=== PATIENT | female | born 1940 | race Caucasian/White ===

== ENCOUNTER 2017-05-06 22:43 | Inpatient (IN) | payer OTHER ==
[2017-05-06 22:50] VITALS: BMI 18.6
--- NOTE | 2017-05-06 22:52 | C.PDOC ---
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 as per son , pt was at baseline, "in park" earlier today. pt was changing her clothes, then reported loss of visiion at 830 pm, similar to previous cva. pt also being tx for uti as per son by pmd. no fevers, no c/o of pain. pt and family poor historians. Chief Complaint (Nursing): Weakness/Neurological Deficit Past Medical History Reviewed: Historical Data, Nursing Documentation, Vital Signs Vital Signs: Last Vital Signs Temp 98.4 F 05/07/17 15:04 Pulse 69 05/07/17 15:04 Resp 20 05/07/17 15:04 BP 171/82 H 05/07/17 15:04 Pulse Ox 93 L 05/07/17 15:04 - Medical History PMH: Arthritis, Diabetes, HTN, Hypercholesterolemia Denies: Chronic Kidney Disease Surgical History: Denies: Pacemaker - [facility] Procedures CORONAR ARTERIOGR-2 CATH (06/24/15) LT HEART ANGIOCARDIOGRAM (06/24/15) RT/LEFT HEART CARD CATH (06/24/15) Family History: States: No Known Family Hx, Unknown Family Hx - Social History Hx Tobacco Use: No Hx Alcohol Use: No Hx Substance Use: No - Immunization History Hx Tetanus Toxoid Vaccination: No Hx Influenza Vaccination: No Hx Pneumococcal Vaccination: No Review Of Systems Except As Marked, All Systems Reviewed And Found Negative. Neurological: Positive for: Other (loss of vision, ) Physical Exam - Physical Exam Appears: Well, No Acute Distress Skin: Normal Color, Warm, Dry Eye(s): bilateral: Normal Inspection, PERRL, EOMI Nose: Normal Throat: Normal Neck: Normal Cardiovascular: Rhythm Regular Respiratory: Normal Breath Sounds Gastrointestinal/Abdominal: Normal Exam, Soft, No Tenderness, No Guarding, No Rebound Back: Normal Inspection Extremity: Normal ROM Neurological/Psych: Oriented x3, Normal Speech, Normal Cognition, Normal Motor, Normal Sensation, Other ((+)left sided gaze preference, left facial droop (+) loss of b/l visual vargas) ED Course And Treatment - Laboratory Results Result Diagrams: 05/07/17 07:05 05/07/17 07:05 Critical Care Time - Critical Care Note Total Time (in mins): 45 Documented critical care: time excludes all time spent performing seperately billable procedures. NIHSS Stroke Scale - How Severe is the Stoke Level of Consciousness: 1=Drowsy LOC to Questions: 0=Both comments correct LOC to commands: 0=Obeys both correctly Best Gaze: 2=Forced deviation Visual: 3=Bilateral Facial: 2=Partial (lower face paralysis) Motor Arm - Left: 0=No drift Motor Arm - Right: 0=No drift Motor Leg - Left: 0=No drift Motor Leg - Right: 0=No drift Limb Ataxia: 0=Absent Sensory: 0=Normal Best Language: 0=No aphasia Dysarthia: 0=Normal articulation Extinction & Inattention (Neglect): 0=Normal, no object Score: 8 Severity Of Stroke: 5-15= Moderate Stroke rTPA Inclusion/Exclusion - Refusal of Treatment Patient Refused Treatment: No - Inclusion Criteria for Altepase Patient is 18 years or Older: Yes The Clinical Diagnosis of Ischemic Stroke That is Causing a Potentially Disabling Neurological Deficit: Yes Time of Onset is Well Established to be Less Than 270 Minute Before Treatment Would Begin: Yes Risk/Benefit Discussed With Patient/Family Member Present: Yes - Exclusion Criteria for Altepase History of: Intracranial hemorrhage Medical Decision Making Medical Decision Making: r/o cva- code stroke called on arrival - labs imaging pending 1115: head ct neg. case discussed with dr kelley flight communications operator. recommends stat CTA, for possible urgent thrombectomy. advises to obtain stat, w/o results of chemisttyr. discussed risk benefit wit family and risk of iv contast. family agreeable to stat CTA understanding risk to kidneys 1200: cta neg. suspected small vessel occlusion. pt reports symptoms improving. asa given. hospitaist accepts ekg nsr 93 non specific lateral t wave changes, no interval change Disposition - Disposition Disposition: HOSPITALIZED Disposition Time: 01:00 Condition: FAIR - Clinical Impression Clinical Impression: Blurry vision, UTI (urinary tract infection), Stroke Decision To Admit - Pt Status Changed To: Hospital Disposition Of: Inpatient - Admit Certification Admit to Inpatient:: After my assessment, the patient will require hospitalization for at least two midnights. This is because of the severity of symptoms shown, intensity of services needed, and/or the medical risk in this patient being treated as an outpatient. - InPatient: Physician Admission Certification: I certify that this patient requires 2 or more midnights of care for the following reason:: ro cva, neurology eval, mri, - . Bed Request Type: Telemetry Admitting Physician: Rigo Iraheta Patient Diagnosis: Blurry vision, UTI (urinary tract infection), Stroke
--- NOTE | 2017-05-06 23:04 | CT ---
EXAM: CT Head Without Intravenous Contrast CLINICAL HISTORY: 77 years old, female; Signs and symptoms; Altered mental status/memory loss; Confusion or disorientation; Additional info: Code stroke TECHNIQUE: Axial computed tomography images of the head/brain without intravenous contrast. This CT exam was performed using one or more of the following dose reduction techniques: automated exposure control, adjustment of the mA and/or kV according to patient size, and/or use of iterative reconstruction technique. COMPARISON: CT - HEAD W/O CONTRAST 08/10/2015 4:50:33 PM FINDINGS: Brain: Moderate atrophy. No intracranial hemorrhage. No mass. Mild encephalomalacia within RIGHT occipital parietal region. Few scattered foci of decreased attenuation within periventricular/subcortical white matter. Probable chronic lacunar infarct within RIGHT centrum semiovale. No definite edema. Ventricles: No hydrocephalus. Bones/joints: No acute fracture. Calvarial osteoma. Soft tissues: Unremarkable. Vasculature: Atherosclerotic disease of intracranial arteries. Sinuses: No acute sinusitis. Mastoid air cells: No mastoid effusion. Orbits: Unremarkable as visualized. IMPRESSION: 1. Nonspecific white matter changes. Acute infarction may be CT occult within first 24 hours. If a focal deficit persists, consider followup CT or MRI for further evaluation. 2. Incidental/non-acute findings are described above.
[2017-05-06 23:15] LABS: BASO % 0.2 % (0.0-2.0); EOS % 0.3 % (0.0-4.0); HEMATOCRIT 35.2 % (34.0-47.0); LYMPH # 1.9 K/uL (1.0-4.3); LYMPH % 13.5 % (20.0-40.0); MEAN CELL VOLUME 84.4 fL (81.0-99.0); MEAN CORPUSCULAR HEMOGLOBIN 27.5 pg (27.0-31.0); MEAN CORPUSCULAR HGB CONC 32.6 g/dL (33.0-37.0); MEAN PLATELET VOLUME 8.1 fL (7.2-11.7); MONO # 0.7 K/uL (0.0-0.8); MONO % 4.9 % (0.0-10.0); RED CELL DISTRIBUTION WIDTH 13.1 % (11.5-14.5); WHITE BLOOD COUNT 13.9 K/uL (4.8-10.8)
[2017-05-06] MEDS ORDERED: Iodixanol 320 MG/ML 100 ML BOTTLE IV ONE (23:19)
[2017-05-06 23:24] LABS: POTASSIUM 5.1 mmol/L (3.6-5.2)
[2017-05-06 23:26] LABS: ALB/GLOB RATIO 1.1 (1.0-2.1); BILIRUBIN,TOTAL 0.6 mg/dL (0.2-1.3); TOTAL PROTEIN 7.4 g/dL (6.3-8.3)
[2017-05-06 23:27] LABS: CALCIUM 8.4 mg/dl (8.6-10.4)
[2017-05-06 23:39] LABS: TROPONIN I 0.046 ng/mL (0.00-0.120)
--- NOTE | 2017-05-06 23:46 | CT ---
EXAM: CT Head With Intravenous Contrast CLINICAL HISTORY: 77 years old, female; Signs and symptoms; Visual disturbance; Type not specified; Additional info: Blurry vision TECHNIQUE: Axial computed tomography images of the head with intravenous contrast during the arterial phase of enhancement. This CT exam was performed using one or more of the following dose reduction techniques: automated exposure control, adjustment of the mA and/or kV according to patient size, and/or use of iterative reconstruction technique. Coronal and sagittal reformatted images were created and reviewed. CONTRAST: 100 mL of [id number] administered intravenously. COMPARISON: CT - HEAD W/O (CODE STROKE) 05/06/2017 10:53:06 PM FINDINGS: Right internal carotid artery: Atherosclerotic disease. No significant stenosis or occlusion. No aneurysm. Right anterior cerebral artery: No occlusion or significant stenosis. No aneurysm. Right middle cerebral artery: No occlusion or significant stenosis. No aneurysm. Right posterior cerebral artery: No occlusion or significant stenosis. No aneurysm. Right vertebral artery: Atherosclerotic disease. No significant stenosis or occlusion. No aneurysm. Left internal carotid artery: Atherosclerotic disease. No significant stenosis or occlusion. No aneurysm. Left anterior cerebral artery: No occlusion or significant stenosis. No aneurysm. Left middle cerebral artery: No occlusion or significant stenosis. No aneurysm. Left posterior cerebral artery: No occlusion or significant stenosis. No aneurysm. Left vertebral artery: Atherosclerotic disease. No significant stenosis or occlusion. No aneurysm. Basilar artery: No significant stenosis. No occlusion. Brain: Moderate atrophy. No intracranial hemorrhage. No mass. Mild encephalomalacia within RIGHT parietal occipital region. Few scattered foci of decreased attenuation within periventricular/subcortical white matter. No definite edema. Bones/joints: No acute fracture. Calvarial osteomas. Sinuses: RIGHT maxillary retention cyst. Mastoid air cells: No mastoid effusion. Orbits: Unremarkable as visualized. IMPRESSION: 1. Patent vasculature. 2. Nonspecific white matter changes. Acute infarction may be CT occult within first 24 hours. If a focal deficit persists, consider followup CT or MRI for further evaluation. 3. Incidental/non-acute findings are described above.
[2017-05-06] MEDS ORDERED: Sodium Chloride 0.9% 1,000 ML IV ONE (23:50)
--- NOTE | 2017-05-07 00:07 | CP.PCM.HP ---
<Dev Mcknight - Last Filed: 05/07/17 02:39> History of Present Illness - History of Present Illness History of Present Illness: CC: Vision loss since 8:30pm HPI: This 77 year old female with PMHx of Diabetes, HTN, Hypercholesterolemia, and previous hemorrhagic CVA (no residual deficits) - presents to the ED c/o loss of vision and mild left sided facial droop since 8:30pm today. As per son and granddaughter, patient was at baseline "in the park" earlier today. She was seen conversing, walking, and even reading from an iPAD at her typical baseline. When they arrived home, the patient was changing clothes at 8:30pm, when she began to complain of vision loss, similar to her previous CVA. The patient states that her vision was completely blacked out while at home, and 4 hours later in the ED, she can now tell that the lights are on, however cannot determine shapes or movement. Also admits to mild head weakness. Denies fevers, chills, dizziness, headache, chest pain, SOB, abdominal pain, n/v, d/c, recent travel, leg pain, or any additional complaints. Patient is also being tx for a UTI for the past 2 days, by her PMD, due to burning on urination for the past 2 weeks. ED course: TPA not administered due to prior CVA. Patient received ASA 81mg. CXR negative; CT head w/o contrast negative; CT angio head/neck negative, EKG negative. PMHx: Diabetes, HTN, Hypercholesterolemia, previous hemorrhagic CVA (no residual deficits) PSHx: , bilateral cataract surgery about 6 years ago (Denies: Pacemaker ) Meds: see EMR Allergies: NKDA FamHx: denies SocHx: denies smoking, etoh, drugs. Lives with family PMD: Dr. Velazquez Present on Admission - Present on Admission Any Indicators Present on Admission: No History of DVT/PE: No History of Uncontrolled Diabetes: No Review of Systems - Hematologic/Lymphatic Additional comments: - Constitutional Constitutional: absent: Fever, Chills, Sweats, Weakness - EENT Eyes: Blurred Vision, Change in Vision, Loss of Vision. absent: Spots in Vision Ears: absent: Decreased Hearing, Tinnitus, Dizziness Nose/Mouth/Throat: absent: Facial Pain, Neck Mass - Cardiovascular Cardiovascular: absent: Chest Pain, Dyspnea, Pain Radiating to Arm/Neck/Jaw - Respiratory Respiratory: absent: Cough, Dyspnea - Genitourinary Genitourinary: absent: Dysuria, Urinary Incontinence - Musculoskeletal Musculoskeletal: absent: Back Pain, Muscle Weakness, Numbness, Stiffness, Tingling - Neurological Neurological: Weakness. absent: Dizziness, Numbness, Headaches, Loss of Vision , Sensory Deficit, Syncope, Tingling - Psychiatric Psychiatric: absent: Anxiety, Depression - Endocrine Endocrine: absent: Fatigue, Palpitations Past Patient History - Infectious Disease Hx of Infectious Diseases: None - Tetanus Immunizations Tetanus Immunization: Unknown - Past Medical History & Family History Past Medical History?: Yes - Past Social History Smoking Status: Never Smoked - CARDIAC Hx Hypercholesterolemia: Yes Hx Hypertension: Yes Hx Pacemaker: No - PULMONARY Hx Respiratory Disorders: No - NEUROLOGICAL Other/Comment: Stroke x 1 in 2016 - HEENT Hx Cataracts: Yes - RENAL Hx Chronic Kidney Disease: No - ENDOCRINE/METABOLIC Hx Diabetes Mellitus Type 2: Yes - HEMATOLOGICAL/ONCOLOGICAL Hx Blood Transfusions: No Hx Blood Transfusion Reaction: No - MUSCULOSKELETAL/RHEUMATOLOGICAL Hx Arthritis: Yes - GASTROINTESTINAL Hx Gastrointestinal Disorders: No - PSYCHIATRIC Hx Substance Use: No - SURGICAL HISTORY Hx Surgeries: Yes Hx Cataract Extraction: Yes (Bilat eyes) Hx Section: Yes - ANESTHESIA Hx Anesthesia: Yes Hx Anesthesia Reactions: No Hx Malignant Hyperthermia: No Meds Allergies/Adverse Reactions: Allergies Allergy/AdvReac Type Severity Reaction Status Date / Time No Known Allergies Allergy Verified 05/06/17 22:54 Physical Exam - Additional Findings Additional findings: - Constitutional Appears: Non-toxic, No Acute Distress - Head Exam Head Exam: ATRAUMATIC, NORMAL INSPECTION, NORMOCEPHALIC - Eye Exam Eye Exam: EOMI, Normal appearance, PERRL. absent: Nystagmus, Periorbital swelling, Periorbital tenderness Additional comments: - L sided gaze preference - Patient only able to see that the lights are on - (+) corneal reflex - ENT Exam ENT Exam: Mucous Membranes Moist - Neck Exam Neck exam: Positive for: Normal Inspection. Negative for: Lymphadenopathy, Thyromegaly - Respiratory Exam Respiratory Exam: Clear to PA & Lateral, NORMAL BREATHING PATTERN. absent: Rales, Rhonchi, Wheezes - Cardiovascular Exam Cardiovascular Exam: REGULAR RHYTHM, +S1, +S2. absent: Diastolic murmur, Systolic Murmur - GI/Abdominal Exam GI & Abdominal Exam: Normal Bowel Sounds, Soft. absent: Tenderness - Extremities Exam Extremities exam: Positive for: pedal pulses present. Negative for: pedal edema - Back Exam Back exam: NORMAL INSPECTION - Neurological Exam Neurological exam: Alert, Oriented x3 - patient is not able to see - L sided gaze preference; - mild L facial droop (present with smile, however overcome by more forceful smile bearing teeth) - (+) babinski b/l - No slurring of speech NIHSS Stroke Scale - How Severe is the Stoke Level of Consciousness: 1=Drowsy LOC to Questions: 0=Both comments correct LOC to commands: 0=Obeys both correctly Best Gaze: 2=Forced deviation Visual: 3=Bilateral Facial: 2=Partial (lower face paralysis) Motor Arm - Left: 0=No drift Motor Arm - Right: 0=No drift Motor Leg - Left: 0=No drift Motor Leg - Right: 0=No drift Limb Ataxia: 0=Absent Sensory: 0=Normal Best Language: 0=No aphasia Dysarthia: 0=Normal articulation Extinction & Inattention (Neglect): 0=Normal, no object Score: 8 Severity Of Stroke: 5-15= Moderate Stroke - Psychiatric Exam Psychiatric exam: Normal Affect, Normal Mood - Skin Skin Exam: Dry, Normal Color, Rash (On bilateral legs, present for many years) Results - Vital Signs Recent Vital Signs: Last Vital Signs Temp Pulse 96 H 05/06/17 22:45 Resp 18 05/06/17 22:45 BP 146/121 H 05/06/17 22:45 Pulse Ox 100 05/06/17 22:45 - Labs Result Diagrams: 05/06/17 22:50 05/06/17 22:50 Labs: Laboratory Results - last 24 hr 05/06/17 05/06/17 05/06/17 22:50 22:50 22:50 WBC 13.9 H RBC 4.17 Hgb 11.5 Hct 35.2 MCV 84.4 MCH 27.5 MCHC 32.6 L RDW 13.1 Plt Count 289 D MPV 8.1 Neut % (Auto) 81.1 H Lymph % (Auto) 13.5 L [place] % (Auto) 4.9 Eos % (Auto) 0.3 Baso % (Auto) 0.2 Neut # 11.3 H Lymph # 1.9 [place] # 0.7 Eos # 0.0 Baso # 0.0 PT INR APTT Sodium 137 Potassium 5.1 Chloride 100 Carbon Dioxide 19 L Anion Gap 23 H BUN 29 H Creatinine 1.8 H Est GFR ( Amer) 33 Est GFR (Non-Af Amer) 27 Random Glucose 243 H Hemoglobin A1c 9.2 H Calcium 8.4 L Total Bilirubin 0.6 AST 25 ALT 21 Alkaline Phosphatase 69 Troponin I 0.0460 Total Protein 7.4 Albumin 4.0 Globulin 3.4 Albumin/Globulin Ratio 1.1 Triglycerides 189 H Cholesterol 119 LDL Cholesterol Direct 52 HDL Cholesterol 40 Blood Type 05/06/17 05/06/17 23:34 23:34 WBC RBC Hgb Hct MCV MCH MCHC RDW Plt Count MPV Neut % (Auto) Lymph % (Auto) [place] % (Auto) Eos % (Auto) Baso % (Auto) Neut # Lymph # [place] # Eos # Baso # PT 11.6 INR 1.0 APTT 21 Sodium Potassium Chloride Carbon Dioxide Anion Gap BUN Creatinine Est GFR ( Amer) Est GFR (Non-Af Amer) Random Glucose Hemoglobin A1c Calcium Total Bilirubin AST ALT Alkaline Phosphatase Troponin I Total Protein Albumin Globulin Albumin/Globulin Ratio Triglycerides Cholesterol LDL Cholesterol Direct HDL Cholesterol Blood Type B POSITIVE Assessment & Plan - Assessment and Plan (Free Text) Assessment: Vision loss / Rule out CVA - rule out CVA; No TPA given in ED due to history of brain bleed in 2014 CXR negative, see full report. CT head negative, see full report. CT angio head/neck negative, see full report. EKG nsr 93 non specific lateral t wave changes, no interval change NS 0.9% 1L bolus 1/2NS at 100cc/hr Neuro consult, Dr. Harden, f/u recs Troponin/EKG negative x1 f/u LEELA + EKG x2 f/u ECHO f/u carotid doppler f/u MRI head w/o contrast Consider MRI next day Hx of Posterior cerebral circulation hemorrhagic infarction (2014) - MRI Brain 2015: acute to early subacute hemorrhagic infarction within the right occipital lobe, parasagittal location involving the splenium of the corpus callosum (please see officila report). - CT Head 2015: shows hemorrhagic infarct Right posterior cerebral artery with mass effect (see full report). - Carotid Dopplers 2014 shows mild disease bilaterally (see full report) HTN BP 188/80 on admission Continue home Clonidin 0.3mg PO TID; Losartan 100mg PO qd; Coreg 6.25mg PO BID; Lasix 20mg PO qd Diabetes A1c 9.2 Novolog ISS Hold home Metformin 500mg PO BID and hold Glipizide 5mg PO BID - patient given contrast for CT angio evening of 05/06. Hypercholesterolemia Crestor 2.5mg HS Cholest 119 Triglyc 189 H HDL 40 / LDL 52 UTI - patient is being treated for a UTI by her PMD - UA (+); glucose 2+, Blood 1+, Leuk Est 3+, WBC 53, Hyaline casts 3-5H. Continue home Cipro 500mg PO BID (started 05/05) -> renally dosed to Q18H. Prophylaxis SCDs Pepcid 20mg IVP daily NPO Swallow eval PT/OT eval/treat - Date & Time Date: 05/07/17 Time: 00:20 <Rigo Iraheta - Last Filed: 05/07/17 06:27> Results - Vital Signs Recent Vital Signs: Last Vital Signs Temp 98.6 F 05/07/17 04:20 Pulse 75 05/07/17 05:34 Resp 20 05/07/17 05:34 BP 151/69 H 05/07/17 05:34 Pulse Ox 96 05/07/17 04:20 - Labs Result Diagrams: 05/06/17 22:50 05/06/17 22:50 Assessment & Plan - Date & Time Date: 05/07/17 (I have seen and examined the patient. I agree with the findings and plan of care as documented by Dr. Mcknight. Patient with TIA/CVA. History of prior CVA. Consult to neuro. Code Stroke called in ED. ROMIx3 with EKG. 2D Echo and Carotid dopplers. Admit to tele. Continue home meds for history of hypertension. Monitor for acute changes.) Time: 06:25 Attending/Attestation - Attestation I have personally seen and examined this patient.: Yes I have fully participated in the care of the patient.: Yes I have reviewed all pertinent clinical information: Yes
[2017-05-07 00:38] LABS: RBC URINE 2 /hpf (0-3); URINE BACTERIA RARE (<OCC); URINE BILIRUBIN NEGATIVE (NEGATIVE); URINE BLOOD 1+ (NEGATIVE); URINE COLOR Straw (YELLOW); URINE GLUCOSE (UA) 2+ mg/dL (Normal); URINE KETONE NEGATIVE (NEGATIVE); URINE LEUKOCYTE ESTERASE 3+ Leu/uL (Negative); URINE PROTEIN NEGATIVE (NEGATIVE); URINE UROBILINOGEN NORMAL mg/dL (0.2-1.0); WBC URINE 53 /hpf (0-5)
[2017-05-07] MEDS ORDERED: cefTRIAXone IV 1 gm in Dextros 50 ML IVPB ONE (00:39)
[2017-05-07] MEDS: Sodium Chloride 0.45% 1,000 ML IV SCH ×3 (02:13→21:00)
[2017-05-07 07:38] LABS: POTASSIUM 4.3 mmol/L (3.6-5.2)
[2017-05-07 07:40] LABS: ALB/GLOB RATIO 1.1 (1.0-2.1); BILIRUBIN,TOTAL 0.6 mg/dL (0.2-1.3); TOTAL PROTEIN 6.8 g/dL (6.3-8.3)
[2017-05-07 07:41] LABS: BASO % 0.3 % (0.0-2.0); CALCIUM 8.2 mg/dl (8.6-10.4); EOS # 0.1 K/uL (0.0-0.7); EOS % 0.5 % (0.0-4.0); HEMATOCRIT 32.7 % (34.0-47.0); LYMPH # 1.3 K/uL (1.0-4.3); MEAN CORPUSCULAR HEMOGLOBIN 28.3 pg (27.0-31.0); MEAN CORPUSCULAR HGB CONC 34.1 g/dL (33.0-37.0); MEAN PLATELET VOLUME 8.4 fL (7.2-11.7); MONO # 0.5 K/uL (0.0-0.8); MONO % 5.3 % (0.0-10.0); PHOSPHOROUS 3.4 mg/dL (2.5-4.5); WHITE BLOOD COUNT 9.9 K/uL (4.8-10.8)
[2017-05-07] MEDS: (Novolog) Insulin Aspart, Recombinant 100 u/ml 10 ml vial SC SCH ×4 (07:48→22:28)
[2017-05-07 08:13] LABS: FREE T4 1.46 ng/dL (0.78-2.19)
[2017-05-07 08:27] LABS: THYROID STIMULATING HORMONE 4.3 mIU/L (0.46-4.68)
--- NOTE | 2017-05-07 08:46 | RAD ---
HISTORY: code stroke COMPARISON: No prior. FINDINGS: LUNGS: The lungs are well inflated and clear. PLEURA: No significant pleural effusion identified, no pneumothorax apparent. CARDIOVASCULAR: There is mild cardiomegaly. Atherosclerotic aortic arch calcifications are present. OSSEOUS STRUCTURES: No significant abnormalities. VISUALIZED UPPER ABDOMEN: Normal. OTHER FINDINGS: None. IMPRESSION: No active pulmonary disease.
--- NOTE | 2017-05-07 08:56 | CP.PCM.CON ---
History of Present Illness - History of Present Illness History of Present Illness: CONSULT DICTATED NEW VISION LOSS EXAM RIGHT HOMONYMOUS HEMINANOPSIA - NEW LEFT HOMONYMOUS HEMIANOPSIA - OLD PLAN R/O CARDIO EMBOLIGENISIS PLAVIX AND ASA DIABETIC CONTROL MRI NEEDS RASHAAD D/W RESIDENT AND FAMILY MEMBER MR CATARINO SANCHEZ Past Patient History - Infectious Disease Hx of Infectious Diseases: None - Tetanus Immunizations Tetanus Immunization: Unknown - Past Medical History & Family History Past Medical History?: Yes - Past Social History Smoking Status: Never Smoked - CARDIAC Hx Hypercholesterolemia: Yes Hx Hypertension: Yes Hx Pacemaker: No - PULMONARY Hx Respiratory Disorders: No - NEUROLOGICAL Other/Comment: Stroke x 1 in 2016 - HEENT Hx Cataracts: Yes - RENAL Hx Chronic Kidney Disease: No - ENDOCRINE/METABOLIC Hx Diabetes Mellitus Type 2: Yes - HEMATOLOGICAL/ONCOLOGICAL Hx Blood Transfusions: No Hx Blood Transfusion Reaction: No - MUSCULOSKELETAL/RHEUMATOLOGICAL Hx Arthritis: Yes - GASTROINTESTINAL Hx Gastrointestinal Disorders: No - PSYCHIATRIC Hx Substance Use: No - SURGICAL HISTORY Hx Surgeries: Yes Hx Cataract Extraction: Yes (Bilat eyes) Hx Section: Yes - ANESTHESIA Hx Anesthesia: Yes Hx Anesthesia Reactions: No Hx Malignant Hyperthermia: No Meds Allergies/Adverse Reactions: Allergies Allergy/AdvReac Type Severity Reaction Status Date / Time No Known Allergies Allergy Verified 05/06/17 22:54 - Medications Medications: Current Medications Aspirin (Aspirin Chewable) 81 mg PO DAILY [facility] Calcium/Vitamin D (Oyster Shell Calcium/Vitamin D 500 Mg-200 Iu) 1 tab PO BID [facility] Carvedilol (Coreg) 6.25 mg PO BID [facility] Ciprofloxacin (Cipro) 500 mg PO BID [facility] Clonidine HCl (Catapres) 0.3 mg PO TID [facility] Clopidogrel Bisulfate (Plavix) 75 mg PO DAILY [facility] Famotidine (Pepcid) 20 mg IVP DAILY [facility] Folic Acid (Folic Acid) 1 mg PO DAILY [facility] Furosemide (Lasix) 20 mg PO DAILY [facility] Sodium Chloride (Sodium Chloride 0.45%) 1,000 mls @ 100 mls/hr IV .Q10H [facility] Last Admin: 05/07/17 02:13 Dose: 100 mls/hr Insulin Aspart (Novolog) 0 unit SC ACHS [facility] PRN Reason: Protocol Last Admin: 05/07/17 07:48 Dose: Not Given Losartan Potassium (Cozaar) 100 mg PO DAILY [facility] Rosuvastatin Calcium (Crestor) 2.5 mg PO HS [facility] Results - Vital Signs Recent Vital Signs: Last Vital Signs Temp 97.8 F 05/07/17 07:30 Pulse 72 05/07/17 07:30 Resp 18 05/07/17 07:30 BP 170/83 H 05/07/17 07:30 Pulse Ox 100 05/07/17 07:30 - Labs Result Diagrams: 05/07/17 07:05 05/07/17 07:05 Labs: Laboratory Results - last 24 hr 05/07/17 05/07/17 05/07/17 06:29 07:05 07:05 WBC 9.9 RBC 3.94 Hgb 11.2 Hct 32.7 L MCV 83.0 MCH 28.3 MCHC 34.1 RDW 13.0 Plt Count 271 MPV 8.4 Neut % (Auto) 80.9 H Lymph % (Auto) 13.0 L [place] % (Auto) 5.3 Eos % (Auto) 0.5 Baso % (Auto) 0.3 Neut # 8.0 H Lymph # 1.3 [place] # 0.5 Eos # 0.1 Baso # 0.0 Sodium 138 Potassium 4.3 Chloride 98 Carbon Dioxide 23 Anion Gap 21 H BUN 23 H Creatinine 1.5 H Est GFR ( Amer) 41 Est GFR (Non-Af Amer) 34 POC Glucose (mg/dL) 200 H Random Glucose 194 H Calcium 8.2 L Phosphorus 3.4 Magnesium 1.0 L* D Total Bilirubin 0.6 AST 23 ALT 23 Alkaline Phosphatase 76 Total Creatine Kinase 76 CK-MB (Mass) 1.77 Troponin I, Quant 0.0500 C-React Prot High Sens Total Protein 6.8 Albumin 3.6 Globulin 3.2 Albumin/Globulin Ratio 1.1 Triglycerides Cholesterol LDL Cholesterol Direct HDL Cholesterol Vitamin B12 Homocysteine Free T4 TSH 3rd Generation 05/07/17 05/07/17 07:05 07:05 WBC RBC Hgb Hct MCV MCH MCHC RDW Plt Count MPV Neut % (Auto) Lymph % (Auto) [place] % (Auto) Eos % (Auto) Baso % (Auto) Neut # Lymph # [place] # Eos # Baso # Sodium Potassium Chloride Carbon Dioxide Anion Gap BUN Creatinine Est GFR ( Amer) Est GFR (Non-Af Amer) POC Glucose (mg/dL) Random Glucose Calcium Phosphorus Magnesium Total Bilirubin AST ALT Alkaline Phosphatase Total Creatine Kinase CK-MB (Mass) Troponin I, Quant C-React Prot High Sens 5.57 H Total Protein Albumin Globulin Albumin/Globulin Ratio Triglycerides 161 H Cholesterol 108 LDL Cholesterol Direct 51 HDL Cholesterol 41 Vitamin B12 169 L Homocysteine 22.0 H Free T4 1.46 TSH 3rd Generation 4.30
[2017-05-07 09:06] LABS: FOLATE 10.7 ng/mL
[2017-05-07] MEDS: Magnesium Sulfate 1 gm in D5W 1 GM/100 ML BAG IVPB SCH ×2 (10:18→10:50)
[2017-05-07] MEDS: Calcium-Vit D 500 mg-200 Units Tab UD PO SCH ×3 (10:42→18:22)
--- NOTE | 2017-05-07 13:03 | CP.PCM.CON ---
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 As per son and granddaughter, patient was at baseline "in the park" earlier today. She was seen conversing, walking, and even reading from an iPAD at her typical baseline. When they arrived home, the patient was changing clothes at 8:30pm, when she began to complain of vision loss, similar to her previous CVA. The patient states that her vision was completely blacked out while at home, and 4 hours later in the ED, she can now tell that the lights are on, however cannot determine shapes or movement. Also admits to mild head weakness. Denies fevers, chills, dizziness, headache, chest pain, SOB, abdominal pain, n/v, d/c, recent travel, leg pain, or any additional complaints. Patient is also being tx for a UTI for the past 2 days, by her PMD, due to burning on urination for the past 2 weeks. ED course: TPA not administered due to prior CVA. Patient received ASA 81mg. CXR negative; CT head w/o contrast negative; CT angio head/neck negative, EKG negative. 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 Lives with family Review of Systems - Review of Systems Systems not reviewed;Unavailable: Acuity of Condition, Altered Mental Status Past Patient History - Infectious Disease Hx of Infectious Diseases: None - Tetanus Immunizations Tetanus Immunization: Unknown - Past Medical History & Family History Past Medical History?: Yes Past Family History: Reviewed and not pertinent - Past Social History Smoking Status: Never Smoked Chewing Tobacco Use: No Cigar Use: No Alcohol: None Drugs: Denies Home Situation {Lives}: With Family - CARDIAC Hx Hypercholesterolemia: Yes Hx Hypertension: Yes - PULMONARY Hx Respiratory Disorders: No - NEUROLOGICAL HX Cerebrovascular Accident: Yes (no residuals) - HEENT Hx Cataracts: Yes - RENAL Hx Chronic Kidney Disease: No - ENDOCRINE/METABOLIC Hx Diabetes Mellitus Type 2: Yes - HEMATOLOGICAL/ONCOLOGICAL Hx Blood Transfusions: No Hx Blood Transfusion Reaction: No - MUSCULOSKELETAL/RHEUMATOLOGICAL Hx Arthritis: Yes - GASTROINTESTINAL Hx Gastrointestinal Disorders: No - PSYCHIATRIC Hx Substance Use: No - SURGICAL HISTORY Hx Surgeries: Yes Hx Cataract Extraction: Yes (Bilat eyes) Hx Section: Yes - ANESTHESIA Hx Anesthesia: Yes Hx Anesthesia Reactions: No Hx Malignant Hyperthermia: No Meds Allergies/Adverse Reactions: Allergies Allergy/AdvReac Type Severity Reaction Status Date / Time No Known Allergies Allergy Verified 05/06/17 22:54 - Medications Medications: Current Medications Aspirin (Aspirin Chewable) 81 mg PO DAILY [facility] Last Admin: 05/07/17 11:46 Dose: 81 mg Calcium/Vitamin D (Oyster Shell Calcium/Vitamin D 500 Mg-200 Iu) 1 tab PO BID [facility] Last Admin: 05/07/17 11:46 Dose: 1 tab Carvedilol (Coreg) 6.25 mg PO BID [facility] Last Admin: 05/07/17 11:47 Dose: 6.25 mg Ciprofloxacin (Cipro) 500 mg PO BID [facility] Last Admin: 05/07/17 11:46 Dose: 500 mg Clonidine HCl (Catapres) 0.3 mg PO TID [facility] Clopidogrel Bisulfate (Plavix) 75 mg PO DAILY [facility] Last Admin: 05/07/17 11:46 Dose: 75 mg Famotidine (Pepcid) 20 mg IVP DAILY [facility] Last Admin: 05/07/17 11:47 Dose: 20 mg Folic Acid (Folic Acid) 1 mg PO DAILY [facility] Last Admin: 05/07/17 11:47 Dose: 1 mg Furosemide (Lasix) 20 mg PO DAILY [facility] Sodium Chloride (Sodium Chloride 0.45%) 1,000 mls @ 100 mls/hr IV .Q10H [facility] Last Admin: 05/07/17 11:45 Dose: Not Given Insulin Aspart (Novolog) 0 unit SC ACHS [facility] PRN Reason: Protocol Last Admin: 05/07/17 12:49 Dose: 3 unit Losartan Potassium (Cozaar) 100 mg PO DAILY [facility] Last Admin: 05/07/17 11:46 Dose: 100 mg Pneumococcal Polyvalent Vaccine (Pneumovax 23 Vaccine) 0.5 ml IM .ONCE ONE Stop: 05/08/17 10:01 Rosuvastatin Calcium (Crestor) 2.5 mg PO HS [facility] Physical Exam - Constitutional Appears: No Acute Distress, Chronically Ill - Head Exam Head Exam: ATRAUMATIC, NORMAL INSPECTION - Eye Exam Eye Exam: EOMI, Normal appearance - ENT Exam ENT Exam: Mucous Membranes Moist, Normal Exam - Neck Exam Neck exam: Positive for: Normal Inspection. Negative for: Tenderness - Respiratory Exam Respiratory Exam: Clear to Auscultation Bilateral, NORMAL BREATHING PATTERN - Cardiovascular Exam Cardiovascular Exam: REGULAR RHYTHM, +S1 - GI/Abdominal Exam GI & Abdominal Exam: Soft. absent: Tenderness - Extremities Exam Extremities exam: Positive for: normal inspection. Negative for: tenderness - Neurological Exam Neurological exam: Altered, Motor Sensory Deficit - Skin Skin Exam: Dry, Warm Results - Vital Signs Recent Vital Signs: Last Vital Signs Temp 97.8 F 05/07/17 07:30 Pulse 72 05/07/17 07:30 Resp 18 05/07/17 07:30 BP 170/83 H 05/07/17 07:30 Pulse Ox 100 05/07/17 07:30 - Labs Result Diagrams: 05/07/17 07:05 05/07/17 07:05 Labs: Laboratory Results - last 24 hr 05/07/17 05/07/17 05/07/17 06:29 07:05 07:05 WBC 9.9 RBC 3.94 Hgb 11.2 Hct 32.7 L MCV 83.0 MCH 28.3 MCHC 34.1 RDW 13.0 Plt Count 271 MPV 8.4 Neut % (Auto) 80.9 H Lymph % (Auto) 13.0 L [place] % (Auto) 5.3 Eos % (Auto) 0.5 Baso % (Auto) 0.3 Neut # 8.0 H Lymph # 1.3 [place] # 0.5 Eos # 0.1 Baso # 0.0 ESR Sodium 138 Potassium 4.3 Chloride 98 Carbon Dioxide 23 Anion Gap 21 H BUN 23 H Creatinine 1.5 H Est GFR ( Amer) 41 Est GFR (Non-Af Amer) 34 POC Glucose (mg/dL) 200 H Random Glucose 194 H Calcium 8.2 L Phosphorus 3.4 Magnesium 1.0 L* D Total Bilirubin 0.6 AST 23 ALT 23 Alkaline Phosphatase 76 Total Creatine Kinase 76 CK-MB (Mass) 1.77 Troponin I, Quant 0.0500 C-React Prot High Sens Total Protein 6.8 Albumin 3.6 Globulin 3.2 Albumin/Globulin Ratio 1.1 Triglycerides Cholesterol LDL Cholesterol Direct HDL Cholesterol Vitamin B12 Folate Homocysteine Free T4 TSH 3rd Generation 05/07/17 05/07/17 05/07/17 07:05 07:05 07:05 WBC RBC Hgb Hct MCV MCH MCHC RDW Plt Count MPV Neut % (Auto) Lymph % (Auto) [place] % (Auto) Eos % (Auto) Baso % (Auto) Neut # Lymph # [place] # Eos # Baso # ESR 54 H Sodium Potassium Chloride Carbon Dioxide Anion Gap BUN Creatinine Est GFR ( Amer) Est GFR (Non-Af Amer) POC Glucose (mg/dL) Random Glucose Calcium Phosphorus Magnesium Total Bilirubin AST ALT Alkaline Phosphatase Total Creatine Kinase CK-MB (Mass) Troponin I, Quant C-React Prot High Sens 5.57 H Total Protein Albumin Globulin Albumin/Globulin Ratio Triglycerides 161 H Cholesterol 108 LDL Cholesterol Direct 51 HDL Cholesterol 41 Vitamin B12 169 L Folate 10.7 Homocysteine 22.0 H Free T4 1.46 TSH 3rd Generation 4.30 05/07/17 12:21 WBC RBC Hgb Hct MCV MCH MCHC RDW Plt Count MPV Neut % (Auto) Lymph % (Auto) [place] % (Auto) Eos % (Auto) Baso % (Auto) Neut # Lymph # [place] # Eos # Baso # ESR Sodium Potassium Chloride Carbon Dioxide Anion Gap BUN Creatinine Est GFR ( Amer) Est GFR (Non-Af Amer) POC Glucose (mg/dL) 259 H Random Glucose Calcium Phosphorus Magnesium Total Bilirubin AST ALT Alkaline Phosphatase Total Creatine Kinase CK-MB (Mass) Troponin I, Quant C-React Prot High Sens Total Protein Albumin Globulin Albumin/Globulin Ratio Triglycerides Cholesterol LDL Cholesterol Direct HDL Cholesterol Vitamin B12 Folate Homocysteine Free T4 TSH 3rd Generation Assessment & Plan (1) CKD (chronic kidney disease) stage 3, GFR 30-59 ml/min Status: Acute (2) UTI (urinary tract infection) Status: Acute (3) Diabetes mellitus Status: Acute (4) Hypertension Status: Acute (5) Posterior cerebral circulation hemorrhagic infarction Status: Acute - Assessment and Plan (Free Text) Plan: Replete mag- being done Recheck proteinuria Control BP gently- being done Renal US follow up chemistries
--- NOTE | 2017-05-07 13:06 | MRI ---
PROCEDURE: MRI BRAIN WITHOUT CONTRAST HISTORY: Recent stroke COMPARISON: Noncontrast head CT from 05/06/2017. TECHNIQUE: Multiplanar, multisequence MR images of the brain were obtained without intravenous contrast enhancement. FINDINGS: HEMORRHAGE: None DWI: There is a large acute infarction in the left occipital lobe, left posterior medial temporal lobe and left thalamus. BRAIN PARENCHYMA: There is increased T2/FLAIR signal in the left occipital lobe, posterior medial temporal lobe and thalamus with surrounding vasogenic edema. There is no evidence of midline shift or herniation. There is cystic encephalomalacia in the right occipital lobe from remote infarction. There is an old lacunar infarction in the right centrum semiovale. There are mild chronic microangiopathic changes. There is no abnormal extra-axial fluid collection. The midline sagittal structures are normal. VENTRICLES: There is moderate age-related global parenchymal volume loss and proportionate enlargement of the ventricles and cortical sulci. CRANIUM: There is normal bone marrow signal pattern. ORBITS: Grossly unremarkable. PARANASAL SINUSES/MASTOIDS: There is a retention cyst/ polyp in the right inferior maxillary sinus, the remaining included paranasal sinuses are predominantly clear VASCULAR SYSTEM: Skull base flow voids intact. OTHER FINDINGS: None. IMPRESSION: 1. Large acute left [employer] territory infarction involving the occipital lobe, medial and posterior temporal lobe and thalamus with mild surrounding vasogenic edema. No evidence of midline shift or herniation. 2. Cystic encephalomalacia in the right occipital lobe, sequela of remote right [employer] territory infarction. 3. Mild chronic microangiopathic changes, small old lacunar infarction in the right centrum semiovale and moderate age-related global parenchymal volume loss. Critical findings were conveyed to nurse Tuyet Arias on 05/07/2017 at 12:55 p.m.
--- NOTE | 2017-05-07 15:52 | US ---
PROCEDURE: Ultrasound of the Kidneys HISTORY: ckd eval COMPARISON: None available. TECHNIQUE: Sonogram of the kidneys. FINDINGS: RIGHT KIDNEY: Measures: 8.1 cm. Small in size with diffuse increased echogenicity. There is a 6 mm nonspecific calcification in the interpolar region. No stone, solid mass lesion or hydronephrosis visualized. LEFT KIDNEY: Measures: 8.7 cm. Normal in size with diffuse increased echogenicity. There is a 1.3 cm simple cyst in the interpolar region. No stone, solid mass lesion or hydronephrosis visualized. OTHER FINDINGS: None. IMPRESSION: Medical renal disease. Small right kidney. No hydronephrosis or nephrolithiasis.
--- NOTE | 2017-05-07 17:38 | CP.PCM.PN ---
<Cali Villarreal - Last Filed: 05/07/17 19:23> Subjective - Date & Time of Evaluation Date of Evaluation: 05/07/17 Time of Evaluation: 18:00 - Subjective Subjective: PGY-[address] hCacko's service: Pt seen and examined at bedside. Nursing reports pt hypertensive since coming to the floor, so home Clonidine was restarted. Pt for MRI this AM. Pt found supine in bed with her two sons at bedside. Pt states "she does not feel good" and she "feels all tired out all over." She admits continued decreased viosion knowing if the lights are on/off and when asked states she sees "only shadows" at her sides bilaterally. Son at bedside reports prior CVA in 2016 where the presentation was similar to now, with the loss of vision, but vision was restored within 4 hours. She denies chest pain, palpitations, headache, abdominal pain, N/V. Objective - Vital Signs/Intake and Output Vital Signs (last 24 hours): Temp Pulse Resp BP Pulse Ox 98.4 F 69 20 171/82 H 93 L 05/07/17 15:04 05/07/17 15:04 05/07/17 15:04 05/07/17 15:04 05/07/17 15:04 Intake and Output: 05/07/17 05/07/17 06:59 18:59 Intake Total 1040 Output Total 200 Balance -200 1040 - Medications Medications: Current Medications Aspirin (Aspirin Chewable) 81 mg PO DAILY [facility] Last Admin: 05/07/17 11:46 Dose: 81 mg Calcium/Vitamin D (Oyster Shell Calcium/Vitamin D 500 Mg-200 Iu) 1 tab PO BID [facility] Last Admin: 05/07/17 11:46 Dose: 1 tab Carvedilol (Coreg) 6.25 mg PO BID [facility] Last Admin: 05/07/17 11:47 Dose: 6.25 mg Ciprofloxacin (Cipro) 500 mg PO BID [facility] Last Admin: 05/07/17 11:46 Dose: 500 mg Clonidine HCl (Catapres) 0.3 mg PO TID [facility] Last Admin: 05/07/17 13:59 Dose: 0.3 mg Clopidogrel Bisulfate (Plavix) 75 mg PO DAILY [facility] Last Admin: 05/07/17 11:46 Dose: 75 mg Famotidine (Pepcid) 20 mg IVP DAILY [facility] Last Admin: 05/07/17 11:47 Dose: 20 mg Folic Acid (Folic Acid) 1 mg PO DAILY [facility] Last Admin: 05/07/17 11:47 Dose: 1 mg Furosemide (Lasix) 20 mg PO DAILY [facility] Home Med (Home Med) 1 unit OU TID [facility] Home Med (Home Med) 1 unit OU HS [facility] Sodium Chloride (Sodium Chloride 0.45%) 1,000 mls @ 100 mls/hr IV .Q10H [facility] Last Admin: 05/07/17 11:45 Dose: Not Given Insulin Aspart (Novolog) 0 unit SC ACHS [facility] PRN Reason: Protocol Last Admin: 05/07/17 12:49 Dose: 3 unit Losartan Potassium (Cozaar) 100 mg PO DAILY [facility] Last Admin: 05/07/17 11:46 Dose: 100 mg Pneumococcal Polyvalent Vaccine (Pneumovax 23 Vaccine) 0.5 ml IM .ONCE ONE Stop: 05/08/17 10:01 Rosuvastatin Calcium (Crestor) 2.5 mg PO [facility] - Labs Labs: 05/07/17 07:05 05/07/17 07:05 PT 11.6 SECONDS (9.7-12.2) 05/06/17 23:34 INR 1.0 05/06/17 23:34 APTT 21 SECONDS (21-34) 05/06/17 23:34 - Constitutional Appears: Non-toxic, No Acute Distress - Head Exam Head Exam: ATRAUMATIC, NORMAL INSPECTION, NORMOCEPHALIC - Eye Exam Eye Exam: EOMI, Normal appearance, PERRL. absent: Scleral icterus Additional comments: Pt maintains L sided gaze preference documented on earlier exam Patient denied knowing if light in room are turned on, however "flinch response " intact when - ENT Exam ENT Exam: Mucous Membranes Moist - Neck Exam Neck Exam: absent: Lymphadenopathy, Tenderness - Respiratory Exam Respiratory Exam: Clear to Ausculation Bilateral, NORMAL BREATHING PATTERN - Cardiovascular Exam Cardiovascular Exam: REGULAR RHYTHM, +S1, +S2 - GI/Abdominal Exam GI & Abdominal Exam: Soft, Normal Bowel Sounds. absent: Tenderness - Extremities Exam Extremities Exam: absent: Pedal Edema, Tenderness - Back Exam Back Exam: absent: CVA tenderness (L), CVA tenderness (R) - Neurological Exam Neurological Exam: Alert, Awake, Oriented x3 Neuro motor strength exam: Left Upper Extremity: 3, Right Upper Extremity: 3, Left Lower Extremity: 4, Right Lower Extremity: 4 Additional comments: Pt admits only seeing shadows in periphery of her vision Lt sided gaze preference intact subtle left facial droop, no slurring of speech negative babinski Light touch in tact globally in both Upper and lower extremities - Psychiatric Exam Psychiatric exam: Normal Affect, Normal Mood - Skin Skin Exam: Normal Color, Warm Assessment and Plan - Assessment and Plan (Free Text) Plan: CVA No TPA given in ED due to history of hemorrhagic stroke in 2014 CXR (05/07/17): no active pulmonary disease (see full report) CT head negative (05/07/17): Nonspecific white matter changes. Acute infartion may be occult wihin 24hrs. If deficit persists, consider follow up CT/MRI (see full report) CT angio head/neck (05/07/17): Patent vasculataure. Nonspecific white matter changes. Acute infarctoin may be occult within first 24 hrs. If deficit persists , consider CT/MRI for further evaluation (see resident) MRI head w/o contrast (05/07/17): Large acute left [employer] territory infarction involving occipital lobe, medial, and posterior temporal lobe and thalamus with mild surrounding vasogenic edema. No evidence of midline shift or herniation. Cystic encephalmalacia in right occiptial lobe, sequela of remote [employer] territory infarction. Mild chronic microangiopathic changes, small old lacunar infarction in the right centrum semiovale and moderate age related global parenchymal volume loss (see full report) EKG (05/07/17): nsr 93 non specific lateral t wave changes, no interval change NS 0.9% 1L bolus 1/2NS at 100cc/hr Neuro consult, Dr. Harden - Keep SBP between 140-160 (MAP 100) Hydralazine Q6H if SBP >160 Troponin/EKG negative x3 Carotid doppler (05/07/17): mild disease bilaterally Dr Tse consulted for cardiology, help appreciated - per Dr Tse, after ECHO read will plan RASHAAD Hx of Posterior cerebral circulation hemorrhagic infarction (2014) - MRI Brain 2014: acute to early subacute hemorrhagic infarction within the right occipital lobe, parasagittal location involving the splenium of the corpus callosum (please see officila report). - CT Head 2014: shows hemorrhagic infarct Right posterior cerebral artery with mass effect (see full report). - Carotid Dopplers 2014 shows mild disease bilaterally (see full report) Acute Kidney injury Cr 1.8 on admission, GFR 27 Dr Caab, nephrology, consulted - f/u Renal US, proteinuria Acute vision loss Hx of cataracts - uses [place] 0.01%, and [place] 0.1% Opthalmologist: Dr. Rodriguez, help appreciated -f/u Optho reccs HTN BP 188/80 on admission; elevated this PM - per Neuro Dr Harden, keep SBP 140-160 Hydralazine 10mg IV Q6H PRN if SBP > 160 Continue home Clonidine 0.3mg PO TID; Losartan 100mg PO qd; Coreg 6.25mg PO BID ; Lasix 20mg PO qd Diabetes A1c 9.2 Novolog ISS Hold home Metformin 500mg PO BID and hold Glipizide 5mg PO BID - patient given contrast for CT angio evening of 05/06. Hypercholesterolemia HDL 40 / LDL 52 Crestor 2.5mg HS Cholest 119 Triglyc 189 H UTI - patient is being treated for a UTI by her PMD - UA (+); glucose 2+, Blood 1+, Leuk Est 3+, WBC 53, Hyaline casts 3-5H. Continue home Cipro 500mg PO BID (started 05/05) -> renally dosed to Q18H. Prophylaxis SCDs Pepcid 20mg IVP daily Mechanical soft bite-sized diet, thin liquid (vegetarian) PT - benefit from skilled PT to improve transfers/mobility OT - recommend TCU Discussed with Dr. Ricco Villarreal PGY-1 <Vandana Chacko V - Last Filed: 05/10/17 12:55> Objective - Vital Signs/Intake and Output Vital Signs (last 24 hours): Temp Pulse Resp BP Pulse Ox 98.5 F 130 H 18 143/64 20 L 05/10/17 11:58 05/10/17 11:58 05/10/17 07:05 05/10/17 11:58 05/10/17 07:05 Intake and Output: 05/10/17 05/10/17 06:59 18:59 Intake Total 300 Balance 300 - Medications Medications: Current Medications Apixaban (Eliquis) 2.5 mg PO BID [facility] Last Admin: 05/10/17 10:50 Dose: 2.5 mg Aspirin (Aspirin Chewable) 81 mg PO DAILY [facility] Last Admin: 05/10/17 10:48 Dose: 81 mg Calcium/Vitamin D (Oyster Shell Calcium/Vitamin D 500 Mg-200 Iu) 1 tab PO BID [facility] Last Admin: 05/10/17 10:48 Dose: 1 tab Carvedilol (Coreg) 12.5 mg PO BID [facility] Last Admin: 05/10/17 09:56 Dose: Not Given Citalopram Hydrobromide (Celexa) 10 mg PO DAILY [facility] Last Admin: 05/10/17 10:50 Dose: 10 mg Clonidine HCl (Catapres) 0.3 mg PO TID [facility] Last Admin: 05/08/17 11:18 Dose: 0.3 mg Diltiazem HCl (Cardizem) 30 mg PO Q6 [facility] Last Admin: 05/10/17 11:51 Dose: 30 mg Docusate Sodium (Colace) 100 mg PO BID [facility] Last Admin: 05/10/17 10:48 Dose: 100 mg Famotidine (Pepcid) 20 mg IVP DAILY [facility] Last Admin: 05/10/17 10:49 Dose: 20 mg Folic Acid (Folic Acid) 1 mg PO DAILY [facility] Last Admin: 05/10/17 10:48 Dose: 1 mg Furosemide (Lasix) 20 mg PO DAILY [facility] Home Med (Home Med) 1 unit OU TID [facility] Last Admin: 05/10/17 10:47 Dose: 1 unit Home Med (Home Med) 1 unit OU HS [facility] Last Admin: 05/09/17 23:02 Dose: 1 unit Hydralazine HCl (Apresoline) 10 mg IVP Q6H PRN PRN Reason: Systolic Blood Pressure Last Admin: 05/10/17 06:17 Dose: 10 mg Sodium Chloride (Sodium Chloride 0.45%) 1,000 mls @ 50 mls/hr IV .Q20H [facility] Last Admin: 05/10/17 09:55 Dose: Not Given Ceftriaxone Sodium 1 gm/ (Sodium Chloride) 100 mls @ 100 mls/hr IVPB DAILY [facility] Last Admin: 05/10/17 10:47 Dose: 100 mls/hr Insulin Aspart (Novolog) 0 unit SC ACHS [facility] PRN Reason: Protocol Last Admin: 05/10/17 11:35 Dose: Not Given Losartan Potassium (Cozaar) 100 mg PO DAILY [facility] Last Admin: 05/10/17 11:00 Dose: 100 mg Magnesium Oxide (Mag-Ox) 400 mg PO BID [facility] Last Admin: 05/10/17 10:48 Dose: 400 mg Metformin HCl (Glucophage) 500 mg PO BIDCC [facility] Last Admin: 05/10/17 08:38 Dose: Not Given Ondansetron HCl (Zofran Inj) 4 mg IVP Q6H PRN PRN Reason: Nausea/Vomiting Last Admin: 05/10/17 11:50 Dose: 4 mg Rosuvastatin Calcium (Crestor) 2.5 mg PO HS [facility] Last Admin: 05/09/17 23:01 Dose: 2.5 mg Simethicone (Mylicon Chew Tab) 80 mg PO Q8H PRN PRN Reason: GI distress Last Admin: 05/10/17 05:32 Dose: 80 mg - Labs Labs: 05/10/17 06:36 05/10/17 06:36 PT 11.6 SECONDS (9.7-12.2) 05/06/17 23:34 INR 1.0 05/06/17 23:34 APTT 21 SECONDS (21-34) 05/06/17 23:34 Attending/Attestation - Attestation I have personally seen and examined this patient.: Yes I have fully participated in the care of the patient.: Yes I have reviewed all pertinent clinical information, including history, physical exam and plan: Yes Notes (Text): This is late computer entry for 05/07/17. Patient seen, examined, and case discussed with day-time resident. Patient seen in the afternoon with patient's son at bedside for assistance in translation. Patient permits us to speak to her son regarding her medical information. Swallow j carlosdot completed this morning. Discussed with son, patient completed imaging this morning, patient has had new stroke involving the [employer] territory which includes occipital, medial, and posterior temporal lobe, and thalamus Discussed with opthalamologist, Dr. Rodriguez this morning, prior to the results of the imaging which came later given patient's eye complaints. Patient completed echocardiogram, awaiting follow-up with pinion sorter to see when to schedule patient for RASHAAD, recommended by neurology. Patient ordered for hypercoagubaility workup given second stroke in two years. Nephrology consult given patient's acute on chronic renal insufficiency. GFR normal two years ago per review of EMR. Discussed with son regarding future discharge planning regarding [facility], he reports he needs to discuss with family. Awaiting urine culture; patient on Ciprofloxicin PO per PMD prior to hospitalization for UTI symptoms.
[2017-05-07 18:10] LABS: RBC URINE 1 /hpf (0-3); URINE BACTERIA OCC (<OCC); URINE BILIRUBIN NEGATIVE (NEGATIVE); URINE COLOR Straw (YELLOW); URINE GLUCOSE (UA) 1+ mg/dL (Normal); URINE KETONE NEGATIVE (NEGATIVE); URINE LEUKOCYTE ESTERASE 1+ Leu/uL (Negative); URINE PROTEIN NEGATIVE (NEGATIVE); URINE UROBILINOGEN NORMAL mg/dL (0.2-1.0); WBC URINE 6 /hpf (0-5)
[2017-05-07 18:12] LABS: URINE BLOOD NEGATIVE (NEGATIVE)
[2017-05-07] MEDS ORDERED: Home Med 1 UNIT OU SCH (22:00)
[2017-05-07] MEDS: Rosuvastatin Calcium 2.5 mg Tab PO SCH (22:27)
[2017-05-07] MEDS: ALPHAGAN 0.1% OU SCH (22:27)
--- NOTE | 2017-05-07 22:35 | CON ---
ATTENDING PHYSICIAN: Rigo Iraheta DO The patient is in room #658, bed B. REASON FOR THE CONSULTATION: Vision loss. CHIEF COMPLAINT: The patient was brought into [facility] with history of abrupt onset of loss of vision. From neurological point of view, I was called into evaluate her for further management. HISTORY OF PRESENTING ILLNESS: The patient is a 77-year-old right-handed, non-Citizen Of [place] speaking [place] female, who was normal, yesterday evening went to the park with the family members, after coming home, while she was playing the iPad she lost her vision. This vision associating with some evidence of dizziness. Other problem such as loss of speech, loss of consciousness, any involuntary movement or focal, sensory motor dysfunction. 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 Other medical history including dyslipidemia, [id number] diabetes mellitus and hypertension. PERSONAL HISTORY: Denies smoking, alcohol use. ALLERGIES: No known allergies. MEDICATIONS: Aspirin, clonidine, Cipro, carvedilol, Losartan, rosuvastatin. Lasix, insulin, calcium, Pepcid. PHYSICAL EXAMINATION VITAL SIGNS: Blood pressure 170/83, mean arterial pressure of 112, respiratory rate 16, temperature afebrile. NECK: Supple. HEART: Systolic murmur in the heart noted. Rhythm is good. EXTREMITIES: Both legs are externally rotated. NEUROLOGICAL EXAMINATION: Mental status examination: She is examined in the presence of an still photographer. She is awake, alert, oriented to person and place. She knows her complaints and problems. She could able to explain the problem what happened her. CRANIAL NERVE EXAMINATION: Respond to visual threat. She has significant cortical blindness. Pupil reactive to light. Extraocular movements seems to be intact. Visual cue not there; however, respond to look at the person when we talk. No facial asymmetry. Hearing seems to be intact. Mouth is moist. Tongue is midline. MOTOR EXAMINATION: She could able to lift both upper extremities against the gravity. DEEP TENDON REFLEXES: Absent, plantars are upgoing on both sides. SENSORY EXAMINATION: Respond to pain symmetrically on both sides; however, she does have neuropathy secondary to her underlying diabetes mellitus. CONCLUSION: Upon reviewing her recent neurological examination, the patient is presenting with the abrupt onset of some disease well associating with the visual loss, consistent with cortical dysfunction, particularly the occipital lobe region. History of stroke on CT finding consistent with old right MARKETING OPERATIONS SPECIALIST stroke probably manifesting with left homonymous anopsia, which the patient was not aware of it. At present, the patient presenting with complete blindness, which it may be superimposed with left MARKETING OPERATIONS SPECIALIST infarct or ishemic process pertaining to her the left visual field. It is all related to posterior cerebral artery distributed ischemic process which is probably secondary to an underlying diabetes mellitus and hypertension. The patient also suffering from diabetic neuropathy. WORKUP: The CT of head reviewed by me showed atrophy with encephalomalacia over right MARKETING OPERATIONS SPECIALIST territory and no other acute process noted. CT angiogram is reported as no vascular pathology. EKG normal sinus rhythm. LABORATORY DATA: Blood workup: WBC 9.9, hemoglobin 11.2, hematocrit 32.7, platelet 271. PT 11.6, INR 1.0, PTT 21. Sodium 138, potassium 4.3, chloride 98, GRF 41, glucose of 200. Magnesium 1.0. C-reactive protein 5.57, triglycerides 161, homocysteine 22. Urinalysis: 2+ glucose, 1+ blood and hyaline cast. RECOMMENDATIONS: 1. The patient should be maintain blood pressure, mean arterial pressure around 100. 2. The patient should have MRI of the brain to study the ishemic process over left MARKETING OPERATIONS SPECIALIST territory region. 3. Carotid Doppler to rule out any significant stenosis. 4. Electroencephalogram to rule out nonconvulsive seizures. 5. Diabetic control base reduction has been discussed with her. The patient's condition also discussed with resident, I advised him to call cardiology consultation to rule out cardiac embolic phenomenon, especially multi ischemic process involving large vessel disease. I recommended her to have transesophageal echocardiogram to rule out cardio embologenesis. The patient condition also discussed with family members. Tenzin Harden MD
--- NOTE | 2017-05-07 23:09 | CON ---
DATE: 05/07/2017 ATTENDING: Dr. Juarez Rodriguez. HISTORY OF PRESENT ILLNESS: The patient is a 77-year-old female who presented with reports of loss of vision, starting yesterday. The patient reports that she can make out figures, but cannot see much of anything more, this occurred in both eyes at the same time and since yesterday, it has not gotten any better. PHYSICAL EXAMINATION: HEENT: Her vision is about light perception in both eyes. Her pupils are equal and reactive to light in both eyes. Her extraocular motility is normal. On slit lamp exam, she has artificial lenses in both eyes. Her eye pressure is 19 mmHg in both eyes. On posterior exam, her nerves appear cupped. Approximately, 0.8 cup to disc ratio and retina is flat and attached. ASSESSMENT: 1. Acute loss of vision both eyes. 2. Glaucoma both eyes. PLAN: The patient currently is being worked up for possible CVA. Her MRI results are pending. I would recommend for her to continue her glaucoma medicines in hospital, which should be Alphagan both eyes twice a day and Lumigan both eyes at night. There is no ocular source for her acute loss of vision. If there are any questions, you can contact our office, . Upon discharge, she should be followed up with an process owner. She can always make an appointment in our office. Juarez Rodriguez MD [facility]
--- NOTE | 2017-05-08 06:09 | CARD ---
APPROVED REPORT EXAM: Two-dimensional and M-mode echocardiogram with Doppler and color Doppler. Other Information Quality : GoodRhythm : NSR INDICATION CVA/TIA RISK FACTORS Hypertension Hyperlipidemia Diabetes M-Mode DIMENSIONS RVDd1.00 (2.1-3.2cm)Left Atrium (MM)4.22 (2.5-4.0cm) IVSd1.37 (0.7-1.1cm)Aortic Root2.79 (2.2-3.7cm) LVDd4.01 (4.0-5.6cm)Aortic Cusp Exc.1.31 (1.5-2.0cm) PWd1.55 (0.7-1.1cm)FS (%) 32 % LVDs2.73 (2.0-3.8cm)LVEF (%)60 (>50%) Aortic Valve AoV Peak Hbzkqxjk085.8cm/[place]que Peak GR.4mmHgLVOT Peak Gtxrzmtk78.7cm/s Mitral Valve MV E Psfalzau140.6cm/sMV A Zrajzodt264.6cm/sE/A ratio1.3 TDI E/Lateral E'0.0E/Medial E'0.0 Tricuspid Valve TR Peak Sttbkqww922ng/sTR Peak Gr.10mmHg LEFT VENTRICLE The left ventricle is normal size. There is mild to moderate concentric left ventricular hypertrophy. Left ventricle systolic function is normal. The Ejection Fraction is 60-65%. There is normal LV segmental wall motion. The left ventricular diastolic function is normal. RIGHT VENTRICLE The right ventricle is normal size. The right ventricle is borderline hypertrophied. The right ventricular systolic function is normal. ATRIA The left atrium is mildly dilated. The right atrium size is normal. The interatrial septum is intact with no evidence for an atrial septal defect. AORTIC VALVE The aortic valve is normal in structure. There is trace aortic regurgitation. There is no aortic valvular stenosis. There is no aortic valvular vegetation. MITRAL VALVE Mitral annular calcification is mild to moderate. There is no evidence of mitral valve prolapse. There is no mitral valve stenosis. Mitral regurgitation is mild. TRICUSPID VALVE The tricuspid valve is normal in structure. There is no tricuspid valve regurgitation noted. PULMONIC VALVE The pulmonic valve is not well visualized. There is no pulmonic valvular regurgitation. GREAT VESSELS The aortic root is normal in size. PERICARDIAL EFFUSION There is no significant pericardial effusion. <Conclusion> Left ventricle systolic function is normal. The Ejection Fraction is 60-65%. Hypertensive heart disease. There is trace aortic regurgitation. Mitral regurgitation is mild. There is no tricuspid valve regurgitation noted. There is no pulmonic valvular regurgitation.
[2017-05-08 06:58] LABS: BASO % 0.3 % (0.0-2.0); HEMATOCRIT 32.8 % (34.0-47.0); LYMPH # 1.7 K/uL (1.0-4.3); LYMPH % 10.7 % (20.0-40.0); MEAN CELL VOLUME 83.7 fL (81.0-99.0); MEAN CORPUSCULAR HEMOGLOBIN 28.5 pg (27.0-31.0); MEAN PLATELET VOLUME 8.3 fL (7.2-11.7); MONO # 0.8 K/uL (0.0-0.8); MONO % 5.5 % (0.0-10.0); WHITE BLOOD COUNT 15.5 K/uL (4.8-10.8)
[2017-05-08 07:26] LABS: POTASSIUM 4.4 mmol/L (3.6-5.2)
[2017-05-08 07:27] LABS: ALB/GLOB RATIO 1.1 (1.0-2.1); BILIRUBIN,TOTAL 0.9 mg/dL (0.2-1.3); CALCIUM 8.4 mg/dl (8.6-10.4); MAGNESIUM 1.6 mg/dL (1.6-2.3); PHOSPHOROUS 3.3 mg/dL (2.5-4.5)
--- NOTE | 2017-05-08 07:45 | CP.PCM.PN ---
<Cali Villarreal - Last Filed: 05/08/17 16:33> Subjective - Date & Time of Evaluation Date of Evaluation: 05/08/17 Time of Evaluation: 07:41 - Subjective Subjective: PGY-[address] Sim's service: Pt seen and examined at bedside. Nursing reports patient blood pressure below target pressure set by neurology, so will hold Lasix. Pt found resting comfortably in bed with her son at bedside this AM. Pt states she is still is having difficulty seeing this AM, and still only sees "shadows at the corner of her vision." Pt states she still feels lethargic, and "doesn't feel like eating anything." Pt reports normal BM this AM, and she denies chest pain, palpitations , headache, abdominal pain, N/V. Objective - Vital Signs/Intake and Output Vital Signs (last 24 hours): Temp Pulse Resp BP Pulse Ox 97.5 F L 83 20 159/75 H 99 05/08/17 04:00 05/08/17 04:00 05/08/17 04:00 05/08/17 04:00 05/08/17 04:00 Intake and Output: 05/08/17 05/08/17 06:59 18:59 Intake Total 150 Balance 150 - Medications Medications: Current Medications Aspirin (Aspirin Chewable) 81 mg PO DAILY [facility] Last Admin: 05/07/17 11:46 Dose: 81 mg Calcium/Vitamin D (Oyster Shell Calcium/Vitamin D 500 Mg-200 Iu) 1 tab PO BID [facility] Last Admin: 05/07/17 18:22 Dose: 1 tab Carvedilol (Coreg) 6.25 mg PO BID [facility] Last Admin: 05/07/17 18:22 Dose: 6.25 mg Ciprofloxacin (Cipro) 500 mg PO BID [facility] Last Admin: 05/07/17 18:22 Dose: 500 mg Clonidine HCl (Catapres) 0.3 mg PO TID [facility] Last Admin: 05/07/17 18:22 Dose: 0.3 mg Clopidogrel Bisulfate (Plavix) 75 mg PO DAILY [facility] Last Admin: 05/07/17 11:46 Dose: 75 mg Famotidine (Pepcid) 20 mg IVP DAILY [facility] Last Admin: 05/07/17 11:47 Dose: 20 mg Folic Acid (Folic Acid) 1 mg PO DAILY [facility] Last Admin: 05/07/17 11:47 Dose: 1 mg Furosemide (Lasix) 20 mg PO DAILY [facility] Home Med (Home Med) 1 unit OU TID [facility] Last Admin: 05/07/17 22:27 Dose: 1 unit Home Med (Home Med) 1 unit OU HS [facility] Last Admin: 05/07/17 22:28 Dose: 1 unit Hydralazine HCl (Apresoline) 10 mg IVP Q6H PRN PRN Reason: Systolic Blood Pressure Sodium Chloride (Sodium Chloride 0.45%) 1,000 mls @ 100 mls/hr IV .Q10H [facility] Last Admin: 05/07/17 21:00 Dose: 100 mls/hr Insulin Aspart (Novolog) 0 unit SC ACHS [facility] PRN Reason: Protocol Last Admin: 05/07/17 22:28 Dose: Not Given Losartan Potassium (Cozaar) 100 mg PO DAILY [facility] Last Admin: 05/07/17 11:46 Dose: 100 mg Pneumococcal Polyvalent Vaccine (Pneumovax 23 Vaccine) 0.5 ml IM .ONCE ONE Stop: 05/08/17 10:01 Rosuvastatin Calcium (Crestor) 2.5 mg PO [facility] Last Admin: 05/07/17 22:27 Dose: 2.5 mg - Labs Labs: 05/08/17 06:43 05/07/17 07:05 PT 11.6 SECONDS (9.7-12.2) 05/06/17 23:34 INR 1.0 05/06/17 23:34 APTT 21 SECONDS (21-34) 05/06/17 23:34 - Additional Findings Additional findings: - Constitutional Appears: Non-toxic, No Acute Distress - Head Exam Head Exam: ATRAUMATIC, NORMAL INSPECTION, NORMOCEPHALIC - Eye Exam Eye Exam: EOMI, Normal appearance, PERRL. absent: Scleral icterus Additional comments: Pt maintains L sided gaze preference documented on earlier exam Patient denied knowing if light in room are turned on, however "flinch response " intact - ENT Exam ENT Exam: Mucous Membranes Moist - Neck Exam Neck Exam: absent: Lymphadenopathy, Tenderness - Respiratory Exam Respiratory Exam: Clear to Ausculation Bilateral, NORMAL BREATHING PATTERN - Cardiovascular Exam Cardiovascular Exam: REGULAR RHYTHM, +S1, +S2 - GI/Abdominal Exam GI & Abdominal Exam: Soft, Normal Bowel Sounds. absent: Tenderness - Extremities Exam Extremities Exam: absent: Pedal Edema, Tenderness - Back Exam Back Exam: absent: CVA tenderness (L), CVA tenderness (R) - Neurological Exam Neurological Exam: Alert, Awake, Oriented x3 Neuro motor strength exam: Left Upper Extremity: 3, Right Upper Extremity: 3, Left Lower Extremity: 4, Right Lower Extremity: 4 Additional comments: Pt admits only seeing shadows in periphery of her vision Lt sided gaze preference intact subtle left facial droopmost noticeable when smiling no slurring of speech negative babinski Light touch in tact globally in both Upper and lower extremities - Psychiatric Exam Psychiatric exam: Normal Affect, Normal Mood - Skin Skin Exam: Normal Color, Warm Assessment and Plan - Assessment and Plan (Free Text) Plan: CVA No TPA given in ED due to history of hemorrhagic stroke in 2014 CXR (05/07/17): no active pulmonary disease (see full report) CT angio head/neck (05/07/17): Patent vasculataure. Nonspecific white matter changes. Acute infarction may be occult within first 24 hrs. If deficit persists , consider CT/MRI for further evaluation (see resident) MRI head w/o contrast (05/07/17): Large acute left WIENER PACKER territory infarction involving occipital lobe, medial, and posterior temporal lobe and thalamus with mild surrounding vasogenic edema. No evidence of midline shift or herniation. Cystic encephalmalacia in right occiptial lobe, sequela of remote WIENER PACKER territory infarction. Mild chronic microangiopathic changes, small old lacunar infarction in the right centrum semiovale and moderate age related global parenchymal volume loss (see full report) CT head negative (05/07/17): Nonspecific white matter changes. Acute infartion may be occult wihin 24hrs. If deficit persists, consider follow up CT/MRI (see full report) - f/u CT Head (05/08/17): Encephalomalacia involving right occipital lobe. Evolving ischemic changes identified involving left occipital lobe, inferior aspect of the medial temporal lobes, as well as portion of the thalamus. Effacement and displacement of the posterior horn left lateral ventricle (see full report) EKG (05/07/17): nsr 93 non specific lateral t wave changes, no interval change Carotid doppler (05/07/17): mild disease bilaterally Troponin/EKG negative x3 Hypercoaguability workup: f/u antiphospholipid, Factor V leiden, Protein C&S, Neuro consult, Dr. Harden - Keep SBP between 140-160 (MAP 100) Hydralazine Q6H if SBP >160 - held Clonidine 0.3 mg TID, as pt below goal MAP Dr Tse consulted for cardiology, help appreciated - RASHAAD on schedule for tomorrow 9:30 AM Hx of Posterior cerebral circulation hemorrhagic infarction (2014) - MRI Brain 2015: acute to early subacute hemorrhagic infarction within the right occipital lobe, parasagittal location involving the splenium of the corpus callosum (please see official report). - CT Head 2014: shows hemorrhagic infarct Right posterior cerebral artery with mass effect (see full report). - Carotid Dopplers 2015 shows mild disease bilaterally (see full report) Acute Kidney injury Creatinine improving today 1.1, 48 - from Cr 1.8 on admission, GFR 27 Dr Caba, nephrology, consulted - Renal US (05/07/17): Medical renal disease. Small right kidney (see full report ) - Renal Artery Duplex Scan (05/08/17): No definite hemodynamically significant stenosis involving renal arteries as visualized (see full report) Acute vision loss Hx of cataracts/glaucoma Opthalmologist: Dr. Rodriguez, help appreciated - continue home meds Alphagan 0.01% BID, and Lamigan 0.1% HS HTN BP 188/80 on admission - per Neuro Dr Harden, keep SBP 140-160 Hydralazine 10mg IV Q6H PRN if SBP > 160 - hold home Clonidine 0.3mg PO TID as below goal this AM - hold Lasix 20mg PO qd due to RADHA Continue home meds Losartan 100mg PO qd; Coreg 6.25mg PO BID; Diabetes BG elevated today (205-326) - increase Novolog ISS to medium A1c 9.2 Hold home Metformin 500mg PO BID and hold Glipizide 5mg PO BID - patient given contrast for CT angio evening of 05/06. - will restart Metformin tomorrow if Cr stable Hypercholesterolemia HDL 40 / LDL 52 Crestor 2.5mg HS Cholest 119 Triglyc 189 H UTI - patient is being treated for a UTI by her PMD - UA (+); glucose 2+, Blood 1+, Leuk Est 3+, WBC 53, Hyaline casts 3-5H. Continue home Cipro 500mg PO BID (first dose 05/05) -> renally dosed to Q18H. Prophylaxis SCDs Pepcid 20mg IVP daily Mechanical soft bite-sized diet, thin liquid (vegetarian) PT - benefit from skilled PT to improve transfers/mobility OT - recommend TCU Discussed with Dr. Roney Villarreal PGY-1 <Pablo Sim - Last Filed: 06/14/17 16:59> Objective - Vital Signs/Intake and Output Vital Signs (last 24 hours): Temp Pulse Resp BP Pulse Ox 98.1 F 71 18 109/73 100 05/17/17 16:37 05/17/17 16:37 05/17/17 16:37 05/17/17 16:37 05/17/17 07:05 - Labs Labs: 05/17/17 11:26 05/17/17 11:26 PT 16.1 SECONDS (9.7-12.2) H 05/11/17 06:42 INR 1.4 05/11/17 06:42 APTT 19 SECONDS (21-34) L 05/11/17 06:42 Attending/Attestation - Attestation I have personally seen and examined this patient.: Yes I have fully participated in the care of the patient.: Yes I have reviewed all pertinent clinical information, including history, physical exam and plan: Yes Notes (Text): Acute cva with vision loss Arf now resolved
[2017-05-08] MEDS: (Novolog) Insulin Aspart, Recombinant 100 u/ml 10 ml vial SC SCH ×4 (08:11→22:47)
[2017-05-08] MEDS ORDERED: Pneumococcal 23-Valent Vaccine IM ONE (10:00)
--- NOTE | 2017-05-08 10:20 | CP.PCM.PN ---
Subjective - Date & Time of Evaluation Date of Evaluation: 05/08/17 Time of Evaluation: 10:19 - Subjective Subjective: seen and examined notes reviewed still with poor vision non verbal Objective - Vital Signs/Intake and Output Vital Signs (last 24 hours): Temp Pulse Resp BP Pulse Ox 98.3 F 82 18 119/52 L 99 05/08/17 07:20 05/08/17 07:20 05/08/17 07:20 05/08/17 07:20 05/08/17 07:20 Intake and Output: 05/08/17 05/08/17 06:59 18:59 Intake Total 150 Balance 150 - Medications Medications: Current Medications Aspirin (Aspirin Chewable) 81 mg PO DAILY [facility] Last Admin: 05/07/17 11:46 Dose: 81 mg Calcium/Vitamin D (Oyster Shell Calcium/Vitamin D 500 Mg-200 Iu) 1 tab PO BID [facility] Last Admin: 05/07/17 18:22 Dose: 1 tab Carvedilol (Coreg) 6.25 mg PO BID [facility] Last Admin: 05/07/17 18:22 Dose: 6.25 mg Ciprofloxacin (Cipro) 500 mg PO BID [facility] Last Admin: 05/07/17 18:22 Dose: 500 mg Clonidine HCl (Catapres) 0.3 mg PO TID [facility] Last Admin: 05/07/17 18:22 Dose: 0.3 mg Clopidogrel Bisulfate (Plavix) 75 mg PO DAILY [facility] Last Admin: 05/07/17 11:46 Dose: 75 mg Famotidine (Pepcid) 20 mg IVP DAILY [facility] Last Admin: 05/07/17 11:47 Dose: 20 mg Folic Acid (Folic Acid) 1 mg PO DAILY [facility] Last Admin: 05/07/17 11:47 Dose: 1 mg Furosemide (Lasix) 20 mg PO DAILY [facility] Home Med (Home Med) 1 unit OU TID [facility] Last Admin: 05/07/17 22:27 Dose: 1 unit Home Med (Home Med) 1 unit OU HS [facility] Last Admin: 05/07/17 22:28 Dose: 1 unit Hydralazine HCl (Apresoline) 10 mg IVP Q6H PRN PRN Reason: Systolic Blood Pressure Sodium Chloride (Sodium Chloride 0.45%) 1,000 mls @ 100 mls/hr IV .Q10H [facility] Last Admin: 05/07/17 21:00 Dose: 100 mls/hr Insulin Aspart (Novolog) 0 unit SC ACHS [facility] PRN Reason: Protocol Last Admin: 05/08/17 08:11 Dose: Not Given Losartan Potassium (Cozaar) 100 mg PO DAILY [facility] Last Admin: 05/07/17 11:46 Dose: 100 mg Rosuvastatin Calcium (Crestor) 2.5 mg PO HS [facility] Last Admin: 05/07/17 22:27 Dose: 2.5 mg - Labs Labs: 05/08/17 06:43 05/08/17 06:43 PT 11.6 SECONDS (9.7-12.2) 05/06/17 23:34 INR 1.0 05/06/17 23:34 APTT 21 SECONDS (21-34) 05/06/17 23:34 - Constitutional Appears: No Acute Distress, Unkempt, Chronically Ill - Head Exam Head Exam: NORMAL INSPECTION - Eye Exam Eye Exam: Normal appearance - ENT Exam ENT Exam: Mucous Membranes Moist - Neck Exam Neck Exam: Normal Inspection - Respiratory Exam Respiratory Exam: Decreased Breath Sounds, NORMAL BREATHING PATTERN - Cardiovascular Exam Cardiovascular Exam: REGULAR RHYTHM - GI/Abdominal Exam GI & Abdominal Exam: Distended, Soft, Normal Bowel Sounds - Back Exam Back Exam: NORMAL INSPECTION Assessment and Plan (1) Blurry vision Status: Acute (2) CKD (chronic kidney disease) stage 3, GFR 30-59 ml/min Status: Acute (3) Stroke Status: Acute (4) Diabetes mellitus Status: Acute (5) Hypertension Status: Acute (6) Posterior cerebral circulation hemorrhagic infarction Status: Acute - Assessment and Plan (Free Text) Assessment: renal function stable hold lasix agree w/ iv fluids permissive hypertension, consider lowering clonidine dose per neuro
[2017-05-08] MEDS: Sodium Chloride 0.45% 1,000 ML IV SCH ×2 (10:27→17:38)
--- NOTE | 2017-05-08 10:37 | CT ---
PROCEDURE: CT HEAD WITHOUT CONTRAST. HISTORY: r/o bleed COMPARISON: Noncontrast head CT performed 05/06/17 TECHNIQUE: Axial computed tomography images were obtained through the head/brain without intravenous contrast. Radiation dose: Total exam DLP = 981.84 mGy-cm. This CT exam was performed using one or more of the following dose reduction techniques: Automated exposure control, adjustment of the mA and/or kV according to patient size, and/or use of iterative reconstruction technique. FINDINGS: HEMORRHAGE: No intracranial hemorrhage. BRAIN: No mass effect or edema. Encephalomalacia of the in the right occipital lobe. Evolving ischemic changes identified involving left occipital lobe, inferior aspect of the medial temporal lobes, as well as a small portion of the thalamus. Additional scattered white matter hypodensities, which are nonspecific, but often seen with chronic microvascular ischemic disease. VENTRICLES: Effacement and displacement of the posterior horn left lateral ventricle. CALVARIUM: Unremarkable. PARANASAL SINUSES: Unremarkable as visualized. No significant inflammatory changes. MASTOID AIR CELLS: Unremarkable as visualized. No inflammatory changes. OTHER FINDINGS: None. IMPRESSION: Encephalomalacia involving the right occipital lobe. Evolving ischemic changes identified involving left occipital lobe, inferior aspect of the medial temporal lobes, as well as a small portion of the thalamus. Effacement and displacement of the posterior horn left lateral ventricle.
[2017-05-08] MEDS: ALPHAGAN 0.1% OU SCH ×3 (11:11→17:40)
[2017-05-08] MEDS: Calcium-Vit D 500 mg-200 Units Tab UD PO SCH ×2 (11:19→17:37)
--- NOTE | 2017-05-08 12:53 | PN ---
DATE: 05/08/2017 NEUROLOGIC PROBLEMS: Cortical blindness from bilateral TUBE REPAIRER infarct; left TUBE REPAIRER infarct is new, right TUBE REPAIRER is infarct is old manifesting blindness. The patient also had evidence of hypertensive crisis yesterday. PHYSICAL EXAMINATION: VITAL SIGNS: Blood pressure 159/75, mean arterial pressure of 103, respiratory rate 18, temperature 97.5 with a pulse rate 83. GENERAL: The patient was examined in the presence of the banana grader. She is awake, alert, oriented to person and place. Speech is clear, moving all 4 extremities against the gravity. She lost her vision. She could not able to count fingers. Absent to visual threat. The examination is unchanged compared with the previous exam. DIAGNOSTIC IMAGING: MRI of the brain reviewed showed left TUBE REPAIRER territory infarct of left occipital lobe, right occipital lobe infarct which is old. Some cytotoxic edema from the new infarct on her left side. In addition to that, the patient does show multiple periventricular ischemic changes consistent with a small vessel disease. These are all old. RECOMMENDATIONS: Cardiology consult still pending. The patient definitely needs transesophageal echocardiogram to rule out cardio embolic source. The patient should have CT of the head because of hypertensive crisis to rule out any microbleed from her large vessel stroke. Continue the present management, keep the mean arterial pressure around 100, keep the systolic pressure between 140 to 160. Tenzin Harden MD [facility]
--- NOTE | 2017-05-08 14:07 | VASCLAB ---
PROCEDURE: Ultrasonography renal arterial evaluation HISTORY: CKD Eval COMPARISON: None available. TECHNIQUE: Real-time ultrasonography evaluation of the renal arteries were performed. Comparison is made to the aorta. Report prepared by LEE ANN Andrade, RVT FINDINGS: AORTA: Patent. Peak systolic velocity 103 centimeters/second RIGHT RENAL ARTERY: Renal artery to aorta ratio: 0.1 * Proximal segment: Patent. Peak systolic velocity 82 centimeters/second * Mid segment: Patent. Peak systolic velocity 105 centimeters/second * Distal segment: Patent. Peak systolic velocity 60 centimeters/second Other findings: Right Kidney measures approximately 9.01 centimeters. LEFT RENAL ARTERY: Renal artery to aorta ratio: * Proximal segment: Patent. Peak systolic velocity 126 centimeters/second * Mid segment: Patent. Peak systolic velocity 160 centimeters/second * Distal segment: Patent. Peak systolic velocity 129 centimeters/second Other findings: Left Kidney measures approximately 8.89 centimeters. IMPRESSION: No definite hemodynamically significant stenosis involving the renal arteries as visualized.
--- NOTE | 2017-05-08 14:07 | VASCLAB ---
PROCEDURE: HISTORY: Possible CVA, vision loss COMPARISON: None available. TECHNIQUE: Grayscale and duplex Doppler evaluation of the cervical carotid and vertebral arteries were performed. The common carotid, carotid bifurcations and cervical Internal Carotid Artery (ICA) and proximal External Carotid Artery (ECA) were evaluated. The vertebral arteries were evaluated for gross patency and flow direction. Report prepared by Neville Garcia, BS, RVT FINDINGS: RIGHT CAROTID ARTERIES: 1. Common Carotid Artery: No significant focal plaque formation of the right common carotid artery. Maximum Peak Systolic velocity: 47 cm/sec: End-diastolic velocity 8 cm/sec. 2. Carotid Bifurcation: plaque formation. Maximum Peak Systolic velocity: 38 cm/sec: End-diastolic velocity 8 cm/sec. 3. Internal Carotid Artery: Plaque description: 3.1. Proximal Segment: Peak systolic velocity 45 cm/sec: End-diastolic velocity 11 cm/sec - % stenosis 0-15% 3.2. Middle Segment: Peak systolic velocity 78 cm/sec: End-diastolic velocity 21 cm/sec - % stenosis 0-15% 3.3. Distal Segment: Peak systolic velocity 110 cm/sec: End-diastolic velocity 25 cm/sec - % stenosis 0-15% 4. External Carotid Artery: No significant focal plaque formation. Peak systolic velocity 73 cm/sec 5. ICA/CCA Ratio: 2.3 LEFT CAROTID ARTERIES: 1. Common Carotid Artery: No significant focal plaque formation of the left common carotid artery. Maximum Peak Systolic velocity: 53 cm/sec: End-diastolic velocity 10 cm/sec. 2. Carotid Bifurcation: plaque formation. Maximum Peak Systolic velocity: 51 cm/sec: End-diastolic velocity 10 cm/sec. 3. Internal Carotid Artery: Plaque description: 3.1. Proximal Segment: Peak systolic velocity 65 cm/sec: End-diastolic velocity 18 cm/sec - % stenosis 0-15% 3.2. Middle Segment: Peak systolic velocity 71 cm/sec: End-diastolic velocity 17 cm/sec - % stenosis 0-15% 3.3. Distal Segment: Peak systolic velocity 86 cm/sec: End-diastolic velocity 22 cm/sec - % stenosis 0-15% 4. External Carotid Artery: No significant focal plaque formation. Peak systolic velocity 59 cm/sec 5. ICA/CCA Ratio: 1.6 VERTEBRAL ARTERIES: 1. Right Vertebral Artery: The right vertebral artery flow direction is antegrade. 2. Left Vertebral Artery: The left vertebral artery flow direction is antegrade. OTHER FINDINGS: 1. Right Brachial Blood pressure: 162 mmHg. 2. Left Brachial Blood pressure: 160 mmHg. IMPRESSION: RIGHT: Duplex scan does not suggest hemodynamically significant stenosis of the right extracranial carotid arteries. LEFT: Duplex scan does not suggest hemodynamically significant stenosis of the left extracranial carotid arteries.
[2017-05-08] MEDS: Rosuvastatin Calcium 2.5 mg Tab PO SCH (22:55)
[2017-05-09] MEDS: Sodium Chloride 0.45% 1,000 ML IV SCH ×2 (06:12→13:18)
--- NOTE | 2017-05-09 07:15 | CP.PCM.PN ---
<Cali Villarreal - Last Filed: 05/09/17 17:45> Subjective - Date & Time of Evaluation Date of Evaluation: 05/09/17 Time of Evaluation: 07:14 - Subjective Subjective: PGY-[address] Sim's service: Pt seen and examined at bedside. Nursing reports no acute events overnight. Pt found resting comfortably in bed, with her son and granddaughter at bedside this AM. She is NPO for RASHAAD this AM with vice president digital strategist, Dr. Tse. Eyesight status remains the same as she is still is having difficulty seeing this AM, and still only sees "shapes and shadows of figures." Nursing reports she is feeling depressed after losing so much of her sight. She denies chest pain, palpitations, headache, abdominal pain, N/V. Objective - Vital Signs/Intake and Output Vital Signs (last 24 hours): Temp Pulse Resp BP Pulse Ox 98.1 F 79 20 150/84 98 05/09/17 04:15 05/09/17 04:15 05/09/17 04:15 05/09/17 04:15 05/09/17 04:15 Intake and Output: 05/09/17 05/09/17 06:59 18:59 Intake Total 1100 Balance 1100 - Medications Medications: Current Medications Aspirin (Aspirin Chewable) 81 mg PO DAILY [facility] Last Admin: 05/08/17 11:19 Dose: Not Given Calcium/Vitamin D (Oyster Shell Calcium/Vitamin D 500 Mg-200 Iu) 1 tab PO BID [facility] Last Admin: 05/08/17 17:37 Dose: 1 tab Carvedilol (Coreg) 6.25 mg PO BID [facility] Last Admin: 05/08/17 17:38 Dose: 6.25 mg Ciprofloxacin (Cipro) 500 mg PO BID [facility] Last Admin: 05/08/17 17:37 Dose: 500 mg Clonidine HCl (Catapres) 0.3 mg PO TID [facility] Last Admin: 05/08/17 11:18 Dose: 0.3 mg Clopidogrel Bisulfate (Plavix) 75 mg PO DAILY [facility] Last Admin: 05/08/17 11:19 Dose: Not Given Famotidine (Pepcid) 20 mg IVP DAILY [facility] Last Admin: 05/08/17 11:19 Dose: Not Given Folic Acid (Folic Acid) 1 mg PO DAILY [facility] Last Admin: 05/08/17 11:19 Dose: Not Given Furosemide (Lasix) 20 mg PO DAILY [facility] Home Med (Home Med) 1 unit OU TID [facility] Last Admin: 05/08/17 17:40 Dose: 1 unit Home Med (Home Med) 1 unit OU HS [facility] Last Admin: 05/08/17 22:56 Dose: 1 unit Hydralazine HCl (Apresoline) 10 mg IVP Q6H PRN PRN Reason: Systolic Blood Pressure Sodium Chloride (Sodium Chloride 0.45%) 1,000 mls @ 100 mls/hr IV .Q10H [facility] Last Admin: 05/09/17 06:12 Dose: Not Given Insulin Aspart (Novolog) 0 unit SC ACHS [facility] PRN Reason: Protocol Last Admin: 05/08/17 22:47 Dose: Not Given Losartan Potassium (Cozaar) 100 mg PO DAILY [facility] Last Admin: 05/08/17 11:18 Dose: 100 mg Rosuvastatin Calcium (Crestor) 2.5 mg PO HS [facility] Last Admin: 05/08/17 22:55 Dose: 2.5 mg - Labs Labs: 05/08/17 06:43 05/08/17 06:43 PT 11.6 SECONDS (9.7-12.2) 05/06/17 23:34 INR 1.0 05/06/17 23:34 APTT 21 SECONDS (21-34) 05/06/17 23:34 - Constitutional Appears: Non-toxic, No Acute Distress - Head Exam Head Exam: ATRAUMATIC, NORMAL INSPECTION, NORMOCEPHALIC - Eye Exam Eye Exam: EOMI, Normal appearance Pupil Exam: PERRL Additional comments: Pt describes only being able to make out outlines of figures when they are close to bedside - ENT Exam ENT Exam: Mucous Membranes Moist - Neck Exam Neck Exam: absent: Lymphadenopathy, Tenderness - Respiratory Exam Respiratory Exam: Clear to Ausculation Bilateral, NORMAL BREATHING PATTERN - Cardiovascular Exam Cardiovascular Exam: REGULAR RHYTHM, +S1, +S2 - GI/Abdominal Exam GI & Abdominal Exam: Soft, Normal Bowel Sounds. absent: Tenderness - Extremities Exam Extremities Exam: absent: Pedal Edema, Tenderness - Neurological Exam Neurological Exam: Alert, Awake, Oriented x3 - Psychiatric Exam Psychiatric exam: Depressed - Skin Skin Exam: Normal Color, Warm - Additional Findings Additional findings: - Constitutional Appears: Non-toxic, No Acute Distress - Head Exam Head Exam: ATRAUMATIC, NORMAL INSPECTION, NORMOCEPHALIC - Eye Exam Eye Exam: EOMI, Normal appearance, PERRL. absent: Scleral icterus Additional comments: Pt maintains L sided gaze preference documented on earlier exam Patient denied knowing if light in room are turned on, however "flinch response " intact - ENT Exam ENT Exam: Mucous Membranes Moist - Neck Exam Neck Exam: absent: Lymphadenopathy, Tenderness - Respiratory Exam Respiratory Exam: Clear to Ausculation Bilateral, NORMAL BREATHING PATTERN - Cardiovascular Exam Cardiovascular Exam: REGULAR RHYTHM, +S1, +S2 - GI/Abdominal Exam GI & Abdominal Exam: Soft, Normal Bowel Sounds. absent: Tenderness - Extremities Exam Extremities Exam: absent: Pedal Edema, Tenderness - Back Exam Back Exam: absent: CVA tenderness (L), CVA tenderness (R) - Neurological Exam Neurological Exam: Alert, Awake, Oriented x3 Neuro motor strength exam: Left Upper Extremity: 3, Right Upper Extremity: 3, Left Lower Extremity: 4, Right Lower Extremity: 4 Additional comments: Pt admits only seeing shadows in periphery of her vision Lt sided gaze preference intact subtle left facial droopmost noticeable when smiling no slurring of speech negative babinski Light touch in tact globally in both Upper and lower extremities - Psychiatric Exam Psychiatric exam: Normal Affect, Normal Mood - Skin Skin Exam: Normal Color, Warm Assessment and Plan - Assessment and Plan (Free Text) Plan: ISchemic CVA No TPA given in ED due to history of hemorrhagic stroke in 2014 CXR (05/07/17): no active pulmonary disease (see full report) CT angio head/neck (05/07/17): Patent vasculataure. Nonspecific white matter changes. Acute infarction may be occult within first 24 hrs. If deficit persists , consider CT/MRI for further evaluation (see resident) MRI head w/o contrast (05/07/17): Large acute left COMB TENDER territory infarction involving occipital lobe, medial, and posterior temporal lobe and thalamus with mild surrounding vasogenic edema. No evidence of midline shift or herniation. Cystic encephalmalacia in right occiptial lobe, sequela of remote COMB TENDER territory infarction. Mild chronic microangiopathic changes, small old lacunar infarction in the right centrum semiovale and moderate age related global parenchymal volume loss (see full report) CT head negative (05/07/17): Nonspecific white matter changes. Acute infartion may be occult wihin 24hrs. If deficit persists, consider follow up CT/MRI (see full report) - f/u CT Head (05/08/17): Encephalomalacia involving right occipital lobe. Evolving ischemic changes identified involving left occipital lobe, inferior aspect of the medial temporal lobes, as well as portion of the thalamus. Effacement and displacement of the posterior horn left lateral ventricle (see full report) EKG (05/07/17): nsr 93 non specific lateral t wave changes, no interval change Carotid doppler (05/07/17): mild disease bilaterally Troponin/EKG negative x3 Hypercoaguability workup: f/u antiphospholipid, Factor V leiden, Protein C&S Serum immunofixation - detected MILO 6 profile: Positive, titer: 1:80, pattern: Nucleolar Neuro consult, Dr. Harden - Keep SBP between 140-160 (MAP 100) Hydralazine Q6H if SBP >160 - held Clonidine 0.3 mg TID, as pt below goal MAP - ASA 81mg PO Daily Dr Tse consulted for cardiology, help appreciated - RASHAAD results: 3 mm PFO with bidirectional flow and extensive aortic plaques both are potentially sources of stroke and warrants anticoagulation unless contraindicated. - Eliquis 2.5mg PO BID Hx of Posterior cerebral circulation hemorrhagic infarction (2015) - MRI Brain 2015: acute to early subacute hemorrhagic infarction within the right occipital lobe, parasagittal location involving the splenium of the corpus callosum (please see official report). - CT Head 2015: shows hemorrhagic infarct Right posterior cerebral artery with mass effect (see full report). - Carotid Dopplers 2015 shows mild disease bilaterally (see full report) Acute Kidney injury Creatinine improving today 1.0, GFR 54 - from Cr 1.8 on admission, GFR 27 Dr Caba, nephrology, consulted - Renal US (05/07/17): Medical renal disease. Small right kidney (see full report ) - Renal Artery Duplex Scan (05/08/17): No definite hemodynamically significant stenosis involving renal arteries as visualized (see full report) 1/2 NS @ 50 cc/hr Depression S/p loss of vision as sequelae of stroke Celexa 10mg PO Daily - recommended by Dr. Harden Hypercoaguable state Hypercoaguability workup: f/u antiphospholipid, Factor V leiden, Protein C&S Serum immunofixation - detected MILO 6 profile: Positive, titer: 1:80, pattern: Nucleolar Acute vision loss Hx of cataracts/glaucoma Opthalmologist: Dr. Rodriguez, help appreciated - continue home meds Alphagan 0.01% BID, and Lamigan 0.1% HS HTN In acceptable range, as defined by neuro BP 188/80 on admission - per Neuro Dr Harden, keep SBP 140-160 Hydralazine 10mg IV Q6H PRN if SBP > 160 - hold home Clonidine 0.3mg PO TID as below goal this AM - hold Lasix 20mg PO qd due to RADHA Continue home meds Losartan 100mg PO qd; Coreg 6.25mg PO BID 1/2 NS @ 50cc/hr Type Two Diabetes Mellitus BG elevated today (205-326) - increase Novolog ISS to medium A1c 9.2 Hold home Metformin 500mg PO BID and hold Glipizide 5mg PO BID - patient given contrast for CT angio evening of 05/06. - will restart Metformin tomorrow if Cr stable Hypercholesterolemia HDL 40 / LDL 52 Crestor 2.5mg HS Cholest 119 Triglyc 189 H UTI - patient is being treated for a UTI by her PMD - UA (+); glucose 2+, Blood 1+, Leuk Est 3+, WBC 53, Hyaline casts 3-5H. Continue home Cipro 500mg PO BID (first dose 05/05) -> renally dosed to Q18H. Electrolyte abnormalities Mg 1.4 today, repleted Monitor on AM labs Prophylaxis SCDs Pepcid 20mg IVP daily Mechanical soft bite-sized diet, thin liquid (vegetarian) PT - benefit from skilled PT to improve transfers/mobility OT - recommend TCU Discussed with Dr. Roney Villarreal PGY-1 <Pablo Sim - Last Filed: 06/14/17 17:00> Objective - Vital Signs/Intake and Output Vital Signs (last 24 hours): Temp Pulse Resp BP Pulse Ox 98.1 F 71 18 109/73 100 05/17/17 16:37 05/17/17 16:37 05/17/17 16:37 05/17/17 16:37 05/17/17 07:05 - Labs Labs: 05/17/17 11:26 05/17/17 11:26 PT 16.1 SECONDS (9.7-12.2) H 07/28/17 06:42 INR 1.4 05/11/17 06:42 APTT 19 SECONDS (21-34) L 05/11/17 06:42 Attending/Attestation - Attestation I have personally seen and examined this patient.: Yes I have fully participated in the care of the patient.: Yes I have reviewed all pertinent clinical information, including history, physical exam and plan: Yes Notes (Text): Acute cva with vision loss Arf now resolved
[2017-05-09] MEDS: (Novolog) Insulin Aspart, Recombinant 100 u/ml 10 ml vial SC SCH ×4 (07:39→21:36)
[2017-05-09 08:02] LABS: BASO % 0.3 % (0.0-2.0); EOS % 0.3 % (0.0-4.0); HEMATOCRIT 32.2 % (34.0-47.0); MEAN CELL VOLUME 83.5 fL (81.0-99.0); MEAN CORPUSCULAR HEMOGLOBIN 28.1 pg (27.0-31.0); MEAN CORPUSCULAR HGB CONC 33.7 g/dL (33.0-37.0); MEAN PLATELET VOLUME 8.3 fL (7.2-11.7); MONO # 0.6 K/uL (0.0-0.8); MONO % 6.6 % (0.0-10.0); NRBC % 0.1 % (0.0-2.0); RED CELL DISTRIBUTION WIDTH 13.1 % (11.5-14.5); WHITE BLOOD COUNT 9.8 K/uL (4.8-10.8)
[2017-05-09 08:16] LABS: CHLORIDE 100 mmol/L (98-107)
[2017-05-09 08:17] LABS: SODIUM 135 mmol/L (132-148)
[2017-05-09 08:19] LABS: AST/SGOT 26 U/L (14-36); BILIRUBIN,TOTAL 0.8 mg/dL (0.2-1.3); BLOOD UREA NITROGEN 11 mg/dL (7-17); CARBON DIOXIDE 20 mmol/L (22-30); GFR AFRICAN-AMERICAN > 60; TOTAL PROTEIN 6.6 g/dL (6.3-8.3)
[2017-05-09 08:20] LABS: ALKALINE PHOSPHATASE 59 U/L (38-126); ALT/SGPT 19 U/L (9-52); CALCIUM 8.2 mg/dl (8.6-10.4); GLUCOSE,RANDOM 190 mg/dL (65-105); MAGNESIUM 1.4 mg/dL (1.6-2.3); PHOSPHOROUS 2.8 mg/dL (2.5-4.5)
[2017-05-09] MEDS ORDERED: Lidocaine 4% (Laryng-O-Jet) Kit MM ONE (08:38)
[2017-05-09] MEDS ORDERED: Etomidate 20 mg/10ml Inj IV ONE (09:00)
--- NOTE | 2017-05-09 09:57 | CP.PCM.CON ---
History of Present Illness - History of Present Illness History of Present Illness: Admitted with sudden loss of bilateral vision facial droop and was diagnosed to have a posterior cerebral infarction; cardiology consult was called in to exclude an ambolic source Past medical history was reviewed Past Patient History - Infectious Disease Hx of Infectious Diseases: None - Tetanus Immunizations Tetanus Immunization: Unknown - Past Medical History & Family History Past Medical History?: Yes Past Family History: Reviewed and not pertinent - Past Social History Smoking Status: Never Smoked Chewing Tobacco Use: No Cigar Use: No Alcohol: None Drugs: Denies Home Situation {Lives}: With Family - CARDIAC Hx Hypercholesterolemia: Yes Hx Hypertension: Yes Hx Pacemaker: No - PULMONARY Hx Respiratory Disorders: No - NEUROLOGICAL HX Cerebrovascular Accident: Yes (no residuals) - HEENT Hx Cataracts: Yes - RENAL Hx Chronic Kidney Disease: No - ENDOCRINE/METABOLIC Hx Diabetes Mellitus Type 2: Yes - HEMATOLOGICAL/ONCOLOGICAL Hx Blood Transfusions: No Hx Blood Transfusion Reaction: No - MUSCULOSKELETAL/RHEUMATOLOGICAL Hx Arthritis: Yes - GASTROINTESTINAL Hx Gastrointestinal Disorders: No - PSYCHIATRIC Hx Substance Use: No - SURGICAL HISTORY Hx Surgeries: Yes Hx Cataract Extraction: Yes (Bilat eyes) Hx Section: Yes - ANESTHESIA Hx Anesthesia: Yes Hx Anesthesia Reactions: No Hx Malignant Hyperthermia: No Meds Allergies/Adverse Reactions: Allergies Allergy/AdvReac Type Severity Reaction Status Date / Time No Known Allergies Allergy Verified 05/06/17 22:54 - Medications Medications: Current Medications Aspirin (Aspirin Chewable) 81 mg PO DAILY [facility] Last Admin: 05/08/17 11:19 Dose: Not Given Calcium/Vitamin D (Oyster Shell Calcium/Vitamin D 500 Mg-200 Iu) 1 tab PO BID [facility] Last Admin: 05/08/17 17:37 Dose: 1 tab Carvedilol (Coreg) 6.25 mg PO BID [facility] Last Admin: 05/08/17 17:38 Dose: 6.25 mg Ciprofloxacin (Cipro) 500 mg PO BID [facility] Last Admin: 05/08/17 17:37 Dose: 500 mg Citalopram Hydrobromide (Celexa) 10 mg PO DAILY [facility] Clonidine HCl (Catapres) 0.3 mg PO TID [facility] Last Admin: 05/08/17 11:18 Dose: 0.3 mg Clopidogrel Bisulfate (Plavix) 75 mg PO DAILY [facility] Last Admin: 05/08/17 11:19 Dose: Not Given Famotidine (Pepcid) 20 mg IVP DAILY [facility] Last Admin: 05/08/17 11:19 Dose: Not Given Folic Acid (Folic Acid) 1 mg PO DAILY [facility] Last Admin: 05/08/17 11:19 Dose: Not Given Furosemide (Lasix) 20 mg PO DAILY [facility] Home Med (Home Med) 1 unit OU TID [facility] Last Admin: 05/08/17 17:40 Dose: 1 unit Home Med (Home Med) 1 unit OU HS [facility] Last Admin: 05/08/17 22:56 Dose: 1 unit Hydralazine HCl (Apresoline) 10 mg IVP Q6H PRN PRN Reason: Systolic Blood Pressure Sodium Chloride (Sodium Chloride 0.45%) 1,000 mls @ 100 mls/hr IV .Q10H [facility] Last Admin: 05/09/17 06:12 Dose: Not Given Insulin Aspart (Novolog) 0 unit SC ACHS [facility] PRN Reason: Protocol Last Admin: 05/09/17 07:39 Dose: Not Given Losartan Potassium (Cozaar) 100 mg PO DAILY [facility] Last Admin: 05/08/17 11:18 Dose: 100 mg Rosuvastatin Calcium (Crestor) 2.5 mg PO HS [facility] Last Admin: 05/08/17 22:55 Dose: 2.5 mg Physical Exam - Head Exam Head Exam: NORMAL INSPECTION - Neck Exam Additional comments: Normal venous pressures carotid bruit - Cardiovascular Exam Additional comments: ?PMI No parasternal heave 2/6 basal ejection murmur Normal heart sounds intensity Results - Vital Signs Recent Vital Signs: Last Vital Signs Temp 98.5 F 05/09/17 08:07 Pulse 58 L 05/09/17 08:07 Resp 20 05/09/17 08:07 BP 175/81 H 05/09/17 08:07 Pulse Ox 98 05/09/17 08:07 - Labs Result Diagrams: 05/10/17 06:36 05/10/17 06:36 Labs: Laboratory Results - last 24 hr 05/08/17 05/08/17 05/08/17 11:16 16:33 20:53 WBC RBC Hgb Hct MCV MCH MCHC RDW Plt Count MPV Neut % (Auto) Lymph % (Auto) Robeson % (Auto) Eos % (Auto) Baso % (Auto) Neut # Lymph # Robeson # Eos # Baso # Sodium Potassium Chloride Carbon Dioxide Anion Gap BUN Creatinine Est GFR ( Amer) Est GFR (Non-Af Amer) POC Glucose (mg/dL) 244 H 284 H 198 H Random Glucose Calcium Phosphorus Magnesium Total Bilirubin AST ALT Alkaline Phosphatase Total Protein Albumin Globulin Albumin/Globulin Ratio 05/09/17 05/09/17 05/09/17 06:20 07:53 07:53 WBC 9.8 RBC 3.85 Hgb 10.8 L Hct 32.2 L MCV 83.5 MCH 28.1 MCHC 33.7 RDW 13.1 Plt Count 289 MPV 8.3 Neut % (Auto) 72.8 Lymph % (Auto) 20.0 Robeson % (Auto) 6.6 Eos % (Auto) 0.3 Baso % (Auto) 0.3 Neut # 7.1 H Lymph # 2.0 Robeson # 0.6 Eos # 0.0 Baso # 0.0 Sodium 135 Potassium 4.0 Chloride 100 Carbon Dioxide 20 L Anion Gap 19 BUN 11 Creatinine 1.0 Est GFR ( Amer) > 60 Est GFR (Non-Af Amer) 54 POC Glucose (mg/dL) 213 H Random Glucose 190 H Calcium 8.2 L Phosphorus 2.8 Magnesium 1.4 L Total Bilirubin 0.8 AST 26 ALT 19 Alkaline Phosphatase 59 Total Protein 6.6 Albumin 3.3 L Globulin 3.3 Albumin/Globulin Ratio 1.0 Assessment & Plan - Assessment and Plan (Free Text) Assessment: Case reviewed Acute cerebral ischemic stroke; Exam was significant for a basal systolic murmur , EKG showed STT abnormalities; Echo showed LVH and normal LV systolic function and a PFO RASHAAD showed a 3mm patent foramen ovale with bidirectional flow and extensive aortic plaques both are potentially sources of stroke and warrants anticoagulation unless contraindicated In addition would exclude a deep venous thrombosis 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
--- NOTE | 2017-05-09 10:38 | PN ---
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 PHYSICAL EXAMINATION VITAL SIGNS: Blood pressure 150/84, mean arterial pressure of 106, respiratory rate 18, temperature 98.1 with pulse rate of 79. NEUROLOGIC: The patient sitting comfortably without any respiratory distress. Interviewing her with spanish interpreter/translator. She seems to be depressed. She does not know what she had in spite of many times she was told, what she had in the past. Moves all 4 extremities. Extraocular movements intact. Pupil reactive to light; however, visual field is absent on bilateral visual field defect. RECOMMENDATION: Cardiology consultation is still pending, it is more than 72 hours. The patient definitely should have a transesophageal echocardiogram with irrespective finding of echocardiogram. In the mean time, the patient can continue aspirin and Plavix for small vessel disease prevention. Her stroke seems to be large vessel infarct. The reason for the infarct is still not identified yet. Considering his aging process, this probably amyloid angiopathy as well. The patient can be benefit with low dose of SSRI, which can be started today. The patient also scheduled to have electroencephalogram. Tenzin Harden MD MAKSIM
[2017-05-09] MEDS: ALPHAGAN 0.1% OU SCH ×3 (11:03→18:50)
[2017-05-09] MEDS: Calcium-Vit D 500 mg-200 Units Tab UD PO SCH ×2 (11:08→18:50)
[2017-05-09] MEDS: Magnesium Sulfate 1 gm in D5W 1 GM/100 ML BAG IVPB SCH ×2 (12:55→13:49)
--- NOTE | 2017-05-09 13:29 | CP.PCM.PN ---
Subjective - Date & Time of Evaluation Date of Evaluation: 05/09/17 Time of Evaluation: 13:26 - Subjective Subjective: c/o urinary incontinence HTN remains difficult to control Renal US consistent with small right kidney, CKD Dopplers showed no renal artery disease Nonverbal at present Creat decreased to 1.0 Objective - Vital Signs/Intake and Output Vital Signs (last 24 hours): Temp Pulse Resp BP Pulse Ox 97.0 F L 75 18 179/72 H 100 05/09/17 11:10 05/09/17 11:10 05/09/17 11:10 05/09/17 12:07 05/09/17 11:10 Intake and Output: 05/09/17 05/09/17 06:59 18:59 Intake Total 1100 Balance 1100 - Medications Medications: Current Medications Apixaban (Eliquis) 2.5 mg PO BID [facility] Last Admin: 05/09/17 12:56 Dose: 2.5 mg Aspirin (Aspirin Chewable) 81 mg PO DAILY [facility] Last Admin: 05/09/17 12:02 Dose: 81 mg Calcium/Vitamin D (Oyster Shell Calcium/Vitamin D 500 Mg-200 Iu) 1 tab PO BID [facility] Last Admin: 05/09/17 11:08 Dose: Not Given Carvedilol (Coreg) 6.25 mg PO BID [facility] Last Admin: 05/09/17 12:04 Dose: 6.25 mg Citalopram Hydrobromide (Celexa) 10 mg PO DAILY [facility] Last Admin: 05/09/17 12:56 Dose: 10 mg Clonidine HCl (Catapres) 0.3 mg PO TID [facility] Last Admin: 05/08/17 11:18 Dose: 0.3 mg Famotidine (Pepcid) 20 mg IVP DAILY [facility] Last Admin: 05/09/17 12:10 Dose: Not Given Folic Acid (Folic Acid) 1 mg PO DAILY [facility] Last Admin: 05/09/17 11:07 Dose: Not Given Furosemide (Lasix) 20 mg PO DAILY [facility] Home Med (Home Med) 1 unit OU TID [facility] Last Admin: 05/09/17 11:03 Dose: 1 unit Home Med (Home Med) 1 unit OU HS [facility] Last Admin: 05/08/17 22:56 Dose: 1 unit Hydralazine HCl (Apresoline) 10 mg IVP Q6H PRN PRN Reason: Systolic Blood Pressure Last Admin: 05/09/17 11:03 Dose: 10 mg Magnesium Sulfate/Dextrose (Magnesium Sulfate 1 Gm/100 Ml D5w) 1 gm in 100 mls @ 150 mls/hr IVPB Q30M [facility] Stop: 05/09/17 13:59 Last Admin: 05/09/17 12:55 Dose: 150 mls/hr Sodium Chloride (Sodium Chloride 0.45%) 1,000 mls @ 50 mls/hr IV .Q20H [facility] Last Admin: 05/09/17 13:18 Dose: 50 mls/hr Ceftriaxone Sodium 1 gm/ (Sodium Chloride) 100 mls @ 100 mls/hr IVPB DAILY [facility] Insulin Aspart (Novolog) 0 unit SC ACHS [facility] PRN Reason: Protocol Last Admin: 05/09/17 12:04 Dose: 3 unit Losartan Potassium (Cozaar) 100 mg PO DAILY [facility] Last Admin: 05/09/17 12:03 Dose: 100 mg Metformin HCl (Glucophage) 500 mg PO BIDCC [facility] Rosuvastatin Calcium (Crestor) 2.5 mg PO HS [facility] Last Admin: 05/08/17 22:55 Dose: 2.5 mg - Labs Labs: 05/09/17 07:53 05/09/17 07:53 PT 11.6 SECONDS (9.7-12.2) 05/06/17 23:34 INR 1.0 05/06/17 23:34 APTT 21 SECONDS (21-34) 05/06/17 23:34 - Constitutional Appears: No Acute Distress, Chronically Ill - Head Exam Head Exam: ATRAUMATIC, NORMAL INSPECTION - Eye Exam Eye Exam: EOMI, Normal appearance - Neck Exam Neck Exam: Normal Inspection. absent: Tenderness - Respiratory Exam Respiratory Exam: Clear to Ausculation Bilateral, NORMAL BREATHING PATTERN - Cardiovascular Exam Cardiovascular Exam: REGULAR RHYTHM, +S1 - GI/Abdominal Exam GI & Abdominal Exam: Soft. absent: Tenderness - Extremities Exam Extremities Exam: Normal Inspection. absent: Tenderness - Neurological Exam Neurological Exam: Awake, CN II-XII Intact - Skin Skin Exam: Dry, Warm Assessment and Plan (1) CKD (chronic kidney disease) stage 3, GFR 30-59 ml/min Status: Acute (2) UTI (urinary tract infection) Status: Acute (3) Diabetes mellitus Status: Acute (4) Hypertension Status: Acute (5) Posterior cerebral circulation hemorrhagic infarction Status: Acute - Assessment and Plan (Free Text) Plan: Continue to treat UTI Adjust HTN meds Monitor renal function
[2017-05-09 15:55] LABS: B2 GLYCOPROTEIN I AB(IGA) 26 SAU (<=20); B2 GLYCOPROTEIN I AB(IGG) <9 SGU (<=20); B2 GLYCOPROTEIN I AB(IGM) <9 SMU (<=20)
[2017-05-09] MEDS: Simethicone 80 mg Chewtab PO PRN (18:50)
[2017-05-09] MEDS: Magnesium Oxide 400 mg Tab UD PO SCH (18:51)
[2017-05-09 22:00] LABS: PHOSPHATIDYLSERINE AB IGA <20 U/mL (<20); PHOSPHATIDYLSERINE AB IGM <25 U/mL (<25)
[2017-05-09] MEDS: Rosuvastatin Calcium 2.5 mg Tab PO SCH (23:01)
[2017-05-10 05:14] LABS: CARDIOLIPIN AB (IGA) <11 APL (<=11)
[2017-05-10] MEDS: Simethicone 80 mg Chewtab PO PRN (05:32)
[2017-05-10 07:02] LABS: ALB/GLOB RATIO 1.2 (1.0-2.1); ALKALINE PHOSPHATASE 64 U/L (38-126); ALT/SGPT 19 U/L (9-52); AST/SGOT 29 U/L (14-36); BILIRUBIN,TOTAL 0.4 mg/dL (0.2-1.3); BLOOD UREA NITROGEN 12 mg/dL (7-17); CALCIUM 8.4 mg/dl (8.6-10.4); CARBON DIOXIDE 21 mmol/L (22-30); CHLORIDE 98 mmol/L (98-107); GFR AFRICAN-AMERICAN > 60; GLUCOSE,RANDOM 220 mg/dL (65-105); PHOSPHOROUS 3.5 mg/dL (2.5-4.5); POTASSIUM 3.9 mmol/L (3.6-5.2); SODIUM 134 mmol/L (132-148); TOTAL PROTEIN 6.3 g/dL (6.3-8.3)
--- NOTE | 2017-05-10 07:03 | CP.PCM.PN ---
<Cali Villarreal - Last Filed: 05/10/17 15:14> Subjective - Date & Time of Evaluation Date of Evaluation: 05/10/17 Time of Evaluation: 07:01 - Subjective Subjective: PGY-[address] Sim's service: Pt seen and examined at bedside. Nursing reports tachyacardic overnight. EKG in AM showing aflutter. Pt given Metoprolol, Cardizem IV to control rate. Attending , Dr. Anderson Chavez, was able to speak Gujrati and patient denied chest pain, SOB , but admitted to palpitations overnight. Pt appears depressed post-stroke. Pt reports vision is same as it has been, she is only able to see the outline of figures, and even that is blurry. Objective - Vital Signs/Intake and Output Vital Signs (last 24 hours): Temp Pulse Resp BP Pulse Ox 97.6 F 82 20 178/79 H 96 05/09/17 23:45 05/09/17 23:45 05/09/17 23:45 05/09/17 23:45 05/09/17 23:45 Intake and Output: 05/10/17 05/10/17 06:59 18:59 Intake Total 300 Balance 300 - Medications Medications: Current Medications Apixaban (Eliquis) 2.5 mg PO BID [facility] Last Admin: 05/09/17 18:50 Dose: 2.5 mg Aspirin (Aspirin Chewable) 81 mg PO DAILY [facility] Last Admin: 05/09/17 12:02 Dose: 81 mg Calcium/Vitamin D (Oyster Shell Calcium/Vitamin D 500 Mg-200 Iu) 1 tab PO BID [facility] Last Admin: 05/09/17 18:50 Dose: 1 tab Carvedilol (Coreg) 12.5 mg PO BID [facility] Last Admin: 05/09/17 18:50 Dose: 12.5 mg Citalopram Hydrobromide (Celexa) 10 mg PO DAILY [facility] Last Admin: 05/09/17 12:56 Dose: 10 mg Clonidine HCl (Catapres) 0.3 mg PO TID [facility] Last Admin: 05/08/17 11:18 Dose: 0.3 mg Docusate Sodium (Colace) 100 mg PO BID [facility] Last Admin: 05/09/17 23:01 Dose: 100 mg Famotidine (Pepcid) 20 mg IVP DAILY [facility] Last Admin: 05/09/17 12:10 Dose: Not Given Folic Acid (Folic Acid) 1 mg PO DAILY [facility] Last Admin: 05/09/17 11:07 Dose: Not Given Furosemide (Lasix) 20 mg PO DAILY [facility] Home Med (Home Med) 1 unit OU TID [facility] Last Admin: 05/09/17 18:50 Dose: 1 unit Home Med (Home Med) 1 unit OU HS [facility] Last Admin: 05/09/17 23:02 Dose: 1 unit Hydralazine HCl (Apresoline) 10 mg IVP Q6H PRN PRN Reason: Systolic Blood Pressure Last Admin: 05/10/17 06:17 Dose: 10 mg Sodium Chloride (Sodium Chloride 0.45%) 1,000 mls @ 50 mls/hr IV .Q20H [facility] Last Admin: 05/09/17 13:18 Dose: 50 mls/hr Ceftriaxone Sodium 1 gm/ (Sodium Chloride) 100 mls @ 100 mls/hr IVPB DAILY [facility] Last Admin: 05/09/17 14:26 Dose: 100 mls/hr Insulin Aspart (Novolog) 0 unit SC ACHS [facility] PRN Reason: Protocol Last Admin: 05/09/17 21:36 Dose: Not Given Losartan Potassium (Cozaar) 100 mg PO DAILY [facility] Last Admin: 05/09/17 12:03 Dose: 100 mg Magnesium Oxide (Mag-Ox) 400 mg PO BID [facility] Last Admin: 05/09/17 18:51 Dose: 400 mg Metformin HCl (Glucophage) 500 mg PO BIDCC [facility] Last Admin: 05/09/17 18:51 Dose: 500 mg Rosuvastatin Calcium (Crestor) 2.5 mg PO HS [facility] Last Admin: 05/09/17 23:01 Dose: 2.5 mg Simethicone (Mylicon Chew Tab) 80 mg PO Q8H PRN PRN Reason: GI distress Last Admin: 05/10/17 05:32 Dose: 80 mg - Labs Labs: 05/09/17 07:53 05/09/17 07:53 PT 11.6 SECONDS (9.7-12.2) 05/06/17 23:34 INR 1.0 05/06/17 23:34 APTT 21 SECONDS (21-34) 05/06/17 23:34 - Constitutional Appears: Non-toxic, No Acute Distress - Head Exam Head Exam: ATRAUMATIC, NORMAL INSPECTION, NORMOCEPHALIC - Eye Exam Eye Exam: EOMI. absent: Scleral icterus Pupil Exam: PERRL Additional comments: Pt describes only being able to make out outlines of figures when they are close to bedside - ENT Exam ENT Exam: Mucous Membranes Moist - Neck Exam Neck Exam: absent: Lymphadenopathy - Respiratory Exam Respiratory Exam: Clear to Ausculation Bilateral, NORMAL BREATHING PATTERN - Cardiovascular Exam Cardiovascular Exam: REGULAR RHYTHM, +S1, +S2, Murmur - GI/Abdominal Exam GI & Abdominal Exam: Soft, Normal Bowel Sounds. absent: Tenderness - Extremities Exam Extremities Exam: Normal Inspection - Back Exam Back Exam: NORMAL INSPECTION - Neurological Exam Neurological Exam: Alert, Awake, Oriented x3 Neuro motor strength exam: Left Upper Extremity: 3, Right Upper Extremity: 3, Left Lower Extremity: 3, Right Lower Extremity: 3 Additional comments: Pt admits only seeing shadows in periphery of her vision Lt sided gaze preference intact subtle left facial droopmost noticeable when smiling no slurring of speech negative babinski Light touch in tact globally in both Upper and lower extremities - Psychiatric Exam Psychiatric exam: Depressed - Skin Skin Exam: Dry, Normal Color, Warm Assessment and Plan - Assessment and Plan (Free Text) Plan: ISchemic CVA No TPA given in ED due to history of hemorrhagic stroke in 2014 CXR (05/07/17): no active pulmonary disease (see full report) CT angio head/neck (05/07/17): Patent vasculataure. Nonspecific white matter changes. Acute infarction may be occult within first 24 hrs. If deficit persists , consider CT/MRI for further evaluation (see resident) MRI head w/o contrast (05/07/17): Large acute left [employer] territory infarction involving occipital lobe, medial, and posterior temporal lobe and thalamus with mild surrounding vasogenic edema. No evidence of midline shift or herniation. Cystic encephalmalacia in right occiptial lobe, sequela of remote [employer] territory infarction. Mild chronic microangiopathic changes, small old lacunar infarction in the right centrum semiovale and moderate age related global parenchymal volume loss (see full report) CT head negative (05/07/17): Nonspecific white matter changes. Acute infarction may be occult wihin 24hrs. If deficit persists, consider follow up CT/MRI (see full report) - f/u CT Head (05/08/17): Encephalomalacia involving right occipital lobe. Evolving ischemic changes identified involving left occipital lobe, inferior aspect of the medial temporal lobes, as well as portion of the thalamus. Effacement and displacement of the posterior horn left lateral ventricle (see full report) EKG (05/07/17): nsr 93 non specific lateral t wave changes, no interval change ECHO (05/07/17): LV systolic fxn normal. EF 60-65%. HTN heart disease. Trace Aortic regurgitation. Mitral regurgitation mild. No tricuspid valve regurgitation noted. No pulmonic valvular regurgitation (see full report) Carotid doppler (05/07/17): mild disease bilaterally Troponin/EKG negative x3 Hypercoaguability workup: f/u antiphospholipid, Factor V leiden, Protein C&S Serum immunofixation - detected MILO 6 profile: Positive, titer: 1:80, pattern: Nucleolar Neuro consult, Dr. Harden - Keep SBP between 140-160 (MAP 100) Hydralazine Q6H if SBP >160 - held Clonidine 0.3 mg TID, as pt below goal MAP - ASA 81mg PO Daily Dr Tse consulted for cardiology, help appreciated - RASHAAD results: 3 mm PFO with bidirectional flow and extensive aortic plaques both are potentially sources of stroke and warrants anticoagulation unless contraindicated. - Eliquis 2.5mg PO BID Hx of Posterior cerebral circulation hemorrhagic infarction (2015) - MRI Brain 2015: acute to early subacute hemorrhagic infarction within the right occipital lobe, parasagittal location involving the splenium of the corpus callosum (please see official report). - CT Head 2015: shows hemorrhagic infarct Right posterior cerebral artery with mass effect (see full report). - Carotid Dopplers 2015 shows mild disease bilaterally (see full report) Acute Kidney injury Creatinine improving today 0.9, GFR 54 - from Cr 1.8 on admission, GFR 27 Dr Caba, nephrology, consulted - Renal US (05/07/17): Medical renal disease. Small right kidney (see full report ) - Renal Artery Duplex Scan (05/08/17): No definite hemodynamically significant stenosis involving renal arteries as visualized (see full report) 1/2 NS @ 50 cc/hr Aflutter EKG: Rate 68 bpm. Aflutter. Cardizem 60mg PO Q6H - Cardizem 15mg x 2 given for afib spells Depression S/p loss of vision as sequelae of stroke Celexa 10mg PO Daily - recommended by Dr. Harden Hypercoaguable state Hypercoaguability workup: f/u antiphospholipid, Factor V leiden, Protein C&S Serum immunofixation - detected MILO 6 profile: Positive, titer: 1:80, pattern: Nucleolar [id number] Ab elevated, Beta 2 GPI IgG/IgM: WNL Phosphatidylserine IgG, IgA, IgM: WNL Anticardio-lipin: IgG, IgA, IgM: WNL Acute vision loss Hx of cataracts/glaucoma Opthalmologist: Dr. Rodriguez, help appreciated - continue home meds Alphagan 0.01% BID, and Lamigan 0.1% HS HTN In acceptable range, as defined by neuro BP 188/80 on admission Hydralazine 10mg IV Q6H PRN if SBP > 160 - hold home Clonidine 0.3mg PO TID as below goal this AM - hold Lasix 20mg PO qd due to RADHA - Cardizem 60 mg PO Q6H Continue home meds Losartan 100mg PO qd; Coreg 6.25mg PO BID 1/2 NS @ 50cc/hr Type Two Diabetes Mellitus BG elevated today (205-326) - increase Novolog ISS to medium A1c 9.2 Hold home Metformin 500mg PO BID and hold Glipizide 5mg PO BID Hypercholesterolemia HDL 40 / LDL 52 Crestor 2.5mg HS Cholest 119 Triglyc 189 H UTI - patient is being treated for a UTI by her PMD - UA (+); glucose 2+, Blood 1+, Leuk Est 3+, WBC 53, Hyaline casts 3-5H. Continue home Cipro 500mg PO BID (first dose 05/05) -> renally dosed to Q18H. Electrolyte abnormalities Mg 2.0 today Monitor on AM labs Prophylaxis SCDs Pepcid 20mg IVP daily Mechanical soft bite-sized diet, thin liquid (vegetarian) PT - benefit from skilled PT to improve transfers/mobility OT - recommend TCU Discussed with Dr. Roney Villarreal PGY-1 <Pablo Sim - Last Filed: 06/14/17 17:00> Objective - Vital Signs/Intake and Output Vital Signs (last 24 hours): Temp Pulse Resp BP Pulse Ox 98.1 F 71 18 109/73 100 05/17/17 16:37 05/17/17 16:37 05/17/17 16:37 05/17/17 16:37 05/17/17 07:05 - Labs Labs: 05/17/17 11:26 05/17/17 11:26 PT 16.1 SECONDS (9.7-12.2) H 05/11/17 06:42 INR 1.4 05/11/17 06:42 APTT 19 SECONDS (21-34) L 05/11/17 06:42 Attending/Attestation - Attestation I have personally seen and examined this patient.: Yes I have fully participated in the care of the patient.: Yes I have reviewed all pertinent clinical information, including history, physical exam and plan: Yes Notes (Text): Acute cva with vision loss Arf now resolved
[2017-05-10 07:16] LABS: BASO % 0.2 % (0.0-2.0); EOS % 0.1 % (0.0-4.0); HEMATOCRIT 33.6 % (34.0-47.0); LYMPH # 1.2 K/uL (1.0-4.3); LYMPH % 10.3 % (20.0-40.0); MEAN CELL VOLUME 84.1 fL (81.0-99.0); MEAN CORPUSCULAR HEMOGLOBIN 28.2 pg (27.0-31.0); MEAN CORPUSCULAR HGB CONC 33.5 g/dL (33.0-37.0); MEAN PLATELET VOLUME 8.4 fL (7.2-11.7); MONO # 0.5 K/uL (0.0-0.8); MONO % 3.9 % (0.0-10.0); RED CELL DISTRIBUTION WIDTH 13.2 % (11.5-14.5); WHITE BLOOD COUNT 11.9 K/uL (4.8-10.8)
[2017-05-10] MEDS: (Novolog) Insulin Aspart, Recombinant 100 u/ml 10 ml vial SC SCH ×4 (08:34→22:04)
[2017-05-10] MEDS ORDERED: Metoprolol 1 mg/ml Inj IVP ONE ×2 (08:53→09:17)
--- NOTE | 2017-05-10 09:11 | CP.PCM.PN ---
Subjective - Date & Time of Evaluation Date of Evaluation: 05/10/17 Time of Evaluation: 09:08 - Subjective Subjective: Verbalizing now; still lethargic BP better controlled with increase in meds Creat improved at 0.9- RADHA better On treatment for UTI No c/o fevers, chills, n, v, diarrhea, HAs Objective - Vital Signs/Intake and Output Vital Signs (last 24 hours): Temp Pulse Resp BP Pulse Ox 97.8 F 131 H 18 151/74 H 20 L 05/10/17 07:05 05/10/17 07:05 05/10/17 07:05 05/10/17 07:05 05/10/17 07:05 Intake and Output: 05/10/17 05/10/17 06:59 18:59 Intake Total 300 Balance 300 - Medications Medications: Current Medications Apixaban (Eliquis) 2.5 mg PO BID [facility] Last Admin: 05/09/17 18:50 Dose: 2.5 mg Aspirin (Aspirin Chewable) 81 mg PO DAILY [facility] Last Admin: 05/09/17 12:02 Dose: 81 mg Calcium/Vitamin D (Oyster Shell Calcium/Vitamin D 500 Mg-200 Iu) 1 tab PO BID [facility] Last Admin: 05/09/17 18:50 Dose: 1 tab Carvedilol (Coreg) 12.5 mg PO BID [facility] Last Admin: 05/09/17 18:50 Dose: 12.5 mg Citalopram Hydrobromide (Celexa) 10 mg PO DAILY [facility] Last Admin: 05/09/17 12:56 Dose: 10 mg Clonidine HCl (Catapres) 0.3 mg PO TID [facility] Last Admin: 05/08/17 11:18 Dose: 0.3 mg Docusate Sodium (Colace) 100 mg PO BID [facility] Last Admin: 05/09/17 23:01 Dose: 100 mg Famotidine (Pepcid) 20 mg IVP DAILY [facility] Last Admin: 05/09/17 12:10 Dose: Not Given Folic Acid (Folic Acid) 1 mg PO DAILY [facility] Last Admin: 05/09/17 11:07 Dose: Not Given Furosemide (Lasix) 20 mg PO DAILY [facility] Home Med (Home Med) 1 unit OU TID [facility] Last Admin: 05/09/17 18:50 Dose: 1 unit Home Med (Home Med) 1 unit OU HS [facility] Last Admin: 05/09/17 23:02 Dose: 1 unit Hydralazine HCl (Apresoline) 10 mg IVP Q6H PRN PRN Reason: Systolic Blood Pressure Last Admin: 05/10/17 06:17 Dose: 10 mg Sodium Chloride (Sodium Chloride 0.45%) 1,000 mls @ 50 mls/hr IV .Q20H [facility] Last Admin: 05/09/17 13:18 Dose: 50 mls/hr Ceftriaxone Sodium 1 gm/ (Sodium Chloride) 100 mls @ 100 mls/hr IVPB DAILY [facility] Last Admin: 05/09/17 14:26 Dose: 100 mls/hr Insulin Aspart (Novolog) 0 unit SC ACHS [facility] PRN Reason: Protocol Last Admin: 05/10/17 08:34 Dose: 3 unit Losartan Potassium (Cozaar) 100 mg PO DAILY [facility] Last Admin: 05/09/17 12:03 Dose: 100 mg Magnesium Oxide (Mag-Ox) 400 mg PO BID [facility] Last Admin: 05/09/17 18:51 Dose: 400 mg [facility] Admin: 05/10/17 08:38 Dose: Not Given Rosuvastatin Calcium (Crestor) 2.5 mg PO [facility] Last Admin: 05/09/17 23:01 Dose: 2.5 mg Simethicone (Mylicon Chew Tab) 80 mg PO Q8H PRN PRN Reason: GI distress Last Admin: 05/10/17 05:32 Dose: 80 mg - Labs Labs: 05/10/17 06:36 05/10/17 06:36 PT 11.6 SECONDS (9.7-12.2) 05/06/17 23:34 INR 1.0 05/06/17 23:34 APTT 21 SECONDS (21-34) 05/06/17 23:34 - Constitutional Appears: Confused, Chronically Ill - Head Exam Head Exam: ATRAUMATIC, NORMAL INSPECTION - Eye Exam Eye Exam: EOMI, Normal appearance - Neck Exam Neck Exam: Normal Inspection. absent: Tenderness - Respiratory Exam Respiratory Exam: Clear to Ausculation Bilateral, NORMAL BREATHING PATTERN - Cardiovascular Exam Cardiovascular Exam: REGULAR RHYTHM, +S1 - GI/Abdominal Exam GI & Abdominal Exam: Soft. absent: Tenderness - Extremities Exam Extremities Exam: Normal Inspection. absent: Tenderness - Neurological Exam Neurological Exam: Altered, Motor Sensory Deficit - Skin Skin Exam: Dry, Warm Assessment and Plan (1) CKD (chronic kidney disease) stage 3, GFR 30-59 ml/min Status: Acute (2) UTI (urinary tract infection) Status: Acute (3) Diabetes mellitus Status: Acute (4) Hypertension Status: Acute (5) Posterior cerebral circulation hemorrhagic infarction Status: Acute - Assessment and Plan (Free Text) Plan: monitor HTN closely Renal function stable- continue to monitor
[2017-05-10] MEDS: Sodium Chloride 0.45% 1,000 ML IV SCH (09:55)
[2017-05-10] MEDS: ALPHAGAN 0.1% OU SCH ×3 (10:47→18:13)
[2017-05-10] MEDS: Magnesium Oxide 400 mg Tab UD PO SCH ×2 (10:48→18:08)
[2017-05-10] MEDS: Calcium-Vit D 500 mg-200 Units Tab UD PO SCH ×2 (10:48→18:08)
--- NOTE | 2017-05-10 12:11 | PN ---
DATE: 05/10/2017 TIME OF EVALUATION: 6:55 a.m. NEUROLOGICAL PROBLEM: Bioccipital stroke with blindness. PHYSICAL EXAMINATION: GENERAL: The patient is nauseous and with brown-colored vomitus in the tray, sitting and holding her head. She is complaining of pain, which she could not able to describe. VITAL SIGNS: Blood pressure 178/79, mean artery pressure of 112, pulse rate 142 as per the monitor, and respiratory rate 20. NEUROLOGIC: She moves all 4 extremities. Cranial nerves: Visual blindness, otherwise pupils are reactive to light. Rest of the examination is unchanged. LABORATORY DATA: RASHAAD result being reviewed and James was placed on long-term anticoagulation. The patient is also taking 1 tablet of Ecotrin 81 mg for small vessel disease prevention. Considering her sinus tachycardia and nausea with vomiting, the patient should have been called grails web application developer input for further management. In the meantime, I would like to place her on 2 L nasal cannula oxygen, EKG,and troponin level to be checked and Zofran 4 mg IV to be given. The patient's condition has been discussed with her RN. The patient will be followed closely with you. Tenzin Harden MD
[2017-05-10 14:19] LABS: FREE T4 1.85 ng/dL (0.78-2.19)
[2017-05-10 14:33] LABS: THYROID STIMULATING HORMONE 0.82 mIU/L (0.46-4.68)
[2017-05-10] MEDS: Rosuvastatin Calcium 2.5 mg Tab PO SCH (22:04)
[2017-05-11] MEDS: Sodium Chloride 0.45% 1,000 ML IV SCH ×2 (00:28→05:26)
[2017-05-11 07:01] LABS: BASO % 0.3 % (0.0-2.0); HEMATOCRIT 30.9 % (34.0-47.0); LYMPH # 1.1 K/uL (1.0-4.3); LYMPH % 9.1 % (20.0-40.0); MEAN CELL VOLUME 83.9 fL (81.0-99.0); MEAN CORPUSCULAR HEMOGLOBIN 27.7 pg (27.0-31.0); MEAN CORPUSCULAR HGB CONC 33.1 g/dL (33.0-37.0); MEAN PLATELET VOLUME 8.4 fL (7.2-11.7); MONO # 0.4 K/uL (0.0-0.8); MONO % 3.3 % (0.0-10.0); PLATELET COUNT 321 K/uL (130-400); RED CELL DISTRIBUTION WIDTH 13.3 % (11.5-14.5); WHITE BLOOD COUNT 12.5 K/uL (4.8-10.8)
--- NOTE | 2017-05-11 07:03 | CP.PCM.PN ---
<PamelaTommy chackoic - Last Filed: 05/11/17 15:41> Subjective - Date & Time of Evaluation Date of Evaluation: 05/11/17 Time of Evaluation: 06:59 - Subjective Subjective: PGY-[address] Chacko's service: Pt seen and examined at bedside. Nursing reports no acute events overnight. Patient rhythm controlled overnight after starting on cardizem for afib yesterday. She denies chest pain, palpitations, shortness of breath, diaphoresis overnight. She admits to "feeling bad" and nursing reports pt told occupational therapist "she hopes god will take her." Pt reports gas pain and nausea this AM but denies vomiting. Objective - Vital Signs/Intake and Output Vital Signs (last 24 hours): Temp Pulse Resp BP Pulse Ox 97.4 F L 61 20 124/48 L 99 05/11/17 03:30 05/11/17 03:30 05/11/17 03:30 05/11/17 03:30 05/11/17 03:30 Intake and Output: 05/10/17 05/11/17 18:59 06:59 Intake Total 510 350 Output Total 0 Balance 510 350 - Medications Medications: Current Medications Apixaban (Eliquis) 2.5 mg PO BID [facility] Last Admin: 05/10/17 18:09 Dose: 2.5 mg Aspirin (Aspirin Chewable) 81 mg PO DAILY [facility] Last Admin: 05/10/17 10:48 Dose: 81 mg Calcium/Vitamin D (Oyster Shell Calcium/Vitamin D 500 Mg-200 Iu) 1 tab PO BID [facility] Last Admin: 05/10/17 18:08 Dose: 1 tab Carvedilol (Coreg) 12.5 mg PO BID [facility] Last Admin: 05/10/17 18:08 Dose: 12.5 mg Citalopram Hydrobromide (Celexa) 10 mg PO DAILY [facility] Last Admin: 05/10/17 10:50 Dose: 10 mg Clonidine HCl (Catapres) 0.3 mg PO TID [facility] Last Admin: 05/08/17 11:18 Dose: 0.3 mg Diltiazem HCl (Cardizem) 60 mg PO Q6 [facility] Last Admin: 05/11/17 06:35 Dose: 60 mg Docusate Sodium (Colace) 100 mg PO BID [facility] Last Admin: 05/10/17 18:08 Dose: 100 mg Famotidine (Pepcid) 20 mg IVP DAILY [facility] Last Admin: 05/10/17 10:49 Dose: 20 mg Folic Acid (Folic Acid) 1 mg PO DAILY [facility] Last Admin: 05/10/17 10:48 Dose: 1 mg Furosemide (Lasix) 20 mg PO DAILY [facility] Home Med (Home Med) 1 unit OU TID [facility] Last Admin: 05/10/17 18:13 Dose: 1 unit Home Med (Home Med) 1 unit OU HS [facility] Last Admin: 05/10/17 22:04 Dose: 1 unit Hydralazine HCl (Apresoline) 10 mg IVP Q6H PRN PRN Reason: Systolic Blood Pressure Last Admin: 05/10/17 06:17 Dose: 10 mg Sodium Chloride (Sodium Chloride 0.45%) 1,000 mls @ 50 mls/hr IV .Q20H [facility] Last Admin: 05/11/17 05:26 Dose: Not Given Ceftriaxone Sodium 1 gm/ (Sodium Chloride) 100 mls @ 100 mls/hr IVPB DAILY [facility] Last Admin: 05/10/17 10:47 Dose: 100 mls/hr Insulin Aspart (Novolog) 0 unit SC ACHS [facility] PRN Reason: Protocol Last Admin: 05/10/17 22:04 Dose: Not Given Losartan Potassium (Cozaar) 100 mg PO DAILY [facility] Last Admin: 05/10/17 11:00 Dose: 100 mg Magnesium Oxide (Mag-Ox) 400 mg PO BID [facility] Last Admin: 05/10/17 18:08 Dose: 400 mg [facility] Admin: 05/10/17 18:12 Dose: 500 mg Ondansetron HCl (Zofran Inj) 4 mg IVP Q6H PRN PRN Reason: Nausea/Vomiting Last Admin: 05/11/17 06:47 Dose: 4 mg Rosuvastatin Calcium (Crestor) 2.5 mg PO [facility] Last Admin: 05/10/17 22:04 Dose: 2.5 mg Simethicone (Mylicon Chew Tab) 80 mg PO Q8H PRN PRN Reason: GI distress Last Admin: 05/10/17 05:32 Dose: 80 mg - Labs Labs: 05/10/17 06:36 05/10/17 06:36 PT 11.6 SECONDS (9.7-12.2) 05/06/17 23:34 INR 1.0 05/06/17 23:34 APTT 21 SECONDS (21-34) 05/06/17 23:34 - Additional Findings Additional findings: - Constitutional Appears: Non-toxic, No Acute Distress - Head Exam Head Exam: ATRAUMATIC, NORMAL INSPECTION, NORMOCEPHALIC - Eye Exam Eye Exam: EOMI. absent: Scleral icterus Pupil Exam: PERRL Additional comments: Pt still is only able to make out outlines of figures when they are close to bedside - ENT Exam ENT Exam: Mucous Membranes Moist - Neck Exam Neck Exam: absent: Lymphadenopathy - Respiratory Exam Respiratory Exam: Clear to Ausculation Bilateral, NORMAL BREATHING PATTERN - Cardiovascular Exam Cardiovascular Exam: REGULAR RHYTHM, +S1, +S2, Murmur - GI/Abdominal Exam GI & Abdominal Exam: Soft, Normal Bowel Sounds. absent: Tenderness - Extremities Exam Extremities Exam: Normal Inspection - Back Exam Back Exam: NORMAL INSPECTION - Neurological Exam Neurological Exam: Alert, Awake, Oriented x3 Neuro motor strength exam: Left Upper Extremity: 3, Right Upper Extremity: 3, Left Lower Extremity: 3, Right Lower Extremity: 3 Additional comments: Pt admits only seeing shadows in periphery of her vision no slurring of speech negative babinski Light touch in tact globally in both Upper and lower extremities - Psychiatric Exam Psychiatric exam: Depressed - Skin Skin Exam: Dry, Normal Color, Warm Assessment and Plan - Assessment and Plan (Free Text) Plan: ISchemic CVA No TPA given in ED due to history of hemorrhagic stroke in 2014 CXR (05/07/17): no active pulmonary disease (see full report) CT angio head/neck (05/07/17): Patent vasculataure. Nonspecific white matter changes. Acute infarction may be occult within first 24 hrs. If deficit persists , consider CT/MRI for further evaluation (see resident) MRI head w/o contrast (05/07/17): Large acute left [employer] territory infarction involving occipital lobe, medial, and posterior temporal lobe and thalamus with mild surrounding vasogenic edema. No evidence of midline shift or herniation. Cystic encephalmalacia in right occiptial lobe, sequela of remote [employer] territory infarction. Mild chronic microangiopathic changes, small old lacunar infarction in the right centrum semiovale and moderate age related global parenchymal volume loss (see full report) CT head negative (05/07/17): Nonspecific white matter changes. Acute infarction may be occult wihin 24hrs. If deficit persists, consider follow up CT/MRI (see full report) - f/u CT Head (05/08/17): Encephalomalacia involving right occipital lobe. Evolving ischemic changes identified involving left occipital lobe, inferior aspect of the medial temporal lobes, as well as portion of the thalamus. Effacement and displacement of the posterior horn left lateral ventricle (see full report) EKG (05/07/17): nsr 93 non specific lateral t wave changes, no interval change ECHO (05/07/17): LV systolic fxn normal. EF 60-65%. HTN heart disease. Trace Aortic regurgitation. Mitral regurgitation mild. No tricuspid valve regurgitation noted. No pulmonic valvular regurgitation (see full report) Carotid doppler (05/07/17): mild disease bilaterally Troponin/EKG negative x3 RASHAAD (05/09/17): 3 mm PFO with bidirectional flow and extensive aortic plaques both are potentially sources of stroke and warrants anticoagulation unless contraindicated. Hypercoaguability workup: f/u antiphospholipid, Factor V leiden, Protein C&S Serum immunofixation - detected MILO 6 profile: Positive, titer: 1:80, pattern: Nucleolar Neuro consult, Dr. Harden -Eliquis 2.5 mg PO BID, can be increased to 5mg BID "next week" - continue ASA 81 mg PO Daily ASA 81mg PO Daily Eliquis 2.5mg PO BID Dr Tse consulted for cardiology, help appreciated - RASHAAD results: 3 mm PFO with bidirectional flow and extensive aortic plaques both are potentially sources of stroke and warrants anticoagulation unless contraindicated - Eliquis 2.5mg PO BID CHADS2-Vasc2: (8 pts; 10.8%) - criteria: HASBLED (4 pts; 8.9%) - criteria: Hx of Posterior cerebral circulation hemorrhagic infarction (2015) - MRI Brain 2014: acute to early subacute hemorrhagic infarction within the right occipital lobe, parasagittal location involving the splenium of the corpus callosum (please see official report). - CT Head 2015: shows hemorrhagic infarct Right posterior cerebral artery with mass effect (see full report). - Carotid Dopplers 2015 shows mild disease bilaterally (see full report) Acute Kidney injury Creatinine improving today 0.9, GFR 54 - from Cr 1.8 on admission, GFR 27 Dr Caba, nephrology, consulted - Renal US (05/07/17): Medical renal disease. Small right kidney (see full report ) - Renal Artery Duplex Scan (05/08/17): No definite hemodynamically significant stenosis involving renal arteries as visualized (see full report) 1/2 NS @ 50 cc/hr Aflutter/Afib EKG: Rate 68 bpm. Aflutter. Cardizem 60mg PO Q6H - Cardizem 15mg x 2 given for afib spells - Start Cardizem CD 240mg PO Daily on Sunday, May 12 Depression S/p loss of vision as sequelae of stroke Celexa 10mg PO Daily - recommended by Dr. Harden Hypercoaguable state Hypercoaguability workup: f/u antiphospholipid, Factor V leiden, Protein C&S Serum immunofixation - detected MILO 6 profile: Positive, titer: 1:80, pattern: Nucleolar [id number] Ab elevated, Beta 2 GPI IgG/IgM: WNL Phosphatidylserine IgG, IgA, IgM: WNL Anticardio-lipin: IgG, IgA, IgM: WNL Acute vision loss Hx of cataracts/glaucoma Opthalmologist: Dr. Rodriguez, help appreciated - continue home meds Alphagan 0.01% BID, and Lamigan 0.1% HS HTN Better controlled today Hydralazine 10mg IV Q6H PRN if SBP > 160 - hold Lasix 20mg PO qd due to RADHA - Cardizem 60 mg PO Q6H - Start Cardizem CD 240mg PO Daily on May 12 Continue home meds Losartan 100mg PO qd; Coreg 6.25mg PO BID 1/2 NS @ 50cc/hr Type Two Diabetes Mellitus BG elevated today (295-313) - increase Novolog ISS to medium Restart home Metformin 500mg PO BID and hold Glipizide 5mg PO BID A1c 9.2 Hypercholesterolemia HDL 40 / LDL 52 Crestor 2.5mg HS Cholest 119 Triglyc 189 H UTI - patient is being treated for a UTI by her PMD - UA (+); glucose 2+, Blood 1+, Leuk Est 3+, WBC 53, Hyaline casts 3-5H. Continue home Cipro 500mg PO BID (first dose 05/05) -> renally dosed to Q18H. Electrolyte abnormalities Mg 2.0 today Monitor on AM labs Prophylaxis SCDs Pepcid 20mg IVP daily Mechanical soft bite-sized diet, thin liquid (vegetarian) PT - benefit from skilled PT to improve transfers/mobility OT - recommend TCU Discussed with Dr. Ricco Villarreal PGY-1 <Vandana Chacko V - Last Filed: 05/11/17 18:20> Objective - Vital Signs/Intake and Output Vital Signs (last 24 hours): Temp Pulse Resp BP Pulse Ox 97.2 F L 62 20 122/55 L 98 05/11/17 15:51 05/11/17 16:00 05/11/17 15:51 05/11/17 15:51 05/11/17 15:51 Intake and Output: 05/11/17 05/11/17 06:59 18:59 Intake Total 350 860 Balance 350 860 - Medications Medications: Current Medications Apixaban (Eliquis) 2.5 mg PO BID [facility] Last Admin: 05/11/17 17:43 Dose: 2.5 mg Aspirin (Aspirin Chewable) 81 mg PO DAILY [facility] Last Admin: 05/11/17 10:40 Dose: 81 mg Calcium/Vitamin D (Oyster Shell Calcium/Vitamin D 500 Mg-200 Iu) 1 tab PO BID [facility] Last Admin: 05/11/17 17:43 Dose: 1 tab Carvedilol (Coreg) 12.5 mg PO BID [facility] Last Admin: 05/11/17 10:41 Dose: 12.5 mg Citalopram Hydrobromide (Celexa) 10 mg PO DAILY [facility] Last Admin: 05/11/17 10:42 Dose: 10 mg Clonidine HCl (Catapres) 0.3 mg PO TID [facility] Last Admin: 05/08/17 11:18 Dose: 0.3 mg Diltiazem HCl (Cardizem) 60 mg PO Q6 [facility] Stop: 05/12/17 00:00 Last Admin: 05/11/17 17:43 Dose: 60 mg Diltiazem HCl (Cardizem Cd) 240 mg PO DAILY [facility] Docusate Sodium (Colace) 100 mg PO BID [facility] Last Admin: 05/11/17 17:43 Dose: 100 mg Famotidine (Pepcid) 20 mg IVP DAILY [facility] Last Admin: 05/11/17 10:41 Dose: 20 mg Folic Acid (Folic Acid) 1 mg PO DAILY [facility] Last Admin: 05/11/17 10:41 Dose: 1 mg Furosemide (Lasix) 20 mg PO DAILY [facility] Glipizide (Glucotrol) 5 mg PO ACB [facility] Home Med (Home Med) 1 unit OU TID [facility] Last Admin: 05/11/17 17:44 Dose: 1 unit Home Med (Home Med) 1 unit OU HS [facility] Last Admin: 05/10/17 22:04 Dose: 1 unit Hydralazine HCl (Apresoline) 10 mg IVP Q6H PRN PRN Reason: Systolic Blood Pressure Last Admin: 05/10/17 06:17 Dose: 10 mg Sodium Chloride (Sodium Chloride 0.45%) 1,000 mls @ 50 mls/hr IV .Q20H [facility] Last Admin: 05/11/17 05:26 Dose: Not Given Ceftriaxone Sodium 1 gm/ (Sodium Chloride) 100 mls @ 100 mls/hr IVPB DAILY [facility] Last Admin: 05/11/17 10:42 Dose: 100 mls/hr Insulin Aspart (Novolog) 0 unit SC ACHS [facility] PRN Reason: Protocol Last Admin: 05/11/17 17:43 Dose: 2 unit Losartan Potassium (Cozaar) 100 mg PO DAILY [facility] Last Admin: 05/11/17 10:41 Dose: 100 mg Magnesium Oxide (Mag-Ox) 400 mg PO BID [facility] Last Admin: 05/11/17 17:43 Dose: 400 mg Metformin HCl (Glucophage) 500 mg PO BIDCC [facility] Last Admin: 05/11/17 17:43 Dose: 500 mg Ondansetron HCl (Zofran Inj) 4 mg IVP Q6H PRN PRN Reason: Nausea/Vomiting Last Admin: 05/11/17 12:04 Dose: 4 mg Rosuvastatin Calcium (Crestor) 2.5 mg PO [facility] Last Admin: 05/10/17 22:04 Dose: 2.5 mg Simethicone (Mylicon Chew Tab) 80 mg PO Q8H PRN PRN Reason: GI distress Last Admin: 05/10/17 05:32 Dose: 80 mg - Labs Labs: 05/11/17 06:42 05/11/17 06:38 PT 16.1 SECONDS (9.7-12.2) H 05/11/17 06:42 INR 1.4 05/11/17 06:42 APTT 19 SECONDS (21-34) L 05/11/17 06:42 Attending/Attestation - Attestation I have personally seen and examined this patient.: Yes I have fully participated in the care of the patient.: Yes I have reviewed all pertinent clinical information, including history, physical exam and plan: Yes Notes (Text): Patient seen, examined and case discussed with day-time resident. Patient seen this afternoon with son assisting in translation. Patient is not eating much. I asked the son to bring in food she likes. Explained to the son that patient needs to be on blood thinner given her abnormal heart rhythm and the stroke risk with abnormal heart rhythm and PFO. F/u Case management and social work regarding subacute rehab options: referrals made to 3 facilities; family to determine which location f/u cardiology if patient requires invasive intervention for PFO or not Assessment/Plan 1) Ischemic CVA * Neurology (Dr. Harden) help appreciated * Cardiology (Dr. Tse) help appreciated * No TPA given in ED due to history of hemorrhagic stroke in 2015 * CXR (05/07/17): no active pulmonary disease (see full report) * CT head negative (05/07/17): Nonspecific white matter changes. Acute infarction may be occult wihin 24hrs. If deficit persists, consider follow up CT /MRI (see full report) * CT angio head/neck (05/07/17): Patent vasculture. Nonspecific white matter changes. Acute infarction may be occult within first 24 hrs. If deficit persists , consider CT/MRI for further evaluation (see resident) * MRI head w/o contrast (05/07/17): Large acute left [employer] territory infarction involving occipital lobe, medial, and posterior temporal lobe and thalamus with mild surrounding vasogenic edema. No evidence of midline shift or herniation. Cystic encephalmalacia in right occiptial lobe, sequela of remote [employer] territory infarction. Mild chronic microangiopathic changes, small old lacunar infarction in the right centrum semiovale and moderate age related global parenchymal volume loss (see full report) * Repeat CT Head (05/08/17): Encephalomalacia involving right occipital lobe. Evolving ischemic changes identified involving left occipital lobe, inferior aspect of the medial temporal lobes, as well as portion of the thalamus. Effacement and displacement of the posterior horn left lateral ventricle (see full report) * EKG (05/07/17): nsr 93 non specific lateral t wave changes, no interval change * ECHO (05/07/17): LV systolic fxn normal. EF 60-65%. HTN heart disease. Trace Aortic regurgitation. Mitral regurgitation mild. No tricuspid valve regurgitation noted. No pulmonic valvular regurgitation (see full report) * Carotid doppler (05/07/17): mild disease bilaterally * Troponin/EKG negative x3 * RASHAAD (05/09/17): 3 mm PFO with bidirectional flow and extensive aortic plaques both are potentially sources of stroke and warrants anticoagulation unless contraindicated. 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 Caba) on consult help appreciated * Renal US (05/07/17): Medical renal disease. Small right kidney (see full report ) * Renal Artery Duplex Scan (05/08/17): No definite hemodynamically significant stenosis involving renal arteries as visualized (see full report) * GFR>60 * monitor BUN/Cr 3) Atrial fibrillation, new on set * EKG: Rate 68 bpm. 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 Rodriguez, help appreciated * Alphagan 0.1% one drop both eyes three times a day * Lumigan 0/01% eye drops both at bedtime 6) Hypertension * Cardizem CD 240mg PO daily to start tomorrow * Cardizem 60 mg PO Q6H (complete tonight) * Losartan 100mg PO daily * Coreg 12.5mg PO Q 12H * 1/2 NS @ 50cc/hr 7) Type Two Diabetes Mellitus * Hemoglobin a1c: 9.2 (uncontrolled) * Increase Metformin 1000 mg PO BID * Hold Glipizide * Start Levemir 5 units subq HS * Novolog insulin sliding scale subq (medium dosing) 8) Hypercholesterolemia * Lipid panel: T, Cholesterol: 119, LDL: 52, HDL: 40 * Crestor 2.5mg PO qHS 9) Urinary Tract Infection * Urine culture (05/06/17): E. Coli sensitive to Aztreonam, Cefazolin, Cefepime, resistanto to Cipro-->will change antibiotic to Rocephin 1 gram IV q daily ( active since 05/09/17; day 3) 10) Electrolyte abnormalities * Monitor CMP and Mg2+ 11) Prophylaxis * SCDs * Pepcid 20mg IVP daily * Aspirin 81mg PO daily * Eliquis 2.5mg PO BID * Mechanical soft bite-sized diet, thin liquid (vegetarian) * PT - benefit from skilled PT to improve transfers/mobility * f/u case management and social work regarding discharge planning
[2017-05-11 07:06] LABS: INR 1.4
[2017-05-11 07:15] LABS: ALB/GLOB RATIO 1.3 (1.0-2.1); ALKALINE PHOSPHATASE 60 U/L (38-126); ALT/SGPT 18 U/L (9-52); AST/SGOT 20 U/L (14-36); BILIRUBIN,TOTAL 0.2 mg/dL (0.2-1.3); BLOOD UREA NITROGEN 18 mg/dL (7-17); CALCIUM 8.4 mg/dl (8.6-10.4); CARBON DIOXIDE 21 mmol/L (22-30); CHLORIDE 96 mmol/L (98-107); GFR AFRICAN-AMERICAN > 60; GLUCOSE,RANDOM 291 mg/dL (65-105); PHOSPHOROUS 3.9 mg/dL (2.5-4.5); POTASSIUM 4.5 mmol/L (3.6-5.2); SODIUM 133 mmol/L (132-148); TOTAL PROTEIN 6.1 g/dL (6.3-8.3)
[2017-05-11] MEDS: (Novolog) Insulin Aspart, Recombinant 100 u/ml 10 ml vial SC SCH ×4 (08:22→21:41)
[2017-05-11 08:46] LABS: NEUTROPHIL 95 % (50-75); TOTAL CELLS COUNTED 100
--- NOTE | 2017-05-11 10:14 | CARD ---
APPROVED REPORT EKG Measurement Heart [id number] <Conclusion> Normal sinus rhythm Septal infarct, age undetermined Abnormal ECG
[2017-05-11] MEDS: Magnesium Oxide 400 mg Tab UD PO SCH ×2 (10:41→17:43)
[2017-05-11] MEDS: ALPHAGAN 0.1% OU SCH ×3 (10:42→17:44)
[2017-05-11] MEDS: Calcium-Vit D 500 mg-200 Units Tab UD PO SCH ×2 (10:42→17:43)
--- NOTE | 2017-05-11 12:07 | PN ---
DATE: 05/11/2017 NEUROLOGICAL PROBLEM: Bilateral PCI infarct from PFO. PHYSICAL EXAMINATION VITAL SIGNS: Blood pressure 124/48, mean heart pressure of 73, respiratory rate 16, temperature afebrile. NECK: Supple. No carotid bruits. Patient is comfortably sleeping. She is responding on calling her name. Examination of bitemporal hemianopsia. Her vital signs are stable at present. Rest of the examination unchanged. Considering her patent foramen ovale, probably cardiology input is necessary. Maybe closure is necessary for her because of prevention of potential risk of near future stroke from her patent foramen ovale. In the meantime, I totally recommend her to follow Eliquis 2.5 mg twice a day, the dose can be increased to 5 mg twice a day, probably next week onwards and also I would like to continue aspirin 81 mg once a day. Patient is almost from neurologic point of view workup is completed. Tenzin Harden MD MTDD
--- NOTE | 2017-05-11 13:39 | VASCLAB ---
PROCEDURE: Lower Extremity Venous Duplex Exam. HISTORY: stroke PRIORS: None. TECHNIQUE: Bilateral common femoral, femoral, popliteal and posterior tibial, peroneal and great saphenous veins were evaluated. Flow was assessed with color Doppler, compressibility, assessment of phasic flow and augmentation response. Report prepared by LEE ANN Andrade, RVT FINDINGS: RIGHT: 1. Common Femoral Vein: 1.1. Compressibility - Fully compressible: Thrombus - None : Flow - Phasic: Augmentation -Normal: Reflux - None. 2. Femoral Vein: 2.1. Compressibility - Fully compressible: Thrombus - None : Flow - Phasic: Augmentation -Normal: Reflux - None. 3. Popliteal Vein: 3.1. Compressibility - Fully compressible: Thrombus - None : Flow - Phasic: Augmentation -Normal: Reflux - None. 4. Posterior Tibial Vein: 4.1. Compressibility - Fully compressible: Thrombus - None: Flow - Phasic: Augmentation -Normal: Reflux - None. 5. Peroneal Vein: 5.1. Compressibility - Fully compressible: Thrombus - None: Flow - Phasic: Augmentation -Normal: Reflux - None. 6. Great Saphenous Vein: 6.1. Compressibility - Fully compressible: Thrombus - None: Flow - Phasic: Augmentation - Normal: Reflux - None. LEFT: 1. Common Femoral Vein: 1.1. Compressibility - Fully compressible: Thrombus - None: Flow - Phasic: Augmentation -Normal: Reflux - None. 2. Femoral Vein: 2.1. Compressibility - Fully compressible: Thrombus - None: Flow - Phasic: Augmentation -Normal: Reflux - None. 3. Popliteal Vein: 3.1. Compressibility - Fully compressible: Thrombus - None : Flow - Phasic: Augmentation -Normal: Reflux - None. 4. Posterior Tibial Vein: 4.1. Compressibility - Fully compressible: Thrombus - None: Flow - Phasic: Augmentation -Normal: Reflux - None. 5. Peroneal Vein: 5.1. Compressibility - Fully compressible: Thrombus - None: Flow - Phasic: Augmentation -Normal: Reflux - None. 6. Great Saphenous Vein: 6.1. Compressibility - Fully compressible: Thrombus - None: Flow - Phasic: Augmentation - Normal: Reflux - None. OTHER FINDINGS: Right: None significant. Left: None significant. IMPRESSION: Right: No evidence of deep or superficial vein thrombosis of the right lower extremity. Normal valve function noted of the right side. Left: No evidence of deep or superficial vein thrombosis of the left lower extremity. Normal valve function noted of the left side.
--- NOTE | 2017-05-11 13:58 | CP.PCM.PN ---
Subjective - Date & Time of Evaluation Date of Evaluation: 05/11/17 Time of Evaluation: 13:55 - Subjective Subjective: Alert; in NAD BP controlled Creat has stabilized- now creat 0.9 no overt SOB, CPs, n, v, HAs, diarrhea Objective - Vital Signs/Intake and Output Vital Signs (last 24 hours): Temp Pulse Resp BP Pulse Ox 94.4 F L 69 20 150/73 98 05/11/17 07:35 05/11/17 07:35 05/11/17 07:35 05/11/17 10:41 05/11/17 07:35 Intake and Output: 05/11/17 05/11/17 06:59 18:59 Intake Total 350 Balance 350 - Medications Medications: Current Medications Apixaban (Eliquis) 2.5 mg PO BID [facility] Last Admin: 05/11/17 10:42 Dose: 2.5 mg Aspirin (Aspirin Chewable) 81 mg PO DAILY [facility] Last Admin: 05/11/17 10:40 Dose: 81 mg Calcium/Vitamin D (Oyster Shell Calcium/Vitamin D 500 Mg-200 Iu) 1 tab PO BID [facility] Last Admin: 05/11/17 10:42 Dose: 1 tab Carvedilol (Coreg) 12.5 mg PO BID [facility] Last Admin: 05/11/17 10:41 Dose: 12.5 mg Citalopram Hydrobromide (Celexa) 10 mg PO DAILY [facility] Last Admin: 05/11/17 10:42 Dose: 10 mg Clonidine HCl (Catapres) 0.3 mg PO TID [facility] Last Admin: 05/08/17 11:18 Dose: 0.3 mg Diltiazem HCl (Cardizem) 60 mg PO Q6 [facility] Stop: 05/12/17 00:00 Last Admin: 05/11/17 12:04 Dose: 60 mg Diltiazem HCl (Cardizem Cd) 240 mg PO DAILY [facility] Docusate Sodium (Colace) 100 mg PO BID [facility] Last Admin: 05/11/17 10:41 Dose: 100 mg Famotidine (Pepcid) 20 mg IVP DAILY [facility] Last Admin: 05/11/17 10:41 Dose: 20 mg Folic Acid (Folic Acid) 1 mg PO DAILY [facility] Last Admin: 05/11/17 10:41 Dose: 1 mg Furosemide (Lasix) 20 mg PO DAILY [facility] Home Med (Home Med) 1 unit OU TID [facility] Last Admin: 05/11/17 13:39 Dose: 1 unit Home Med (Home Med) 1 unit OU HS [facility] Last Admin: 05/10/17 22:04 Dose: 1 unit Hydralazine HCl (Apresoline) 10 mg IVP Q6H PRN PRN Reason: Systolic Blood Pressure Last Admin: 05/10/17 06:17 Dose: 10 mg Sodium Chloride (Sodium Chloride 0.45%) 1,000 mls @ 50 mls/hr IV .Q20H [facility] Last Admin: 05/11/17 05:26 Dose: Not Given Ceftriaxone Sodium 1 gm/ (Sodium Chloride) 100 mls @ 100 mls/hr IVPB DAILY [facility] Last Admin: 05/11/17 10:42 Dose: 100 mls/hr Insulin Aspart (Novolog) 0 unit SC ACHS [facility] PRN Reason: Protocol Last Admin: 05/11/17 12:54 Dose: 6 unit Losartan Potassium (Cozaar) 100 mg PO DAILY [facility] Last Admin: 05/11/17 10:41 Dose: 100 mg Magnesium Oxide (Mag-Ox) 400 mg PO BID [facility] Last Admin: 05/11/17 10:41 Dose: 400 mg [facility] Last Admin: 05/11/17 08:21 Dose: 500 mg Ondansetron HCl (Zofran Inj) 4 mg IVP Q6H PRN PRN Reason: Nausea/Vomiting Last Admin: 05/11/17 12:04 Dose: 4 mg Rosuvastatin Calcium (Crestor) 2.5 mg PO [facility] Last Admin: 05/10/17 22:04 Dose: 2.5 mg Simethicone (Mylicon Chew Tab) 80 mg PO Q8H PRN PRN Reason: GI distress Last Admin: 05/10/17 05:32 Dose: 80 mg - Labs Labs: 05/11/17 06:42 05/11/17 06:38 PT 16.1 SECONDS (9.7-12.2) H 05/11/17 06:42 INR 1.4 05/11/17 06:42 APTT 19 SECONDS (21-34) L 05/11/17 06:42 - Constitutional Appears: No Acute Distress, Chronically Ill - Head Exam Head Exam: ATRAUMATIC, NORMAL INSPECTION - Eye Exam Eye Exam: EOMI, Normal appearance - Neck Exam Neck Exam: Normal Inspection. absent: Tenderness - Respiratory Exam Respiratory Exam: Clear to Ausculation Bilateral, NORMAL BREATHING PATTERN - Cardiovascular Exam Cardiovascular Exam: REGULAR RHYTHM, +S1 - GI/Abdominal Exam GI & Abdominal Exam: Soft. absent: Tenderness - Extremities Exam Extremities Exam: Normal Inspection. absent: Tenderness - Neurological Exam Neurological Exam: Alert, CN II-XII Intact - Skin Skin Exam: Dry, Warm Assessment and Plan (1) CKD (chronic kidney disease) stage 3, GFR 30-59 ml/min Status: Acute (2) UTI (urinary tract infection) Status: Acute (3) Diabetes mellitus Status: Acute (4) Hypertension Status: Acute (5) Posterior cerebral circulation hemorrhagic infarction Status: Acute - Assessment and Plan (Free Text) Plan: Would continue same meds as renal function has stabilized; HTN controlled
[2017-05-11] MEDS: Rosuvastatin Calcium 2.5 mg Tab PO SCH (21:40)
[2017-05-11] MEDS: Insulin Detemir 100 units/ml Vial (Levemir) SC SCH (21:41)
--- NOTE | 2017-05-11 21:51 | CP.PCM.CON ---
History of Present Illness - History of Present Illness History of Present Illness: CC: Consult requested by Neuro for PFO closure device evaluation HPI: This 77 year old female with PMHx of Diabetes, HTN, Hypercholesterolemia admitted for recurrent CVA. Further work up revealed PFO likely etiology of CVA. No other significant PMHx: Diabetes, HTN, Hypercholesterolemia, previous hemorrhagic CVA (no residual deficits) PSHx: , bilateral cataract surgery about 6 years ago (Denies: Pacemaker ) Meds: see EMR Allergies: NKDA FamHx: denies SocHx: denies smoking, etoh, drugs. Lives with family PMD: Dr. Velazquez Review of Systems - Hematologic/Lymphatic Additional comments: - Constitutional Constitutional: absent: Fever, Chills, Sweats, Weakness - EENT Eyes: Blurred Vision, Change in Vision, Loss of Vision. absent: Spots in Vision Ears: absent: Decreased Hearing, Tinnitus, Dizziness Nose/Mouth/Throat: absent: Facial Pain, Neck Mass - Cardiovascular Cardiovascular: absent: Chest Pain, Dyspnea, Pain Radiating to Arm/Neck/Jaw - Respiratory Respiratory: absent: Cough, Dyspnea - Genitourinary Genitourinary: absent: Dysuria, Urinary Incontinence - Musculoskeletal Musculoskeletal: absent: Back Pain, Muscle Weakness, Numbness, Stiffness, Tingling - Neurological Neurological: Weakness. absent: Dizziness, Numbness, Headaches, Loss of Vision , Sensory Deficit, Syncope, Tingling - Psychiatric Psychiatric: absent: Anxiety, Depression - Endocrine Endocrine: absent: Fatigue, Palpitations Physical Exam - Additional Findings Additional findings: - Constitutional Appears: Non-toxic, No Acute Distress - Head Exam Head Exam: ATRAUMATIC, NORMAL INSPECTION, NORMOCEPHALIC - Eye Exam Eye Exam: EOMI, Normal appearance, PERRL. absent: Nystagmus, Periorbital swelling, Periorbital tenderness Additional comments: - L sided gaze preference - Patient only able to see that the lights are on - (+) corneal reflex - ENT Exam ENT Exam: Mucous Membranes Moist - Neck Exam Neck exam: Positive for: Normal Inspection. Negative for: Lymphadenopathy, Thyromegaly - Respiratory Exam Respiratory Exam: Clear to PA & Lateral, NORMAL BREATHING PATTERN. absent: Rales, Rhonchi, Wheezes - Cardiovascular Exam Cardiovascular Exam: REGULAR RHYTHM, +S1, +S2. absent: Diastolic murmur, Systolic Murmur - GI/Abdominal Exam GI & Abdominal Exam: Normal Bowel Sounds, Soft. absent: Tenderness - Extremities Exam Extremities exam: Positive for: pedal pulses present. Negative for: pedal edema Past Patient History - Infectious Disease Hx of Infectious Diseases: None - Tetanus Immunizations Tetanus Immunization: Unknown - Past Medical History & Family History Past Medical History?: Yes Past Family History: Reviewed and not pertinent - Past Social History Smoking Status: Never Smoked Chewing Tobacco Use: No Cigar Use: No Alcohol: None Drugs: Denies Home Situation {Lives}: With Family - CARDIAC Hx Hypercholesterolemia: Yes Hx Hypertension: Yes Hx Pacemaker: No - PULMONARY Hx Respiratory Disorders: No - NEUROLOGICAL HX Cerebrovascular Accident: Yes (no residuals) - HEENT Hx Cataracts: Yes - RENAL Hx Chronic Kidney Disease: No - ENDOCRINE/METABOLIC Hx Diabetes Mellitus Type 2: Yes - HEMATOLOGICAL/ONCOLOGICAL Hx Blood Transfusions: No Hx Blood Transfusion Reaction: No - MUSCULOSKELETAL/RHEUMATOLOGICAL Hx Arthritis: Yes - GASTROINTESTINAL Hx Gastrointestinal Disorders: No - PSYCHIATRIC Hx Substance Use: No - SURGICAL HISTORY Hx Surgeries: Yes Hx Cataract Extraction: Yes (Bilat eyes) Hx Section: Yes - ANESTHESIA Hx Anesthesia: Yes Hx Anesthesia Reactions: No Hx Malignant Hyperthermia: No Meds Allergies/Adverse Reactions: Allergies Allergy/AdvReac Type Severity Reaction Status Date / Time No Known Allergies Allergy Verified 05/06/17 22:54 - Medications Medications: Current Medications Apixaban (Eliquis) 2.5 mg PO BID [facility] Last Admin: 05/11/17 17:43 Dose: 2.5 mg Aspirin (Aspirin Chewable) 81 mg PO DAILY [facility] Last Admin: 05/11/17 10:40 Dose: 81 mg Calcium/Vitamin D (Oyster Shell Calcium/Vitamin D 500 Mg-200 Iu) 1 tab PO BID [facility] Last Admin: 05/11/17 17:43 Dose: 1 tab Carvedilol (Coreg) 12.5 mg PO Q12 [facility] Last Admin: 05/11/17 21:40 Dose: 12.5 mg Citalopram Hydrobromide (Celexa) 10 mg PO DAILY [facility] Last Admin: 05/11/17 10:42 Dose: 10 mg Clonidine HCl (Catapres) 0.3 mg PO TID [facility] Last Admin: 05/08/17 11:18 Dose: 0.3 mg Diltiazem HCl (Cardizem) 60 mg PO Q6 [facility] Stop: 05/12/17 00:00 Last Admin: 05/11/17 17:43 Dose: 60 mg Diltiazem HCl (Cardizem Cd) 240 mg PO DAILY [facility] Docusate Sodium (Colace) 100 mg PO BID [facility] Last Admin: 05/11/17 17:43 Dose: 100 mg Famotidine (Pepcid) 20 mg IVP DAILY [facility] Last Admin: 05/11/17 10:41 Dose: 20 mg Folic Acid (Folic Acid) 1 mg PO DAILY [facility] Last Admin: 05/11/17 10:41 Dose: 1 mg Furosemide (Lasix) 20 mg PO DAILY [facility] Home Med (Home Med) 1 unit OU TID [facility] Last Admin: 05/11/17 17:44 Dose: 1 unit Home Med (Home Med) 1 unit OU HS [facility] Last Admin: 05/11/17 21:41 Dose: 1 unit Hydralazine HCl (Apresoline) 10 mg IVP Q6H PRN PRN Reason: Systolic Blood Pressure Last Admin: 05/10/17 06:17 Dose: 10 mg Sodium Chloride (Sodium Chloride 0.45%) 1,000 mls @ 50 mls/hr IV .Q20H [facility] Last Admin: 05/11/17 05:26 Dose: Not Given Ceftriaxone Sodium 1 gm/ (Sodium Chloride) 100 mls @ 100 mls/hr IVPB DAILY [facility] Last Admin: 05/11/17 10:42 Dose: 100 mls/hr Insulin Aspart (Novolog) 0 unit SC ACHS [facility] PRN Reason: Protocol Last Admin: 05/11/17 21:41 Dose: Not Given Insulin Detemir (Levemir) 5 unit SC [facility] Last Admin: 05/11/17 21:41 Dose: 5 unit Losartan Potassium (Cozaar) 100 mg PO DAILY [facility] Last Admin: 05/11/17 10:41 Dose: 100 mg Magnesium Oxide (Mag-Ox) 400 mg PO BID [facility] Last Admin: 05/11/17 17:43 Dose: 400 mg Metformin [facility] ([facility]uc[facility]) [facility] Ondansetron HCl (Zofran Inj) 4 mg IVP Q6H PRN PRN Reason: Nausea/Vomiting Last Admin: 05/11/17 12:04 Dose: 4 mg Rosuvastatin Calcium (Crestor) 2.5 mg PO [facility] Last Admin: 05/11/17 21:40 Dose: 2.5 mg Simethicone (Mylicon Chew Tab) 80 mg PO Q8H PRN PRN Reason: GI distress Last Admin: 05/10/17 05:32 Dose: 80 mg Results - Vital Signs Recent Vital Signs: Last Vital Signs Temp 97.2 F L 05/11/17 15:51 Pulse 69 05/11/17 21:38 Resp 20 05/11/17 15:51 BP 131/70 05/11/17 21:40 Pulse Ox 98 05/11/17 15:51 - Labs Result Diagrams: 05/11/17 06:42 05/11/17 06:38 Labs: Laboratory Results - last 24 hr 05/08/17 05/08/17 05/11/17 14:16 14:16 06:38 WBC RBC Hgb Hct MCV MCH MCHC RDW Plt Count MPV Neut % (Auto) Lymph % (Auto) Hand % (Auto) Eos % (Auto) Baso % (Auto) Neut # Lymph # Hand # Eos # Baso # Neutrophils % (Manual) Band Neutrophils % Lymphocytes % (Manual) Monocytes % (Manual) Platelet Estimate RBC Morphology PT INR APTT Protein C Antigen 92 Protein S Antigen 103 Factor V see note Sodium 133 Potassium 4.5 Chloride 96 L Carbon Dioxide 21 L Anion Gap 21 H BUN 18 H Creatinine 0.9 Est GFR ( Amer) > 60 Est GFR (Non-Af Amer) > 60 POC Glucose (mg/dL) Random Glucose 291 H Calcium 8.4 L Phosphorus 3.9 Magnesium 2.0 Total Bilirubin 0.2 AST 20 ALT 18 Alkaline Phosphatase 60 Total Protein 6.1 L Albumin 3.5 Globulin 2.6 Albumin/Globulin Ratio 1.3 05/11/17 05/11/17 05/11/17 06:42 06:42 06:46 WBC 12.5 H RBC 3.68 L Hgb 10.2 L Hct 30.9 L MCV 83.9 MCH 27.7 MCHC 33.1 RDW 13.3 Plt Count 321 MPV 8.4 Neut % (Auto) 87.3 H Lymph % (Auto) 9.1 L Hand % (Auto) 3.3 Eos % (Auto) 0.0 Baso % (Auto) 0.3 Neut # 10.9 H Lymph # 1.1 Hand # 0.4 Eos # 0.0 Baso # 0.0 Neutrophils % (Manual) 95 H Band Neutrophils % 1 Lymphocytes % (Manual) 3 L Monocytes % (Manual) 1 Platelet Estimate Normal RBC Morphology Normal PT 16.1 H INR 1.4 APTT 19 L Protein C Antigen Protein S Antigen Factor V Sodium Potassium Chloride Carbon Dioxide Anion Gap BUN Creatinine Est GFR ( Amer) Est GFR (Non-Af Amer) POC Glucose (mg/dL) 308 H Random Glucose Calcium Phosphorus Magnesium Total Bilirubin AST ALT Alkaline Phosphatase Total Protein Albumin Globulin Albumin/Globulin Ratio 05/11/17 05/11/17 05/11/17 11:38 16:10 21:08 WBC RBC Hgb Hct MCV MCH MCHC RDW Plt Count MPV Neut % (Auto) Lymph % (Auto) Hand % (Auto) Eos % (Auto) Baso % (Auto) Neut # Lymph # Hand # Eos # Baso # Neutrophils % (Manual) Band Neutrophils % Lymphocytes % (Manual) Monocytes % (Manual) Platelet Estimate RBC Morphology PT INR APTT Protein C Antigen Protein S Antigen Factor V Sodium Potassium Chloride Carbon Dioxide Anion Gap BUN Creatinine Est GFR ( Amer) Est GFR (Non-Af Amer) POC Glucose (mg/dL) 313 H 165 H 134 H Random Glucose Calcium Phosphorus Magnesium Total Bilirubin AST ALT Alkaline Phosphatase Total Protein Albumin Globulin Albumin/Globulin Ratio Assessment & Plan - Assessment and Plan (Free Text) Assessment: Recurrent CVA inspite of antiplatelet therapy PFO likely etiology for CVA No other significant etiology found Will schedule for PFO closure device Thank you for the consult
[2017-05-12 06:20] LABS: BASO % 0.3 % (0.0-2.0); EOS % 0.1 % (0.0-4.0); HEMATOCRIT 29.9 % (34.0-47.0); LYMPH % 9.2 % (20.0-40.0); MEAN CELL VOLUME 83.5 fL (81.0-99.0); MEAN CORPUSCULAR HEMOGLOBIN 28.4 pg (27.0-31.0); MONO # 0.4 K/uL (0.0-0.8); MONO % 3.7 % (0.0-10.0); PLATELET COUNT 345 K/uL (130-400); RED CELL DISTRIBUTION WIDTH 13.3 % (11.5-14.5); WHITE BLOOD COUNT 10.5 K/uL (4.8-10.8)
[2017-05-12 06:29] LABS: CHLORIDE 98 mmol/L (98-107)
[2017-05-12 06:30] LABS: POTASSIUM 4.3 mmol/L (3.6-5.2); SODIUM 133 mmol/L (132-148)
[2017-05-12 06:32] LABS: ALKALINE PHOSPHATASE 64 U/L (38-126); AST/SGOT 25 U/L (14-36); BILIRUBIN,TOTAL 0.5 mg/dL (0.2-1.3); BLOOD UREA NITROGEN 23 mg/dL (7-17); CARBON DIOXIDE 21 mmol/L (22-30); GFR AFRICAN-AMERICAN > 60; GLUCOSE,RANDOM 204 mg/dL (65-105); TOTAL PROTEIN 6.7 g/dL (6.3-8.3)
[2017-05-12 06:33] LABS: ALT/SGPT 25 U/L (9-52); CALCIUM 8.9 mg/dl (8.6-10.4); PHOSPHOROUS 3.6 mg/dL (2.5-4.5)
[2017-05-12] MEDS: (Novolog) Insulin Aspart, Recombinant 100 u/ml 10 ml vial SC SCH ×5 (08:30→23:04)
[2017-05-12 08:38] LABS: NEUTROPHIL 91 % (50-75); TOTAL CELLS COUNTED 100
--- NOTE | 2017-05-12 09:42 | CP.PCM.PN ---
<Aggie Rainey H - Last Filed: 05/12/17 09:23> Subjective - Date & Time of Evaluation Date of Evaluation: 05/12/17 Time of Evaluation: 08:25 - Subjective Subjective: PGY-[address] Chacko's service: Patient seen and examined at bedside this AM. Nursing reports no acute events overnight. Patient rate controlled overnight. Patient has atrial flutter with rate controlled afib on court recording monitor. She denies chest pain, palpitations, shortness of breath, diaphoresis overnight. She is not talking much and says no to all ROS. Objective - Vital Signs/Intake and Output Vital Signs (last 24 hours): Temp Pulse Resp BP Pulse Ox 96.1 F L 52 L 20 144/63 98 05/12/17 07:00 05/12/17 07:00 05/12/17 07:00 05/12/17 07:00 05/12/17 07:00 Intake and Output: 05/12/17 05/12/17 06:59 18:59 Intake Total 1300 Balance 1300 - Medications Medications: Current Medications Apixaban (Eliquis) 2.5 mg PO BID [facility] Last Admin: 05/11/17 17:43 Dose: 2.5 mg Aspirin (Aspirin Chewable) 81 mg PO DAILY [facility] Last Admin: 05/11/17 10:40 Dose: 81 mg Calcium/Vitamin D (Oyster Shell Calcium/Vitamin D 500 Mg-200 Iu) 1 tab PO BID [facility] Last Admin: 05/11/17 17:43 Dose: 1 tab Carvedilol (Coreg) 12.5 mg PO Q24H [facility] Carvedilol (Coreg) 12.5 mg PO Q24H [facility] Citalopram Hydrobromide (Celexa) 10 mg PO DAILY [facility] Last Admin: 05/11/17 10:42 Dose: 10 mg Clonidine HCl (Catapres) 0.3 mg PO TID [facility] Last Admin: 05/08/17 11:18 Dose: 0.3 mg Diltiazem HCl (Cardizem Cd) 240 mg PO DAILY [facility] Docusate Sodium (Colace) 100 mg PO BID [facility] Last Admin: 05/11/17 17:43 Dose: 100 mg Famotidine (Pepcid) 20 mg IVP DAILY [facility] Last Admin: 05/11/17 10:41 Dose: 20 mg Folic Acid (Folic Acid) 1 mg PO DAILY [facility] Last Admin: 05/11/17 10:41 Dose: 1 mg Furosemide (Lasix) 20 mg PO DAILY [facility] Home Med (Home Med) 1 unit OU TID [facility] Last Admin: 05/11/17 17:44 Dose: 1 unit Home Med (Home Med) 1 unit OU HS [facility] Last Admin: 05/11/17 21:41 Dose: 1 unit Hydralazine HCl (Apresoline) 10 mg IVP Q6H PRN PRN Reason: Systolic Blood Pressure Last Admin: 05/10/17 06:17 Dose: 10 mg Sodium Chloride (Sodium Chloride 0.45%) 1,000 mls @ 50 mls/hr IV .Q20H [facility] Last Admin: 05/11/17 05:26 Dose: Not Given Ceftriaxone Sodium 1 gm/ (Sodium Chloride) 100 mls @ 100 mls/hr IVPB DAILY [facility] Last Admin: 05/11/17 10:42 Dose: 100 mls/hr Insulin Aspart (Novolog) 0 unit SC ACHS [facility] PRN Reason: Protocol Last Admin: 05/12/17 08:54 Dose: 3 unit Insulin Detemir (Levemir) 5 unit SC [facility] Last Admin: 05/11/17 21:41 Dose: 5 unit Losartan Potassium (Cozaar) 100 mg PO DAILY [facility] Last Admin: 05/11/17 10:41 Dose: 100 mg Magnesium Oxide (Mag-Ox) 400 mg PO BID [facility] Last Admin: 05/11/17 17:43 Dose: 400 mg Metformin [facility] ([facility]) [facility] Last Admin: 05/12/17 08:54 Dose: 1,000 mg Ondansetron HCl (Zofran Inj) 4 mg IVP Q6H PRN PRN Reason: Nausea/Vomiting Last Admin: 05/12/17 08:59 Dose: 4 mg Rosuvastatin Calcium (Crestor) 2.5 mg PO [facility] Last Admin: 05/11/17 21:40 Dose: 2.5 mg Simethicone (Mylicon Chew Tab) 80 mg PO Q8H PRN PRN Reason: GI distress Last Admin: 05/10/17 05:32 Dose: 80 mg - Labs Labs: 05/12/17 06:15 05/12/17 06:15 PT 16.1 SECONDS (9.7-12.2) H 07/28/17 06:42 INR 1.4 05/11/17 06:42 APTT 19 SECONDS (21-34) L 05/11/17 06:42 - Constitutional Appears: Non-toxic, No Acute Distress - Head Exam Head Exam: NORMAL INSPECTION - Eye Exam Eye Exam: EOMI - ENT Exam ENT Exam: Mucous Membranes Moist - Respiratory Exam Respiratory Exam: Clear to Ausculation Bilateral, NORMAL BREATHING PATTERN. absent: Rales, Rhonchi, Wheezes - Cardiovascular Exam Cardiovascular Exam: REGULAR RHYTHM, +S1, +S2, Murmur. absent: Gallop, Rubs - GI/Abdominal Exam GI & Abdominal Exam: Soft, Normal Bowel Sounds. absent: Tenderness - Extremities Exam Extremities Exam: absent: Pedal Edema - Neurological Exam Neurological Exam: Alert, Awake - Psychiatric Exam Psychiatric exam: Flat Affect - Skin Skin Exam: Normal Color, Warm Assessment and Plan - Assessment and Plan (Free Text) Assessment: Ischemic CVA No TPA given in ED due to history of hemorrhagic stroke in 2014 CXR (05/07/17): no active pulmonary disease (see full report) CT angio head/neck (05/07/17): Patent vasculataure. Nonspecific white matter changes. Acute infarction may be occult within first 24 hrs. If deficit persists , consider CT/MRI for further evaluation (see resident) MRI head w/o contrast (05/07/17): Large acute left DRIP PUMPER territory infarction involving occipital lobe, medial, and posterior temporal lobe and thalamus with mild surrounding vasogenic edema. No evidence of midline shift or herniation. Cystic encephalmalacia in right occiptial lobe, sequela of remote DRIP PUMPER territory infarction. Mild chronic microangiopathic changes, small old lacunar infarction in the right centrum semiovale and moderate age related global parenchymal volume loss (see full report) CT head negative (05/07/17): Nonspecific white matter changes. Acute infarction may be occult wihin 24hrs. If deficit persists, consider follow up CT/MRI (see full report) - f/u CT Head (05/08/17): Encephalomalacia involving right occipital lobe. Evolving ischemic changes identified involving left occipital lobe, inferior aspect of the medial temporal lobes, as well as portion of the thalamus. Effacement and displacement of the posterior horn left lateral ventricle (see full report) EKG (05/07/17): nsr 93 non specific lateral t wave changes, no interval change ECHO (05/07/17): LV systolic fxn normal. EF 60-65%. HTN heart disease. Trace Aortic regurgitation. Mitral regurgitation mild. No tricuspid valve regurgitation noted. No pulmonic valvular regurgitation (see full report) Carotid doppler (05/07/17): mild disease bilaterally Troponin/EKG negative x3 RASHAAD (05/09/17): 3 mm PFO with bidirectional flow and extensive aortic plaques both are potentially sources of stroke and warrants anticoagulation unless contraindicated. Hypercoaguability workup: See Hypercoagulable state diagnosis CHADS2-Vasc2: (8 pts; 10.8%) HASBLED (4 pts; 8.9%) Patient started on Eliquis as risk of stroke is greater. Neuro consult, Dr. Harden -Eliquis 2.5 mg PO BID, can be increased to 5mg BID "next week" - continue ASA [address] Tse consulted for cardiology, help appreciated - RASHAAD results: 3 mm PFO with bidirectional flow and extensive aortic plaques both are potentially sources of stroke and warrants anticoagulation unless contraindicated - Eliquis 2.5mg PO BID Hx of Posterior cerebral circulation hemorrhagic infarction (2015) - MRI Brain 2015: acute to early subacute hemorrhagic infarction within the right occipital lobe, parasagittal location involving the splenium of the corpus callosum (please see official report). - CT Head 2015: shows hemorrhagic infarct Right posterior cerebral artery with mass effect (see full report). - Carotid Dopplers 2015 shows mild disease bilaterally (see full report) PFO Interventional Cardiology consult - Dr. Carter - help appreciated Patient to be scheduled for PFO device repair Acute Kidney injury Creatinine improving today 0.9, GFR >60 - from Cr 1.8 on admission, GFR 27 Dr Caba, nephrology, consulted - Renal US (05/07/17): Medical renal disease. Small right kidney (see full report ) - Renal Artery Duplex Scan (05/08/17): No definite hemodynamically significant stenosis involving renal arteries as visualized (see full report) 1/2 NS @ 50 cc/hr Aflutter/Afib EKG: Rate 52 bpm. Aflutter. Cardizem 60mg PO Q6H - Cardizem 15mg x 2 given for afib spells - Started Cardizem CD 240mg PO Daily at 10am on May 12 - Coreg 12.5mg PO at 1pm and 10pm Depression S/p loss of vision as sequelae of stroke Celexa 10mg PO Daily - recommended by Dr. Harden Hypercoaguable state Hypercoaguability workup: Antiphospholipid panel: Beta-2 Glycoproetin Ab 26H Beta-2 GPI IgG Ab <9 Beta-2 GPI IgM Ab <9 Phosphatidylserine IgG <10 Phosphatidylserine IgA <20 Phosphatidylserine IgM <25 Anti-Cardiolipin IgG <14 Anti-Cardiolipin IgA Ab <11 Anti-Cardiolipiin IgM Ab <12 Factor V leiden mutation not detected Factor V activity 82 Protein C antigen 92, protein C activity 81 Protein S activity 104, protein S antigen 103 Serum immunofixation - detected MILO 6 profile: Positive, titer: 1:80, pattern: Nucleolar Forrest immunofixation - a faint band in lambda is present against a dense polycolonal background. While this may represent a reactive/inflammatory process, a developing plasma cell disorder cannot be excluded. Clinical correlation is suggested and if indicated, repeat the immunofixation in 3-6 months. Acute vision loss Hx of cataracts/glaucoma Opthalmologist: Dr. Rodriguez, help appreciated - continue home meds Alphagan 0.01% BID, and Lamigan 0.1% HS HTN controlled today Hydralazine 10mg IV Q6H PRN if SBP > 160 - hold Lasix 20mg PO qd due to RADHA - Cardizem 240mg PO daily at 10am - Coreg 12.5mg PO at 1pm and 10pm (increased dose of home med) Continue home meds Losartan 100mg PO qd 1/2 NS @ 50cc/hr Type Two Diabetes Mellitus BG elevated this AM at 204 - increase Novolog ISS to medium Restart home Metformin 500mg PO BID and hold Glipizide 5mg PO BID A1c 9.2 Hypercholesterolemia HDL 40 / LDL 52 Crestor 2.5mg HS Cholest 119 Triglyc 189 H UTI - patient is being treated for a UTI by her PMD - UA (+); glucose 2+, Blood 1+, Leuk Est 3+, WBC 53, Hyaline casts 3-5H. Continue home Cipro 500mg PO BID (first dose 05/05) -> renally dosed to Q18H. Rocephin 1gm IVPB daily started 05/09/17 - F/U repeat UA and urine culture ordered 05/12/17 Electrolyte abnormalities Mg 2.0 today Monitor on AM labs Prophylaxis SCDs Eliquis 2.5mg PO BID Pepcid 20mg IVP daily Mechanical soft bite-sized diet, thin liquid (vegetarian) PT - benefit from skilled PT to improve transfers/mobility OT - recommend TCU Discussed with Dr. Ricco Rainey, DO, PGY3 <Vandana Chacko V - Last Filed: 05/12/17 12:47> Objective - Vital Signs/Intake and Output Vital Signs (last 24 hours): Temp Pulse Resp BP Pulse Ox 97 F L 71 18 147/59 L 100 05/12/17 11:09 05/12/17 11:09 05/12/17 11:09 05/12/17 11:09 05/12/17 11:09 Intake and Output: 05/12/17 05/12/17 06:59 18:59 Intake Total 1300 Balance 1300 - Medications Medications: Current Medications Apixaban (Eliquis) 2.5 mg PO BID [facility] Last Admin: 05/12/17 11:00 Dose: 2.5 mg Aspirin (Aspirin Chewable) 81 mg PO DAILY [facility] Last Admin: 05/12/17 11:00 Dose: 81 mg Calcium/Vitamin D (Oyster Shell Calcium/Vitamin D 500 Mg-200 Iu) 1 tab PO BID [facility] Last Admin: 05/12/17 10:59 Dose: 1 tab Carvedilol (Coreg) 12.5 mg PO Q24H [facility] Carvedilol (Coreg) 12.5 mg PO Q24H [facility] Citalopram Hydrobromide (Celexa) 10 mg PO DAILY [facility] Last Admin: 05/12/17 11:00 Dose: 10 mg Clonidine HCl (Catapres) 0.3 mg PO TID [facility] Last Admin: 05/08/17 11:18 Dose: 0.3 mg Diltiazem HCl (Cardizem Cd) 240 mg PO DAILY [facility] Last Admin: 05/12/17 11:18 Dose: 240 mg Docusate Sodium (Colace) 100 mg PO BID [facility] Last Admin: 05/12/17 11:00 Dose: 100 mg Famotidine (Pepcid) 20 mg IVP DAILY [facility] Last Admin: 05/12/17 09:43 Dose: 20 mg Folic Acid (Folic Acid) 1 mg PO DAILY [facility] Last Admin: 05/12/17 10:59 Dose: 1 mg Furosemide (Lasix) 20 mg PO DAILY [facility] Home Med (Home Med) 1 unit OU TID [facility] Last Admin: 05/12/17 11:00 Dose: 1 unit Home Med (Home Med) 1 unit OU HS [facility] Last Admin: 05/11/17 21:41 Dose: 1 unit Hydralazine HCl (Apresoline) 10 mg IVP Q6H PRN PRN Reason: Systolic Blood Pressure Last Admin: 05/10/17 06:17 Dose: 10 mg Sodium Chloride (Sodium Chloride 0.45%) 1,000 mls @ 50 mls/hr IV .Q20H [facility] Last Admin: 05/11/17 05:26 Dose: Not Given Ceftriaxone Sodium 1 gm/ (Sodium Chloride) 100 mls @ 100 mls/hr IVPB DAILY [facility] Last Admin: 05/12/17 09:43 Dose: 100 mls/hr Insulin Aspart (Novolog) 0 unit SC [facility] PRN Reason: Protocol Last Admin: 05/12/17 08:30 Dose: Not Given Insulin Detemir (Levemir) 5 unit SC [facility] Last Admin: 05/11/17 21:41 Dose: 5 unit Losartan Potassium (Cozaar) 100 mg PO DAILY [facility] Last Admin: 05/12/17 11:19 Dose: 100 mg Magnesium Oxide (Mag-Ox) 400 mg PO BID [facility] Last Admin: 05/12/17 11:00 Dose: 400 mg Metformin [facility] (Glucophage) [facility] Last Admin: 05/12/17 11:09 Dose: Not Given Ondansetron HCl (Zofran Inj) 4 mg IVP Q6H PRN PRN Reason: Nausea/Vomiting Last Admin: 05/12/17 08:59 Dose: 4 mg Rosuvastatin Calcium (Crestor) 2.5 mg PO [facility] Last Admin: 05/11/17 21:40 Dose: 2.5 mg Simethicone (Mylicon Chew Tab) 80 mg PO Q8H PRN PRN Reason: GI distress Last Admin: 05/10/17 05:32 Dose: 80 mg - Labs Labs: 05/12/17 06:15 05/12/17 06:15 PT 16.1 SECONDS (9.7-12.2) H 05/11/17 06:42 INR 1.4 05/11/17 06:42 APTT 19 SECONDS (21-34) L 05/11/17 06:42 Attending/Attestation - Attestation I have personally seen and examined this patient.: Yes I have fully participated in the care of the patient.: Yes I have reviewed all pertinent clinical information, including history, physical exam and plan: Yes Notes (Text): Patient seen, examined and case discussed with day-time resident. patient seen this morning with son at bedside assisting in translation. Per son , patient does not feel like eating much of anything. Patient advised she is a diabetic that we want her to eat to gather her strength and advised son he can bring food from home as well. Discussed with nursing staff, metformin and insulin coverage held this morning because patient is not eating. Psychiatry consult: loss of appetite, depression symptoms. Patient re-evaluated later in the morning. patient reporting chest pain. EKG: shows atrial fibrillation; rate controlled; LEELA: negative and monitor LEELA Q 6hours X3 today. Discussed with son at bedside and spoke with patient's nephew, Tramaine (who works in [employer]); awaiting LEELA. Discussed with Tramaine as well, Dr. Carter would like to schedule closure of PFO sometime next week. Patient received Aspirin and Eliquis this morning. Patient ordered for Morphine 1mg IVX1 for pain control. Assessment/Plan 1) Ischemic CVA * Neurology (Dr. Harden) help appreciated * Cardiology (Dr. Tse) help appreciated * No TPA given in ED due to history of hemorrhagic stroke in 2015 * CXR (05/07/17): no active pulmonary disease (see full report) * CT head negative (05/07/17): Nonspecific white matter changes. Acute infarction may be occult wihin 24hrs. If deficit persists, consider follow up CT /MRI (see full report) * CT angio head/neck (05/07/17): Patent vasculture. Nonspecific white matter changes. Acute infarction may be occult within first 24 hrs. If deficit persists , consider CT/MRI for further evaluation (see resident) * MRI head w/o contrast (05/07/17): Large acute left DRIP PUMPER territory infarction involving occipital lobe, medial, and posterior temporal lobe and thalamus with mild surrounding vasogenic edema. No evidence of midline shift or herniation. Cystic encephalmalacia in right occiptial lobe, sequela of remote DRIP PUMPER territory infarction. Mild chronic microangiopathic changes, small old lacunar infarction in the right centrum semiovale and moderate age related global parenchymal volume loss (see full report) * Repeat CT Head (05/08/17): Encephalomalacia involving right occipital lobe. Evolving ischemic changes identified involving left occipital lobe, inferior aspect of the medial temporal lobes, as well as portion of the thalamus. Effacement and displacement of the posterior horn left lateral ventricle (see full report) * EKG (05/07/17): nsr 93 non specific lateral t wave changes, no interval change * ECHO (05/07/17): LV systolic fxn normal. EF 60-65%. HTN heart disease. Trace Aortic regurgitation. Mitral regurgitation mild. No tricuspid valve regurgitation noted. No pulmonic valvular regurgitation (see full report) * Carotid doppler (05/07/17): mild disease bilaterally * Troponin/EKG negative x3 * RASHAAD (05/09/17): 3 mm PFO with bidirectional flow and extensive aortic plaques both are potentially sources of stroke and warrants anticoagulation unless contraindicated. * Hypercoaguability workup:antiphospholipid: negative, Factor V leiden: not detected, Protein C&S normal * Serum immunofixation - detected * MILO 6 profile: Positive, titer: 1:80, pattern: Nucleolar--->f/u outpatient with black puller * Aspirin 81mg PO daily * Blood pressure control-->see hypertension * Crestor 2.5mg POqHS * Per neurology, recommended for Eliquis 2.5 mg PO BID, can be increased to 5mg BID "next week" 2) Acute Kidney injury * Nephrology (Dr. Caba) on consult help appreciated * Renal US (05/07/17): Medical renal disease. Small right kidney (see full report ) * Renal Artery Duplex Scan (05/08/17): No definite hemodynamically significant stenosis involving renal arteries as visualized (see full report) * GFR>60 * monitor BUN/Cr 3) Atrial fibrillation, new on set * EKG: Rate 68 bpm. 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 Carter (airport attendant)--> PFO closure; to schedule patient to close PFO; discussed with family 4) Depression * S/p loss of vision as sequelae of stroke * Celexa 10mg PO Daily * Psychiatry (Dr. Turner)-->F/u recommendations 5) Vision Loss * Contributing factors: stroke, hx of cataracts/glaucoma * Opthalmologist: Dr. Rodriguez, help appreciated * Alphagan 0.1% one drop both eyes three times a day * Lumigan 0/01% eye drops both at bedtime 6) Hypertension * Cardizem CD 240mg PO daily * Losartan 100mg PO daily * Coreg 12.5mg PO Q 12H * 1/2 NS @ 50cc/hr 7) Type Two Diabetes Mellitus * Hemoglobin a1c: 9.2 (uncontrolled) * Increase Metformin 1000 mg PO BID * Hold Glipizide * Start Levemir 5 units subq HS * Novolog insulin sliding scale subq (medium dosing) 8) Hypercholesterolemia * Lipid panel: T, Cholesterol: 119, LDL: 52, HDL: 40 * Crestor 2.5mg PO qHS 9) Urinary Tract Infection * Urine culture (05/06/17): E. Coli sensitive to Aztreonam, Cefazolin, Cefepime, resistant to Cipro--> * Rocephin 1 gram IV q daily (active since 05/09/17; day 4) 10) Electrolyte abnormalities * Monitor CMP and Mg2+ 11) Prophylaxis * SCDs * Pepcid 20mg IVP daily * Aspirin 81mg PO daily * Eliquis 2.5mg PO BID * Mechanical soft bite-sized diet, thin liquid (vegetarian) * PT - benefit from skilled PT to improve transfers/mobility * f/u case management and social work regarding discharge planning
[2017-05-12] MEDS ORDERED: diltiaZEM 240 mg/24 Hours CD Cap PO SCH (10:00)
[2017-05-12] MEDS: Calcium-Vit D 500 mg-200 Units Tab UD PO SCH ×2 (10:59→17:49)
[2017-05-12] MEDS: ALPHAGAN 0.1% OU SCH ×3 (11:00→17:45)
[2017-05-12] MEDS: Magnesium Oxide 400 mg Tab UD PO SCH ×2 (11:00→17:45)
[2017-05-12] MEDS: diltiaZEM 240 mg/24 Hours CD Cap PO SCH (11:18)
--- NOTE | 2017-05-12 11:19 | CP.PCM.PN ---
Subjective - Date & Time of Evaluation Date of Evaluation: 05/12/17 Time of Evaluation: 11:16 - Subjective Subjective: Notes reviewed Comfortable in bed Family at bedside, care reviewed Discussed with floor nurse, no overnight events Alert; in NAD no overt SOB, CPs, n, v, HAs, diarrhea ROS as above otherwise negative Objective - Vital Signs/Intake and Output Vital Signs (last 24 hours): Temp Pulse Resp BP Pulse Ox 97 F L 71 18 147/59 L 100 05/12/17 11:09 05/12/17 11:09 05/12/17 11:09 05/12/17 11:09 05/12/17 11:09 Intake and Output: 05/12/17 05/12/17 06:59 18:59 Intake Total 1300 Balance 1300 - Medications Medications: Current Medications Apixaban (Eliquis) 2.5 mg PO BID [facility] Last Admin: 05/12/17 11:00 Dose: 2.5 mg Aspirin (Aspirin Chewable) 81 mg PO DAILY [facility] Last Admin: 05/12/17 11:00 Dose: 81 mg Calcium/Vitamin D (Oyster Shell Calcium/Vitamin D 500 Mg-200 Iu) 1 tab PO BID [facility] Last Admin: 05/12/17 10:59 Dose: 1 tab Carvedilol (Coreg) 12.5 mg PO Q24H [facility] Carvedilol (Coreg) 12.5 mg PO Q24H [facility] Citalopram Hydrobromide (Celexa) 10 mg PO DAILY [facility] Last Admin: 05/12/17 11:00 Dose: 10 mg Clonidine HCl (Catapres) 0.3 mg PO TID [facility] Last Admin: 05/08/17 11:18 Dose: 0.3 mg Diltiazem HCl (Cardizem Cd) 240 mg PO DAILY [facility] Docusate Sodium (Colace) 100 mg PO BID [facility] Last Admin: 05/12/17 11:00 Dose: 100 mg Famotidine (Pepcid) 20 mg IVP DAILY [facility] Last Admin: 05/12/17 09:43 Dose: 20 mg Folic Acid (Folic Acid) 1 mg PO DAILY [facility] Last Admin: 05/12/17 10:59 Dose: 1 mg Furosemide (Lasix) 20 mg PO DAILY [facility] Home Med (Home Med) 1 unit OU TID [facility] Last Admin: 05/12/17 11:00 Dose: 1 unit Home Med (Home Med) 1 unit OU [facility] Last Admin: 05/11/17 21:41 Dose: 1 unit Hydralazine HCl (Apresoline) 10 mg IVP Q6H PRN PRN Reason: Systolic Blood Pressure Last Admin: 05/10/17 06:17 Dose: 10 mg Sodium Chloride (Sodium Chloride 0.45%) 1,000 mls @ 50 mls/hr IV .Q20H [facility] Last Admin: 05/11/17 05:26 Dose: Not Given Ceftriaxone Sodium 1 gm/ (Sodium Chloride) 100 mls @ 100 mls/hr IVPB DAILY [facility] Last Admin: 05/12/17 09:43 Dose: 100 mls/hr Insulin Aspart (Novolog) [address] [facility] PRN Reason: Protocol Last Admin: 05/12/17 08:30 Dose: Not Given Insulin Detemir (Levemir) 5 unit SC [facility] Last Admin: 05/11/17 21:41 Dose: 5 unit Losartan Potassium (Cozaar) 100 mg PO DAILY [facility] Last Admin: 05/11/17 10:41 Dose: 100 mg Magnesium Oxide (Mag-Ox) 400 mg PO BID [facility] Last Admin: 05/12/17 11:00 Dose: 400 mg [facility] ([facility] Last Admin: 05/12/17 11:09 Dose: Not Given Ondansetron HCl (Zofran Inj) 4 mg IVP Q6H PRN PRN Reason: Nausea/Vomiting Last Admin: 05/12/17 08:59 Dose: 4 mg Rosuvastatin Calcium (Crestor) 2.5 mg PO [facility] Last Admin: 05/11/17 21:40 Dose: 2.5 mg Simethicone (Mylicon Chew Tab) 80 mg PO Q8H PRN PRN Reason: GI distress Last Admin: 05/10/17 05:32 Dose: 80 mg - Labs Labs: 05/12/17 06:15 05/12/17 06:15 PT 16.1 SECONDS (9.7-12.2) H 05/11/17 06:42 INR 1.4 05/11/17 06:42 APTT 19 SECONDS (21-34) L 05/11/17 06:42 - Constitutional Appears: Well, Non-toxic - Head Exam Head Exam: ATRAUMATIC, NORMAL INSPECTION - Eye Exam Eye Exam: EOMI, Normal appearance - ENT Exam ENT Exam: Mucous Membranes Moist, Normal Exam - Respiratory Exam Respiratory Exam: Clear to Ausculation Bilateral. absent: Rhonchi, Wheezes - Cardiovascular Exam Cardiovascular Exam: +S1, +S2. absent: JVD - GI/Abdominal Exam GI & Abdominal Exam: Soft, Normal Bowel Sounds - Extremities Exam Extremities Exam: absent: Joint Swelling, Pedal Edema - Neurological Exam Neurological Exam: Alert, Awake - Skin Skin Exam: Dry, Intact Assessment and Plan (1) CKD (chronic kidney disease) stage 3, GFR 30-59 ml/min Status: Acute (2) Stroke Status: Acute (3) UTI (urinary tract infection) Status: Acute (4) Diabetes mellitus Status: Acute (5) Hypertension Status: Acute - Assessment and Plan (Free Text) Assessment: Acute kidney injury resolved Renal function and electrolytes stable BP controlled Continue current care
[2017-05-12 12:29] LABS: RBC URINE 11 /hpf (0-3); URINE BACTERIA RARE (<OCC); URINE BILIRUBIN NEGATIVE (NEGATIVE); URINE BLOOD 1+ (NEGATIVE); URINE COLOR Yellow (YELLOW); URINE GLUCOSE (UA) 3+ mg/dL (Normal); URINE KETONE 1+ mg/dL (NEGATIVE); URINE LEUKOCYTE ESTERASE TRACE Leu/uL (Negative); URINE PROTEIN NEGATIVE (NEGATIVE); URINE UROBILINOGEN NORMAL mg/dL (0.2-1.0); WBC URINE 19 /hpf (0-5)
[2017-05-12] MEDS: Sodium Chloride 0.45% 1,000 ML IV SCH (21:00)
[2017-05-12] MEDS: Insulin Detemir 100 units/ml Vial (Levemir) SC SCH (23:02)
[2017-05-12] MEDS: Rosuvastatin Calcium 2.5 mg Tab PO SCH (23:04)
[2017-05-13] MEDS: (Novolog) Insulin Aspart, Recombinant 100 u/ml 10 ml vial SC SCH ×4 (08:48→22:14)
[2017-05-13] MEDS: ALPHAGAN 0.1% OU SCH ×3 (09:28→18:02)
--- NOTE | 2017-05-13 09:28 | CP.PCM.PN ---
Addendum entered and electronically signed by Aggie Rainey DO 05/13/17 10: 58: Patient's granddaughter at bedside reported to Dr. Chacko that patient has not been eating and has not had a bowel movement in a long time. We will talk to patient's son when he gets here around 3pm about need for NGT. Tap water enema ordered. Spoke with Dr. Carter who said patient will likely get PFO repair at [facility] on Sunday or Sunday. Original Note: <Aggie Rainey - Last Filed: 05/13/17 09:24> Subjective - Date & Time of Evaluation Date of Evaluation: 05/13/17 Time of Evaluation: 08:20 - Subjective Subjective: PGY-[address] Chacko's service: Patient seen and examined at bedside this AM. Nursing reports no acute events overnight. Patient rate controlled overnight. 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 She denies chest pain, palpitations, shortness of breath, diaphoresis overnight. She is not talking much and says no to all ROS. Patient's son was at bedside yesterday. He told us she was complaining of chest pain. The chest pain lasted approximately 15 minutes and was reproducible. Not associated with SOB or diaphoresis. Troponin was negative. EKG showed afib/flutter with no ST or T wave changes. Patient denies chest pain this morning. BP elevated this AM per nursing, Holly. Cozaar given early. Objective - Vital Signs/Intake and Output Vital Signs (last 24 hours): Temp Pulse Resp BP Pulse Ox 96.5 F L 76 20 182/76 H 98 05/13/17 07:00 05/13/17 08:35 05/13/17 07:00 05/13/17 08:35 05/13/17 07:00 Intake and Output: 05/13/17 05/13/17 06:59 18:59 Intake Total 700 Balance 700 - Medications Medications: Current Medications Apixaban (Eliquis) 2.5 mg PO BID [facility] Last Admin: 05/12/17 17:45 Dose: 2.5 mg Aspirin (Aspirin Chewable) 81 mg PO DAILY [facility] Last Admin: 05/12/17 11:00 Dose: 81 mg Calcium/Vitamin D (Oyster Shell Calcium/Vitamin D 500 Mg-200 Iu) 1 tab PO BID [facility] Last Admin: 05/12/17 17:49 Dose: 1 tab Carvedilol (Coreg) 12.5 mg PO Q24H [facility] Carvedilol (Coreg) 12.5 mg PO Q24H [facility] Last Admin: 05/12/17 23:03 Dose: 12.5 mg Citalopram Hydrobromide (Celexa) 10 mg PO DAILY [facility] Last Admin: 05/12/17 11:00 Dose: 10 mg Clonidine HCl (Catapres) 0.3 mg PO TID [facility] Last Admin: 05/08/17 11:18 Dose: 0.3 mg Diltiazem HCl (Cardizem Cd) 240 mg PO DAILY [facility] Last Admin: 05/12/17 11:18 Dose: 240 mg Docusate Sodium (Colace) 100 mg PO BID [facility] Last Admin: 05/12/17 17:45 Dose: 100 mg Famotidine (Pepcid) 20 mg IVP DAILY [facility] Last Admin: 05/12/17 09:43 Dose: 20 mg Folic Acid (Folic Acid) 1 mg PO DAILY [facility] Last Admin: 05/12/17 10:59 Dose: 1 mg Furosemide (Lasix) 20 mg PO DAILY [facility] Home Med (Home Med) 1 unit OU TID [facility] Last Admin: 05/12/17 17:45 Dose: 1 unit Home Med (Home Med) 1 unit OU HS [facility] Last Admin: 05/12/17 23:04 Dose: 1 unit Hydralazine HCl (Apresoline) 10 mg IVP Q6H PRN PRN Reason: Systolic Blood Pressure Last Admin: 05/10/17 06:17 Dose: 10 mg Sodium Chloride (Sodium Chloride 0.45%) 1,000 mls @ 50 mls/hr IV .Q20H [facility] Last Admin: 05/12/17 21:00 Dose: 50 mls/hr Ceftriaxone Sodium 1 gm/ (Sodium Chloride) 100 mls @ 100 mls/hr IVPB DAILY [facility] Last Admin: 05/12/17 09:43 Dose: 100 mls/hr Insulin Aspart (Novolog) 0 unit SC ACHS [facility] PRN Reason: Protocol Last Admin: 05/13/17 08:48 Dose: 3 unit Insulin Detemir (Levemir) 5 unit SC HS [facility] Last Admin: 05/12/17 23:02 Dose: 5 unit Losartan Potassium (Cozaar) 100 mg PO DAILY [facility] Last Admin: 05/13/17 08:41 Dose: 100 mg Magnesium Oxide (Mag-Ox) 400 mg PO BID [facility] Last Admin: 05/12/17 17:45 Dose: 400 mg Metformin HCl (Glucophage) 1,000 mg PO BIDCC [facility] Last Admin: 05/13/17 08:49 Dose: 1,000 mg Ondansetron HCl (Zofran Inj) 4 mg IVP Q6H PRN PRN Reason: Nausea/Vomiting Last Admin: 05/13/17 08:50 Dose: 4 mg Rosuvastatin Calcium (Crestor) 2.5 mg PO HS [facility] Last Admin: 05/12/17 23:04 Dose: 2.5 mg Simethicone (Mylicon Chew Tab) 80 mg PO Q8H PRN PRN Reason: GI distress Last Admin: 05/10/17 05:32 Dose: 80 mg - Labs Labs: 05/12/17 06:15 05/12/17 06:15 PT 16.1 SECONDS (9.7-12.2) H 05/11/17 06:42 INR 1.4 05/11/17 06:42 APTT 19 SECONDS (21-34) L 05/11/17 06:42 - Constitutional Appears: Non-toxic, No Acute Distress, Chronically Ill - Head Exam Head Exam: NORMAL INSPECTION - Eye Exam Eye Exam: Normal appearance - ENT Exam ENT Exam: Mucous Membranes Moist - Respiratory Exam Respiratory Exam: Clear to Ausculation Bilateral, NORMAL BREATHING PATTERN. absent: Rales, Rhonchi, Wheezes - Cardiovascular Exam Cardiovascular Exam: Irregular Rhythm, +S1, +S2. absent: Tachycardia - GI/Abdominal Exam GI & Abdominal Exam: Soft, Normal Bowel Sounds. absent: Tenderness - Extremities Exam Extremities Exam: absent: Pedal Edema - Neurological Exam Neurological Exam: Alert, Awake - Psychiatric Exam Psychiatric exam: Depressed, Flat Affect - Skin Skin Exam: Normal Color, Warm Assessment and Plan - Assessment and Plan (Free Text) Assessment: Ischemic CVA No TPA given in ED due to history of hemorrhagic stroke in 2014 CXR (05/07/17): no active pulmonary disease (see full report) CT angio head/neck (05/07/17): Patent vasculataure. Nonspecific white matter changes. Acute infarction may be occult within first 24 hrs. If deficit persists , consider CT/MRI for further evaluation (see resident) MRI head w/o contrast (05/07/17): Large acute left [employer] territory infarction involving occipital lobe, medial, and posterior temporal lobe and thalamus with mild surrounding vasogenic edema. No evidence of midline shift or herniation. Cystic encephalmalacia in right occiptial lobe, sequela of remote [employer] territory infarction. Mild chronic microangiopathic changes, small old lacunar infarction in the right centrum semiovale and moderate age related global parenchymal volume loss (see full report) CT head negative (05/07/17): Nonspecific white matter changes. Acute infarction may be occult wihin 24hrs. If deficit persists, consider follow up CT/MRI (see full report) - f/u CT Head (05/08/17): Encephalomalacia involving right occipital lobe. Evolving ischemic changes identified involving left occipital lobe, inferior aspect of the medial temporal lobes, as well as portion of the thalamus. Effacement and displacement of the posterior horn left lateral ventricle (see full report) EKG (05/07/17): nsr 93 non specific lateral t wave changes, no interval change ECHO (05/07/17): LV systolic fxn normal. EF 60-65%. HTN heart disease. Trace Aortic regurgitation. Mitral regurgitation mild. No tricuspid valve regurgitation noted. No pulmonic valvular regurgitation (see full report) Carotid doppler (05/07/17): mild disease bilaterally Troponin/EKG negative x3 RASHAAD (05/09/17): 3 mm PFO with bidirectional flow and extensive aortic plaques both are potentially sources of stroke and warrants anticoagulation unless contraindicated. Hypercoaguability workup: See Hypercoagulable state diagnosis CHADS2-Vasc2: (8 pts; 10.8%) HASBLED (4 pts; 8.9%) Patient started on Eliquis as risk of stroke is greater. Neuro consult, Dr. Harden -Eliquis 2.5 mg PO BID, can be increased to 5mg BID "next week" - continue ASA [address] Tse consulted for cardiology, help appreciated - RASHAAD results: 3 mm PFO with bidirectional flow and extensive aortic plaques both are potentially sources of stroke and warrants anticoagulation unless contraindicated - Eliquis 2.5mg PO BID Hx of Posterior cerebral circulation hemorrhagic infarction (2015) - MRI Brain 2015: acute to early subacute hemorrhagic infarction within the right occipital lobe, parasagittal location involving the splenium of the corpus callosum (please see official report). - CT Head 2014: shows hemorrhagic infarct Right posterior cerebral artery with mass effect (see full report). - Carotid Dopplers 2014 shows mild disease bilaterally (see full report) Chest Pain DORI score for unstable angina/NSTEMI: 3 points --> 13% risk at 14 days of all- cause mortality, new or recurrent AR or severe recurrent ischemia requiring urgent revascularization DORI score for STEMI: 5 points --> 12.4% risk of all-cause mortality at 30 days LEELA negative x1 EKG showed Afib/flutter without ST or T wave changes F/U repeat ROMIs ASA 81mg PO daily Eliquis 2.5mg PO BID Crestor 2.5mg PO HS PFO Interventional Cardiology consult - Dr. Carter - help appreciated Patient to be scheduled for PFO device repair at [facility] Acute Kidney injury Creatinine improving today 0.9, GFR >60 - from Cr 1.8 on admission, GFR 27 Dr Caba, nephrology, consulted - Renal US (05/07/17): Medical renal disease. Small right kidney (see full report ) - Renal Artery Duplex Scan (05/08/17): No definite hemodynamically significant stenosis involving renal arteries as visualized (see full report) 1/2 NS @ 50 cc/hr Aflutter/Afib EKG: Rate 52 bpm. Aflutter. Cardizem 60mg PO Q6H - Cardizem 15mg x 2 given for afib spells - Started Cardizem CD 240mg PO Daily at 10am on Sunday, May 12 - Coreg 12.5mg PO at 1pm and 10pm Depression S/p loss of vision as sequelae of stroke Celexa 10mg PO Daily - recommended by Dr. Harden Psych consult - Dr. Linder - f/u recs Hypercoaguable state Hypercoaguability workup: Antiphospholipid panel: Beta-2 Glycoproetin Ab 26H Beta-2 GPI IgG Ab <9 Beta-2 GPI IgM Ab <9 Phosphatidylserine IgG <10 Phosphatidylserine IgA <20 Phosphatidylserine IgM <25 Anti-Cardiolipin IgG <14 Anti-Cardiolipin IgA Ab <11 Anti-Cardiolipiin IgM Ab <12 Factor V leiden mutation not detected Factor V activity 82 Protein C antigen 92, protein C activity 81 Protein S activity 104, protein S antigen 103 Serum immunofixation - detected MILO 6 profile: Positive, titer: 1:80, pattern: Nucleolar Forrest immunofixation - a faint band in lambda is present against a dense polycolonal background. While this may represent a reactive/inflammatory process, a developing plasma cell disorder cannot be excluded. Clinical correlation is suggested and if indicated, repeat the immunofixation in 3-6 months. Acute vision loss Hx of cataracts/glaucoma Opthalmologist: Dr. Rodriguez, help appreciated - continue home meds Alphagan 0.01% BID, and Lamigan 0.1% HS HTN elevated in 180s this AM -> Cozaar given early Hydralazine 10mg IV Q6H PRN if SBP > 160 - hold Lasix 20mg PO qd due to RADHA - Cardizem 240mg PO daily at 10am - Coreg 12.5mg PO at 1pm and 10pm (increased dose of home med) - Continue home meds Losartan 100mg PO qd 1/2 NS @ 50cc/hr Type Two Diabetes Mellitus Novolog ISS medium Restarted home Metformin 500mg PO BID and hold Glipizide 5mg PO BID A1c 9.2 Hypercholesterolemia HDL 40 / LDL 52 Crestor 2.5mg HS Cholest 119 Triglyc 189 H UTI - patient is being treated for a UTI by her PMD - UA (+); glucose 2+, Blood 1+, Leuk Est 3+, WBC 53, Hyaline casts 3-5H. Continue home Cipro 500mg PO BID (first dose 05/05) -> renally dosed to Q18H. Rocephin 1gm IVPB daily started 05/09/17 - UA shows 3+ glucose, 1+ ketones, 1+ blood, 19 WBC, 11 RBC F/U repeat urine culture ordered 05/12/17 Electrolyte abnormalities Monitor on AM labs Prophylaxis SCDs Eliquis 2.5mg PO BID Pepcid 20mg IVP daily Mechanical soft bite-sized diet, thin liquid (vegetarian) PT - benefit from skilled PT to improve transfers/mobility OT - recommend TCU Discussed with Dr. Ricco Rainey, DO, PGY3 <Vandana Chacko V - Last Filed: 05/13/17 13:09> Objective - Vital Signs/Intake and Output Vital Signs (last 24 hours): Temp Pulse Resp BP Pulse Ox 97.2 F L 73 20 163/71 H 97 05/13/17 11:50 05/13/17 11:50 05/13/17 11:50 05/13/17 11:50 05/13/17 09:25 Intake and Output: 05/13/17 05/13/17 06:59 18:59 Intake Total 700 Balance 700 - Medications Medications: Current Medications Apixaban (Eliquis) 2.5 mg PO BID [facility] Last Admin: 05/13/17 09:33 Dose: 2.5 mg Aspirin (Aspirin Chewable) 81 mg PO DAILY [facility] Last Admin: 05/13/17 09:33 Dose: 81 mg Calcium/Vitamin D (Oyster Shell Calcium/Vitamin D 500 Mg-200 Iu) 1 tab PO BID [facility] Last Admin: 05/13/17 09:33 Dose: 1 tab Carvedilol (Coreg) 12.5 mg PO Q24H [facility] Carvedilol (Coreg) 12.5 mg PO Q24H [facility] Last Admin: 05/12/17 23:03 Dose: 12.5 mg Citalopram Hydrobromide (Celexa) 10 mg PO DAILY [facility] Last Admin: 05/13/17 09:33 Dose: 10 mg Clonidine HCl (Catapres) 0.3 mg PO TID [facility] Last Admin: 05/08/17 11:18 Dose: 0.3 mg Diltiazem HCl (Cardizem Cd) 240 mg PO DAILY [facility] Last Admin: 05/13/17 09:33 Dose: 240 mg Docusate Sodium (Colace) 100 mg PO BID [facility] Last Admin: 05/13/17 09:33 Dose: 100 mg Famotidine (Pepcid) 20 mg IVP DAILY [facility] Last Admin: 05/13/17 09:29 Dose: 20 mg Folic Acid (Folic Acid) 1 mg PO DAILY [facility] Last Admin: 05/13/17 09:33 Dose: 1 mg Furosemide (Lasix) 20 mg PO DAILY [facility] Home Med (Home Med) 1 unit OU TID [facility] Last Admin: 05/13/17 09:28 Dose: 1 unit Home Med (Home Med) 1 unit OU HS [facility] Last Admin: 05/12/17 23:04 Dose: 1 unit Hydralazine HCl (Apresoline) 10 mg IVP Q6H PRN PRN Reason: Systolic Blood Pressure Last Admin: 05/10/17 06:17 Dose: 10 mg Sodium Chloride (Sodium Chloride 0.45%) 1,000 mls @ 50 mls/hr IV .Q20H [facility] Last Admin: 05/12/17 21:00 Dose: 50 mls/hr Ceftriaxone Sodium 1 gm/ (Sodium Chloride) 100 mls @ 100 mls/hr IVPB DAILY [facility] Last Admin: 05/13/17 09:29 Dose: 100 mls/hr Insulin Aspart (Novolog) 0 unit SC ACHS [facility] PRN Reason: Protocol Last Admin: 05/13/17 12:50 Dose: 4 unit Insulin Detemir (Levemir) 5 unit SC HS [facility] Last Admin: 05/12/17 23:02 Dose: 5 unit Losartan Potassium (Cozaar) 100 mg PO DAILY [facility] Last Admin: 05/13/17 09:33 Dose: Not Given Magnesium Oxide (Mag-Ox) 400 mg PO BID [facility] Last Admin: 05/13/17 09:33 Dose: 400 mg Metformin HCl (Glucophage) 1,000 mg PO BIDCC [facility] Last Admin: 05/13/17 08:49 Dose: 1,000 mg Ondansetron HCl (Zofran Inj) 4 mg IVP Q6H PRN PRN Reason: Nausea/Vomiting Last Admin: 05/13/17 08:50 Dose: 4 mg Rosuvastatin Calcium (Crestor) 2.5 mg PO HS [facility] Last Admin: 05/12/17 23:04 Dose: 2.5 mg Simethicone (Mylicon Chew Tab) 80 mg PO Q8H PRN PRN Reason: GI distress Last Admin: 05/13/17 12:45 Dose: 80 mg - Labs Labs: 05/13/17 09:28 05/13/17 09:28 PT 16.1 SECONDS (9.7-12.2) H 05/11/17 06:42 INR 1.4 05/11/17 06:42 APTT 19 SECONDS (21-34) L 05/11/17 06:42 Attending/Attestation - Attestation I have personally seen and examined this patient.: Yes I have fully participated in the care of the patient.: Yes I have reviewed all pertinent clinical information, including history, physical exam and plan: Yes Notes (Text): Patient seen, examined and case discussed with day-time resident. patient seen this morning with grand-beatris, age 19 at bedside assisting in translation in Guajarti. Her father, patient's son will be coming in the afternoon. Per our discussion this morning, patient has not had chest pain, denies palpitations, unclear if she has had a bowel movement or not, and patient has not eaten much of anything the entire week per discussion with grand -daughter in spite of family encouragement. Advised grand-daughter/patient, patient may need NGT tube to provide patient nutrition, who defers to patient's son who is coming this afternoon. Pending psychiatry consult: loss of appetite, depression symptoms. Resident spoke with Dr. Carter (interventional cardiology)-->arrangements to be made for PFO closure for possible Sunday/Sunday. Will need to discuss with cardiology regarding if patient needs to be off anti-coagulation for this anticipated procedure Assessment/Plan 1) Ischemic CVA * Neurology (Dr. Harden) help appreciated * Cardiology (Dr. Tse) help appreciated * No TPA given in ED due to history of hemorrhagic stroke in 2014 * CXR (05/07/17): no active pulmonary disease (see full report) * CT head negative (05/07/17): Nonspecific white matter changes. Acute infarction may be occult wihin 24hrs. If deficit persists, consider follow up CT /MRI (see full report) * CT angio head/neck (05/07/17): Patent vasculture. Nonspecific white matter changes. Acute infarction may be occult within first 24 hrs. If deficit persists , consider CT/MRI for further evaluation (see resident) * MRI head w/o contrast (05/07/17): Large acute left [employer] territory infarction involving occipital lobe, medial, and posterior temporal lobe and thalamus with mild surrounding vasogenic edema. No evidence of midline shift or herniation. Cystic encephalmalacia in right occiptial lobe, sequela of remote [employer] territory infarction. Mild chronic microangiopathic changes, small old lacunar infarction in the right centrum semiovale and moderate age related global parenchymal volume loss (see full report) * Repeat CT Head (05/08/17): Encephalomalacia involving right occipital lobe. Evolving ischemic changes identified involving left occipital lobe, inferior aspect of the medial temporal lobes, as well as portion of the thalamus. Effacement and displacement of the posterior horn left lateral ventricle (see full report) * EKG (05/07/17): nsr 93 non specific lateral t wave changes, no interval change * ECHO (05/07/17): LV systolic fxn normal. EF 60-65%. HTN heart disease. Trace Aortic regurgitation. Mitral regurgitation mild. No tricuspid valve regurgitation noted. No pulmonic valvular regurgitation (see full report) * Carotid doppler (05/07/17): mild disease bilaterally * Troponin/EKG negative x3 * RASHAAD (05/09/17): 3 mm PFO with bidirectional flow and extensive aortic plaques both are potentially sources of stroke and warrants anticoagulation unless contraindicated. * Hypercoaguability workup:antiphospholipid: negative, Factor V leiden: not detected, Protein C&S normal * Serum immunofixation - detected * MILO 6 profile: Positive, titer: 1:80, pattern: Nucleolar--->f/u outpatient with feller hand * Aspirin 81mg PO daily * Blood pressure control-->see hypertension * Crestor 2.5mg POqHS * Per neurology, recommended for Eliquis 2.5 mg PO BID-->, can be increased to 5mg BID this upcoming week 2) Acute Kidney injury * Nephrology (Dr. Caba) on consult help appreciated * Renal US (05/07/17): Medical renal disease. Small right kidney (see full report ) * Renal Artery Duplex Scan (05/08/17): No definite hemodynamically significant stenosis involving renal arteries as visualized (see full report) * GFR>60 * monitor BUN/Cr 3) Atrial fibrillation, new on set * EKG: Rate 68 bpm. 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 Carter (specialist employee labor relations)--> PFO closure; to schedule patient to close PFO-->planning in progress 4) Depression * S/p loss of vision as sequelae of stroke * Celexa 10mg PO Daily * Psychiatry (Dr. Turner)-->F/u recommendations 5) Vision Loss * Contributing factors: stroke, hx of cataracts/glaucoma * Opthalmologist: Dr. Rodriguez, help appreciated * Alphagan 0.1% one drop both eyes three times a day * Lumigan 0/01% eye drops both at bedtime 6) Hypertension * Cardizem CD 240mg PO daily * Losartan 100mg PO daily * Coreg 12.5mg PO Q 12H * 1/2 NS @ 50cc/hr 7) Type Two Diabetes Mellitus * Hemoglobin a1c: 9.2 (uncontrolled) * Increase Metformin 1000 mg PO BID * Hold Glipizide * Start Levemir 5 units subq HS * Novolog insulin sliding scale subq (medium dosing) 8) Hypercholesterolemia * Lipid panel: T, Cholesterol: 119, LDL: 52, HDL: 40 * Crestor 2.5mg PO qHS 9) Urinary Tract Infection * Urine culture (05/06/17): E. Coli sensitive to Aztreonam, Cefazolin, Cefepime, resistant to Cipro * Rocephin 1 gram IV q daily (active since 05/09/17; day 5) * Repeat urine culture is negative 10) Electrolyte abnormalities * Monitor CMP and Mg2+ 11) Prophylaxis * SCDs * Pepcid 20mg IVP daily * Aspirin 81mg PO daily * Eliquis 2.5mg PO BID-->to be switch to 5mg PO bid-->will need to discuss with cardio regarding anticoagulation prior to PFO closure * Mechanical soft bite-sized diet, thin liquid (vegetarian) * PT - benefit from skilled PT to improve transfers/mobility * f/u case management and social work regarding discharge planning
[2017-05-13] MEDS: Calcium-Vit D 500 mg-200 Units Tab UD PO SCH ×2 (09:33→18:03)
[2017-05-13] MEDS: diltiaZEM 240 mg/24 Hours CD Cap PO SCH (09:33)
[2017-05-13] MEDS: Magnesium Oxide 400 mg Tab UD PO SCH ×2 (09:33→18:02)
[2017-05-13 09:36] LABS: BASO % 0.2 % (0.0-2.0); EOS % 0.1 % (0.0-4.0); HEMATOCRIT 31.4 % (34.0-47.0); LYMPH % 8.7 % (20.0-40.0); MEAN CELL VOLUME 83.5 fL (81.0-99.0); MEAN CORPUSCULAR HGB CONC 33.6 g/dL (33.0-37.0); MEAN PLATELET VOLUME 7.8 fL (7.2-11.7); MONO # 0.6 K/uL (0.0-0.8); MONO % 4.9 % (0.0-10.0); PLATELET COUNT 414 K/uL (130-400); RED CELL DISTRIBUTION WIDTH 13.2 % (11.5-14.5); WHITE BLOOD COUNT 11.5 K/uL (4.8-10.8)
[2017-05-13 09:48] LABS: CHLORIDE 96 mmol/L (98-107)
[2017-05-13 09:49] LABS: POTASSIUM 4.3 mmol/L (3.6-5.2); SODIUM 132 mmol/L (132-148)
[2017-05-13 09:51] LABS: AST/SGOT 32 U/L (14-36); BILIRUBIN,TOTAL 0.5 mg/dL (0.2-1.3); CARBON DIOXIDE 21 mmol/L (22-30); GFR AFRICAN-AMERICAN > 60
[2017-05-13 09:52] LABS: ALKALINE PHOSPHATASE 67 U/L (38-126); ALT/SGPT 24 U/L (9-52); BLOOD UREA NITROGEN 19 mg/dL (7-17); CALCIUM 8.7 mg/dl (8.6-10.4); GLUCOSE,RANDOM 224 mg/dL (65-105); MAGNESIUM 1.9 mg/dL (1.6-2.3); PHOSPHOROUS 3.4 mg/dL (2.5-4.5); TOTAL PROTEIN 6.7 g/dL (6.3-8.3)
[2017-05-13 11:42] LABS: NEUTROPHIL 91 % (50-75); TOTAL CELLS COUNTED 100
[2017-05-13] MEDS: Simethicone 80 mg Chewtab PO PRN (12:45)
--- NOTE | 2017-05-13 15:49 | CP.PCM.CON ---
History of Present Illness - History of Present Illness History of Present Illness: Please see initial psychiatric note for assessment, diagnosis and recommendation. Thank you for consultation Past Patient History - Infectious Disease Hx of Infectious Diseases: None - Tetanus Immunizations Tetanus Immunization: Unknown - Past Medical History & Family History Past Medical History?: Yes Past Family History: Reviewed and not pertinent - Past Social History Smoking Status: Never Smoked Chewing Tobacco Use: No Cigar Use: No Alcohol: None Drugs: Denies Home Situation {Lives}: With Family - CARDIAC Hx Hypercholesterolemia: Yes Hx Hypertension: Yes Hx Pacemaker: No - PULMONARY Hx Respiratory Disorders: No - NEUROLOGICAL HX Cerebrovascular Accident: Yes (no residuals) - HEENT Hx Cataracts: Yes - RENAL Hx Chronic Kidney Disease: No - ENDOCRINE/METABOLIC Hx Diabetes Mellitus Type 2: Yes - HEMATOLOGICAL/ONCOLOGICAL Hx Blood Transfusions: No Hx Blood Transfusion Reaction: No - MUSCULOSKELETAL/RHEUMATOLOGICAL Hx Arthritis: Yes - GASTROINTESTINAL Hx Gastrointestinal Disorders: No - PSYCHIATRIC Hx Substance Use: No - SURGICAL HISTORY Hx Surgeries: Yes Hx Cataract Extraction: Yes (Bilat eyes) Hx Section: Yes - ANESTHESIA Hx Anesthesia: Yes Hx Anesthesia Reactions: No Hx Malignant Hyperthermia: No Meds Allergies/Adverse Reactions: Allergies Allergy/AdvReac Type Severity Reaction Status Date / Time No Known Allergies Allergy Verified 05/06/17 22:54 - Medications Medications: Current Medications Apixaban (Eliquis) 2.5 mg PO BID [facility] Last Admin: 05/13/17 09:33 Dose: 2.5 mg Aspirin (Aspirin Chewable) 81 mg PO DAILY [facility] Last Admin: 05/13/17 09:33 Dose: 81 mg Calcium/Vitamin D (Oyster Shell Calcium/Vitamin D 500 Mg-200 Iu) 1 tab PO BID [facility] Last Admin: 05/13/17 09:33 Dose: 1 tab Carvedilol (Coreg) 12.5 mg PO Q24H [facility] Last Admin: 05/13/17 14:00 Dose: 12.5 mg Citalopram Hydrobromide (Celexa) 10 mg PO DAILY [facility] Last Admin: 05/13/17 09:33 Dose: 10 mg Clonidine HCl (Catapres) 0.3 mg PO TID [facility] Last Admin: 05/08/17 11:18 Dose: 0.3 mg Diltiazem HCl (Cardizem Cd) 240 mg PO DAILY [facility] Last Admin: 05/13/17 09:33 Dose: 240 mg Docusate Sodium (Colace) 100 mg PO BID [facility] Last Admin: 05/13/17 09:33 Dose: 100 mg Famotidine (Pepcid) 20 mg IVP DAILY [facility] Last Admin: 05/13/17 09:29 Dose: 20 mg Folic Acid (Folic Acid) 1 mg PO DAILY [facility] Last Admin: 05/13/17 09:33 Dose: 1 mg Furosemide (Lasix) 20 mg PO DAILY [facility] Home Med (Home Med) 1 unit OU TID [facility] Last Admin: 05/13/17 14:12 Dose: 1 unit Home Med (Home Med) 1 unit OU HS [facility] Last Admin: 05/12/17 23:04 Dose: 1 unit Hydralazine HCl (Apresoline) 10 mg IVP Q6H PRN PRN Reason: Systolic Blood Pressure Last Admin: 05/10/17 06:17 Dose: 10 mg Sodium Chloride (Sodium Chloride 0.45%) 1,000 mls @ 50 mls/hr IV .Q20H [facility] Last Admin: 05/12/17 21:00 Dose: 50 mls/hr Ceftriaxone Sodium 1 gm/ (Sodium Chloride) 100 mls @ 100 mls/hr IVPB DAILY [facility] Last Admin: 05/13/17 09:29 Dose: 100 mls/hr Insulin Aspart (Novolog) 0 unit SC ACHS [facility] PRN Reason: Protocol Last Admin: 05/13/17 12:50 Dose: 4 unit Insulin Detemir (Levemir) 5 unit SC HS [facility] Last Admin: 05/12/17 23:02 Dose: 5 unit Losartan Potassium (Cozaar) 100 mg PO DAILY [facility] Last Admin: 05/13/17 09:33 Dose: Not Given Magnesium Oxide (Mag-Ox) 400 mg PO BID [facility] Last Admin: 05/13/17 09:33 Dose: 400 mg [facility] Last Admin: 05/13/17 08:49 Dose: 1,000 mg Ondansetron HCl (Zofran Inj) 4 mg IVP Q6H PRN PRN Reason: Nausea/Vomiting Last Admin: 05/13/17 08:50 Dose: 4 mg Rosuvastatin Calcium (Crestor) 2.5 mg PO [facility] Last Admin: 05/12/17 23:04 Dose: 2.5 mg Simethicone (Mylicon Chew Tab) 80 mg PO Q8H PRN PRN Reason: GI distress Last Admin: 05/13/17 12:45 Dose: 80 mg Results - Vital Signs Recent Vital Signs: Last Vital Signs Temp 97.2 F L 05/13/17 11:50 Pulse 70 05/13/17 14:00 Resp 20 05/13/17 11:50 BP 155/79 H 05/13/17 14:00 Pulse Ox 97 05/13/17 09:25 - Labs Result Diagrams: 05/13/17 09:28 05/13/17 09:28 Labs: Laboratory Results - last 24 hr 05/12/17 05/12/17 05/13/17 17:54 21:23 06:15 WBC RBC Hgb Hct MCV MCH MCHC RDW Plt Count MPV Neut % (Auto) Lymph % (Auto) Hubbard % (Auto) Eos % (Auto) Baso % (Auto) Neut # Lymph # Hubbard # Eos # Baso # Neutrophils % (Manual) Lymphocytes % (Manual) Monocytes % (Manual) Platelet Estimate RBC Morphology Sodium Potassium Chloride Carbon Dioxide Anion Gap BUN Creatinine Est GFR ( Amer) Est GFR (Non-Af Amer) POC Glucose (mg/dL) 213 H 186 H 215 H Random Glucose Calcium Phosphorus Magnesium Total Bilirubin AST ALT Alkaline Phosphatase Total Creatine Kinase CK-MB (Mass) Troponin I, Quant Total Protein Albumin Globulin Albumin/Globulin Ratio 05/13/17 05/13/17 05/13/17 09:28 09:28 09:28 WBC 11.5 H RBC 3.77 L Hgb 10.6 L Hct 31.4 L MCV 83.5 MCH 28.0 MCHC 33.6 RDW 13.2 Plt Count 414 H MPV 7.8 Neut % (Auto) 86.1 H Lymph % (Auto) 8.7 L Hubbard % (Auto) 4.9 Eos % (Auto) 0.1 Baso % (Auto) 0.2 Neut # 9.9 H Lymph # 1.0 Hubbard # 0.6 Eos # 0.0 Baso # 0.0 Neutrophils % (Manual) 91 H Lymphocytes % (Manual) 6 L Monocytes % (Manual) 3 Platelet Estimate Normal RBC Morphology Normal Sodium 132 Potassium 4.3 Chloride 96 L Carbon Dioxide 21 L Anion Gap 19 BUN 19 H Creatinine 0.7 Est GFR ( Amer) > 60 Est GFR (Non-Af Amer) > 60 POC Glucose (mg/dL) Random Glucose 224 H Calcium 8.7 Phosphorus 3.4 Magnesium 1.9 Total Bilirubin 0.5 AST 32 ALT 24 Alkaline Phosphatase 67 Total Creatine Kinase 56 CK-MB (Mass) 4.85 H Troponin I, Quant 0.0160 Total Protein 6.7 Albumin 3.3 L Globulin 3.3 Albumin/Globulin Ratio 1.0 05/13/17 12:05 WBC RBC Hgb Hct MCV MCH MCHC RDW Plt Count MPV Neut % (Auto) Lymph % (Auto) Hubbard % (Auto) Eos % (Auto) Baso % (Auto) Neut # Lymph # Hubbard # Eos # Baso # Neutrophils % (Manual) Lymphocytes % (Manual) Monocytes % (Manual) Platelet Estimate RBC Morphology Sodium Potassium Chloride Carbon Dioxide Anion Gap BUN Creatinine Est GFR ( Amer) Est GFR (Non-Af Amer) POC Glucose (mg/dL) 275 H Random Glucose Calcium Phosphorus Magnesium Total Bilirubin AST ALT Alkaline Phosphatase Total Creatine Kinase CK-MB (Mass) Troponin I, Quant Total Protein Albumin Globulin Albumin/Globulin Ratio
[2017-05-13] MEDS: Sodium Chloride 0.45% 1,000 ML IV SCH ×2 (18:00→22:00)
--- NOTE | 2017-05-13 19:59 | PN ---
DATE: 05/13/2017 TIME OF EVALUATION: 2:00 p.m. 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 PHYSICAL EXAMINATION: VITAL SIGNS: Blood pressure 155/79, pulse rate 78, and respiratory rate 16. GENERAL: The patient was examined in the presence of her granddaughter. Seems to be less depressed. She slept good. Vision remains the same. Speech is intact. No other new findings from neurological point of view. Examination is unchanged compared with my previous exam. Because of the PFO could be the risk for her stroke, Dr. Carter being called in for closure of the PFO. The patient was seen by Dr. Carter and she is scheduled to have it done at [facility] either Sunday or Sunday. Meantime, let she will continue the current treatment. The patient will be followed closely when she is in the hospital. Tenzin Harden MD
--- NOTE | 2017-05-13 20:22 | PCM.PSYCH ---
Initial Psychiatric Evaluation - Initial Psychiatric Evaluation Type of Admission: Voluntary Legal Status: Capacity Chief Complaint (in patient's own words): "I'm not feeling Good" History of Present Illness and Precipitating Events: This is a 77 year old female with MHx of Diabetes, HTN, Acute Kidney injury, A flutter/A Fib, Hypercoagulable state, Hypercholesterolemia admitted for recurrent CVA, HTN, Acute vision loss, UTI, PFO likely etiology of CVA. She was consulted to psychiatry for depression evaluation. HPI: Patient reported that she is not feeling for last 10 days after her stroke. She stated that she is feeling weakness in her all limbs and worried that she cannot move. She stated that she cannot walk and cannot perform her own ADL's. Additionally, she stated that she is not feeling and can't eat. She reported that she has difficulty in sleep, and low appetite, and difficulty in focusing. She denied SI, HI, intent or plan. She denied AVH. She denied anxiety. She denied manic symptoms. She denied any history of Suicidal ideation, intent or plan CC: Consult requested by Neuro for PFO closure device evaluation Current Medications: Active Medications Generic Name Dose Route Start Last Admin Trade Name Freq PRN Reason Stop Dose Admin Apixaban 2.5 mg 05/09/17 12:30 05/13/17 18:03 Eliquis PO 2.5 mg BID [facility] Administration Aspirin 81 mg 05/07/17 10:00 05/13/17 09:33 Aspirin Chewable PO 81 mg DAILY [facility] Administration Calcium/Vitamin D 1 tab 05/07/17 10:00 05/13/17 18:03 Oyster Shell Calcium/Vitamin D 500 Mg-200 Iu PO 1 tab BID [facility] Administration Carvedilol 12.5 mg 05/12/17 13:00 05/13/17 14:00 Coreg PO 12.5 mg Q24H [facility] Administration Citalopram Hydrobromide 10 mg 05/09/17 10:00 05/13/17 09:33 Celexa PO 10 mg DAILY [facility] Administration Clonidine HCl 0.3 mg 05/07/17 10:05/08/17 11:18 Catapres PO 0.3 mg TID [facility] Administration Diltiazem HCl 240 mg 05/12/17 10:00 05/13/17 09:33 Cardizem Cd PO 240 mg DAILY [facility] Administration Docusate Sodium 100 mg 05/09/17 22:45 05/13/17 18:02 Colace PO 100 mg BID [facility] Administration Famotidine 20 mg 05/07/17 10:00 05/13/17 09:29 Pepcid IVP 20 mg DAILY [facility] Administration Folic Acid 1 mg 05/07/17 10:00 05/13/17 09:33 Folic Acid PO 1 mg DAILY [facility] Administration Furosemide 20 mg 05/07/17 10:00 Lasix PO DAILY [facility] Home Med 1 unit 05/07/17 18:00 05/13/17 18:02 Home Med OU 1 unit TID [facility] Administration Home Med 1 unit 05/07/17 22:00 05/12/17 23:04 Home Med OU 1 unit HS [facility] Administration Hydralazine HCl 10 mg 05/07/17 19:26 05/10/17 06:17 Apresoline IVP 10 mg Q6H PRN Administration Systolic Blood Pressure Sodium Chloride 1,000 mls @ 50 mls/hr 05/09/17 13:07 05/12/17 21:00 Sodium Chloride 0.45% IV 50 mls/hr .Q20H [facility] Administration Ceftriaxone Sodium 1 gm/ 100 mls @ 100 mls/hr 05/09/17 13:30 05/13/17 09:29 Sodium Chloride IVPB 100 mls/hr DAILY [facility] Administration Insulin Aspart 0 unit 05/08/17 17:15 05/13/17 17:30 Novolog SC 2 unit ACHS [facility] Administration Protocol Insulin Detemir 5 unit 05/11/17 22:00 05/12/17 23:02 Levemir SC 5 unit HS [facility] Administration Losartan Potassium 100 mg 05/07/17 10:00 05/13/17 09:33 Cozaar PO Not Given DAILY [facility] Magnesium Oxide 400 mg 05/09/17 18:00 05/13/17 18:02 Mag-Ox PO 400 mg BID [facility] Administration Metformin HCl 1,000 mg 05/11/17 18:01 05/13/17 18:02 Glucophage PO 1,000 mg BIDCC [facility] Administration Ondansetron HCl 4 mg 05/10/17 11:29 05/13/17 08:50 Zofran Inj IVP 4 mg Q6H PRN Administration Nausea/Vomiting Rosuvastatin Calcium 2.5 mg 05/07/17 22:00 05/12/17 23:04 Crestor PO 2.5 mg HS [facility] Administration Simethicone 80 mg 05/09/17 17:44 05/13/17 12:45 Mylicon Chew Tab PO 80 mg Q8H PRN Administration GI distress Past Psychiatric History - Past Psychiatric History Prior Professional Help: Denied any previous psychiatric eval Prior Psychiatric Treatment: denied History of Abuse: denied History of ETOH/Drug Use: denied History of Family Illness: denied Pertinent Medical Hx (Current Medical&Sleep Prob, Allergies): Allergies Allergy/AdvReac Type Severity Reaction Status Date / Time No Known Allergies Allergy Verified 05/06/17 22:54 Calcium Carbonate/Vitamin D3 [Calcium 600 + Vit D Softgel] 1 each PO BID Carvedilol [Coreg] 6.25 mg PO BID 05/06/17 Ciprofloxacin/Ciprofloxa HCl [Ciprofloxacin] 500 mg PO BID 05/06/17 Furosemide [Lasix] 20 mg PO DAILY 05/06/17 Glipizide/Metformin HCl [Glipizide-Metformin 5-500 mg] 1 tab PO BID 05/06/17 Losartan Potassium 100 mg PO DAILY 05/06/17 Promethazine HCl/Codeine [Prometh-Codein 6.25-10 mg/5 ml] 5 ml PO Q6 PRN Simvastatin 10 mg PO DAILY 05/06/17 cloNIDine [Catapres] 0.3 mg PO TID 05/06/17 Bimatoprost [Lumigan 2.5 ml] 1 drop OU HS 05/07/17 Brimonidine 0.15% [Alphagan P 0.15% Opht] 1 drop OU TID 05/07/17 Febuxostat [Uloric] 40 mg PO DAILY 05/07/17 Indomethacin [Indocin] 25 mg PO BID PRN 05/07/17 Diabetes, HTN, Acute Kidney injury, A flutter/A Fib, Hypercoagulable state, Hypercholesterolemia admitted for recurrent CVA, HTN, Acute vision loss, UTI, PFO likely etiology of CVA, Review of Systems - Review of Systems All systems: reviewed and no additional remarkable complaints except (please see HPI) Mental Status Examination - Personal Presentation Personal Presentation: Looks stated age Additional comments: unable to assess gait, pt refuse to move his arms and legs - Affect Affect: Other (reactive, and mood was sad) - Motor Activity Motor Activity: Calm - Reliability in Providing Information Reliability in Providing Information: Fair - Speech Speech: Coherent - Mood Mood: Depressed - Formal Thought Process Formal Thought Process: No Impairment - Hallucinations/Delusions Delusions: Other (denied) - Obsessions/Compulsions Obsessions: No Compulsions: No - Cognitive Functions Orientation: Person, Place, Situation, Time Sensorium: Alert Attention/Concentration: Attentive Abstract Thinking: [place] Judgement: Intact, as evidence by: Good judgement, Intact, as evidence by: Insight regarding need for hospitalization Memory: Recent intact, as evidence by: Ability to recall events of the day - Risk Risk: Falls - Strength & Assets Inventory Strength & Assets Inventory: Family support - Limitations Limitations: Other (loss of vision) DSM 5 DX - DSM 5 DSM 5 Diagnosis: Adjustment disorder with depressed mood - Recommended/Plan of Treatment Treatment Recommendations and Plan of Treatment: Patient was seen and evaluated. Time spend 40 minutes. Recommend to continue treatment as per primary team with the following additions 1. Recommend frequent family visitation, orientation to time, place person. 2. Recommend to continue OT, PT. 3. Recommend to continue Celexa for depression, if ineffective then consider Sertarline. 4. Consult psych C/L prn. 5. Avoid anticholinergic medication, benzo and sedating medication due its worsening effects on cognition. 5. Supportive therapy was provided. Discharge Plan and Discharge Criteria: as per primary team - Smoking Cessation Smoking Cessation Initiated: No Reason for not providing: n/a
--- NOTE | 2017-05-13 20:53 | EEG ---
DATE: 05/09/2017 This is a 16-channel electroencephalogram of awake and drowsy adult. During the study, photic stimulation was performed, hyperventilation was not performed. The resting electroencephalogram consists of 30-40 microvolts, diffuse 3-4 Hz of delta mixed with 5-6 Hz of theta activity seen in parietal and occipital leads. Persistent eye blinking artifact in frontal leads. Diffuse theta activity is continuously noted from the beginning. The photic stimulation did not evoke driving response noted at 2-20 Hz. IMPRESSION: This is an abnormal electroencephalogram because of persistent slowing throughout the record suggestive of bilateral cerebral dysfunction. This is probably secondary to metabolic, vascular or degenerative process. Please correlate the findings with neurological and radiological studies. Tenzin Harden MD [facility] SYSTEMDuane
--- NOTE | 2017-05-13 21:18 | CP.PCM.PN ---
Subjective - Date & Time of Evaluation Date of Evaluation: 05/12/17 Time of Evaluation: 07:10 - Subjective Subjective: Patient seen and evaluated Comfortable Denies chest pain and dyspnea Objective - Vital Signs/Intake and Output Vital Signs (last 24 hours): Temp Pulse Resp BP Pulse Ox 97.4 F L 72 20 141/69 94 L 05/13/17 17:04 05/13/17 17:04 05/13/17 17:04 05/13/17 17:04 05/13/17 17:04 Intake and Output: 05/13/17 05/14/17 18:59 06:59 Intake Total 700 Balance 700 - Medications Medications: Current Medications Apixaban (Eliquis) 2.5 mg PO BID [facility] Last Admin: 05/13/17 18:03 Dose: 2.5 mg Aspirin (Aspirin Chewable) 81 mg PO DAILY [facility] Last Admin: 05/13/17 09:33 Dose: 81 mg Calcium/Vitamin D (Oyster Shell Calcium/Vitamin D 500 Mg-200 Iu) 1 tab PO BID [facility] Last Admin: 05/13/17 18:03 Dose: 1 tab Carvedilol (Coreg) 12.5 mg PO Q24H [facility] Last Admin: 05/13/17 14:00 Dose: 12.5 mg Citalopram Hydrobromide (Celexa) 10 mg PO DAILY [facility] Last Admin: 05/13/17 09:33 Dose: 10 mg Clonidine HCl (Catapres) 0.3 mg PO TID [facility] Last Admin: 05/08/17 11:18 Dose: 0.3 mg Diltiazem HCl (Cardizem Cd) 240 mg PO DAILY [facility] Last Admin: 05/13/17 09:33 Dose: 240 mg Docusate Sodium (Colace) 100 mg PO BID [facility] Last Admin: 05/13/17 18:02 Dose: 100 mg Famotidine (Pepcid) 20 mg IVP DAILY [facility] Last Admin: 05/13/17 09:29 Dose: 20 mg Folic Acid (Folic Acid) 1 mg PO DAILY [facility] Last Admin: 05/13/17 09:33 Dose: 1 mg Furosemide (Lasix) 20 mg PO DAILY [facility] Home Med (Home Med) 1 unit OU TID [facility] Last Admin: 05/13/17 18:02 Dose: 1 unit Home Med (Home Med) 1 unit OU HS [facility] Last Admin: 05/12/17 23:04 Dose: 1 unit Hydralazine HCl (Apresoline) 10 mg IVP Q6H PRN PRN Reason: Systolic Blood Pressure Last Admin: 05/10/17 06:17 Dose: 10 mg Sodium Chloride (Sodium Chloride 0.45%) 1,000 mls @ 50 mls/hr IV .Q20H [facility] Last Admin: 05/12/17 21:00 Dose: 50 mls/hr Ceftriaxone Sodium 1 gm/ (Sodium Chloride) 100 mls @ 100 mls/hr IVPB DAILY [facility] Last Admin: 05/13/17 09:29 Dose: 100 mls/hr Insulin Aspart (Novolog) 0 unit SC ACHS [facility] PRN Reason: Protocol Last Admin: 05/13/17 17:30 Dose: 2 unit Insulin Detemir (Levemir) 5 unit SC HS [facility] Last Admin: 05/12/17 23:02 Dose: 5 unit Losartan Potassium (Cozaar) 100 mg PO DAILY [facility] Last Admin: 05/13/17 09:33 Dose: Not Given Magnesium Oxide (Mag-Ox) 400 mg PO BID [facility] Last Admin: 05/13/17 18:02 Dose: 400 mg Metformin HCl (Glucophage) 1,000 mg PO BIDCC [facility] Last Admin: 05/13/17 18:02 Dose: 1,000 mg Ondansetron HCl (Zofran Inj) 4 mg IVP Q6H PRN PRN Reason: Nausea/Vomiting Last Admin: 05/13/17 08:50 Dose: 4 mg Rosuvastatin Calcium (Crestor) 2.5 mg PO HS [facility] Last Admin: 05/12/17 23:04 Dose: 2.5 mg Simethicone (Mylicon Chew Tab) 80 mg PO Q8H PRN PRN Reason: GI distress Last Admin: 05/13/17 12:45 Dose: 80 mg - Labs Labs: 05/13/17 09:28 05/13/17 09:28 PT 16.1 SECONDS (9.7-12.2) H 05/11/17 06:42 INR 1.4 05/11/17 06:42 APTT 19 SECONDS (21-34) L 05/11/17 06:42
--- NOTE | 2017-05-13 21:20 | CP.PCM.PN ---
Subjective - Date & Time of Evaluation Date of Evaluation: 05/13/17 Time of Evaluation: 13:30 - Subjective Subjective: Patient seen and evaluated family at bedside No cardiac symptoms No worsening neuro symptoms Possible transfer to [facility] for PFO closure either Sunday or Sunday Objective - Vital Signs/Intake and Output Vital Signs (last 24 hours): Temp Pulse Resp BP Pulse Ox 97.4 F L 72 20 141/69 94 L 05/13/17 17:04 05/13/17 17:04 05/13/17 17:04 05/13/17 17:04 05/13/17 17:04 Intake and Output: 05/13/17 05/14/17 18:59 06:59 Intake Total 700 Balance 700 - Medications Medications: Current Medications Apixaban (Eliquis) 2.5 mg PO BID [facility] Last Admin: 05/13/17 18:03 Dose: 2.5 mg Aspirin (Aspirin Chewable) 81 mg PO DAILY [facility] Last Admin: 05/13/17 09:33 Dose: 81 mg Calcium/Vitamin D (Oyster Shell Calcium/Vitamin D 500 Mg-200 Iu) 1 tab PO BID [facility] Last Admin: 05/13/17 18:03 Dose: 1 tab Carvedilol (Coreg) 12.5 mg PO Q24H [facility] Last Admin: 05/13/17 14:00 Dose: 12.5 mg Citalopram Hydrobromide (Celexa) 10 mg PO DAILY [facility] Last Admin: 05/13/17 09:33 Dose: 10 mg Clonidine HCl (Catapres) 0.3 mg PO TID [facility] Last Admin: 05/08/17 11:18 Dose: 0.3 mg Diltiazem HCl (Cardizem Cd) 240 mg PO DAILY [facility] Last Admin: 05/13/17 09:33 Dose: 240 mg Docusate Sodium (Colace) 100 mg PO BID [facility] Last Admin: 05/13/17 18:02 Dose: 100 mg Famotidine (Pepcid) 20 mg IVP DAILY [facility] Last Admin: 05/13/17 09:29 Dose: 20 mg Folic Acid (Folic Acid) 1 mg PO DAILY [facility] Last Admin: 05/13/17 09:33 Dose: 1 mg Furosemide (Lasix) 20 mg PO DAILY [facility] Home Med (Home Med) 1 unit OU TID [facility] Last Admin: 05/13/17 18:02 Dose: 1 unit Home Med (Home Med) 1 unit OU HS [facility] Last Admin: 05/12/17 23:04 Dose: 1 unit Hydralazine HCl (Apresoline) 10 mg IVP Q6H PRN PRN Reason: Systolic Blood Pressure Last Admin: 05/10/17 06:17 Dose: 10 mg Sodium Chloride (Sodium Chloride 0.45%) 1,000 mls @ 50 mls/hr IV .Q20H [facility] Last Admin: 05/12/17 21:00 Dose: 50 mls/hr Ceftriaxone Sodium 1 gm/ (Sodium Chloride) 100 mls @ 100 mls/hr IVPB DAILY [facility] Last Admin: 05/13/17 09:29 Dose: 100 mls/hr Insulin Aspart (Novolog) 0 unit SC [facility] PRN Reason: Protocol Last Admin: 05/13/17 17:30 Dose: 2 unit Insulin Detemir (Levemir) 5 unit SC [facility] Last Admin: 05/12/17 23:02 Dose: 5 unit Losartan Potassium (Cozaar) 100 mg PO DAILY [facility] Last Admin: 05/13/17 09:33 Dose: Not Given Magnesium Oxide (Mag-Ox) 400 mg PO BID [facility] Last Admin: 05/13/17 18:02 Dose: 400 mg [facility] ([facility]) [facility] Last Admin: 05/13/17 18:02 Dose: 1,000 mg Ondansetron HCl (Zofran Inj) 4 mg IVP Q6H PRN PRN Reason: Nausea/Vomiting Last Admin: 05/13/17 08:50 Dose: 4 mg Rosuvastatin Calcium (Crestor) 2.5 mg PO [facility] Last Admin: 05/12/17 23:04 Dose: 2.5 mg Simethicone (Mylicon Chew Tab) 80 mg PO Q8H PRN PRN Reason: GI distress Last Admin: 05/13/17 12:45 Dose: 80 mg - Labs Labs: 05/13/17 09:28 05/13/17 09:28 PT 16.1 SECONDS (9.7-12.2) H 05/11/17 06:42 INR 1.4 05/11/17 06:42 APTT 19 SECONDS (21-34) L 05/11/17 06:42
[2017-05-13] MEDS: Insulin Detemir 100 units/ml Vial (Levemir) SC SCH (22:22)
[2017-05-13] MEDS: Rosuvastatin Calcium 2.5 mg Tab PO SCH (22:23)
[2017-05-14 07:16] LABS: BASO % 0.1 % (0.0-2.0); HEMATOCRIT 30.5 % (34.0-47.0); MEAN CELL VOLUME 82.9 fL (81.0-99.0); MEAN CORPUSCULAR HEMOGLOBIN 27.7 pg (27.0-31.0); MEAN CORPUSCULAR HGB CONC 33.5 g/dL (33.0-37.0); MEAN PLATELET VOLUME 7.9 fL (7.2-11.7); MONO # 0.7 K/uL (0.0-0.8); MONO % 5.1 % (0.0-10.0); PLATELET COUNT 439 K/uL (130-400); RED CELL DISTRIBUTION WIDTH 13.2 % (11.5-14.5); WHITE BLOOD COUNT 12.9 K/uL (4.8-10.8)
[2017-05-14 07:22] LABS: CHLORIDE 92 mmol/L (98-107)
[2017-05-14 07:23] LABS: POTASSIUM 3.9 mmol/L (3.6-5.2); SODIUM 129 mmol/L (132-148)
[2017-05-14 07:24] LABS: GFR AFRICAN-AMERICAN > 60
[2017-05-14 07:25] LABS: ALB/GLOB RATIO 1.1 (1.0-2.1); ALKALINE PHOSPHATASE 59 U/L (38-126); ALT/SGPT 27 U/L (9-52); AST/SGOT 23 U/L (14-36); BILIRUBIN,TOTAL 0.5 mg/dL (0.2-1.3); BLOOD UREA NITROGEN 15 mg/dL (7-17); CARBON DIOXIDE 24 mmol/L (22-30); GLUCOSE,RANDOM 159 mg/dL (65-105); PHOSPHOROUS 3.2 mg/dL (2.5-4.5); TOTAL PROTEIN 6.2 g/dL (6.3-8.3)
[2017-05-14 07:26] LABS: CALCIUM 8.5 mg/dl (8.6-10.4); MAGNESIUM 1.9 mg/dL (1.6-2.3)
[2017-05-14 08:36] LABS: NEUTROPHIL 90 % (50-75); TOTAL CELLS COUNTED 100
[2017-05-14] MEDS: (Novolog) Insulin Aspart, Recombinant 100 u/ml 10 ml vial SC SCH ×4 (08:48→22:02)
--- NOTE | 2017-05-14 09:08 | CARD ---
APPROVED REPORT EXAM: Transesophageal echocardiogram with color flow Doppler. INDICATION CVA/TIA VISION LOSS RISK FACTORS Hypertension Hyperlipidemia Diabetes Mitral Valve E/A ratio0.0 TDI E/Lateral E'0.0E/Medial E'0.0 <Conclusion> Left ventricle: thickness: normal; size: normal; overall ejection fraction: 65%: diastolic filling pressures: normal Mitral valve: annulus: normal: leaflets: normal: excursion: normal; no significant trans-mitral gradient: no significant incompetence: left atrium: normal Aortic valve: leaflets: normal: excursion: normal; no significant trans-aortic gradient: No significant incompetence: aortic root: normal Right sided Structures: Pulmonary valve: normal; no significant incompetence; Tricuspid valve: normal; no significant incompetence: Intra-cardiac hemodynamics: pulmonary systolic pressures: normal; central venous pressures: normal Patent foramen ovale with bidirectional shunt Aorta: layered sessile aheromas No pericardial effusion
[2017-05-14] MEDS ORDERED: Dextrose 5%/0.45% NS 1,000 ML IV SCH (10:00)
[2017-05-14] MEDS: ALPHAGAN 0.1% OU SCH ×3 (10:54→20:38)
[2017-05-14] MEDS: diltiaZEM 240 mg/24 Hours CD Cap PO SCH (10:55)
[2017-05-14] MEDS: Calcium-Vit D 500 mg-200 Units Tab UD PO SCH (10:55)
[2017-05-14] MEDS: Magnesium Oxide 400 mg Tab UD PO SCH (10:55)
--- NOTE | 2017-05-14 12:33 | CP.PCM.PN ---
Subjective - Date & Time of Evaluation Date of Evaluation: 05/14/17 Time of Evaluation: 12:31 - Subjective Subjective: Events noted; patient has been lethargic, confused BP labile despite multiple meds Renal function stable Nonverbal at present Objective - Vital Signs/Intake and Output Vital Signs (last 24 hours): Temp Pulse Resp BP Pulse Ox 97.4 F L 79 18 178/98 H 100 05/14/17 07:00 05/14/17 10:54 05/14/17 07:00 05/14/17 10:54 05/14/17 07:00 Intake and Output: 05/14/17 05/14/17 06:59 18:59 Intake Total 750 Balance 750 - Medications Medications: Current Medications Apixaban (Eliquis) 2.5 mg PO BID [facility] Last Admin: 05/14/17 10:56 Dose: Not Given Aspirin (Aspirin Chewable) 81 mg PO DAILY [facility] Last Admin: 05/14/17 10:56 Dose: Not Given Calcium/Vitamin D (Oyster Shell Calcium/Vitamin D 500 Mg-200 Iu) 1 tab PO BID [facility] Last Admin: 05/14/17 10:55 Dose: 1 tab Carvedilol (Coreg) 12.5 mg PO Q24H [facility] Last Admin: 05/13/17 14:00 Dose: 12.5 mg Citalopram Hydrobromide (Celexa) 10 mg PO DAILY [facility] Last Admin: 05/14/17 10:55 Dose: 10 mg Clonidine HCl (Catapres) 0.3 mg PO TID [facility] Last Admin: 05/08/17 11:18 Dose: 0.3 mg Diltiazem HCl (Cardizem Cd) 240 mg PO DAILY [facility] Last Admin: 05/14/17 10:55 Dose: 240 mg Docusate Sodium (Colace) 100 mg PO BID [facility] Last Admin: 05/14/17 10:56 Dose: 100 mg Famotidine (Pepcid) 20 mg IVP DAILY [facility] Last Admin: 05/14/17 10:55 Dose: 20 mg Folic Acid (Folic Acid) 1 mg PO DAILY [facility] Last Admin: 05/14/17 10:56 Dose: 1 mg Furosemide (Lasix) 20 mg PO DAILY [facility] Home Med (Home Med) 1 unit OU TID [facility] Last Admin: 05/14/17 10:54 Dose: 1 unit Home Med (Home Med) 1 unit OU HS [facility] Last Admin: 05/13/17 22:21 Dose: 1 unit Hydralazine HCl (Apresoline) 10 mg IVP Q6H PRN PRN Reason: Systolic Blood Pressure Last Admin: 05/10/17 06:17 Dose: 10 mg Sodium Chloride (Sodium Chloride 0.45%) 1,000 mls @ 50 mls/hr IV .Q20H [facility] Last Admin: 05/13/17 22:00 Dose: 50 mls/hr Ceftriaxone Sodium 1 gm/ (Sodium Chloride) 100 mls @ 100 mls/hr IVPB DAILY [facility] Last Admin: 05/14/17 10:54 Dose: 100 mls/hr Dextrose/Sodium Chloride (Dextrose 5%/0.45% Ns 1000 Ml) 1,000 mls @ 50 mls/hr IV .Q20H [facility] Last Admin: 05/14/17 10:55 Dose: 50 mls/hr Insulin Aspart (Novolog) 0 unit SC [facility] PRN Reason: Protocol Last Admin: 05/14/17 08:48 Dose: Not Given Insulin Detemir (Levemir) 5 unit SC [facility] Last Admin: 05/13/17 22:22 Dose: 5 unit Losartan Potassium (Cozaar) 100 mg PO DAILY [facility] Last Admin: 05/14/17 10:55 Dose: 100 mg Magnesium Oxide (Mag-Ox) 400 mg PO BID [facility] Last Admin: 05/14/17 10:55 Dose: 400 mg Ondansetron HCl (Zofran Inj) 4 mg IVP Q6H PRN PRN Reason: Nausea/Vomiting Last Admin: 05/14/17 08:40 Dose: 4 mg Rosuvastatin Calcium (Crestor) 2.5 mg PO [facility] Last Admin: 05/13/17 22:23 Dose: 2.5 mg Simethicone (Mylicon Chew Tab) 80 mg PO Q8H PRN PRN Reason: GI distress Last Admin: 05/13/17 12:45 Dose: 80 mg - Labs Labs: 05/14/17 07:04 05/14/17 07:04 PT 16.1 SECONDS (9.7-12.2) H 05/11/17 06:42 INR 1.4 05/11/17 06:42 APTT 19 SECONDS (21-34) L 05/11/17 06:42 - Constitutional Appears: No Acute Distress, Chronically Ill - Head Exam Head Exam: ATRAUMATIC, NORMAL INSPECTION - Eye Exam Eye Exam: EOMI, Normal appearance - Neck Exam Neck Exam: Normal Inspection. absent: Tenderness - Respiratory Exam Respiratory Exam: Clear to Ausculation Bilateral, NORMAL BREATHING PATTERN - Cardiovascular Exam Cardiovascular Exam: REGULAR RHYTHM, +S1 - GI/Abdominal Exam GI & Abdominal Exam: Soft. absent: Tenderness - Extremities Exam Extremities Exam: Normal Inspection. absent: Tenderness - Neurological Exam Neurological Exam: Awake, CN II-XII Intact - Skin Skin Exam: Dry, Warm Assessment and Plan (1) CKD (chronic kidney disease) stage 3, GFR 30-59 ml/min Status: Acute (2) UTI (urinary tract infection) Status: Acute (3) Diabetes mellitus Status: Acute (4) Hypertension Status: Acute (5) Posterior cerebral circulation hemorrhagic infarction Status: Acute - Assessment and Plan (Free Text) Plan: Monitor BP, heart rate If necessary increase carvedilol
--- NOTE | 2017-05-14 13:53 | CP.PCM.PN ---
<Dwain Renteria - Last Filed: 05/14/17 15:06> Subjective - Date & Time of Evaluation Date of Evaluation: 05/14/17 Time of Evaluation: 13:49 - Subjective Subjective: Medicine Progress Note - Dr. Chacko HPI: Patient resting comfortably in bed, NAD. Son at bedside, providing communication. Patient denies any pain currently. Does admit to having no appetite at all, attributing this to poor taste. D/w patient and son, for option of NG tube placement with feed. Patient agrees and willing for NGT placement. As per son, patient did have a BM last night following the enema, which was liquid diarrhea. Denies any chest pain, SOB, n/v, abdominal pain or leg pain. No other complaints noted at this time. Objective - Vital Signs/Intake and Output Vital Signs (last 24 hours): Temp Pulse Resp BP Pulse Ox 97.4 F L 69 18 163/75 H 100 05/14/17 07:00 05/14/17 12:34 05/14/17 07:00 05/14/17 13:35 05/14/17 07:00 Intake and Output: 05/14/17 05/14/17 06:59 18:59 Intake Total 750 Balance 750 - Medications Medications: Current Medications Apixaban (Eliquis) 2.5 mg PO BID [facility] Last Admin: 05/14/17 10:56 Dose: Not Given Aspirin (Aspirin Chewable) 81 mg PO DAILY [facility] Last Admin: 05/14/17 10:56 Dose: Not Given Calcium/Vitamin D (Oyster Shell Calcium/Vitamin D 500 Mg-200 Iu) 1 tab PO BID [facility] Last Admin: 05/14/17 10:55 Dose: 1 tab Carvedilol (Coreg) 12.5 mg PO Q24H [facility] Last Admin: 05/14/17 13:35 Dose: 12.5 mg Citalopram Hydrobromide (Celexa) 10 mg PO DAILY [facility] Last Admin: 05/14/17 10:55 Dose: 10 mg Clonidine HCl (Catapres) 0.3 mg PO TID [facility] Last Admin: 05/08/17 11:18 Dose: 0.3 mg Diltiazem HCl (Cardizem Cd) 240 mg PO DAILY [facility] Last Admin: 05/14/17 10:55 Dose: 240 mg Docusate Sodium (Colace) 100 mg PO BID [facility] Last Admin: 05/14/17 10:56 Dose: 100 mg Famotidine (Pepcid) 20 mg IVP DAILY [facility] Last Admin: 05/14/17 10:55 Dose: 20 mg Folic Acid (Folic Acid) 1 mg PO DAILY [facility] Last Admin: 05/14/17 10:56 Dose: 1 mg Furosemide (Lasix) 20 mg PO DAILY [facility] Home Med (Home Med) 1 unit OU TID [facility] Last Admin: 05/14/17 13:35 Dose: 1 unit Home Med (Home Med) 1 unit OU HS [facility] Last Admin: 05/13/17 22:21 Dose: 1 unit Hydralazine HCl (Apresoline) 10 mg IVP Q6H PRN PRN Reason: Systolic Blood Pressure Last Admin: 05/10/17 06:17 Dose: 10 mg Sodium Chloride (Sodium Chloride 0.45%) 1,000 mls @ 50 mls/hr IV .Q20H [facility] Last Admin: 05/13/17 22:00 Dose: 50 mls/hr Dextrose/Sodium Chloride (Dextrose 5%/0.45% Ns 1000 Ml) 1,000 mls @ 50 mls/hr IV .Q20H [facility] Last Admin: 05/14/17 10:55 Dose: 50 mls/hr Insulin Aspart (Novolog) 0 unit SC [facility] PRN Reason: Protocol Last Admin: 05/14/17 13:34 Dose: 2 unit Insulin Detemir (Levemir) 5 unit SC HS [facility] Last Admin: 05/13/17 22:22 Dose: 5 unit Losartan Potassium (Cozaar) 100 mg PO DAILY [facility] Last Admin: 05/14/17 10:55 Dose: 100 mg Magnesium Oxide (Mag-Ox) 400 mg PO BID [facility] Last Admin: 05/14/17 10:55 Dose: 400 mg Ondansetron HCl (Zofran Inj) 4 mg IVP Q6H PRN PRN Reason: Nausea/Vomiting Last Admin: 05/14/17 08:40 Dose: 4 mg Rosuvastatin Calcium (Crestor) 2.5 mg PO HS [facility] Last Admin: 05/13/17 22:23 Dose: 2.5 mg Simethicone (Mylicon Chew Tab) 80 mg PO Q8H PRN PRN Reason: GI distress Last Admin: 05/13/17 12:45 Dose: 80 mg - Labs Labs: 05/14/17 07:04 05/14/17 07:04 PT 16.1 SECONDS (9.7-12.2) H 05/11/17 06:42 INR 1.4 05/11/17 06:42 APTT 19 SECONDS (21-34) L 05/11/17 06:42 - Constitutional Appears: Non-toxic - Head Exam Head Exam: ATRAUMATIC - ENT Exam ENT Exam: Mucous Membranes Moist - Respiratory Exam Respiratory Exam: Clear to Ausculation Bilateral - Cardiovascular Exam Cardiovascular Exam: REGULAR RHYTHM - GI/Abdominal Exam GI & Abdominal Exam: Soft. absent: Distended, Tenderness - Extremities Exam Extremities Exam: absent: Pedal Edema - Neurological Exam Neurological Exam: Alert, Awake - Psychiatric Exam Psychiatric exam: Depressed Assessment and Plan - Assessment and Plan (Free Text) Assessment: Assessment/Plan 1) Ischemic CVA * Neurology (Dr. Harden) help appreciated * Cardiology (Dr. Tse) help appreciated * No TPA given in ED due to history of hemorrhagic stroke in 2014 * CXR (05/07/17): no active pulmonary disease (see full report) * CT head negative (05/07/17): Nonspecific white matter changes. Acute infarction may be occult wihin 24hrs. If deficit persists, consider follow up CT /MRI (see full report) * CT angio head/neck (05/07/17): Patent vasculture. Nonspecific white matter changes. Acute infarction may be occult within first 24 hrs. If deficit persists , consider CT/MRI for further evaluation (see resident) * MRI head w/o contrast (05/07/17): Large acute left PRINTING SERVICES COORDINATOR territory infarction involving occipital lobe, medial, and posterior temporal lobe and thalamus with mild surrounding vasogenic edema. No evidence of midline shift or herniation. Cystic encephalmalacia in right occiptial lobe, sequela of remote PRINTING SERVICES COORDINATOR territory infarction. Mild chronic microangiopathic changes, small old lacunar infarction in the right centrum semiovale and moderate age related global parenchymal volume loss (see full report) * Repeat CT Head (05/08/17): Encephalomalacia involving right occipital lobe. Evolving ischemic changes identified involving left occipital lobe, inferior aspect of the medial temporal lobes, as well as portion of the thalamus. Effacement and displacement of the posterior horn left lateral ventricle (see full report) * EKG (05/07/17): nsr 93 non specific lateral t wave changes, no interval change * ECHO (05/07/17): LV systolic fxn normal. EF 60-65%. HTN heart disease. Trace Aortic regurgitation. Mitral regurgitation mild. No tricuspid valve regurgitation noted. No pulmonic valvular regurgitation (see full report) * Carotid doppler (05/07/17): mild disease bilaterally * Troponin/EKG negative x3 * RASHAAD (05/09/17): 3 mm PFO with bidirectional flow and extensive aortic plaques both are potentially sources of stroke and warrants anticoagulation unless contraindicated. 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 Carter * Blood pressure control-->see hypertension * Crestor 2.5mg POqHS * Per neurology, recommended for Eliquis 2.5 mg PO BID, can be increased to 5mg BID "next week" - stop Eliquis per Dr. Carter * Echo (05/14/17) w/ bubble study to evaluate PFO per Dr. Carter 2) Acute Kidney injury * Nephrology (Dr. Caba) on consult help appreciated * Renal US (05/07/17): Medical renal disease. Small right kidney (see full report ) * Renal Artery Duplex Scan (05/08/17): No definite hemodynamically significant stenosis involving renal arteries as visualized (see full report) * GFR>60 * monitor BUN/Cr 3) Atrial fibrillation, new on set * EKG: Rate 68 bpm. Aflutter INSURANCE SALES REPRESENTATIVE on 05/10/17 * Cardizem 60mg PO Q6H complete tonight-->Start Cardizem CD 240mg PO today * Coreg 12.5mg PO Q 12H * CHADS2-Vasc2: (7 pts; Stroke risk 11.2% per year >90,000 patients and 15.7% risk of stroke/TIA/systemic embolism * HASBLED: 3: risk was 5.8% in one validation study; high risk for major bleeding * Benefits outweigh risks in stroke prevention * Dr. Carter (coach wirer)--> PFO closure; scheduled for 05/15 or 05/16; discussed with family 4) Depression * S/p loss of vision as sequelae of stroke * Celexa 10mg PO Daily * Psychiatry (Dr. Turner)-->F/u recommendations 5) Vision Loss * Contributing factors: stroke, hx of cataracts/glaucoma * Opthalmologist: Dr. Rodriguez, help appreciated * Alphagan 0.1% one drop both eyes three times a day * Lumigan 0/01% eye drops both at bedtime 6) Hypertension * Cardizem CD 240mg PO daily * Losartan 100mg PO daily * Coreg 12.5mg PO Q 12H * 1/2 NS @ 50cc/hr 7) Type Two Diabetes Mellitus * Hemoglobin a1c: 9.2 (uncontrolled) * Hold Metformin * Hold Glipizide * Start Levemir 5 units subq HS * Novolog insulin sliding scale subq (medium dosing) 8) Hypercholesterolemia * Lipid panel: T, Cholesterol: 119, LDL: 52, HDL: 40 * Crestor 2.5mg PO qHS 9) Urinary Tract Infection * Urine culture (05/06/17): E. Coli sensitive to Aztreonam, Cefazolin, Cefepime, resistant to Cipro--> * Rocephin 1 gram IV q daily (active since 05/09/17; day 4) 10) Electrolyte abnormalities * Monitor CMP and Mg2+ 11) Dysphagia * NGT in place * Glucerna @ 30 cc/hr, Property Insurance Inspector consult for optimal rate * Meds via NGT 12) Prophylaxis * SCDs * Pepcid 20mg IVP daily * Aspirin 81mg PO daily - stopped per Dr. Carter * Eliquis 2.5mg PO BID - Stopped per Dr. Carter * Mechanical soft bite-sized diet, thin liquid (vegetarian) * PT - benefit from skilled PT to improve transfers/mobility * f/u case management and social work regarding discharge planning <Vandana Chacko V - Last Filed: 05/14/17 18:07> Objective - Vital Signs/Intake and Output Vital Signs (last 24 hours): Temp Pulse Resp BP Pulse Ox 97.3 F L 89 20 172/80 H 100 05/14/17 15:05 05/14/17 15:05 05/14/17 15:05 05/14/17 15:05/14/17 15:05 Intake and Output: 05/14/17 05/14/17 06:59 18:59 Intake Total 750 Balance 750 - Medications Medications: Current Medications Apixaban (Eliquis) 2.5 mg NG BID [facility] Aspirin (Aspirin Chewable) 81 mg NG DAILY [facility] Calcium/Vitamin D (Oyster Shell Calcium/Vitamin D 500 Mg-200 Iu) 1 tab NG DAILY [facility] Carvedilol (Coreg) 12.5 mg NG Q24H [facility] Last Admin: 05/14/17 14:49 Dose: Not Given Citalopram Hydrobromide (Celexa) 10 mg NG DAILY [facility] Clonidine HCl (Catapres) 0.3 mg NG TID [facility] Diltiazem HCl (Cardizem Cd) 240 mg PO DAILY [facility] Last Admin: 05/14/17 10:55 Dose: 240 mg Docusate Sodium (Colace) 100 mg NG BID [facility] Famotidine (Pepcid) 20 mg IVP DAILY [facility] Last Admin: 05/14/17 10:55 Dose: 20 mg Folic Acid (Folic Acid) 1 mg NG DAILY [facility] Furosemide (Lasix) 20 mg PO DAILY [facility] Home Med (Home Med) 1 unit OU TID [facility] Last Admin: 05/14/17 13:35 Dose: 1 unit Home Med (Home Med) 1 unit OU HS [facility] Last Admin: 05/13/17 22:21 Dose: 1 unit Hydralazine HCl (Apresoline) 10 mg IVP Q6H PRN PRN Reason: Systolic Blood Pressure Last Admin: 05/10/17 06:17 Dose: 10 mg Dextrose/Sodium Chloride (Dextrose 5%/0.45% Ns 1000 Ml) 1,000 mls @ 50 mls/hr IV .Q20H [facility] Last Admin: 05/14/17 10:55 Dose: 50 mls/hr Insulin Aspart (Novolog) 0 unit SC [facility] PRN Reason: Protocol Last Admin: 05/14/17 13:34 Dose: 2 unit Insulin Detemir (Levemir) 5 unit SC HS [facility] Last Admin: 05/13/17 22:22 Dose: 5 unit Losartan Potassium (Cozaar) 100 mg NG DAILY [facility] Magnesium Oxide (Mag-Ox) 400 mg NG BID [facility] Ondansetron HCl (Zofran Inj) 4 mg IVP Q6H PRN PRN Reason: Nausea/Vomiting Last Admin: 05/14/17 08:40 Dose: 4 mg Rosuvastatin Calcium (Crestor) 2.5 mg NG HS [facility] Simethicone (Mylicon Chew Tab) 80 mg NG Q8H PRN PRN Reason: GI distress - Labs Labs: 05/14/17 07:04 05/14/17 07:04 PT 16.1 SECONDS (9.7-12.2) H 05/11/17 06:42 INR 1.4 05/11/17 06:42 APTT 19 SECONDS (21-34) L 05/11/17 06:42 Attending/Attestation - Attestation I have personally seen and examined this patient.: Yes I have fully participated in the care of the patient.: Yes I have reviewed all pertinent clinical information, including history, physical exam and plan: Yes Notes (Text): Patient seen, examined and case discussed with day-time resident. Patient seen at bedside this morning with patient's son provided translation. patient denies acute complaints. Patient had bowel movement following emema yesterday. patient had mild white count this morning. Ordered for chest/abdomen xray. Patient had consent for NGT tube this morning with son this morning. NGT tube was confirmed; however was pulled out by the patient. Re-attempt for feeding given patient's lack of appetite. Per discussion with family, they are forcing her to eat. Aspirin and Eliquis initially held this morning for possible intervention for PFO per cardiology. patient had echo with bubble study; no bubble record; no intervention for PFO per discussion with Dr. Carter, unlikely source of patient's stroke, rehab. He recommended patient for Link device to monitor for arrhythmia. Patient had new- onset atrial fibrillation during the course of this admission. Recommended for Dr. Keith (EPS) for [place]. Eliquis and Aspirin resumed for the patient in light of events noted above. Assessment/Plan 1) Ischemic CVA * Neurology (Dr. Harden) help appreciated * Cardiology (Dr. Tse) help appreciated * No TPA given in ED due to history of hemorrhagic stroke in 2015 * CXR (05/07/17): no active pulmonary disease (see full report) * CT head negative (05/07/17): Nonspecific white matter changes. Acute infarction may be occult wihin 24hrs. If deficit persists, consider follow up CT /MRI (see full report) * CT angio head/neck (05/07/17): Patent vasculture. Nonspecific white matter changes. Acute infarction may be occult within first 24 hrs. If deficit persists , consider CT/MRI for further evaluation (see resident) * MRI head w/o contrast (05/07/17): Large acute left PRINTING SERVICES COORDINATOR territory infarction involving occipital lobe, medial, and posterior temporal lobe and thalamus with mild surrounding vasogenic edema. No evidence of midline shift or herniation. Cystic encephalmalacia in right occiptial lobe, sequela of remote PRINTING SERVICES COORDINATOR territory infarction. Mild chronic microangiopathic changes, small old lacunar infarction in the right centrum semiovale and moderate age related global parenchymal volume loss (see full report) * Repeat CT Head (05/08/17): Encephalomalacia involving right occipital lobe. Evolving ischemic changes identified involving left occipital lobe, inferior aspect of the medial temporal lobes, as well as portion of the thalamus. Effacement and displacement of the posterior horn left lateral ventricle (see full report) * EKG (05/07/17): nsr 93 non specific lateral t wave changes, no interval change * ECHO (05/07/17): LV systolic fxn normal. EF 60-65%. HTN heart disease. Trace Aortic regurgitation. Mitral regurgitation mild. No tricuspid valve regurgitation noted. No pulmonic valvular regurgitation (see full report) * Carotid doppler (05/07/17): mild disease bilaterally * Troponin/EKG negative x3 * RASHAAD (05/09/17): 3 mm PFO with bidirectional flow and extensive aortic plaques both are potentially sources of stroke and warrants anticoagulation unless contraindicated. 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 Caba) on consult help appreciated * Renal US (05/07/17): Medical renal disease. Small right kidney (see full report ) * Renal Artery Duplex Scan (05/08/17): No definite hemodynamically significant stenosis involving renal arteries as visualized (see full report) * GFR>60 * monitor BUN/Cr 3) Atrial fibrillation, new on set * EKG: Rate 68 bpm. Aflutter INSURANCE SALES REPRESENTATIVE on 05/10/17 * Cardizem 60mg PO Q6H complete tonight-->Start Cardizem CD 240mg PO today * Coreg 12.5mg PO Q 12H * CHADS2-Vasc2: (7 pts; Stroke risk 11.2% per year >90,000 patients and 15.7% risk of stroke/TIA/systemic embolism * HASBLED: 3: risk was 5.8% in one validation study; high risk for major bleeding * Benefits outweigh risks in stroke prevention * Dr. Carter (coach wirer)--> PFO closure; to schedule patient to close PFO-->planning in progress 4) Depression * S/p loss of vision as sequelae of stroke * Celexa 10mg PO Daily * Psychiatry (Dr. Turner)-->F/u recommendations 5) Vision Loss * Contributing factors: stroke, hx of cataracts/glaucoma * Opthalmologist: Dr. Rodriguez, help appreciated * Alphagan 0.1% one drop both eyes three times a day * Lumigan 0/01% eye drops both at bedtime 6) Hypertension * Cardizem CD 240mg PO daily * Losartan 100mg PO daily * Coreg 12.5mg PO Q 12H * 1/2 NS @ 50cc/hr 7) Type Two Diabetes Mellitus * Hemoglobin a1c: 9.2 (uncontrolled) * Increase Metformin 1000 mg PO BID * Hold Glipizide * Start Levemir 5 units subq HS * Novolog insulin sliding scale subq (medium dosing) 8) Hypercholesterolemia * Lipid panel: T, Cholesterol: 119, LDL: 52, HDL: 40 * Crestor 2.5mg PO qHS 9) Urinary Tract Infection * Urine culture (05/06/17): E. Coli sensitive to Aztreonam, Cefazolin, Cefepime, resistant to Cipro * Rocephin 1 gram IV q daily * Repeat urine culture is negative 10) Electrolyte abnormalities * Monitor CMP and Mg2+ 11) Prophylaxis * SCDs * Pepcid 20mg IVP daily * Aspirin 81mg PO daily * Eliquis 2.5mg PO BID * Mechanical soft bite-sized diet, thin liquid (vegetarian) * PT - benefit from skilled PT to improve transfers/mobility * f/u case management and social work regarding discharge planning
[2017-05-14] MEDS ORDERED: Simethicone 80 mg Chewtab NG PRN (14:21)
--- NOTE | 2017-05-14 14:37 | RAD ---
HISTORY: NGT placement COMPARISON: Chest x-ray performed 05/06/17 TECHNIQUE: Chest, one view. FINDINGS: Nasogastric tube extends expected location of the stomach. LUNGS: No focal consolidation. Please note that chest x-ray has limited sensitivity for the detection of pulmonary masses. PLEURA: Blunting of bilateral costophrenic angles consistent with small pleural effusions. No definite pneumothorax . CARDIOVASCULAR: Cardiomegaly. Atherosclerotic calcifications of the aorta. OSSEOUS STRUCTURES: Degenerative changes. VISUALIZED UPPER ABDOMEN: Unremarkable. OTHER FINDINGS: None. IMPRESSION: Nasogastric tube. Tiny bilateral pleural effusions. Cardiomegaly. Atherosclerotic calcifications of the aorta.
--- NOTE | 2017-05-14 15:54 | CP.PCM.PN ---
Subjective - Date & Time of Evaluation Date of Evaluation: 05/14/17 Time of Evaluation: 15:49 - Subjective Subjective: After d/w with NBI repeat bubble study performed in [employer] house No bubble cross over from right to left Hence its highly unlikely PFO is the reason for CVA One episode of transient A fib in the past likely etiology Or Atherosclerotic aorta Recommend full anticoagulation for paraxysmal A Fib D/c ASA statin therapy LINQ monitoring Objective - Vital Signs/Intake and Output Vital Signs (last 24 hours): Temp Pulse Resp BP Pulse Ox 97.4 F L 69 18 163/75 H 100 05/14/17 07:00 05/14/17 12:34 05/14/17 07:00 05/14/17 13:35 05/14/17 07:00 Intake and Output: 05/14/17 05/14/17 06:59 18:59 Intake Total 750 Balance 750 - Medications Medications: Current Medications Apixaban (Eliquis) 2.5 mg NG BID [facility] Aspirin (Aspirin Chewable) 81 mg NG DAILY [facility] Calcium/Vitamin D (Oyster Shell Calcium/Vitamin D 500 Mg-200 Iu) 1 tab NG DAILY [facility] Carvedilol (Coreg) 12.5 mg NG Q24H [facility] Last Admin: 05/14/17 14:49 Dose: Not Given Citalopram Hydrobromide (Celexa) 10 mg NG DAILY [facility] Clonidine HCl (Catapres) 0.3 mg NG TID [facility] Diltiazem HCl (Cardizem Cd) 240 mg PO DAILY [facility] Last Admin: 05/14/17 10:55 Dose: 240 mg Docusate Sodium (Colace) 100 mg NG BID [facility] Famotidine (Pepcid) 20 mg IVP DAILY [facility] Last Admin: 05/14/17 10:55 Dose: 20 mg Folic Acid (Folic Acid) 1 mg NG DAILY [facility] Furosemide (Lasix) 20 mg PO DAILY [facility] Home Med (Home Med) 1 unit OU TID [facility] Last Admin: 05/14/17 13:35 Dose: 1 unit Home Med (Home Med) 1 unit OU HS [facility] Last Admin: 05/13/17 22:21 Dose: 1 unit Hydralazine HCl (Apresoline) 10 mg IVP Q6H PRN PRN Reason: Systolic Blood Pressure Last Admin: 05/10/17 06:17 Dose: 10 mg Dextrose/Sodium Chloride (Dextrose 5%/0.45% Ns 1000 Ml) 1,000 mls @ 50 mls/hr IV .Q20H [facility] Last Admin: 05/14/17 10:55 Dose: 50 mls/hr Insulin Aspart (Novolog) 0 unit SC ACHS [facility] PRN Reason: Protocol Last Admin: 05/14/17 13:34 Dose: 2 unit Insulin Detemir (Levemir) 5 unit SC HS [facility] Last Admin: 05/13/17 22:22 Dose: 5 unit Losartan Potassium (Cozaar) 100 mg NG DAILY [facility] Magnesium Oxide (Mag-Ox) 400 mg NG BID [facility] Ondansetron HCl (Zofran Inj) 4 mg IVP Q6H PRN PRN Reason: Nausea/Vomiting Last Admin: 05/14/17 08:40 Dose: 4 mg Rosuvastatin Calcium (Crestor) 2.5 mg NG HS [facility] Simethicone (Mylicon Chew Tab) 80 mg NG Q8H PRN PRN Reason: GI distress - Labs Labs: 05/14/17 07:04 05/14/17 07:04 PT 16.1 SECONDS (9.7-12.2) H 05/11/17 06:42 INR 1.4 05/11/17 06:42 APTT 19 SECONDS (21-34) L 05/11/17 06:42
--- NOTE | 2017-05-14 17:18 | CP.PCM.CON ---
<JULIANNE BINGHAM - Last Filed: 05/14/17 17:51> History of Present Illness - History of Present Illness History of Present Illness: PGY1 Consult Note for Cardiology (Dr. Keith): HPI: 77F with PMH CVA, DM2, HTN, HLD, hypothyroidism, admitted for acute L [employer] infarction. RASHAAD on 05/09 showed a 3mm bidirectional PFO with bidirectional flow and external aortic plaques, raising concern for PFO as the cause of CVA. The bubble study today however showed no bubble crossover from right to left. Recent trops/ekg negx3, CK-MB mildly elevated (3->4.85->4.18). During the course of hospitalization, she was noted to have HR 130's, aflutter and afib, currently rate controlled with cardizem 60mg q6 and Coreg 12.5mg q12, and AC with eliquis. Cardio consulted for further management and insertion of LINQ monitor. 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 Lives with family PMD: Dr. Velazquez Review of Systems - Constitutional Constitutional: Fatigue. absent: Chills, Excessive Sweating, Headache - EENT Eyes: Blind Spots, Change in Vision - Cardiovascular Cardiovascular: Lightheadedness, Palpitations, Rapid Heart Rate. absent: Diaphoresis, Dyspnea, Edema, Leg Edema, Pedal Edema, Radiating Pain - Respiratory Respiratory: absent: Cough, Hemoptysis, Chest Congestion - Gastrointestinal Gastrointestinal: Bloating. absent: Abdominal Pain, Diarrhea - Genitourinary Genitourinary: absent: Difficulty Urinating, Urinary Frequency - Musculoskeletal Musculoskeletal: absent: Numbness - Endocrine Endocrine: absent: Heat Intolorance - Hematologic/Lymphatic Hematologic: absent: Easy Bleeding Past Patient History - Infectious Disease Hx of Infectious Diseases: None - Tetanus Immunizations Tetanus Immunization: Unknown - Past Medical History & Family History Past Medical History?: Yes Past Family History: Reviewed and not pertinent - Past Social History Smoking Status: Never Smoked Chewing Tobacco Use: No Cigar Use: No Alcohol: None Drugs: Denies Home Situation {Lives}: With Family - CARDIAC Hx Hypercholesterolemia: Yes Hx Hypertension: Yes Hx Pacemaker: No - PULMONARY Hx Respiratory Disorders: No - NEUROLOGICAL HX Cerebrovascular Accident: Yes (no residuals) - HEENT Hx Cataracts: Yes - RENAL Hx Chronic Kidney Disease: No - ENDOCRINE/METABOLIC Hx Diabetes Mellitus Type 2: Yes - HEMATOLOGICAL/ONCOLOGICAL Hx Blood Transfusions: No Hx Blood Transfusion Reaction: No - MUSCULOSKELETAL/RHEUMATOLOGICAL Hx Arthritis: Yes - GASTROINTESTINAL Hx Gastrointestinal Disorders: No - PSYCHIATRIC Hx Substance Use: No - SURGICAL HISTORY Hx Surgeries: Yes Hx Cataract Extraction: Yes (Bilat eyes) Hx Section: Yes - ANESTHESIA Hx Anesthesia: Yes Hx Anesthesia Reactions: No Hx Malignant Hyperthermia: No Meds Allergies/Adverse Reactions: Allergies Allergy/AdvReac Type Severity Reaction Status Date / Time No Known Allergies Allergy Verified 05/06/17 22:54 - Medications Medications: Current Medications Apixaban (Eliquis) 2.5 mg NG BID [facility] Aspirin (Aspirin Chewable) 81 mg NG DAILY [facility] Calcium/Vitamin D (Oyster Shell Calcium/Vitamin D 500 Mg-200 Iu) 1 tab NG DAILY [facility] Carvedilol (Coreg) 12.5 mg NG Q24H [facility] Last Admin: 05/14/17 14:49 Dose: Not Given Citalopram Hydrobromide (Celexa) 10 mg NG DAILY [facility] Clonidine HCl (Catapres) 0.3 mg NG TID [facility] Diltiazem HCl (Cardizem Cd) 240 mg PO DAILY [facility] Last Admin: 05/14/17 10:55 Dose: 240 mg Docusate Sodium (Colace) 100 mg NG BID [facility] Famotidine (Pepcid) 20 mg IVP DAILY [facility] Last Admin: 05/14/17 10:55 Dose: 20 mg Folic Acid (Folic Acid) 1 mg NG DAILY [facility] Furosemide (Lasix) 20 mg PO DAILY [facility] Home Med (Home Med) 1 unit OU TID [facility] Last Admin: 05/14/17 13:35 Dose: 1 unit Home Med (Home Med) 1 unit OU HS [facility] Last Admin: 05/13/17 22:21 Dose: 1 unit Hydralazine HCl (Apresoline) 10 mg IVP Q6H PRN PRN Reason: Systolic Blood Pressure Last Admin: 05/10/17 06:17 Dose: 10 mg Dextrose/Sodium Chloride (Dextrose 5%/0.45% Ns 1000 Ml) 1,000 mls @ 50 mls/hr IV .Q20H [facility] Last Admin: 05/14/17 10:55 Dose: 50 mls/hr Insulin Aspart (Novolog) 0 unit SC ACHS [facility] PRN Reason: Protocol Last Admin: 05/14/17 13:34 Dose: 2 unit Insulin Detemir (Levemir) 5 unit SC HS [facility] Last Admin: 05/13/17 22:22 Dose: 5 unit Losartan Potassium (Cozaar) 100 mg NG DAILY [facility] Magnesium Oxide (Mag-Ox) 400 mg NG BID [facility] Ondansetron HCl (Zofran Inj) 4 mg IVP Q6H PRN PRN Reason: Nausea/Vomiting Last Admin: 05/14/17 08:40 Dose: 4 mg Rosuvastatin Calcium (Crestor) 2.5 mg NG HS [facility] Simethicone (Mylicon Chew Tab) 80 mg NG Q8H PRN PRN Reason: GI distress Physical Exam - Constitutional Appears: No Acute Distress - Head Exam Head Exam: ATRAUMATIC, NORMOCEPHALIC - Eye Exam Eye Exam: PERRL - ENT Exam ENT Exam: Mucous Membranes Moist - Respiratory Exam Respiratory Exam: Clear to Auscultation Bilateral - Cardiovascular Exam Cardiovascular Exam: Irregular Rhythm Additional comments: HR 93, aflutter on monitor - GI/Abdominal Exam GI & Abdominal Exam: Normal Bowel Sounds, Soft. absent: Distended, Tenderness - Extremities Exam Extremities exam: Negative for: calf tenderness, pedal edema Additional comments: + DP pulses b/l - Neurological Exam Neurological exam: Alert, CN II-XII Intact, Oriented x3 Additional comments: no vision in R and L eye. RUE 4/5, LUE 5/5. RLE and LLE 5/5 - Skin Skin Exam: Dry, Warm Results - Vital Signs Recent Vital Signs: Last Vital Signs Temp 97.3 F L 05/14/17 15:05 Pulse 89 05/14/17 15:05 Resp 20 05/14/17 15:05 BP 172/80 H 05/14/17 15:05 Pulse Ox 100 05/14/17 15:05 - Labs Result Diagrams: 05/14/17 07:04 05/14/17 07:04 Labs: Laboratory Results - last 24 hr 05/13/17 05/13/17 05/13/17 16:30 17:23 21:05 WBC RBC Hgb Hct MCV MCH MCHC RDW Plt Count MPV Neut % (Auto) Lymph % (Auto) [place] % (Auto) Eos % (Auto) Baso % (Auto) Neut # Lymph # [place] # Eos # Baso # Neutrophils % (Manual) Lymphocytes % (Manual) Monocytes % (Manual) Platelet Estimate RBC Morphology Sodium Potassium Chloride Carbon Dioxide Anion Gap BUN Creatinine Est GFR ( Amer) Est GFR (Non-Af Amer) POC Glucose (mg/dL) 176 H 170 H Random Glucose Calcium Phosphorus Magnesium Total Bilirubin AST ALT Alkaline Phosphatase Total Creatine Kinase 46 CK-MB (Mass) 4.18 H Troponin I, Quant 0.0180 Total Protein Albumin Globulin Albumin/Globulin Ratio 05/14/17 05/14/17 05/14/17 06:09 07:04 07:04 WBC 12.9 H RBC 3.68 L Hgb 10.2 L Hct 30.5 L MCV 82.9 MCH 27.7 MCHC 33.5 RDW 13.2 Plt Count 439 H MPV 7.9 Neut % (Auto) 86.8 H Lymph % (Auto) 8.0 L [place] % (Auto) 5.1 Eos % (Auto) 0.0 Baso % (Auto) 0.1 Neut # 11.2 H Lymph # 1.0 [place] # 0.7 Eos # 0.0 Baso # 0.0 Neutrophils % (Manual) 90 H Lymphocytes % (Manual) 7 L Monocytes % (Manual) 3 Platelet Estimate Slightly increased H RBC Morphology Normal Sodium 129 L Potassium 3.9 Chloride 92 L Carbon Dioxide 24 Anion Gap 17 BUN 15 Creatinine 0.8 Est GFR ( Amer) > 60 Est GFR (Non-Af Amer) > 60 POC Glucose (mg/dL) 185 H Random Glucose 159 H Calcium 8.5 L Phosphorus 3.2 Magnesium 1.9 Total Bilirubin 0.5 AST 23 ALT 27 Alkaline Phosphatase 59 Total Creatine Kinase CK-MB (Mass) Troponin I, Quant Total Protein 6.2 L Albumin 3.2 L Globulin 3.0 Albumin/Globulin Ratio 1.1 05/14/17 05/14/17 11:36 16:45 WBC RBC Hgb Hct MCV MCH MCHC RDW Plt Count MPV Neut % (Auto) Lymph % (Auto) [place] % (Auto) Eos % (Auto) Baso % (Auto) Neut # Lymph # [place] # Eos # Baso # Neutrophils % (Manual) Lymphocytes % (Manual) Monocytes % (Manual) Platelet Estimate RBC Morphology Sodium Potassium Chloride Carbon Dioxide Anion Gap BUN Creatinine Est GFR ( Amer) Est GFR (Non-Af Amer) POC Glucose (mg/dL) 163 H 123 H Random Glucose Calcium Phosphorus Magnesium Total Bilirubin AST ALT Alkaline Phosphatase Total Creatine Kinase CK-MB (Mass) Troponin I, Quant Total Protein Albumin Globulin Albumin/Globulin Ratio Assessment & Plan - Assessment and Plan (Free Text) Assessment: 77F with PMH previous hemorrhagic CVA, DM2, HTN, HLD, hypothyroidism, initially admitted to [facility] for acute CVA, currently requiring cardio consult for insertion of LINQ monitor. Plan: Acute ischemic L [employer] CVA 2/2 likely afib/aflutter vs atherosclertoic aortic dz, PFO ruled out: - Carotid doppler (05/07/17): mild disease bilaterally - MRI head w/o contrast (05/07/17): Large acute left [employer] territory infarction involving occipital lobe, medial, and posterior temporal lobe and thalamus with mild surrounding vasogenic edema. No evidence of midline shift or herniation. Cystic encephalmalacia in right occiptial lobe, sequela of remote [employer] territory infarction. Mild chronic microangiopathic changes, small old lacunar infarction in the right centrum semiovale and moderate age related global parenchymal volume loss - No TPA given in ED due to history of hemorrhagic stroke in 2015 - CT angio head/neck (05/07/17): Patent vasculture. Nonspecific white matter changes. Acute infarction may be occult within first 24 hrs. If deficit persists , consider CT/MRI for further evaluation - ECHO (05/07/17): LV systolic fxn normal. EF 60-65%. HTN heart disease. Trace Aortic regurgitation. Mitral regurgitation mild. No tricuspid valve regurgitation noted. No pulmonic valvular regurgitation (see full report) - Troponin/EKG negative x 3 - RASHAAD (05/09/17): 3 mm PFO with bidirectional flow and extensive aortic plaques both are potentially sources of stroke and warrants anticoagulation unless contraindicated. - Aflutter [employer] on 05/10/17 - Repeat bubble study 05/14 shows no bubble crossover from R->L, no PFO - HR 79-83, rate controlled, aflutter, today. - On Cardizem 60mg PO Q6H and Coreg 12.5mg PO Q 12H. James currently held, will f.u with Dr. Carter. - Recommend loop recorder - LINQ, for further monitoring of cardiac rhythm. Thank you for your consult. Will discuss with attending, Dr. Keith. Julianne Bingham, PGY1 <Jessee Ketih - Last Filed: 05/15/17 15:05> Meds - Medications Medications: Current Medications Apixaban (Eliquis) 2.5 mg PO BID [facility] Last Admin: 05/15/17 10:50 Dose: Not Given Aspirin (Aspirin Chewable) 81 mg NG DAILY [facility] Calcium/Vitamin D (Oyster Shell Calcium/Vitamin D 500 Mg-200 Iu) 1 tab NG DAILY [facility] Last Admin: 05/15/17 10:49 Dose: 1 tab Carvedilol (Coreg) 12.5 mg NG Q24H [facility] Last Admin: 05/15/17 13:25 Dose: Not Given Citalopram Hydrobromide (Celexa) 10 mg NG DAILY [facility] Last Admin: 05/15/17 10:50 Dose: 10 mg Clonidine HCl (Catapres) 0.3 mg PO Q8H [facility] Last Admin: 05/15/17 10:45 Dose: 0.3 mg Diltiazem HCl (Cardizem Cd) 240 mg PO DAILY [facility] Last Admin: 05/15/17 10:46 Dose: 240 mg Docusate Sodium (Colace) 100 mg NG BID [facility] Last Admin: 05/15/17 10:49 Dose: 100 mg Famotidine (Pepcid) 20 mg IVP DAILY [facility] Last Admin: 05/15/17 10:44 Dose: 20 mg Folic Acid (Folic Acid) 1 mg NG DAILY [facility] Last Admin: 05/15/17 10:46 Dose: 1 mg Home Med (Home Med) 1 unit OU TID [facility] Last Admin: 05/15/17 13:20 Dose: 1 unit Home Med (Home Med) 1 unit OU HS [facility] Last Admin: 05/14/17 22:17 Dose: 1 unit Hydralazine HCl (Apresoline) 10 mg IVP Q6H PRN PRN Reason: Systolic Blood Pressure Last Admin: 05/10/17 06:17 Dose: 10 mg Insulin Aspart (Novolog) 0 unit SC ACHS [facility] PRN Reason: Protocol Last Admin: 05/15/17 12:30 Dose: Not Given Insulin Detemir (Levemir) 5 unit SC HS [facility] Last Admin: 05/14/17 22:18 Dose: 5 unit Losartan Potassium (Cozaar) 100 mg NG DAILY [facility] Last Admin: 05/15/17 10:49 Dose: 100 mg Magnesium Oxide (Mag-Ox) 400 mg NG BID [facility] Last Admin: 05/15/17 10:49 Dose: 400 mg Ondansetron HCl (Zofran Inj) 4 mg IVP Q6H PRN PRN Reason: Nausea/Vomiting Last Admin: 05/14/17 08:40 Dose: 4 mg Rosuvastatin Calcium (Crestor) 2.5 mg NG HS [facility] Last Admin: 05/14/17 22:18 Dose: 2.5 mg Simethicone (Mylicon Chew Tab) 80 mg NG Q8H PRN PRN Reason: GI distress Results - Vital Signs Recent Vital Signs: Last Vital Signs Temp 98.0 F 05/15/17 08:54 Pulse 59 L 05/15/17 13:25 Resp 20 05/15/17 08:54 BP 124/58 L 05/15/17 13:25 Pulse Ox 100 05/15/17 08:54 - Labs Result Diagrams: 05/15/17 06:22 05/15/17 06:22 Labs: Laboratory Results - last 24 hr 05/14/17 05/14/17 05/15/17 16:45 21:13 06:22 WBC 10.5 RBC 3.62 L Hgb 10.4 L Hct 30.0 L MCV 82.8 MCH 28.9 MCHC 34.9 RDW 13.5 Plt Count 441 H MPV 7.6 Neut % (Auto) 78.5 H Lymph % (Auto) 13.9 L [place] % (Auto) 7.3 Eos % (Auto) 0.2 Baso % (Auto) 0.1 Neut # 8.2 H Lymph # 1.5 [place] # 0.8 Eos # 0.0 Baso # 0.0 Sodium Potassium Chloride Carbon Dioxide Anion Gap BUN Creatinine Est GFR ( Amer) Est GFR (Non-Af Amer) POC Glucose (mg/dL) 123 H 190 H Random Glucose Calcium Phosphorus Magnesium Total Bilirubin AST ALT Alkaline Phosphatase Total Protein Albumin Globulin Albumin/Globulin Ratio 05/15/17 05/15/17 05/15/17 06:22 06:43 10:14 WBC RBC Hgb Hct MCV MCH MCHC RDW Plt Count MPV Neut % (Auto) Lymph % (Auto) [place] % (Auto) Eos % (Auto) Baso % (Auto) Neut # Lymph # [place] # Eos # Baso # Sodium 127 L Potassium 3.7 Chloride 91 L Carbon Dioxide 25 Anion Gap 15 BUN 22 H Creatinine 1.1 Est GFR ( Amer) 58 Est GFR (Non-Af Amer) 48 POC Glucose (mg/dL) 177 H 214 H Random Glucose 170 H Calcium 8.1 L Phosphorus 3.0 Magnesium 2.2 Total Bilirubin < 0.1 L AST 21 ALT 23 Alkaline Phosphatase 55 Total Protein 5.4 L Albumin 2.9 L Globulin 2.5 Albumin/Globulin Ratio 1.2 05/15/17 12:03 WBC RBC Hgb Hct MCV MCH MCHC RDW Plt Count MPV Neut % (Auto) Lymph % (Auto) [place] % (Auto) Eos % (Auto) Baso % (Auto) Neut # Lymph # [place] # Eos # Baso # Sodium Potassium Chloride Carbon Dioxide Anion Gap BUN Creatinine Est GFR ( Amer) Est GFR (Non-Af Amer) POC Glucose (mg/dL) 211 H Random Glucose Calcium Phosphorus Magnesium Total Bilirubin AST ALT Alkaline Phosphatase Total Protein Albumin Globulin Albumin/Globulin Ratio Attending/Attestation - Attestation I have personally seen and examined this patient.: Yes I have fully participated in the care of the patient.: Yes I have reviewed all pertinent clinical information: Yes Notes (Text): 05/15/17 15:04 Will arrange for implantable loop tomorrow afternoon. NPO after bkft
--- NOTE | 2017-05-14 17:20 | RAD ---
HISTORY: leukocytosis/ abdominal distension COMPARISON: No prior. FINDINGS: BOWEL: Normal. No obstruction. No free air. BONES: Normal. OTHER FINDINGS: None. IMPRESSION: No active disease.
--- NOTE | 2017-05-14 20:17 | CARD ---
APPROVED REPORT <Conclusion> Bubble study performed to assess PFO No bubble cross over noted
[2017-05-14] MEDS: Magnesium Oxide 400 mg Tab UD NG SCH (20:39)
[2017-05-14] MEDS: Insulin Detemir 100 units/ml Vial (Levemir) SC SCH (22:18)
[2017-05-14] MEDS: Rosuvastatin Calcium 2.5 mg Tab NG SCH (22:18)
[2017-05-15 06:32] LABS: BASO % 0.1 % (0.0-2.0); EOS % 0.2 % (0.0-4.0); LYMPH # 1.5 K/uL (1.0-4.3); LYMPH % 13.9 % (20.0-40.0); MEAN CELL VOLUME 82.8 fL (81.0-99.0); MEAN CORPUSCULAR HEMOGLOBIN 28.9 pg (27.0-31.0); MEAN CORPUSCULAR HGB CONC 34.9 g/dL (33.0-37.0); MEAN PLATELET VOLUME 7.6 fL (7.2-11.7); MONO # 0.8 K/uL (0.0-0.8); MONO % 7.3 % (0.0-10.0); RED CELL DISTRIBUTION WIDTH 13.5 % (11.5-14.5); WHITE BLOOD COUNT 10.5 K/uL (4.8-10.8)
[2017-05-15 06:48] LABS: ALB/GLOB RATIO 1.2 (1.0-2.1); ALKALINE PHOSPHATASE 55 U/L (38-126); ALT/SGPT 23 U/L (9-52); AST/SGOT 21 U/L (14-36); BILIRUBIN,TOTAL < 0.1 mg/dL (0.2-1.3); BLOOD UREA NITROGEN 22 mg/dL (7-17); CALCIUM 8.1 mg/dl (8.6-10.4); CARBON DIOXIDE 25 mmol/L (22-30); CHLORIDE 91 mmol/L (98-107); GFR AFRICAN-AMERICAN 58; GLUCOSE,RANDOM 170 mg/dL (65-105); MAGNESIUM 2.2 mg/dL (1.6-2.3); POTASSIUM 3.7 mmol/L (3.6-5.2); SODIUM 127 mmol/L (132-148); TOTAL PROTEIN 5.4 g/dL (6.3-8.3)
[2017-05-15] MEDS: Dextrose 5%/0.45% NS 1,000 ML IV SCH ×2 (08:20→11:24)
--- NOTE | 2017-05-15 08:50 | RAD ---
Chest x-ray single frontal view History: Nasogastric tube placement. Comparison: 05/14/2017 Findings: Mild venous congestion. Left basilar airspace opacity with small left pleural effusion. Calcification at the aortic knob. Mild cardiomegaly. Degenerative changes in the spine and shoulders. Impression: NG tube extending into the stomach. Small left pleural effusion with adjacent left basilar airspace opacity.
[2017-05-15] MEDS: (Novolog) Insulin Aspart, Recombinant 100 u/ml 10 ml vial SC SCH ×4 (09:00→21:05)
--- NOTE | 2017-05-15 09:26 | CP.PCM.PN ---
<RAJESH BINGHAM - Last Filed: 05/15/17 15:51> Subjective - Date & Time of Evaluation Date of Evaluation: 05/15/17 Time of Evaluation: 09:23 - Subjective Subjective: Rajesh Bingham, PGY1, Cardiology (Dr Keith) Progress Note: Pt seen and examined at bedside. Pt pulled out NGT twice overnight, thus no feeds. This AM, pt sent for arterial and venous duplex, per primary team. Pt alert, oriented to self, but drowsy. Denies pain. ROS otherwise unobtainable. Objective - Vital Signs/Intake and Output Vital Signs (last 24 hours): Temp Pulse Resp BP Pulse Ox 98.0 F 78 20 171/80 H 100 05/15/17 08:54 05/15/17 08:54 05/15/17 08:54 05/15/17 08:54 05/15/17 08:54 Intake and Output: 05/15/17 05/15/17 06:59 18:59 Intake Total 650 Balance 650 - Medications Medications: Current Medications Apixaban (Eliquis) 2.5 mg PO BID [facility] Last Admin: 05/14/17 20:39 Dose: 2.5 mg Aspirin (Aspirin Chewable) 81 mg NG DAILY [facility] Calcium/Vitamin D (Oyster Shell Calcium/Vitamin D 500 Mg-200 Iu) 1 tab NG DAILY [facility] Carvedilol (Coreg) 12.5 mg NG Q24H [facility] Last Admin: 05/14/17 14:49 Dose: Not Given Citalopram Hydrobromide (Celexa) 10 mg NG DAILY [facility] Clonidine HCl (Catapres) 0.3 mg PO Q8H [facility] Last Admin: 05/15/17 01:14 Dose: 0.3 mg Diltiazem HCl (Cardizem Cd) 240 mg PO DAILY [facility] Last Admin: 05/14/17 10:55 Dose: 240 mg Docusate Sodium (Colace) 100 mg NG BID [facility] Last Admin: 05/14/17 20:39 Dose: 100 mg Famotidine (Pepcid) 20 mg IVP DAILY [facility] Last Admin: 05/14/17 10:55 Dose: 20 mg Folic Acid (Folic Acid) 1 mg NG DAILY [facility] Furosemide (Lasix) 20 mg PO DAILY [facility] Home Med (Home Med) 1 unit OU TID [facility] Last Admin: 05/14/17 20:38 Dose: 1 unit Home Med (Home Med) 1 unit OU HS [facility] Last Admin: 05/14/17 22:17 Dose: 1 unit Hydralazine HCl (Apresoline) 10 mg IVP Q6H PRN PRN Reason: Systolic Blood Pressure Last Admin: 05/10/17 06:17 Dose: 10 mg Dextrose/Sodium Chloride (Dextrose 5%/0.45% Ns 1000 Ml) 1,000 mls @ 100 mls/hr IV .Q10H [facility] Insulin Aspart (Novolog) 0 unit SC ACHS [facility] PRN Reason: Protocol Last Admin: 05/14/17 22:02 Dose: Not Given Insulin Detemir (Levemir) 5 unit SC HS [facility] Last Admin: 05/14/17 22:18 Dose: 5 unit Losartan Potassium (Cozaar) 100 mg NG DAILY [facility] Magnesium Oxide (Mag-Ox) 400 mg NG BID [facility] Last Admin: 05/14/17 20:39 Dose: 400 mg Ondansetron HCl (Zofran Inj) 4 mg IVP Q6H PRN PRN Reason: Nausea/Vomiting Last Admin: 05/14/17 08:40 Dose: 4 mg Rosuvastatin Calcium (Crestor) 2.5 mg NG HS [facility] Last Admin: 05/14/17 22:18 Dose: 2.5 mg Simethicone (Mylicon Chew Tab) 80 mg NG Q8H PRN PRN Reason: GI distress - Labs Labs: 05/15/17 06:22 05/15/17 06:22 PT 16.1 SECONDS (9.7-12.2) H 05/11/17 06:42 INR 1.4 05/11/17 06:42 APTT 19 SECONDS (21-34) L 05/11/17 06:42 - Constitutional Appears: No Acute Distress - Head Exam Head Exam: ATRAUMATIC, NORMOCEPHALIC - Eye Exam Eye Exam: PERRL - ENT Exam ENT Exam: Mucous Membranes Moist - Respiratory Exam Respiratory Exam: Clear to Ausculation Bilateral - Cardiovascular Exam Cardiovascular Exam: Irregular Rhythm Additional comments: 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 absent: Distended, Tenderness - Extremities Exam Extremities Exam: absent: Calf Tenderness, Pedal Edema Additional comments: 1+ DP pulses b/l, warm, no erythema. - Neurological Exam Additional comments: drowsy, oriented to self. 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 Pt scheduled for insertion today. NPO after breakfast, elliquis dose held. Plan: Acute ischemic L COOLING SYSTEM OPERATOR CVA 2/2 likely afib/aflutter vs atherosclertoic aortic plaque dz, PFO ruled out: - Drowsy this AM, CT head 05/15 neg for new CVA. - Arterial doppler BLE 05/15 prelim reading shows moderate PAD b/l. f/u finalized reading. - Venous duplex BLE 05/15 prelim reading shows no abnormal findings. f/u finalized reading. - Continue CVA management per primary team. - Carotid doppler (05/07/17): mild disease bilaterally - MRI head w/o contrast (05/07/17): Large acute left COOLING SYSTEM OPERATOR territory infarction involving occipital lobe, medial, and posterior temporal lobe and thalamus with mild surrounding vasogenic edema. No evidence of midline shift or herniation. Cystic encephalmalacia in right occiptial lobe, sequela of remote COOLING SYSTEM OPERATOR territory infarction. Mild chronic microangiopathic changes, small old lacunar infarction in the right centrum semiovale and moderate age related global parenchymal volume loss - No TPA given in ED due to history of hemorrhagic stroke in 2015 - CT angio head/neck (05/07/17): Patent vasculture. Nonspecific white matter changes. Acute infarction may be occult within first 24 hrs. If deficit persists , consider CT/MRI for further evaluation - ECHO (05/07/17): LV systolic fxn normal. EF 60-65%. HTN heart disease. Trace Aortic regurgitation. Mitral regurgitation mild. No tricuspid valve regurgitation noted. No pulmonic valvular regurgitation. - Troponin/EKG negative x 3 - RASHAAD (05/09/17): 3 mm PFO with bidirectional flow and extensive aortic plaques both are potentially sources of stroke and warrants anticoagulation unless contraindicated. 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 - On Cardizem 60mg PO Q6H and Coreg 240mg PO daily, Eliquis currently held, will f.u with Dr. Carter. - Continue with Rosuvastatin 2.5mg PO daily. - NPO post breakfast today. Elliquis dose held today. - Recommend loop recorder, for further monitoring of cardiac rhythm, scheduled for today. Will discuss with attending, Dr. Keith. Rajesh Bingham, PGY1 <Jessee Keith A - Last Filed: 05/16/17 08:09> Objective - Vital Signs/Intake and Output Vital Signs (last 24 hours): Temp Pulse Resp BP Pulse Ox 97.9 F 78 20 138/77 97 05/15/17 23:30 05/16/17 04:13 05/15/17 23:30 05/15/17 23:30 05/15/17 23:30 Intake and Output: 05/16/17 05/16/17 06:59 18:59 Intake Total 100 Balance 100 - Medications Medications: Current Medications Apixaban (Eliquis) 2.5 mg PO BID [facility] Last Admin: 05/15/17 18:36 Dose: Not Given Calcium/Vitamin D (Oyster Shell Calcium/Vitamin D 500 Mg-200 Iu) 1 tab NG DAILY [facility] Last Admin: 05/15/17 10:49 Dose: 1 tab Carvedilol (Coreg) 12.5 mg NG Q24H [facility] Last Admin: 05/15/17 13:25 Dose: Not Given Clonidine HCl (Catapres) 0.3 mg PO Q8H [facility] Last Admin: 05/16/17 00:24 Dose: 0.3 mg Diltiazem HCl (Cardizem Cd) 240 mg PO DAILY [facility] Last Admin: 05/15/17 10:46 Dose: 240 mg Docusate Sodium (Colace) 100 mg NG BID [facility] Last Admin: 05/15/17 18:36 Dose: Not Given Famotidine (Pepcid) 20 mg IVP DAILY [facility] Last Admin: 05/15/17 10:44 Dose: 20 mg Folic Acid (Folic Acid) 1 mg NG DAILY [facility] Last Admin: 05/15/17 10:46 Dose: 1 mg Home Med (Home Med) 1 unit OU TID [facility] Last Admin: 05/15/17 18:37 Dose: 1 unit Home Med (Home Med) 1 unit OU HS [facility] Last Admin: 05/15/17 21:04 Dose: 1 unit Hydralazine HCl (Apresoline) 10 mg IVP Q6H PRN PRN Reason: Systolic Blood Pressure Last Admin: 05/10/17 06:17 Dose: 10 mg Insulin Aspart (Novolog) 0 unit SC ACHS [facility] PRN Reason: Protocol Last Admin: 05/15/17 21:05 Dose: Not Given Insulin Detemir (Levemir) 5 unit SC [facility] Last Admin: 05/15/17 21:05 Dose: Not Given Losartan Potassium (Cozaar) 100 mg NG DAILY [facility] Last Admin: 05/15/17 10:49 Dose: 100 mg Magnesium Oxide (Mag-Ox) 400 mg NG BID [facility] Last Admin: 05/15/17 18:37 Dose: Not Given Ondansetron HCl (Zofran Inj) 4 mg IVP Q6H PRN PRN Reason: Nausea/Vomiting Last Admin: 05/14/17 08:40 Dose: 4 mg Rosuvastatin Calcium (Crestor) 2.5 mg NG [facility] Last Admin: 05/15/17 21:04 Dose: 2.5 mg Simethicone (Mylicon Chew Tab) 80 mg NG Q8H PRN PRN Reason: GI distress - Labs Labs: 05/16/17 06:33 05/16/17 06:33 PT 16.1 SECONDS (9.7-12.2) H 05/11/17 06:42 INR 1.4 05/11/17 06:42 APTT 19 SECONDS (21-34) L 05/11/17 06:42 Attending/Attestation - Attestation I have personally seen and examined this patient.: Yes I have fully participated in the care of the patient.: Yes I have reviewed all pertinent clinical information, including history, physical exam and plan: Yes Notes (Text): 05/16/17 08:09 D/w family in detail describing procedure risks and benefits. Plan for this afternoon loop recorder all in agreement
[2017-05-15] MEDS: ALPHAGAN 0.1% OU SCH ×3 (10:45→18:37)
[2017-05-15] MEDS: diltiaZEM 240 mg/24 Hours CD Cap PO SCH (10:46)
[2017-05-15] MEDS: Magnesium Oxide 400 mg Tab UD NG SCH ×2 (10:49→18:37)
[2017-05-15] MEDS: Calcium-Vit D 500 mg-200 Units Tab UD NG SCH (10:49)
--- NOTE | 2017-05-15 11:55 | PN ---
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 The patient was supposed to get closure of the PFO. However, the PFO is unlikely the cause for the stroke after discussing the RASHAAD result with the iphone developer Dr. Carter. Because no bubble from right to left. The patient also showed episode of transient atrial fibrillation. At that point, atrial fibrillation could be the cause for her stroke. The patient is already on Eliquis 5 mg twice a day, that dose has to be continued for stroke prevention. The patient's condition is being discussed with the iphone developer. The patient's vital signs are stable at present, the patient is medically stable, if stable otherwise from the cariology, the patient can be discharged to rehab place. Tenzin Harden MD MTDD
--- NOTE | 2017-05-15 12:08 | CT ---
PROCEDURE: CT HEAD WITHOUT CONTRAST. HISTORY: lethargy, Hx of stroke COMPARISON: Noncontrast head CT performed 05/08/17, MRI brain without contrast performed 05/07/17 TECHNIQUE: Axial computed tomography images were obtained through the head/brain without intravenous contrast. Radiation dose: Total exam DLP = 756.16 mGy-cm. This CT exam was performed using one or more of the following dose reduction techniques: Automated exposure control, adjustment of the mA and/or kV according to patient size, and/or use of iterative reconstruction technique. FINDINGS: HEMORRHAGE: No intracranial hemorrhage. BRAIN: No mass effect or edema. Intracranial atherosclerotic calcifications. Encephalomalacia of the in the right occipital lobe. Evolving ischemic changes identified involving left occipital lobe, inferior aspect of the medial temporal lobes, as well as a small portion of the thalamus. Additional scattered white matter hypodensities, which are nonspecific, but often seen with chronic microvascular ischemic disease. VENTRICLES: Re-identified effacement and displacement of the posterior horn left lateral ventricle. CALVARIUM: Unremarkable. PARANASAL SINUSES: Unremarkable as visualized. No significant inflammatory changes. MASTOID AIR CELLS: Unremarkable as visualized. No inflammatory changes. OTHER FINDINGS: None. IMPRESSION: Encephalomalacia involving the right occipital lobe. Evolving ischemic changes identified involving left occipital lobe, inferior aspect of the medial temporal lobes, as well as a small portion of the thalamus. Re- identified effacement and displacement of the posterior horn left lateral ventricle.
--- NOTE | 2017-05-15 13:21 | CP.PCM.PN ---
Subjective - Date & Time of Evaluation Date of Evaluation: 05/15/17 Time of Evaluation: 13:19 - Subjective Subjective: seen and examined non verbal case discussed w/ family and resident at bedside labile bp Objective - Vital Signs/Intake and Output Vital Signs (last 24 hours): Temp Pulse Resp BP Pulse Ox 98.0 F 65 20 165/96 H 100 05/15/17 08:54 05/15/17 10:45 05/15/17 08:54 05/15/17 10:45 05/15/17 08:54 Intake and Output: 05/15/17 05/15/17 06:59 18:59 Intake Total 650 Balance 650 - Medications Medications: Current Medications Apixaban (Eliquis) 2.5 mg PO BID [facility] Last Admin: 05/15/17 10:50 Dose: Not Given Aspirin (Aspirin Chewable) 81 mg NG DAILY [facility] Calcium/Vitamin D (Oyster Shell Calcium/Vitamin D 500 Mg-200 Iu) 1 tab NG DAILY [facility] Last Admin: 05/15/17 10:49 Dose: 1 tab Carvedilol (Coreg) 12.5 mg NG Q24H [facility] Last Admin: 05/14/17 14:49 Dose: Not Given Citalopram Hydrobromide (Celexa) 10 mg NG DAILY [facility] Last Admin: 05/15/17 10:50 Dose: 10 mg Clonidine HCl (Catapres) 0.3 mg PO Q8H [facility] Last Admin: 05/15/17 10:45 Dose: 0.3 mg Diltiazem HCl (Cardizem Cd) 240 mg PO DAILY [facility] Last Admin: 05/15/17 10:46 Dose: 240 mg Docusate Sodium (Colace) 100 mg NG BID [facility] Last Admin: 05/15/17 10:49 Dose: 100 mg Famotidine (Pepcid) 20 mg IVP DAILY [facility] Last Admin: 05/15/17 10:44 Dose: 20 mg Folic Acid (Folic Acid) 1 mg NG DAILY [facility] Last Admin: 05/15/17 10:46 Dose: 1 mg Furosemide (Lasix) 20 mg PO DAILY [facility] Home Med (Home Med) 1 unit OU TID [facility] Last Admin: 05/15/17 10:45 Dose: 1 unit Home Med (Home Med) 1 unit OU HS [facility] Last Admin: 05/14/17 22:17 Dose: 1 unit Hydralazine HCl (Apresoline) 10 mg IVP Q6H PRN PRN Reason: Systolic Blood Pressure Last Admin: 05/10/17 06:17 Dose: 10 mg Insulin Aspart (Novolog) 0 unit SC ACHS [facility] PRN Reason: Protocol Last Admin: 05/14/17 22:02 Dose: Not Given Insulin Detemir (Levemir) 5 unit SC HS [facility] Last Admin: 05/14/17 22:18 Dose: 5 unit Losartan Potassium (Cozaar) 100 mg NG DAILY [facility] Last Admin: 05/15/17 10:49 Dose: 100 mg Magnesium Oxide (Mag-Ox) 400 mg NG BID [facility] Last Admin: 05/15/17 10:49 Dose: 400 mg Ondansetron HCl (Zofran Inj) 4 mg IVP Q6H PRN PRN Reason: Nausea/Vomiting Last Admin: 05/14/17 08:40 Dose: 4 mg Rosuvastatin Calcium (Crestor) 2.5 mg NG HS [facility] Last Admin: 05/14/17 22:18 Dose: 2.5 mg Simethicone (Mylicon Chew Tab) 80 mg NG Q8H PRN PRN Reason: GI distress - Labs Labs: 05/15/17 06:22 05/15/17 06:22 PT 16.1 SECONDS (9.7-12.2) H 05/11/17 06:42 INR 1.4 05/11/17 06:42 APTT 19 SECONDS (21-34) L 05/11/17 06:42 - Constitutional Appears: Non-toxic, Cachectic (non verbal lethargic), Chronically Ill - Head Exam Head Exam: NORMAL INSPECTION - Eye Exam Eye Exam: Normal appearance - ENT Exam ENT Exam: Mucous Membranes Moist - Neck Exam Neck Exam: Normal Inspection - Respiratory Exam Respiratory Exam: Clear to Ausculation Bilateral, NORMAL BREATHING PATTERN - Cardiovascular Exam Cardiovascular Exam: REGULAR RHYTHM, RRR - GI/Abdominal Exam GI & Abdominal Exam: Soft, Hypoactive Bowel Sounds - Extremities Exam Extremities Exam: Normal Inspection Assessment and Plan (1) Blurry vision Status: Acute (2) CKD (chronic kidney disease) stage 3, GFR 30-59 ml/min Status: Acute (3) Stroke Status: Acute (4) Diabetes mellitus Status: Acute (5) Hypertension Status: Acute (6) Posterior cerebral circulation hemorrhagic infarction Status: Acute - Assessment and Plan (Free Text) Assessment: # htn # ckd 3 # hyponatremia # acute cva plan: dc hypotonic fluids. resume iv normal saline if patient unable to take po, once na normalizes check urine na osm add po hydralazine if bp high.
[2017-05-15] MEDS ORDERED: Lidocaine 2% Inj (20ml) ONE (15:58)
--- NOTE | 2017-05-15 17:38 | CP.PCM.PN ---
Subjective - Date & Time of Evaluation Date of Evaluation: 05/15/17 Time of Evaluation: 09:20 - Subjective Subjective: Patient seen and evaluated No new complaints For LINQ insertion today by Dr. Keith Recommend Physical therapy Review of Systems - Hematologic/Lymphatic Additional comments: - Constitutional Constitutional: absent: Fever, Chills, Sweats, Weakness - EENT Eyes: Blurred Vision, Change in Vision, Loss of Vision. absent: Spots in Vision Ears: absent: Decreased Hearing, Tinnitus, Dizziness Nose/Mouth/Throat: absent: Facial Pain, Neck Mass - Cardiovascular Cardiovascular: absent: Chest Pain, Dyspnea, Pain Radiating to Arm/Neck/Jaw - Respiratory Respiratory: absent: Cough, Dyspnea - Genitourinary Genitourinary: absent: Dysuria, Urinary Incontinence - Musculoskeletal Musculoskeletal: absent: Back Pain, Muscle Weakness, Numbness, Stiffness, Tingling - Neurological Neurological: Weakness. absent: Dizziness, Numbness, Headaches, Loss of Vision , Sensory Deficit, Syncope, Tingling - Psychiatric Psychiatric: absent: Anxiety, Depression - Endocrine Endocrine: absent: Fatigue, Palpitations Physical Exam - Additional Findings Additional findings: - Constitutional Appears: Non-toxic, No Acute Distress - Head Exam Head Exam: ATRAUMATIC, NORMAL INSPECTION, NORMOCEPHALIC - Eye Exam Eye Exam: EOMI, Normal appearance, PERRL. absent: Nystagmus, Periorbital swelling, Periorbital tenderness Additional comments: - L sided gaze preference - Patient only able to see that the lights are on - (+) corneal reflex - ENT Exam ENT Exam: Mucous Membranes Moist - Neck Exam Neck exam: Positive for: Normal Inspection. Negative for: Lymphadenopathy, Thyromegaly - Respiratory Exam Respiratory Exam: Clear to PA & Lateral, NORMAL BREATHING PATTERN. absent: Rales, Rhonchi, Wheezes - Cardiovascular Exam Cardiovascular Exam: REGULAR RHYTHM, +S1, +S2. absent: Diastolic murmur, Systolic Murmur - GI/Abdominal Exam GI & Abdominal Exam: Normal Bowel Sounds, Soft. absent: Tenderness - Extremities Exam Extremities exam: Positive for: pedal pulses present. Negative for: pedal edema Objective - Vital Signs/Intake and Output Vital Signs (last 24 hours): Temp Pulse Resp BP Pulse Ox 98.8 F 55 L 20 116/73 100 05/15/17 17:05 05/15/17 17:05 05/15/17 17:05 05/15/17 17:05 05/15/17 17:05 Intake and Output: 05/15/17 05/15/17 06:59 18:59 Intake Total 650 Balance 650 - Medications Medications: Current Medications Apixaban (Eliquis) 2.5 mg PO BID [facility] Last Admin: 05/15/17 10:50 Dose: Not Given Aspirin (Aspirin Chewable) 81 mg NG DAILY [facility] Calcium/Vitamin D (Oyster Shell Calcium/Vitamin D 500 Mg-200 Iu) 1 tab NG DAILY [facility] Last Admin: 05/15/17 10:49 Dose: 1 tab Carvedilol (Coreg) 12.5 mg NG Q24H [facility] Last Admin: 05/15/17 13:25 Dose: Not Given Clonidine HCl (Catapres) 0.3 mg PO Q8H [facility] Last Admin: 05/15/17 10:45 Dose: 0.3 mg Diltiazem HCl (Cardizem Cd) 240 mg PO DAILY [facility] Last Admin: 05/15/17 10:46 Dose: 240 mg Docusate Sodium (Colace) 100 mg NG BID [facility] Last Admin: 05/15/17 10:49 Dose: 100 mg Famotidine (Pepcid) 20 mg IVP DAILY [facility] Last Admin: 05/15/17 10:44 Dose: 20 mg Folic Acid (Folic Acid) 1 mg NG DAILY [facility] Last Admin: 05/15/17 10:46 Dose: 1 mg Home Med (Home Med) 1 unit OU TID [facility] Last Admin: 05/15/17 13:20 Dose: 1 unit Home Med (Home Med) 1 unit OU HS [facility] Last Admin: 05/14/17 22:17 Dose: 1 unit Hydralazine HCl (Apresoline) 10 mg IVP Q6H PRN PRN Reason: Systolic Blood Pressure Last Admin: 05/10/17 06:17 Dose: 10 mg Insulin Aspart (Novolog) 0 unit SC ACHS [facility] PRN Reason: Protocol Last Admin: 05/15/17 12:30 Dose: Not Given Insulin Detemir (Levemir) 5 unit SC HS [facility] Last Admin: 05/14/17 22:18 Dose: 5 unit Losartan Potassium (Cozaar) 100 mg NG DAILY [facility] Last Admin: 05/15/17 10:49 Dose: 100 mg Magnesium Oxide (Mag-Ox) 400 mg NG BID [facility] Last Admin: 05/15/17 10:49 Dose: 400 mg Ondansetron HCl (Zofran Inj) 4 mg IVP Q6H PRN PRN Reason: Nausea/Vomiting Last Admin: 05/14/17 08:40 Dose: 4 mg Rosuvastatin Calcium (Crestor) 2.5 mg NG HS [facility] Last Admin: 05/14/17 22:18 Dose: 2.5 mg Simethicone (Mylicon Chew Tab) 80 mg NG Q8H PRN PRN Reason: GI distress - Labs Labs: 05/15/17 06:22 05/15/17 06:22 PT 16.1 SECONDS (9.7-12.2) H 05/11/17 06:42 INR 1.4 05/11/17 06:42 APTT 19 SECONDS (21-34) L 05/11/17 06:42 Assessment and Plan - Assessment and Plan (Free Text) Assessment: 1. A Fib 2. CVA 3. HTN 4. Sick sinus syndrome Patient seen and evaluated No new complaints For LINQ insertion today by Dr. Keith Recommend Physical therapy
--- NOTE | 2017-05-15 20:50 | CP.PCM.PN ---
<Dwain Renteria - Last Filed: 05/15/17 20:52> Subjective - Date & Time of Evaluation Date of Evaluation: 05/15/17 Time of Evaluation: 20:42 - Subjective Subjective: PGY-[address] Chacko HPI: Patient was seen and examined at beside. Resting comfortably in NAD, but appears somnolent and is minimally verbal with yes/no answers to questions. Family at bedside, providing translation. Patient denies any signs of new chest pain, abdominal pain, SOB, palpitations or leg pain. Family denies any changes over night. No other complaints are noted. ROS is limited 2/2 patient's status. Objective - Vital Signs/Intake and Output Vital Signs (last 24 hours): Temp Pulse Resp BP Pulse Ox 98.8 F 62 20 116/73 100 05/15/17 17:05 05/15/17 19:07 05/15/17 17:05 05/15/17 17:05 05/15/17 17:05 - Medications Medications: Current Medications Apixaban (Eliquis) 2.5 mg PO BID [facility] Last Admin: 05/15/17 18:36 Dose: Not Given Calcium/Vitamin D (Oyster Shell Calcium/Vitamin D 500 Mg-200 Iu) 1 tab NG DAILY [facility] Last Admin: 05/15/17 10:49 Dose: 1 tab Carvedilol (Coreg) 12.5 mg NG Q24H [facility] Last Admin: 05/15/17 13:25 Dose: Not Given Clonidine HCl (Catapres) 0.3 mg PO Q8H [facility] Last Admin: 05/15/17 18:36 Dose: Not Given Diltiazem HCl (Cardizem Cd) 240 mg PO DAILY [facility] Last Admin: 05/15/17 10:46 Dose: 240 mg Docusate Sodium (Colace) 100 mg NG BID [facility] Last Admin: 05/15/17 18:36 Dose: Not Given Famotidine (Pepcid) 20 mg IVP DAILY [facility] Last Admin: 05/15/17 10:44 Dose: 20 mg Folic Acid (Folic Acid) 1 mg NG DAILY [facility] Last Admin: 05/15/17 10:46 Dose: 1 mg Home Med (Home Med) 1 unit OU TID [facility] Last Admin: 05/15/17 18:37 Dose: 1 unit Home Med (Home Med) 1 unit OU HS [facility] Last Admin: 05/14/17 22:17 Dose: 1 unit Hydralazine HCl (Apresoline) 10 mg IVP Q6H PRN PRN Reason: Systolic Blood Pressure Last Admin: 05/10/17 06:17 Dose: 10 mg Insulin Aspart (Novolog) 0 unit SC ACHS [facility] PRN Reason: Protocol Last Admin: 05/15/17 18:37 Dose: Not Given Insulin Detemir (Levemir) 5 unit SC HS [facility] Last Admin: 05/14/17 22:18 Dose: 5 unit Losartan Potassium (Cozaar) 100 mg NG DAILY [facility] Last Admin: 05/15/17 10:49 Dose: 100 mg Magnesium Oxide (Mag-Ox) 400 mg NG BID [facility] Last Admin: 05/15/17 18:37 Dose: Not Given Ondansetron HCl (Zofran Inj) 4 mg IVP Q6H PRN PRN Reason: Nausea/Vomiting Last Admin: 05/14/17 08:40 Dose: 4 mg Rosuvastatin Calcium (Crestor) 2.5 mg NG HS [facility] Last Admin: 05/14/17 22:18 Dose: 2.5 mg Simethicone (Mylicon Chew Tab) 80 mg NG Q8H PRN PRN Reason: GI distress - Labs Labs: 05/15/17 06:22 05/15/17 06:22 PT 16.1 SECONDS (9.7-12.2) H 05/11/17 06:42 INR 1.4 05/11/17 06:42 APTT 19 SECONDS (21-34) L 05/11/17 06:42 - Constitutional Appears: Non-toxic - ENT Exam ENT Exam: Mucous Membranes Moist - Respiratory Exam Respiratory Exam: Clear to Ausculation Bilateral - Cardiovascular Exam Cardiovascular Exam: Irregular Rhythm Additional comments: afib - GI/Abdominal Exam GI & Abdominal Exam: Soft. absent: Distended, Firm, Tenderness - Extremities Exam Additional comments: right leg colder than left - Neurological Exam Neurological Exam: Alert, Altered, Awake Additional comments: lethargic Assessment and Plan - Assessment and Plan (Free Text) Assessment: 1) Ischemic CVA * Neurology (Dr. Harden) help appreciated * Cardiology (Dr. Tse) help appreciated * No TPA given in ED due to history of hemorrhagic stroke in 2015 * CXR (05/07/17): no active pulmonary disease (see full report) * CT head negative (05/07/17): Nonspecific white matter changes. Acute infarction may be occult wihin 24hrs. If deficit persists, consider follow up CT /MRI (see full report) * CT angio head/neck (05/07/17): Patent vasculture. Nonspecific white matter changes. Acute infarction may be occult within first 24 hrs. If deficit persists , consider CT/MRI for further evaluation (see resident) * MRI head w/o contrast (05/07/17): Large acute left GOVERNMENT AUDITOR territory infarction involving occipital lobe, medial, and posterior temporal lobe and thalamus with mild surrounding vasogenic edema. No evidence of midline shift or herniation. Cystic encephalmalacia in right occiptial lobe, sequela of remote GOVERNMENT AUDITOR territory infarction. Mild chronic microangiopathic changes, small old lacunar infarction in the right centrum semiovale and moderate age related global parenchymal volume loss (see full report) * Repeat CT Head (05/08/17): Encephalomalacia involving right occipital lobe. Evolving ischemic changes identified involving left occipital lobe, inferior aspect of the medial temporal lobes, as well as portion of the thalamus. Effacement and displacement of the posterior horn left lateral ventricle (see full report) * EKG (05/07/17): nsr 93 non specific lateral t wave changes, no interval change * ECHO (05/07/17): LV systolic fxn normal. EF 60-65%. HTN heart disease. Trace Aortic regurgitation. Mitral regurgitation mild. No tricuspid valve regurgitation noted. No pulmonic valvular regurgitation (see full report) * Carotid doppler (05/07/17): mild disease bilaterally * Troponin/EKG negative x3 * RASHAAD (05/09/17): 3 mm PFO with bidirectional flow and extensive aortic plaques both are potentially sources of stroke and warrants anticoagulation unless contraindicated. * Hypercoaguability workup:antiphospholipid: negative, Factor V leiden: not detected, Protein C&S normal * Serum immunofixation - detected * MILO 6 profile: Positive, titer: 1:80, pattern: Nucleolar--->f/u outpatient with hobber * Aspirin 81mg PO daily * Blood pressure control-->see hypertension * Crestor 2.5mg POqHS * Per neurology, recommended for Eliquis 2.5 mg PO BID-->, can be increased to 5mg BID this week * Head CT (05/15) no change from prior CT 2) Acute Kidney injury * Nephrology (Dr. Caba) on consult help appreciated * Renal US (05/07/17): Medical renal disease. Small right kidney (see full report ) * Renal Artery Duplex Scan (05/08/17): No definite hemodynamically significant stenosis involving renal arteries as visualized (see full report) * GFR>60 * monitor BUN/Cr * Na 120 --> 127, consulted nephro, will see patient in AM to evaluate hyponatremia 3) Atrial fibrillation, new on set * EKG: Rate 68 bpm. 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 Turner)-->F/u recommendations 5) Vision Loss * Contributing factors: stroke, hx of cataracts/glaucoma * Opthalmologist: Dr. Rodriguez, help appreciated * Alphagan 0.1% one drop both eyes three times a day * Lumigan 0/01% eye drops both at bedtime 6) Hypertension * Cardizem CD 240mg PO daily * Losartan 100mg PO daily * Coreg 12.5mg PO Q 12H 7) Type Two Diabetes Mellitus * Hemoglobin a1c: 9.2 (uncontrolled) * Increase Metformin 1000 mg PO BID - Stopped Metformin * Hold Glipizide * Start Levemir 5 units subq HS * Novolog insulin sliding scale subq (medium dosing) 8) Hypercholesterolemia * Lipid panel: T, Cholesterol: 119, LDL: 52, HDL: 40 * Crestor 2.5mg PO qHS 9) Urinary Tract Infection * Urine culture (05/06/17): E. Coli sensitive to Aztreonam, Cefazolin, Cefepime, resistant to Cipro * Rocephin 1 gram IV q daily - stopped * Repeat urine culture is negative 10) Electrolyte abnormalities * Monitor CMP and Mg2+ 11) Prophylaxis * SCDs * Pepcid 20mg IVP daily * Aspirin 81mg PO daily - Stopped per cardio * Eliquis 2.5mg PO BID * PT - benefit from skilled PT to improve transfers/mobility * f/u case management and social work regarding discharge planning <Vandana Chacko V - Last Filed: 05/15/17 21:49> Objective - Vital Signs/Intake and Output Vital Signs (last 24 hours): Temp Pulse Resp BP Pulse Ox 98.8 F 62 20 116/73 100 05/15/17 17:05 05/15/17 19:07 05/15/17 17:05 05/15/17 17:05 05/15/17 17:05 - Medications Medications: Current Medications Apixaban (Eliquis) 2.5 mg PO BID [facility] Last Admin: 05/15/17 18:36 Dose: Not Given Calcium/Vitamin D (Oyster Shell Calcium/Vitamin D 500 Mg-200 Iu) 1 tab NG DAILY [facility] Last Admin: 05/15/17 10:49 Dose: 1 tab Carvedilol (Coreg) 12.5 mg NG Q24H [facility] Last Admin: 05/15/17 13:25 Dose: Not Given Clonidine HCl (Catapres) 0.3 mg PO Q8H [facility] Last Admin: 05/15/17 18:36 Dose: Not Given Diltiazem HCl (Cardizem Cd) 240 mg PO DAILY [facility] Last Admin: 05/15/17 10:46 Dose: 240 mg Docusate Sodium (Colace) 100 mg NG BID [facility] Last Admin: 05/15/17 18:36 Dose: Not Given Famotidine (Pepcid) 20 mg IVP DAILY [facility] Last Admin: 05/15/17 10:44 Dose: 20 mg Folic Acid (Folic Acid) 1 mg NG DAILY [facility] Last Admin: 05/15/17 10:46 Dose: 1 mg Home Med (Home Med) 1 unit OU TID [facility] Last Admin: 05/15/17 18:37 Dose: 1 unit Home Med (Home Med) 1 unit OU HS [facility] Last Admin: 05/15/17 21:04 Dose: 1 unit Hydralazine HCl (Apresoline) 10 mg IVP Q6H PRN PRN Reason: Systolic Blood Pressure Last Admin: 05/10/17 06:17 Dose: 10 mg Insulin Aspart (Novolog) 0 unit SC ACHS [facility] PRN Reason: Protocol Last Admin: 05/15/17 21:05 Dose: Not Given Insulin Detemir (Levemir) 5 unit SC HS [facility] Last Admin: 05/15/17 21:05 Dose: Not Given Losartan Potassium (Cozaar) 100 mg NG DAILY [facility] Last Admin: 05/15/17 10:49 Dose: 100 mg Magnesium Oxide (Mag-Ox) 400 mg NG BID [facility] Last Admin: 05/15/17 18:37 Dose: Not Given Ondansetron HCl (Zofran Inj) 4 mg IVP Q6H PRN PRN Reason: Nausea/Vomiting Last Admin: 05/14/17 08:40 Dose: 4 mg Rosuvastatin Calcium (Crestor) 2.5 mg NG HS [facility] Last Admin: 05/15/17 21:04 Dose: 2.5 mg Simethicone (Mylicon Chew Tab) 80 mg NG Q8H PRN PRN Reason: GI distress - Labs Labs: 05/15/17 06:22 05/15/17 06:22 PT 16.1 SECONDS (9.7-12.2) H 05/11/17 06:42 INR 1.4 05/11/17 06:42 APTT 19 SECONDS (21-34) L 05/11/17 06:42 Attending/Attestation - Attestation I have personally seen and examined this patient.: Yes I have fully participated in the care of the patient.: Yes I have reviewed all pertinent clinical information, including history, physical exam and plan: Yes Notes (Text): Patient seen, examined and case discussed with day-time resident. Patient seen in the morning. Patient appeared drowsy and lethargic and with son translating at bedside able to respond to questions but is tired. Ordered for repeat heat CT which shows evolving stroke. Patient's white count is coming down. Ordered blood culture r/o infection. Patient ripped out NG tube overnight. Discussed with family regarding possible feeding tube, but they need time to think about it if mental status does not improve. Patient reports she does not like the hospital food and wants to eat fruit. Advised patient to not eat high potassium rich fruits and space out her fruit because she is diabetic. Patient reports no change in shortness of breathe and reports she feels better on the oxygen. Electrolytes repleted Patient went for LINQ recorder per EP recorder at 4PM today; discussed with resident on cardiology EP service prior to procedure.
[2017-05-15] MEDS: Rosuvastatin Calcium 2.5 mg Tab NG SCH (21:04)
[2017-05-15] MEDS: Insulin Detemir 100 units/ml Vial (Levemir) SC SCH (21:05)
[2017-05-16 06:49] LABS: BASO % 0.3 % (0.0-2.0); EOS # 0.1 K/uL (0.0-0.7); EOS % 0.7 % (0.0-4.0); HEMATOCRIT 31.6 % (34.0-47.0); LYMPH # 1.4 K/uL (1.0-4.3); LYMPH % 15.7 % (20.0-40.0); MEAN CELL VOLUME 83.5 fL (81.0-99.0); MEAN CORPUSCULAR HEMOGLOBIN 28.3 pg (27.0-31.0); MEAN PLATELET VOLUME 7.5 fL (7.2-11.7); MONO # 0.6 K/uL (0.0-0.8); MONO % 6.2 % (0.0-10.0); NRBC % 0.1 % (0.0-2.0); RED CELL DISTRIBUTION WIDTH 13.5 % (11.5-14.5); WHITE BLOOD COUNT 9.2 K/uL (4.8-10.8)
[2017-05-16 07:05] LABS: ALB/GLOB RATIO 1.1 (1.0-2.1); BILIRUBIN,TOTAL 0.3 mg/dL (0.2-1.3); CALCIUM 8.1 mg/dl (8.6-10.4); MAGNESIUM 2.4 mg/dL (1.6-2.3); PHOSPHOROUS 3.4 mg/dL (2.5-4.5); POTASSIUM 3.9 mmol/L (3.6-5.2); TOTAL PROTEIN 5.9 g/dL (6.3-8.3)
--- NOTE | 2017-05-16 08:19 | CP.PCM.PN ---
<RAJESH BINGHAM - Last Filed: 05/16/17 09:47> Subjective - Date & Time of Evaluation Date of Evaluation: 05/16/17 Time of Evaluation: 08:15 - Subjective Subjective: Rajesh Bingham, PGY1 Cardiology Progress Note for Dr. Keith: Pt seen and examined at bedside. No acute events overnight. Pt awake, alert Ox3. Denies cp, n/v/d, sob, abdominal pain. Objective - Vital Signs/Intake and Output Vital Signs (last 24 hours): Temp Pulse Resp BP Pulse Ox 97.9 F 78 20 138/77 97 05/15/17 23:30 05/16/17 04:13 05/15/17 23:30 05/15/17 23:30 05/15/17 23:30 Intake and Output: 05/16/17 05/16/17 06:59 18:59 Intake Total 100 Balance 100 - Medications Medications: Current Medications Apixaban (Eliquis) 2.5 mg PO BID [facility] Last Admin: 05/15/17 18:36 Dose: Not Given Calcium/Vitamin D (Oyster Shell Calcium/Vitamin D 500 Mg-200 Iu) 1 tab NG DAILY [facility] Last Admin: 05/15/17 10:49 Dose: 1 tab Carvedilol (Coreg) 12.5 mg NG Q24H [facility] Last Admin: 05/15/17 13:25 Dose: Not Given Clonidine HCl (Catapres) 0.3 mg PO Q8H [facility] Last Admin: 05/16/17 00:24 Dose: 0.3 mg Diltiazem HCl (Cardizem Cd) 240 mg PO DAILY [facility] Last Admin: 05/15/17 10:46 Dose: 240 mg Docusate Sodium (Colace) 100 mg NG BID [facility] Last Admin: 05/15/17 18:36 Dose: Not Given Famotidine (Pepcid) 20 mg IVP DAILY [facility] Last Admin: 05/15/17 10:44 Dose: 20 mg Folic Acid (Folic Acid) 1 mg NG DAILY [facility] Last Admin: 05/15/17 10:46 Dose: 1 mg Home Med (Home Med) 1 unit OU TID [facility] Last Admin: 05/15/17 18:37 Dose: 1 unit Home Med (Home Med) 1 unit OU HS [facility] Last Admin: 05/15/17 21:04 Dose: 1 unit Hydralazine HCl (Apresoline) 10 mg IVP Q6H PRN PRN Reason: Systolic Blood Pressure Last Admin: 05/10/17 06:17 Dose: 10 mg Insulin Aspart (Novolog) 0 unit SC ACHS [facility] PRN Reason: Protocol Last Admin: 05/15/17 21:05 Dose: Not Given Insulin Detemir (Levemir) 5 unit SC HS [facility] Last Admin: 05/15/17 21:05 Dose: Not Given Losartan Potassium (Cozaar) 100 mg NG DAILY [facility] Last Admin: 05/15/17 10:49 Dose: 100 mg Magnesium Oxide (Mag-Ox) 400 mg NG BID [facility] Last Admin: 05/15/17 18:37 Dose: Not Given Ondansetron HCl (Zofran Inj) 4 mg IVP Q6H PRN PRN Reason: Nausea/Vomiting Last Admin: 05/14/17 08:40 Dose: 4 mg Rosuvastatin Calcium (Crestor) 2.5 mg NG HS [facility] Last Admin: 05/15/17 21:04 Dose: 2.5 mg Simethicone (Mylicon Chew Tab) 80 mg NG Q8H PRN PRN Reason: GI distress - Labs Labs: 05/16/17 06:33 05/16/17 06:33 PT 16.1 SECONDS (9.7-12.2) H 05/11/17 06:42 INR 1.4 05/11/17 06:42 APTT 19 SECONDS (21-34) L 05/11/17 06:42 - Constitutional Appears: No Acute Distress - Head Exam Head Exam: ATRAUMATIC, NORMOCEPHALIC - Eye Exam Eye Exam: PERRL - ENT Exam ENT Exam: Mucous Membranes Moist - Respiratory Exam Respiratory Exam: Clear to Ausculation Bilateral - Cardiovascular Exam Cardiovascular Exam: Irregular Rhythm - GI/Abdominal Exam GI & Abdominal Exam: Soft, Normal Bowel Sounds. absent: Distended, Tenderness - Extremities Exam Extremities Exam: absent: Calf Tenderness, Pedal Edema - Neurological Exam Neurological Exam: Alert, Awake, Oriented x3 - Skin Skin Exam: Dry, Intact, Warm Assessment and Plan - Assessment and Plan (Free Text) Assessment: 77F with PMH previous hemorrhagic CVA, DM2, HTN, HLD, hypothyroidism, initially admitted to [facility] for acute L RN PRIMARY CARE CVA, s/p loop recorder instertion, POD1, doing well, still in aflutter. Plan: Acute ischemic L RN PRIMARY CARE CVA 2/2 likely afib/aflutter vs atherosclertoic aortic plaque dz, PFO ruled out: - AAOx3 this AM, doing well, denies cp, sob, palpitations, diaphoresis. - Drowsy 05/15, CT head 05/15 neg for new CVA. - Arterial doppler BLE 05/15 prelim reading shows moderate PAD b/l. f/u finalized reading. - Venous duplex BLE 05/15 prelim reading shows no abnormal findings. f/u finalized reading. - Continue CVA management per primary team. - Carotid doppler (05/07/17): mild disease bilaterally - MRI head w/o contrast (05/07/17): Large acute left RN PRIMARY CARE territory infarction involving occipital lobe, medial, and posterior temporal lobe and thalamus with mild surrounding vasogenic edema. No evidence of midline shift or herniation. Cystic encephalmalacia in right occiptial lobe, sequela of remote RN PRIMARY CARE territory infarction. Mild chronic microangiopathic changes, small old lacunar infarction in the right centrum semiovale and moderate age related global parenchymal volume loss - No TPA given in ED due to history of hemorrhagic stroke in 2015 - CT angio head/neck (05/07/17): Patent vasculture. Nonspecific white matter changes. Acute infarction may be occult within first 24 hrs. If deficit persists , consider CT/MRI for further evaluation - ECHO (05/07/17): LV systolic fxn normal. EF 60-65%. HTN heart disease. Trace Aortic regurgitation. Mitral regurgitation mild. No tricuspid valve regurgitation noted. No pulmonic valvular regurgitation. - Troponin/EKG negative x 3 - RASHAAD (05/09/17): 3 mm PFO with bidirectional flow and extensive aortic plaques both are potentially sources of stroke and warrants anticoagulation unless contraindicated. 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 - On Cardizem 60mg PO Q6H and Coreg 240mg PO daily. - Continue with Rosuvastatin 2.5mg PO daily. - Can resume Eliquis - s/p loop recorder, POD1, no erythema, swelling, bleeding at the site. Cont to monitor. Discussed with attending, Dr. Keith. Rajesh Bingham, PGY1 <Jessee Keith - Last Filed: 05/16/17 11:08> Objective - Vital Signs/Intake and Output Vital Signs (last 24 hours): Temp Pulse Resp BP Pulse Ox 97.8 F 60 20 150/78 97 05/16/17 08:17 05/16/17 10:34 05/16/17 08:17 05/16/17 10:34 05/16/17 08:17 Intake and Output: 05/16/17 05/16/17 06:59 18:59 Intake Total 100 Balance 100 - Medications Medications: Current Medications Apixaban (Eliquis) 5 mg PO BID [facility] Last Admin: 05/16/17 10:38 Dose: 5 mg Calcium/Vitamin D (Oyster Shell Calcium/Vitamin D 500 Mg-200 Iu) 1 tab NG DAILY [facility] Last Admin: 05/16/17 10:37 Dose: 1 tab Carvedilol (Coreg) 12.5 mg NG Q24H [facility] Last Admin: 05/15/17 13:25 Dose: Not Given Clonidine HCl (Catapres) 0.3 mg PO Q8H [facility] Last Admin: 05/16/17 09:30 Dose: 0.3 mg Diltiazem HCl (Cardizem Cd) 240 mg PO DAILY [facility] Last Admin: 05/16/17 10:37 Dose: 240 mg Docusate Sodium (Colace) 100 mg NG BID [facility] Last Admin: 05/16/17 10:37 Dose: 100 mg Famotidine (Pepcid) 20 mg IVP DAILY [facility] Last Admin: 05/16/17 10:38 Dose: 20 mg Folic Acid (Folic Acid) 1 mg NG DAILY [facility] Last Admin: 05/16/17 10:37 Dose: 1 mg Home Med (Home Med) 1 unit OU TID [facility] Last Admin: 05/16/17 10:39 Dose: 1 unit Home Med (Home Med) 1 unit OU HS [facility] Last Admin: 05/15/17 21:04 Dose: 1 unit Hydralazine HCl (Apresoline) 10 mg IVP Q6H PRN PRN Reason: Systolic Blood Pressure Last Admin: 05/10/17 06:17 Dose: 10 mg Insulin Aspart (Novolog) 0 unit SC ACHS [facility] PRN Reason: Protocol Last Admin: 05/16/17 08:30 Dose: Not Given Insulin Detemir (Levemir) 5 unit SC HS [facility] Last Admin: 05/15/17 21:05 Dose: Not Given Losartan Potassium (Cozaar) 100 mg NG DAILY [facility] Last Admin: 05/16/17 10:37 Dose: 100 mg Magnesium Oxide (Mag-Ox) 400 mg NG BID [facility] Last Admin: 05/15/17 18:37 Dose: Not Given Ondansetron HCl (Zofran Inj) 4 mg IVP Q6H PRN PRN Reason: Nausea/Vomiting Last Admin: 05/14/17 08:40 Dose: 4 mg Rosuvastatin Calcium (Crestor) 2.5 mg NG HS [facility] Last Admin: 05/15/17 21:04 Dose: 2.5 mg Simethicone (Mylicon Chew Tab) 80 mg NG Q8H PRN PRN Reason: GI distress - Labs Labs: 05/16/17 06:33 05/16/17 06:33 PT 16.1 SECONDS (9.7-12.2) H 05/11/17 06:42 INR 1.4 05/11/17 06:42 APTT 19 SECONDS (21-34) L 05/11/17 06:42 Attending/Attestation - Attestation I have personally seen and examined this patient.: Yes I have fully participated in the care of the patient.: Yes I have reviewed all pertinent clinical information, including history, physical exam and plan: Yes Notes (Text): 05/16/17 11:07 wound c/d/i continue anticoagulation and rate control
[2017-05-16] MEDS: (Novolog) Insulin Aspart, Recombinant 100 u/ml 10 ml vial SC SCH ×4 (08:30→22:19)
[2017-05-16] MEDS: diltiaZEM 240 mg/24 Hours CD Cap PO SCH (10:37)
[2017-05-16] MEDS: Calcium-Vit D 500 mg-200 Units Tab UD NG SCH (10:37)
[2017-05-16] MEDS: ALPHAGAN 0.1% OU SCH ×3 (10:39→17:13)
[2017-05-16] MEDS: Magnesium Oxide 400 mg Tab UD NG SCH ×2 (11:48→17:11)
--- NOTE | 2017-05-16 12:20 | CP.PCM.CON ---
History of Present Illness - History of Present Illness History of Present Illness: Palliative consult Requested by Ricco LU Reason: Goals of care Patient is a 8 yo lady, admitted from home after sudden lost of vision. Prior to this, patient was in the park, came home, and was changing her cloths when the visual changes happened. Family noted left facial droop. The EMS brought patient to the hospital. very extensive studies were done including CT head, head/neck CTA, EEG, carrotid doppler. The common impression was that patient sustained large vessel infarct. As of now cause is not yet known. Doctor Dereck Dave is fallowing patient. Cardiology consult pending. patient found to have UTI, E coli in the urine and is being treated for. Per family, patient had similar incident in the past, what she recovered from. PMH: hemorhagic CVA n Eleqis, HTN, DM Soc. Hx: , from [place] while visiting in [place], Lives with son and daughter in Law, Episcopalian jain, does not speak [place] Fam: Hx: Patient's son denies known fam Hx Review of Systems - Constitutional Constitutional: absent: As Per HPI, Anorexia, Chills, Daytime Sleepiness, Excessive Sweating, Fatigue, Fever, Frequent Falls, Headache, Increased Appetite , Lethargy, Malaise, Night Sweats, Snoring, Sleep Apnea, Weight Gain, Weight Loss, Weakness, Other - EENT Eyes: Change in Vision, Loss of Peripheral Vision, Other Visual Disturbances Ears: absent: As Per HPI, Decreased Hearing, Ear Discharge, Ear Pain, Tinnitus, Abnormal Hearing, Disequilibrium, Dizziness, Other Nose/Mouth/Throat: absent: As Per HPI, Epistaxis, Nasal Congestion, Nasal Discharge, Nasal Obstruction, Nasal Trauma, Nose Pain, Post Nasal Drip, Sinus Pain, Sinus Pressure, Bleeding Gums, Change in Voice, Dental Pain, Dry Mouth, Dysphagia, Halitosis, Hoarsness, Lip Swelling, Mouth Lesions, Mouth Pain, Odynophagia, Sore Throat, Throat Swelling, Tongue Swelling, Facial Pain, Neck Pain, Neck Mass, Other - Breasts Breasts: absent: As Per HPI, Change in Shape, Mass, Pain, Nipple Discharge, Nipple Inversion, Skin Changes, Swelling, Other - Cardiovascular Cardiovascular: absent: As Per HPI, Acrocyanosis, Chest Pain, Chest Pain at Rest , Chest Pain with Activity, Claudication, Diaphoresis, Dyspnea, Dyspnea on Exertion, Edema, Irregular Heart Rhythm, Pain Radiating to Arm/Neck/Jaw, Leg Edema, Leg Ulcers, Lightheadedness, Orthopnea, Palpitations, Paroxysmal Nocturnal Dyspnea, Pedal Edema, Radiating Pain, Rapid Heart Rate, Slow Heart Rate, Syncope, Other - Respiratory Respiratory: absent: As Per HPI, Cough, Dyspnea, Hemoptysis, Dyspnea on Exertion , Wheezing, Snoring, Stridor, Pain on Inspiration, Chest Congestion, Excessive Mucous Production, Change in Mucous Color, Pain with Coughing, Other - Gastrointestinal Gastrointestinal: absent: As Per HPI, Abdominal Pain, Belching, Bloating, Change in Bowel Habits, Change in Stool Character, Coffee Ground Emesis, Constipation, Cramping, Diarrhea, Dyspepsia, Dysphagia, Early Satiety, Excessive Flatus, Fecal Incontinence, Heartburn, Hematemesis, Hematochezia, Loose Stools, Melena, Nausea, Odynophagia, Temesmus, Vomiting, Other Additional comments: Vegeterian - Genitourinary Genitourinary: Urinary Frequency - Reproductive: Female Reproductive:Female: Post Menopausal - Menstruation Menstruation: Post Menopausal - Musculoskeletal Musculoskeletal: absent: As Per HPI, Abnormal Gait, Arthralgias, Atrophy, Back Pain, Deformity, Joint Swelling, Limited Range of Motion, Loss of Height, Muscle Cramps, Muscle Weakness, Myalgias, Neck Pain, Numbness, Radiating Pain into Limb, Stiffness, Tingling, Other - Integumentary Integumentary: absent: As Per HPI, Acne, Alopecia, Bleeding Lesions, Change in Hair, Change in Nails, Change in Pigmentation, Changing Lesions, Dry Skin, Erythema, Furuncle, Hirsutism, Lesions, New Lesions, Non-Healing Lesions, Photosensitivity, Pruritus, Rash, Skin Pain, Skin Ulcer, Sores, Striae, Swelling , Unusual Bruising, Wounds, Jaundice, Other - Neurological Neurological: Loss of Vision. absent: As Per HPI, Abnormal Gait, Abnormal Hearing, Abnormal Movements, Abnormal Speech, Behavioral Changes, Burning Sensations, Confusion, Convulsions, Disequilibrium, Dizziness, Numbness, Focal Weakness, Frequent Falls, Headaches, Lack of Coordination, Memory Loss, Paresthesias, Radicular Pain, Restless Legs, Sensory Deficit, Syncope, Tingling , Tremor, Vertigo, Weakness, Other Visual Disturbances, Other - Psychiatric Psychiatric: absent: As Per HPI, Abnormal Sleep Pattern, Anhedonia, Anxiety, Auditory Hallucinations, Behavioral Changes, Change in Appetite, Change in Libido, Confusion, Depression, Difficulty Concentrating, Hallucinations, Homicidal Ideation, Hopelessness, Irritability, Memory Loss, Mood Swings, Panic Attacks, Paranoia, Suicidal Ideation, Visual Hallucinations, Tactile Hallucinations, Other - Endocrine Endocrine: absent: As Per HPI, Change in Body Appearance, Change in Libido, Cold Intolorance, Deepening of Voice, Excessive Sweating, Fatigue, Flushing, Heat Intolorance, Increase in Ring/Shoe/Hat Size, Palpitations, Polydipsia, Polyphagia, Polyuria, Other - Hematologic/Lymphatic Hematologic: Easy Bleeding. absent: As Per HPI, Easy Bruising, Lymphadenopathy , Other Past Patient History - Infectious Disease Hx of Infectious Diseases: None - Tetanus Immunizations Tetanus Immunization: Unknown - Past Medical History & Family History Past Medical History?: Yes Past Family History: Reviewed and not pertinent - Past Social History Smoking Status: Never Smoked Chewing Tobacco Use: No Cigar Use: No Alcohol: None Drugs: Denies Home Situation {Lives}: With Family - CARDIAC Hx Hypercholesterolemia: Yes Hx Hypertension: Yes Hx Pacemaker: No - PULMONARY Hx Respiratory Disorders: No - NEUROLOGICAL HX Cerebrovascular Accident: Yes (no residuals) - HEENT Hx Cataracts: Yes - RENAL Hx Chronic Kidney Disease: No - ENDOCRINE/METABOLIC Hx Diabetes Mellitus Type 2: Yes - HEMATOLOGICAL/ONCOLOGICAL Hx Blood Transfusions: No Hx Blood Transfusion Reaction: No - MUSCULOSKELETAL/RHEUMATOLOGICAL Hx Arthritis: Yes - GASTROINTESTINAL Hx Gastrointestinal Disorders: No - PSYCHIATRIC Hx Substance Use: No - SURGICAL HISTORY Hx Surgeries: Yes Hx Cataract Extraction: Yes (Bilat eyes) Hx Section: Yes - ANESTHESIA Hx Anesthesia: Yes Hx Anesthesia Reactions: No Hx Malignant Hyperthermia: No Meds Allergies/Adverse Reactions: Allergies Allergy/AdvReac Type Severity Reaction Status Date / Time No Known Allergies Allergy Verified 05/06/17 22:54 - Medications Medications: Current Medications Apixaban (Eliquis) 5 mg PO BID [facility] Last Admin: 05/16/17 10:38 Dose: 5 mg Calcium/Vitamin D (Oyster Shell Calcium/Vitamin D 500 Mg-200 Iu) 1 tab NG DAILY [facility] Last Admin: 05/16/17 10:37 Dose: 1 tab Carvedilol (Coreg) 12.5 mg NG Q24H [facility] Last Admin: 05/15/17 13:25 Dose: Not Given Clonidine HCl (Catapres) 0.3 mg PO Q8H [facility] Last Admin: 05/16/17 09:30 Dose: 0.3 mg Diltiazem HCl (Cardizem Cd) 240 mg PO DAILY [facility] Last Admin: 05/16/17 10:37 Dose: 240 mg Docusate Sodium (Colace) 100 mg NG BID [facility] Last Admin: 05/16/17 10:37 Dose: 100 mg Famotidine (Pepcid) 20 mg IVP DAILY [facility] Last Admin: 05/16/17 10:38 Dose: 20 mg Folic Acid (Folic Acid) 1 mg NG DAILY [facility] Last Admin: 05/16/17 10:37 Dose: 1 mg Home Med (Home Med) 1 unit OU TID [facility] Last Admin: 05/16/17 10:39 Dose: 1 unit Home Med (Home Med) 1 unit OU HS [facility] Last Admin: 05/15/17 21:04 Dose: 1 unit Hydralazine HCl (Apresoline) 10 mg IVP Q6H PRN PRN Reason: Systolic Blood Pressure Last Admin: 05/10/17 06:17 Dose: 10 mg Insulin Aspart (Novolog) 0 unit SC [facility] PRN Reason: Protocol Last Admin: 05/16/17 08:30 Dose: Not Given Insulin Detemir (Levemir) 5 unit SC [facility] Last Admin: 05/15/17 21:05 Dose: Not Given Losartan Potassium (Cozaar) 100 mg NG DAILY [facility] Last Admin: 05/16/17 10:37 Dose: 100 mg Magnesium Oxide (Mag-Ox) 400 mg NG BID [facility] Last Admin: 05/16/17 11:48 Dose: Not Given Ondansetron HCl (Zofran Inj) 4 mg IVP Q6H PRN PRN Reason: Nausea/Vomiting Last Admin: 05/14/17 08:40 Dose: 4 mg Rosuvastatin Calcium (Crestor) 2.5 mg NG [facility] Last Admin: 05/15/17 21:04 Dose: 2.5 mg Simethicone (Mylicon Chew Tab) 80 mg NG Q8H PRN PRN Reason: GI distress Physical Exam - Head Exam Head Exam: ATRAUMATIC, NORMAL INSPECTION, NORMOCEPHALIC - Eye Exam Eye Exam: EOMI, Normal appearance, PERRL Pupil Exam: NORMAL ACCOMODATION Additional comments: Absent visual field - ENT Exam ENT Exam: Mucous Membranes Moist, Normal Exam - Neck Exam Neck exam: Positive for: Normal Inspection - Respiratory Exam Respiratory Exam: Clear to Auscultation Bilateral, NORMAL BREATHING PATTERN - Cardiovascular Exam Cardiovascular Exam: REGULAR RHYTHM - GI/Abdominal Exam GI & Abdominal Exam: Normal Bowel Sounds, Soft - Rectal Exam Rectal Exam: Deferred - Extremities Exam Extremities exam: Positive for: normal inspection - Back Exam Back exam: NORMAL INSPECTION - Neurological Exam Neurological exam: Alert, Oriented x3 - Psychiatric Exam Psychiatric exam: Normal Affect, Normal Mood - Skin Skin Exam: Dry, Intact, Normal Color, Warm Results - Vital Signs Recent Vital Signs: Last Vital Signs Temp 97.8 F 05/16/17 08:17 Pulse 60 05/16/17 10:34 Resp 20 05/16/17 08:17 BP 150/78 05/16/17 10:34 Pulse Ox 97 05/16/17 08:17 - Labs Result Diagrams: 05/16/17 06:33 05/16/17 06:33 Labs: Laboratory Results - last 24 hr 05/15/17 05/15/17 05/15/17 12:03 16:58 20:49 WBC RBC Hgb Hct MCV MCH MCHC RDW Plt Count MPV Neut % (Auto) Lymph % (Auto) Page % (Auto) Eos % (Auto) Baso % (Auto) Neut # Lymph # Page # Eos # Baso # Sodium Potassium Chloride Carbon Dioxide Anion Gap BUN Creatinine Est GFR ( Amer) Est GFR (Non-Af Amer) POC Glucose (mg/dL) 211 H 175 H 196 H Random Glucose Calcium Phosphorus Magnesium Total Bilirubin AST ALT Alkaline Phosphatase Total Protein Albumin Globulin Albumin/Globulin Ratio 05/16/17 05/16/17 05/16/17 06:11 06:33 06:33 WBC 9.2 RBC 3.79 L Hgb 10.7 L Hct 31.6 L MCV 83.5 MCH 28.3 MCHC 34.0 RDW 13.5 Plt Count 481 H MPV 7.5 Neut % (Auto) 77.1 H Lymph % (Auto) 15.7 L Page % (Auto) 6.2 Eos % (Auto) 0.7 Baso % (Auto) 0.3 Neut # 7.1 H Lymph # 1.4 Page # 0.6 Eos # 0.1 Baso # 0.0 Sodium 129 L Potassium 3.9 Chloride 92 L Carbon Dioxide 25 Anion Gap 16 BUN 26 H Creatinine 1.1 Est GFR ( Amer) 58 Est GFR (Non-Af Amer) 48 POC Glucose (mg/dL) 168 H Random Glucose 166 H Calcium 8.1 L Phosphorus 3.4 Magnesium 2.4 H Total Bilirubin 0.3 AST 27 ALT 28 Alkaline Phosphatase 60 Total Protein 5.9 L Albumin 3.1 L Globulin 2.9 Albumin/Globulin Ratio 1.1 05/16/17 11:20 WBC RBC Hgb Hct MCV MCH MCHC RDW Plt Count MPV Neut % (Auto) Lymph % (Auto) Page % (Auto) Eos % (Auto) Baso % (Auto) Neut # Lymph # Page # Eos # Baso # Sodium Potassium Chloride Carbon Dioxide Anion Gap BUN Creatinine Est GFR ( Amer) Est GFR (Non-Af Amer) POC Glucose (mg/dL) 181 H Random Glucose Calcium Phosphorus Magnesium Total Bilirubin AST ALT Alkaline Phosphatase Total Protein Albumin Globulin Albumin/Globulin Ratio Assessment & Plan - Assessment and Plan (Free Text) Assessment: Palliative consult Full Code, No Advance Directive on the chart, PPS 30% I reviewed medical records, all diagnostic studies, examined and interviewed patient in the bed. Translation provided by the son, Mr. Yeager at bed side. Patient is alert, oriented X 3, Egyptian speaking only. There is vision field deficits. Patient denies being able to see. Pupils are reactive to light and there is EOMI. The repeat Ct head was significant for Encephalomalacia of right occipital lobe. All other systems reviewed and were negative except for the above. With patient's son at bed side, goals of care discussed. Mr. Yeager reports having earlier experience with his mother's CVA and lost of vision, hat she recovered from. He is highly hoping , patient will recover again. I offered support and reassurance. I also offered more information regarding the nature of hemorrhagic CVA and its unpredictable outcome. Code status discussed. Family is very pentecostal, Episcopalian jain. The son states not being able to discuss the topic as he had no discussion of that kind with his mother, nor he would like her to have the same discussion at this point. Psychosocial concerns discussed as well. Family is worried that patient may be anxious in strange environment where she can not see nor is able to speak [place]. I suggested that they visit daily, bring home made soup, as patient is vegetarian, and to also play pentecostal music for the patient. They agreed. Post discharge goals of care discussion revealed that family has no enough support at home, for the patient in case her vision does not return. I offered more information about the LTC and [facility]. As of now, the son is positive with [facility] placement. He wantd to take one da at the time and see the progress his mother makes, before making final decision. 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 Family anticipates patient to have difficulties adjusting * Family's expectations based on previous experience with patient * Code status discussion was not welcomed at this time by the son Suggestion * Goals of care to be adjusted based on progress patient makes * Safety is the imperative for this patient * Allow family to bring in home made food * Offer vegetarian food while at the hospital * Family may ply pentecostal music for the patient and promote her wellbeing I will fallow up with patient and family as needed. Thank you for consulting Palliative care.
--- NOTE | 2017-05-16 14:22 | CP.PCM.PN ---
Subjective - Date & Time of Evaluation Date of Evaluation: 05/16/17 Time of Evaluation: 13:00 - Subjective Subjective: family at bedside pt nods yes and no to simple questions no acute events Unable to obtain ROS due to clinical condition Objective - Vital Signs/Intake and Output Vital Signs (last 24 hours): Temp Pulse Resp BP Pulse Ox 97.8 F 60 20 150/78 97 05/16/17 08:17 05/16/17 10:34 05/16/17 08:17 05/16/17 10:34 05/16/17 08:17 Intake and Output: 05/16/17 05/16/17 06:59 18:59 Intake Total 100 Balance 100 - Medications Medications: Current Medications Apixaban (Eliquis) 5 mg PO BID [facility] Last Admin: 05/16/17 10:38 Dose: 5 mg Calcium/Vitamin D (Oyster Shell Calcium/Vitamin D 500 Mg-200 Iu) 1 tab NG DAILY [facility] Last Admin: 05/16/17 10:37 Dose: 1 tab Carvedilol (Coreg) 12.5 mg NG Q24H [facility] Last Admin: 05/15/17 13:25 Dose: Not Given Clonidine HCl (Catapres) 0.3 mg PO Q8H [facility] Last Admin: 05/16/17 09:30 Dose: 0.3 mg Diltiazem HCl (Cardizem Cd) 240 mg PO DAILY [facility] Last Admin: 05/16/17 10:37 Dose: 240 mg Docusate Sodium (Colace) 100 mg NG BID [facility] Last Admin: 05/16/17 10:37 Dose: 100 mg Famotidine (Pepcid) 20 mg IVP DAILY [facility] Last Admin: 05/16/17 10:38 Dose: 20 mg Folic Acid (Folic Acid) 1 mg NG DAILY [facility] Last Admin: 05/16/17 10:37 Dose: 1 mg Home Med (Home Med) 1 unit OU TID [facility] Last Admin: 05/16/17 10:39 Dose: 1 unit Home Med (Home Med) 1 unit OU HS [facility] Last Admin: 05/15/17 21:04 Dose: 1 unit Hydralazine HCl (Apresoline) 10 mg IVP Q6H PRN PRN Reason: Systolic Blood Pressure Last Admin: 05/10/17 06:17 Dose: 10 mg Insulin Aspart (Novolog) 0 unit SC [facility] PRN Reason: Protocol Last Admin: 05/16/17 13:13 Dose: 2 unit Insulin Detemir (Levemir) 5 unit SC HS [facility] Last Admin: 05/15/17 21:05 Dose: Not Given Losartan Potassium (Cozaar) 100 mg NG DAILY [facility] Last Admin: 05/16/17 10:37 Dose: 100 mg Magnesium Oxide (Mag-Ox) 400 mg NG BID [facility] Last Admin: 05/16/17 11:48 Dose: Not Given Ondansetron HCl (Zofran Inj) 4 mg IVP Q6H PRN PRN Reason: Nausea/Vomiting Last Admin: 05/14/17 08:40 Dose: 4 mg Rosuvastatin Calcium (Crestor) 2.5 mg NG HS [facility] Last Admin: 05/15/17 21:04 Dose: 2.5 mg Simethicone (Mylicon Chew Tab) 80 mg NG Q8H PRN PRN Reason: GI distress - Labs Labs: 05/16/17 06:33 05/16/17 06:33 PT 16.1 SECONDS (9.7-12.2) H 05/11/17 06:42 INR 1.4 05/11/17 06:42 APTT 19 SECONDS (21-34) L 05/11/17 06:42 - Constitutional Appears: Chronically Ill - Eye Exam Additional comments: blind - ENT Exam ENT Exam: Mucous Membranes Moist - Neck Exam Neck Exam: Full ROM. absent: Lymphadenopathy - Respiratory Exam Respiratory Exam: Clear to Ausculation Bilateral. absent: Accessory Muscle Use - Cardiovascular Exam Cardiovascular Exam: REGULAR RHYTHM. absent: Rubs - GI/Abdominal Exam GI & Abdominal Exam: Soft, Normal Bowel Sounds. absent: Tenderness - Skin Skin Exam: absent: Rash Assessment and Plan - Assessment and Plan (Free Text) Assessment: post cva with blindness chronic, stable hyponatremia noted repeat serum and urine osmolarity continue same and trend labs
[2017-05-16 15:57] VITALS: O2SAT 100
--- NOTE | 2017-05-16 18:05 | CP.PCM.PN ---
<Dwain Renteria - Last Filed: 05/16/17 18:08> Subjective - Date & Time of Evaluation Date of Evaluation: 05/16/17 Time of Evaluation: 18:04 - Subjective Subjective: PGY-[address] Chacko HPI: Patient was seen and examined at beside. Resting comfortably in NAD. More aware and less drowsy compared to yesterday. Family at bedside, providing translation. Patient denies any signs of new chest pain, abdominal pain, SOB, palpitations or leg pain. Family denies any changes over night. No other complaints are noted. ROS is limited 2/2 patient's status. Objective - Vital Signs/Intake and Output Vital Signs (last 24 hours): Temp Pulse Resp BP Pulse Ox 97.8 F 72 18 112/68 100 05/16/17 15:15 05/16/17 15:15 05/16/17 15:15 05/16/17 15:15 05/16/17 15:15 Intake and Output: 05/16/17 05/16/17 06:59 18:59 Intake Total 100 400 Balance 100 400 - Medications Medications: Current Medications Apixaban (Eliquis) 5 mg PO BID [facility] Last Admin: 05/16/17 17:13 Dose: 5 mg Calcium/Vitamin D (Oyster Shell Calcium/Vitamin D 500 Mg-200 Iu) 1 tab NG DAILY [facility] Last Admin: 05/16/17 10:37 Dose: 1 tab Carvedilol (Coreg) 12.5 mg NG Q24H [facility] Last Admin: 05/16/17 14:43 Dose: 12.5 mg Clonidine HCl (Catapres) 0.3 mg PO Q8H [facility] Last Admin: 05/16/17 17:00 Dose: Not Given Diltiazem HCl (Cardizem Cd) 240 mg PO DAILY [facility] Last Admin: 05/16/17 10:37 Dose: 240 mg Docusate Sodium (Colace) 100 mg NG BID [facility] Last Admin: 05/16/17 17:10 Dose: 100 mg Famotidine (Pepcid) 20 mg IVP DAILY [facility] Last Admin: 05/16/17 10:38 Dose: 20 mg Folic Acid (Folic Acid) 1 mg NG DAILY [facility] Last Admin: 05/16/17 10:37 Dose: 1 mg Home Med (Home Med) 1 unit OU TID [facility] Last Admin: 05/16/17 17:13 Dose: 1 unit Home Med (Home Med) 1 unit OU [facility] Last Admin: 05/15/17 21:04 Dose: 1 unit Hydralazine HCl (Apresoline) 10 mg IVP Q6H PRN PRN Reason: Systolic Blood Pressure Last Admin: 05/10/17 06:17 Dose: 10 mg Insulin Aspart (Novolog) 0 unit SC [facility] PRN Reason: Protocol Last Admin: 05/16/17 17:13 Dose: 2 unit Insulin Detemir (Levemir) 5 unit SC [facility] Last Admin: 05/15/17 21:05 Dose: Not Given Losartan Potassium (Cozaar) 100 mg NG DAILY [facility] Last Admin: 05/16/17 10:37 Dose: 100 mg Magnesium Oxide (Mag-Ox) 400 mg NG BID [facility] Last Admin: 05/16/17 17:11 Dose: Not Given Ondansetron HCl (Zofran Inj) 4 mg IVP Q6H PRN PRN Reason: Nausea/Vomiting Last Admin: 05/14/17 08:40 Dose: 4 mg Rosuvastatin Calcium (Crestor) 2.5 mg NG [facility] Last Admin: 05/15/17 21:04 Dose: 2.5 mg Simethicone (Mylicon Chew Tab) 80 mg NG Q8H PRN PRN Reason: GI distress - Labs Labs: 05/16/17 06:33 05/16/17 06:33 PT 16.1 SECONDS (9.7-12.2) H 05/11/17 06:42 INR 1.4 05/11/17 06:42 APTT 19 SECONDS (21-34) L 05/11/17 06:42 - Constitutional Appears: Well, Non-toxic - Head Exam Head Exam: ATRAUMATIC, NORMAL INSPECTION - Eye Exam Eye Exam: absent: Conjunctival injection, Periorbital swelling, Periorbital tenderness, Scleral icterus - ENT Exam ENT Exam: Mucous Membranes Moist. absent: Mucous Membranes Dry - Respiratory Exam Respiratory Exam: Clear to Ausculation Bilateral, NORMAL BREATHING PATTERN. absent: Rales, Rhonchi, Wheezes - Cardiovascular Exam Cardiovascular Exam: Irregular Rhythm (afib). absent: Gallop, REGULAR RHYTHM, RRR, Rubs, Murmur - GI/Abdominal Exam GI & Abdominal Exam: Soft, Normal Bowel Sounds. absent: Distended, Firm, Guarding, Tenderness, Hernia, Mass, Organomegaly - Extremities Exam Extremities Exam: absent: Joint Swelling, Pedal Edema, Tenderness - Neurological Exam Neurological Exam: Alert. absent: Altered, Motor Sensory Deficit (- Babinski sign) - Psychiatric Exam Psychiatric exam: Normal Affect Assessment and Plan - Assessment and Plan (Free Text) Plan: 1) Ischemic CVA * Neurology (Dr. Harden) help appreciated * Cardiology (Dr. Tse) help appreciated * No TPA given in ED due to history of hemorrhagic stroke in 2015 * CXR (05/07/17): no active pulmonary disease (see full report) * CT head negative (05/07/17): Nonspecific white matter changes. Acute infarction may be occult wihin 24hrs. If deficit persists, consider follow up CT /MRI (see full report) * CT angio head/neck (05/07/17): Patent vasculture. Nonspecific white matter changes. Acute infarction may be occult within first 24 hrs. 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 No evidence of midline shift or herniation. Cystic encephalmalacia in right occiptial lobe, sequela of remote [employer] FILTERER HELPER territory infarction. Mild chronic microangiopathic changes, small old lacunar infarction in the right centrum semiovale and moderate age related global parenchymal volume loss (see full report) * Repeat CT Head (05/08/17): Encephalomalacia involving right occipital lobe. Evolving ischemic changes identified involving left occipital lobe, inferior aspect of the medial temporal lobes, as well as portion of the thalamus. Effacement and displacement of the posterior horn left lateral ventricle (see full report) * EKG (05/07/17): nsr 93 non specific lateral t wave changes, no interval change * ECHO (05/07/17): LV systolic fxn normal. EF 60-65%. HTN heart disease. Trace Aortic regurgitation. Mitral regurgitation mild. No tricuspid valve regurgitation noted. No pulmonic valvular regurgitation (see full report) * Carotid doppler (05/07/17): mild disease bilaterally * Troponin/EKG negative x3 * RASHAAD (05/09/17): 3 mm PFO with bidirectional flow and extensive aortic plaques both are potentially sources of stroke and warrants anticoagulation unless contraindicated. 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 Caba) on consult help appreciated * Renal US (05/07/17): Medical renal disease. Small right kidney (see full report ) * Renal Artery Duplex Scan (05/08/17): No definite hemodynamically significant stenosis involving renal arteries as visualized (see full report) * GFR>60 * monitor BUN/Cr * Na 120 --> 127, consulted nephro, will see patient in AM to evaluate hyponatremia --> 05/16 Na back to 129, continue Nephro recs 3) Atrial fibrillation, new on set * EKG: Rate 68 bpm. 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 Turner)-->F/u recommendations 5) Vision Loss * Contributing factors: stroke, hx of cataracts/glaucoma * Opthalmologist: Dr. Rodriguez, help appreciated * Alphagan 0.1% one drop both eyes three times a day * Lumigan 0/01% eye drops both at bedtime 6) Hypertension * Cardizem CD 240mg PO daily * Losartan 100mg PO daily * Coreg 12.5mg PO Q 12H 7) Type Two Diabetes Mellitus * Hemoglobin a1c: 9.2 (uncontrolled) * Increase Metformin 1000 mg PO BID - Stopped Metformin * Hold Glipizide * Start Levemir 5 units subq HS * Novolog insulin sliding scale subq (medium dosing) * Patient has started eating food family brings in 8) Hypercholesterolemia * Lipid panel: T, Cholesterol: 119, LDL: 52, HDL: 40 * Crestor 2.5mg PO qHS 9) Urinary Tract Infection * Urine culture (05/06/17): E. Coli sensitive to Aztreonam, Cefazolin, Cefepime, resistant to Cipro * Rocephin 1 gram IV q daily - stopped * Repeat urine culture is negative 10) Electrolyte abnormalities * Monitor CMP and Mg2+ 11) Prophylaxis * SCDs * Pepcid 20mg IVP daily * Aspirin 81mg PO daily * Eliquis 5mg PO BID * PT - benefit from skilled PT to improve transfers/mobility * f/u case management and social work regarding discharge planning <Vandana Chacko V - Last Filed: 05/16/17 20:55> Objective - Vital Signs/Intake and Output Vital Signs (last 24 hours): Temp Pulse Resp BP Pulse Ox 97.8 F 72 18 112/68 100 05/16/17 15:15 05/16/17 15:15 05/16/17 15:15 05/16/17 15:15 05/16/17 15:15 Intake and Output: 05/16/17 05/17/17 18:59 06:59 Intake Total 400 Balance 400 - Medications Medications: Current Medications Apixaban (Eliquis) 5 mg PO BID [facility] Last Admin: 05/16/17 17:13 Dose: 5 mg Aspirin (Ecotrin) 81 mg PO DAILY [facility] Calcium/Vitamin D (Oyster Shell Calcium/Vitamin D 500 Mg-200 Iu) 1 tab NG DAILY [facility] Last Admin: 05/16/17 10:37 Dose: 1 tab Carvedilol (Coreg) 12.5 mg NG Q24H [facility] Last Admin: 05/16/17 14:43 Dose: 12.5 mg Clonidine HCl (Catapres) 0.3 mg PO Q8H [facility] Last Admin: 05/16/17 17:00 Dose: Not Given Diltiazem HCl (Cardizem Cd) 240 mg PO DAILY [facility] Last Admin: 05/16/17 10:37 Dose: 240 mg Docusate Sodium (Colace) 100 mg NG BID [facility] Last Admin: 05/16/17 17:10 Dose: 100 mg Famotidine (Pepcid) 20 mg IVP DAILY [facility] Last Admin: 05/16/17 10:38 Dose: 20 mg Folic Acid (Folic Acid) 1 mg NG DAILY [facility] Last Admin: 05/16/17 10:37 Dose: 1 mg Home Med (Home Med) 1 unit OU TID [facility] Last Admin: 05/16/17 17:13 Dose: 1 unit Home Med (Home Med) 1 unit OU HS [facility] Last Admin: 05/15/17 21:04 Dose: 1 unit Hydralazine HCl (Apresoline) 10 mg IVP Q6H PRN PRN Reason: Systolic Blood Pressure Last Admin: 05/10/17 06:17 Dose: 10 mg Insulin Aspart (Novolog) 0 unit SC [facility] PRN Reason: Protocol Last Admin: 05/16/17 17:13 Dose: 2 unit Insulin Detemir (Levemir) 5 unit SC HS [facility] Last Admin: 05/15/17 21:05 Dose: Not Given Losartan Potassium (Cozaar) 100 mg NG DAILY [facility] Last Admin: 05/16/17 10:37 Dose: 100 mg Magnesium Oxide (Mag-Ox) 400 mg NG BID [facility] Last Admin: 05/16/17 17:11 Dose: Not Given Ondansetron HCl (Zofran Inj) 4 mg IVP Q6H PRN PRN Reason: Nausea/Vomiting Last Admin: 05/14/17 08:40 Dose: 4 mg Rosuvastatin Calcium (Crestor) 2.5 mg NG HS [facility] Last Admin: 05/15/17 21:04 Dose: 2.5 mg Simethicone (Mylicon Chew Tab) 80 mg NG Q8H PRN PRN Reason: GI distress - Labs Labs: 05/16/17 06:33 05/16/17 06:33 PT 16.1 SECONDS (9.7-12.2) H 05/11/17 06:42 INR 1.4 05/11/17 06:42 APTT 19 SECONDS (21-34) L 05/11/17 06:42 Attending/Attestation - Attestation I have personally seen and examined this patient.: Yes I have fully participated in the care of the patient.: Yes I have reviewed all pertinent clinical information, including history, physical exam and plan: Yes Notes (Text): Patient seen, examined and case discussed with day-time resident. Patient seen in the afternoon with patient's son at bedside. Patient's mental status improved compared to yesterday, awake, and alert, arousable, speaking gujarti appropriately. Per son, patient ate at least 7-10 spoonfuls of soup from home. Patient does not want feeding tube at this time but will take as day to day basis. Patient's Eliquis increased to 5mg PO bid this week per neurology ; discuss with EP-cardiology. Note: error in prior note: patient is vegetarian, and have allowed family to bring in food to help patient given she is vegetarian. Had attempted NGT tube earlier in the week but had ripped it out twice. Discussed with family, considering subacute rehab given patient's recent ischemic (not hemorrhagic) stroke; family prefers to go to place that Dr. Velazquez 's goes to. Discussed with [facility] social director who is aware and out of 3 options, Dr Velazquez goes to 2 of them. Patient's white count is downtrending. patient is off IV abx. ordered blood cultures as prophylactic to monitor if mental status changes acutely.
[2017-05-16] MEDS ORDERED: Sodium Chloride 0.45% 1,000 ML IV SCH (20:15)
[2017-05-16] MEDS: Rosuvastatin Calcium 2.5 mg Tab NG SCH (22:18)
[2017-05-16] MEDS: Insulin Detemir 100 units/ml Vial (Levemir) SC SCH (22:19)
--- NOTE | 2017-05-16 23:16 | CP.PCM.PN ---
Subjective - Date & Time of Evaluation Date of Evaluation: 05/16/17 Time of Evaluation: 19:05 - Subjective Subjective: Patient seen and evaluated CVA likely secondary to A Fib D/C ASA and Continue Eliquis 5mg po bid Review of Systems - Hematologic/Lymphatic Additional comments: - Constitutional Constitutional: absent: Fever, Chills, Sweats, Weakness - EENT Eyes: Blurred Vision, Change in Vision, Loss of Vision. absent: Spots in Vision Ears: absent: Decreased Hearing, Tinnitus, Dizziness Nose/Mouth/Throat: absent: Facial Pain, Neck Mass - Cardiovascular Cardiovascular: absent: Chest Pain, Dyspnea, Pain Radiating to Arm/Neck/Jaw - Respiratory Respiratory: absent: Cough, Dyspnea - Genitourinary Genitourinary: absent: Dysuria, Urinary Incontinence - Musculoskeletal Musculoskeletal: absent: Back Pain, Muscle Weakness, Numbness, Stiffness, Tingling - Neurological Neurological: Weakness. absent: Dizziness, Numbness, Headaches, Loss of Vision , Sensory Deficit, Syncope, Tingling - Psychiatric Psychiatric: absent: Anxiety, Depression - Endocrine Endocrine: absent: Fatigue, Palpitations Physical Exam - Additional Findings Additional findings: - Constitutional Appears: Non-toxic, No Acute Distress - Head Exam Head Exam: ATRAUMATIC, NORMAL INSPECTION, NORMOCEPHALIC - Eye Exam Eye Exam: EOMI, Normal appearance, PERRL. absent: Nystagmus, Periorbital swelling, Periorbital tenderness Additional comments: - L sided gaze preference - Patient only able to see that the lights are on - (+) corneal reflex - ENT Exam ENT Exam: Mucous Membranes Moist - Neck Exam Neck exam: Positive for: Normal Inspection. Negative for: Lymphadenopathy, Thyromegaly - Respiratory Exam Respiratory Exam: Clear to PA & Lateral, NORMAL BREATHING PATTERN. absent: Rales, Rhonchi, Wheezes - Cardiovascular Exam Cardiovascular Exam: REGULAR RHYTHM, +S1, +S2. absent: Diastolic murmur, Systolic Murmur - GI/Abdominal Exam GI & Abdominal Exam: Normal Bowel Sounds, Soft. absent: Tenderness - Extremities Exam Extremities exam: Positive for: pedal pulses present. Negative for: pedal edema Objective - Vital Signs/Intake and Output Vital Signs (last 24 hours): Temp Pulse Resp BP Pulse Ox 97.8 F 72 18 112/68 100 05/16/17 15:15 05/16/17 15:15 05/16/17 15:15 05/16/17 15:15 05/16/17 15:15 Intake and Output: 05/16/17 05/17/17 18:59 06:59 Intake Total 400 240 Output Total 1 Balance 400 239 - Medications Medications: Current Medications Apixaban (Eliquis) 5 mg PO BID [facility] Last Admin: 05/16/17 17:13 Dose: 5 mg Calcium/Vitamin D (Oyster Shell Calcium/Vitamin D 500 Mg-200 Iu) 1 tab NG DAILY [facility] Last Admin: 05/16/17 10:37 Dose: 1 tab Carvedilol (Coreg) 12.5 mg NG Q24H [facility] Last Admin: 05/16/17 14:43 Dose: 12.5 mg Clonidine HCl (Catapres) 0.3 mg PO Q8H [facility] Last Admin: 05/16/17 17:00 Dose: Not Given Diltiazem HCl (Cardizem Cd) 240 mg PO DAILY [facility] Last Admin: 05/16/17 10:37 Dose: 240 mg Docusate Sodium (Colace) 100 mg NG BID [facility] Last Admin: 05/16/17 17:10 Dose: 100 mg Famotidine (Pepcid) 20 mg IVP DAILY [facility] Last Admin: 05/16/17 10:38 Dose: 20 mg Folic Acid (Folic Acid) 1 mg NG DAILY [facility] Last Admin: 05/16/17 10:37 Dose: 1 mg Home Med (Home Med) 1 unit OU TID [facility] Last Admin: 05/16/17 17:13 Dose: 1 unit Home Med (Home Med) 1 unit OU HS [facility] Last Admin: 05/16/17 22:18 Dose: 1 unit Hydralazine HCl (Apresoline) 10 mg IVP Q6H PRN PRN Reason: Systolic Blood Pressure Last Admin: 05/10/17 06:17 Dose: 10 mg Insulin Aspart (Novolog) 0 unit SC [facility] PRN Reason: Protocol Last Admin: 05/16/17 22:19 Dose: Not Given Insulin Detemir (Levemir) 5 unit SC HS [facility] Last Admin: 05/16/17 22:19 Dose: 5 unit Losartan Potassium (Cozaar) 100 mg NG DAILY [facility] Last Admin: 05/16/17 10:37 Dose: 100 mg Magnesium Oxide (Mag-Ox) 400 mg NG BID [facility] Last Admin: 05/16/17 17:11 Dose: Not Given Ondansetron HCl (Zofran Inj) 4 mg IVP Q6H PRN PRN Reason: Nausea/Vomiting Last Admin: 05/14/17 08:40 Dose: 4 mg Rosuvastatin Calcium (Crestor) 2.5 mg NG HS [facility] Last Admin: 05/16/17 22:18 Dose: 2.5 mg Simethicone (Mylicon Chew Tab) 80 mg NG Q8H PRN PRN Reason: GI distress - Labs Labs: 05/16/17 06:33 05/16/17 06:33 PT 16.1 SECONDS (9.7-12.2) H 05/11/17 06:42 INR 1.4 05/11/17 06:42 APTT 19 SECONDS (21-34) L 05/11/17 06:42 Assessment and Plan - Assessment and Plan (Free Text) Assessment: 1. A Fib 2. CVA 3. HTN 4. Sick sinus syndrome Patient seen and evaluated CVA likely secondary to A Fib D/C ASA and Continue Eliquis 5mg po bid
[2017-05-17 08:10] VITALS: TEMP 98.1
[2017-05-17] MEDS: (Novolog) Insulin Aspart, Recombinant 100 u/ml 10 ml vial SC SCH ×2 (08:35→13:09)
--- NOTE | 2017-05-17 09:19 | CP.PCM.PN ---
<JULIANNE BINGHAM - Last Filed: 05/17/17 09:15> Subjective - Date & Time of Evaluation Date of Evaluation: 05/17/17 Time of Evaluation: 09:15 - Subjective Subjective: Julianne Bingham, PGY1 Progress Note for Cardiology (Dr. Keith): Pt seen and examined at bedside. No acute events overnight. Denies cp, sob, diaphoresis, palpitations, leg swelling. Objective - Vital Signs/Intake and Output Vital Signs (last 24 hours): Temp Pulse Resp BP Pulse Ox 98.1 F 67 20 139/81 100 05/17/17 07:05 05/17/17 08:35 05/17/17 07:05 05/17/17 08:35 05/17/17 07:05 Intake and Output: 05/17/17 05/17/17 06:59 18:59 Intake Total 340 Output Total 1 Balance 339 - Medications Medications: Current Medications Apixaban (Eliquis) 5 mg PO BID [facility] Last Admin: 05/16/17 17:13 Dose: 5 mg Calcium/Vitamin D (Oyster Shell Calcium/Vitamin D 500 Mg-200 Iu) 1 tab NG DAILY [facility] Last Admin: 05/16/17 10:37 Dose: 1 tab Carvedilol (Coreg) 12.5 mg NG Q24H [facility] Last Admin: 05/16/17 14:43 Dose: 12.5 mg Clonidine HCl (Catapres) 0.3 mg PO Q8H [facility] Last Admin: 05/17/17 08:35 Dose: 0.3 mg Diltiazem HCl (Cardizem Cd) 240 mg PO DAILY [facility] Last Admin: 05/16/17 10:37 Dose: 240 mg Docusate Sodium (Colace) 100 mg NG BID [facility] Last Admin: 05/16/17 17:10 Dose: 100 mg Famotidine (Pepcid) 20 mg IVP DAILY [facility] Last Admin: 05/16/17 10:38 Dose: 20 mg Folic Acid (Folic Acid) 1 mg NG DAILY [facility] Last Admin: 05/16/17 10:37 Dose: 1 mg Home Med (Home Med) 1 unit OU TID [facility] Last Admin: 05/16/17 17:13 Dose: 1 unit Home Med (Home Med) 1 unit OU HS [facility] Last Admin: 05/16/17 22:18 Dose: 1 unit Hydralazine HCl (Apresoline) 10 mg IVP Q6H PRN PRN Reason: Systolic Blood Pressure Last Admin: 05/10/17 06:17 Dose: 10 mg Insulin Aspart (Novolog) 0 unit SC ACHS [facility] PRN Reason: Protocol Last Admin: 05/17/17 08:35 Dose: 2 unit Insulin Detemir (Levemir) 5 unit SC HS [facility] Last Admin: 05/16/17 22:19 Dose: 5 unit Losartan Potassium (Cozaar) 100 mg NG DAILY [facility] Last Admin: 05/16/17 10:37 Dose: 100 mg Magnesium Oxide (Mag-Ox) 400 mg NG BID [facility] Last Admin: 05/16/17 17:11 Dose: Not Given Ondansetron HCl (Zofran Inj) 4 mg IVP Q6H PRN PRN Reason: Nausea/Vomiting Last Admin: 05/14/17 08:40 Dose: 4 mg Rosuvastatin Calcium (Crestor) 2.5 mg NG HS [facility] Last Admin: 05/16/17 22:18 Dose: 2.5 mg Simethicone (Mylicon Chew Tab) 80 mg NG Q8H PRN PRN Reason: GI distress - Labs Labs: 05/16/17 06:33 05/16/17 06:33 PT 16.1 SECONDS (9.7-12.2) H 05/11/17 06:42 INR 1.4 05/11/17 06:42 APTT 19 SECONDS (21-34) L 05/11/17 06:42 - Constitutional Appears: No Acute Distress - Head Exam Head Exam: ATRAUMATIC, NORMOCEPHALIC - Eye Exam Eye Exam: PERRL - ENT Exam ENT Exam: Mucous Membranes Moist - Respiratory Exam Respiratory Exam: Clear to Ausculation Bilateral - Cardiovascular Exam Cardiovascular Exam: Irregular Rhythm Additional comments: L sided incision site c/d/i - GI/Abdominal Exam GI & Abdominal Exam: Soft, Normal Bowel Sounds. absent: Tenderness - Extremities Exam Extremities Exam: absent: Calf Tenderness, Pedal Edema - Neurological Exam Neurological Exam: Alert, Awake, Oriented x3 - Skin Skin Exam: Dry, Intact, Warm Assessment and Plan - Assessment and Plan (Free Text) Assessment: 77F with PMH previous hemorrhagic CVA, DM2, HTN, HLD, hypothyroidism, initially admitted to [facility] for acute L [employer] CVA, s/p loop recorder instertion, POD2, doing well, still in aflutter. Plan: Acute ischemic L [employer] CVA 2/2 likely afib/aflutter vs atherosclertoic aortic plaque dz, PFO ruled out: - AAOx3 this AM, doing well, denies cp, sob, palpitations, diaphoresis. - Drowsy 05/15, CT head 05/15 neg for new CVA. - Arterial doppler BLE 05/15 prelim reading shows moderate PAD b/l. f/u finalized reading. - Venous duplex BLE 05/15 prelim reading shows no abnormal findings. f/u finalized reading. - Continue CVA management per primary team. - Carotid doppler (05/07/17): mild disease bilaterally - MRI head w/o contrast (05/07/17): Large acute left [employer] territory infarction involving occipital lobe, medial, and posterior temporal lobe and thalamus with mild surrounding vasogenic edema. No evidence of midline shift or herniation. Cystic encephalmalacia in right occiptial lobe, sequela of remote [employer] territory infarction. Mild chronic microangiopathic changes, small old lacunar infarction in the right centrum semiovale and moderate age related global parenchymal volume loss - No TPA given in ED due to history of hemorrhagic stroke in 2015 - CT angio head/neck (05/07/17): Patent vasculture. Nonspecific white matter changes. Acute infarction may be occult within first 24 hrs. If deficit persists , consider CT/MRI for further evaluation - ECHO (05/07/17): LV systolic fxn normal. EF 60-65%. HTN heart disease. Trace Aortic regurgitation. Mitral regurgitation mild. No tricuspid valve regurgitation noted. No pulmonic valvular regurgitation. - Troponin/EKG negative x 3 - SAGAR (05/09/17): 3 mm PFO with bidirectional flow and extensive aortic plaques both are potentially sources of stroke and warrants anticoagulation unless contraindicated. - Aflutter [employer] on 05/10/17 - Repeat bubble study 05/14 shows no bubble crossover from R->L, no PFO - HR 79-83, rate controlled, aflutter. - On Cardizem 60mg PO Q6H and Coreg 240mg PO daily. - Continue with Rosuvastatin 2.5mg PO daily. - Can resume Eliquis - s/p loop recorder, POD2, no erythema, swelling, bleeding at the site. Cont to monitor. Discussed with attending, Dr. Keith. Julianne Bingham, PGY1 <Jessee Keith - Last Filed: 05/17/17 09:36> Objective - Vital Signs/Intake and Output Vital Signs (last 24 hours): Temp Pulse Resp BP Pulse Ox 98.1 F 67 20 139/81 100 05/17/17 07:05 05/17/17 08:35 05/17/17 07:05 05/17/17 08:35 05/17/17 07:05 Intake and Output: 05/17/17 05/17/17 06:59 18:59 Intake Total 340 Output Total 1 Balance 339 - Medications Medications: Current Medications Apixaban (Eliquis) 5 mg PO BID [facility] Last Admin: 05/16/17 17:13 Dose: 5 mg Calcium/Vitamin D (Oyster Shell Calcium/Vitamin D 500 Mg-200 Iu) 1 tab NG DAILY [facility] Last Admin: 05/16/17 10:37 Dose: 1 tab Carvedilol (Coreg) 12.5 mg NG Q24H [facility] Last Admin: 05/16/17 14:43 Dose: 12.5 mg Clonidine HCl (Catapres) 0.3 mg PO Q8H [facility] Last Admin: 05/17/17 08:35 Dose: 0.3 mg Diltiazem HCl (Cardizem Cd) 240 mg PO DAILY [facility] Last Admin: 05/16/17 10:37 Dose: 240 mg Docusate Sodium (Colace) 100 mg NG BID [facility] Last Admin: 05/16/17 17:10 Dose: 100 mg Famotidine (Pepcid) 20 mg IVP DAILY [facility] Last Admin: 05/16/17 10:38 Dose: 20 mg Folic Acid (Folic Acid) 1 mg NG DAILY [facility] Last Admin: 05/16/17 10:37 Dose: 1 mg Home Med (Home Med) 1 unit OU TID [facility] Last Admin: 05/16/17 17:13 Dose: 1 unit Home Med (Home Med) 1 unit OU HS [facility] Last Admin: 05/16/17 22:18 Dose: 1 unit Hydralazine HCl (Apresoline) 10 mg IVP Q6H PRN PRN Reason: Systolic Blood Pressure Last Admin: 05/10/17 06:17 Dose: 10 mg Insulin Aspart (Novolog) 0 unit SC ACHS [facility] PRN Reason: Protocol Last Admin: 05/17/17 08:35 Dose: 2 unit Insulin Detemir (Levemir) 5 unit SC HS [facility] Last Admin: 05/16/17 22:19 Dose: 5 unit Losartan Potassium (Cozaar) 100 mg NG DAILY [facility] Last Admin: 05/16/17 10:37 Dose: 100 mg Magnesium Oxide (Mag-Ox) 400 mg NG BID [facility] Last Admin: 05/16/17 17:11 Dose: Not Given Ondansetron HCl (Zofran Inj) 4 mg IVP Q6H PRN PRN Reason: Nausea/Vomiting Last Admin: 05/14/17 08:40 Dose: 4 mg Rosuvastatin Calcium (Crestor) 2.5 mg NG HS [facility] Last Admin: 05/16/17 22:18 Dose: 2.5 mg Simethicone (Mylicon Chew Tab) 80 mg NG Q8H PRN PRN Reason: GI distress - Labs Labs: 05/16/17 06:33 05/16/17 06:33 PT 16.1 SECONDS (9.7-12.2) H 05/11/17 06:42 INR 1.4 05/11/17 06:42 APTT 19 SECONDS (21-34) L 05/11/17 06:42 Attending/Attestation - Attestation I have personally seen and examined this patient.: Yes I have fully participated in the care of the patient.: Yes I have reviewed all pertinent clinical information, including history, physical exam and plan: Yes Notes (Text): 05/17/17 09:36 d/w neuro will continue a/c no asd on sagar. No cp
[2017-05-17] MEDS: Magnesium Oxide 400 mg Tab UD NG SCH (10:35)
[2017-05-17] MEDS ORDERED: POLYETHYLENE GLYCOL 3350 17 GM/Dose PACKET PO ONE (10:48)
[2017-05-17] MEDS: Calcium-Vit D 500 mg-200 Units Tab UD NG SCH (10:53)
[2017-05-17] MEDS: diltiaZEM 240 mg/24 Hours CD Cap PO SCH (10:54)
[2017-05-17] MEDS: ALPHAGAN 0.1% OU SCH ×2 (10:54→14:57)
--- NOTE | 2017-05-17 11:31 | CP.PCM.PN ---
Subjective - Date & Time of Evaluation Date of Evaluation: 05/17/17 Time of Evaluation: 11:29 - Subjective Subjective: awake responsive. son at bedside. reports improving diet, home food. no n/v/d no labs today Objective - Vital Signs/Intake and Output Vital Signs (last 24 hours): Temp Pulse Resp BP Pulse Ox 98.1 F 67 20 139/81 100 05/17/17 07:05 05/17/17 08:35 05/17/17 07:05 05/17/17 08:35 05/17/17 07:05 Intake and Output: 05/17/17 05/17/17 06:59 18:59 Intake Total 340 Output Total 1 Balance 339 - Medications Medications: Current Medications Apixaban (Eliquis) 5 mg PO BID [facility] Last Admin: 05/17/17 10:53 Dose: 5 mg Calcium/Vitamin D (Oyster Shell Calcium/Vitamin D 500 Mg-200 Iu) 1 tab NG DAILY [facility] Last Admin: 05/17/17 10:53 Dose: 1 tab Carvedilol (Coreg) 12.5 mg NG Q24H [facility] Last Admin: 05/16/17 14:43 Dose: 12.5 mg Clonidine HCl (Catapres) 0.3 mg PO Q8H [facility] Last Admin: 05/17/17 08:35 Dose: 0.3 mg Diltiazem HCl (Cardizem Cd) 240 mg PO DAILY [facility] Last Admin: 05/17/17 10:54 Dose: 240 mg Docusate Sodium (Colace) 100 mg NG BID [facility] Last Admin: 05/17/17 10:53 Dose: 100 mg Famotidine (Pepcid) 20 mg IVP DAILY [facility] Last Admin: 05/17/17 10:53 Dose: 20 mg Folic Acid (Folic Acid) 1 mg NG DAILY [facility] Last Admin: 05/17/17 10:53 Dose: 1 mg Home Med (Home Med) 1 unit OU TID [facility] Last Admin: 05/17/17 10:54 Dose: 1 unit Home Med (Home Med) 1 unit OU HS [facility] Last Admin: 05/16/17 22:18 Dose: 1 unit Hydralazine HCl (Apresoline) 10 mg IVP Q6H PRN PRN Reason: Systolic Blood Pressure Last Admin: 05/10/17 06:17 Dose: 10 mg Moxifloxacin HCl (Avelox Iv 400mg/250ml Ns) 400 mg in 250 mls @ 167 mls/hr IVPB Q24H [facility] Insulin Aspart (Novolog) 0 unit SC ACHS [facility] PRN Reason: Protocol Last Admin: 05/17/17 08:35 Dose: 2 unit Insulin Detemir (Levemir) 5 unit SC HS [facility] Last Admin: 05/16/17 22:19 Dose: 5 unit Losartan Potassium (Cozaar) 100 mg NG DAILY [facility] Last Admin: 05/17/17 10:53 Dose: 100 mg Magnesium Oxide (Mag-Ox) 400 mg NG BID [facility] Last Admin: 05/17/17 10:35 Dose: Not Given Ondansetron HCl (Zofran Inj) 4 mg IVP Q6H PRN PRN Reason: Nausea/Vomiting Last Admin: 05/14/17 08:40 Dose: 4 mg Rosuvastatin Calcium (Crestor) 2.5 mg NG HS [facility] Last Admin: 05/16/17 22:18 Dose: 2.5 mg Simethicone (Mylicon Chew Tab) 80 mg NG Q8H PRN PRN Reason: GI distress - Labs Labs: 05/16/17 06:33 05/16/17 06:33 PT 16.1 SECONDS (9.7-12.2) H 05/11/17 06:42 INR 1.4 05/11/17 06:42 APTT 19 SECONDS (21-34) L 05/11/17 06:42 - Constitutional Appears: Non-toxic, No Acute Distress, Cachectic, Chronically Ill - Head Exam Head Exam: NORMAL INSPECTION - Eye Exam Eye Exam: Normal appearance - ENT Exam ENT Exam: Mucous Membranes Moist, Normal Exam - Neck Exam Neck Exam: Normal Inspection - Respiratory Exam Respiratory Exam: Clear to Ausculation Bilateral, NORMAL BREATHING PATTERN - Cardiovascular Exam Cardiovascular Exam: REGULAR RHYTHM, RRR - GI/Abdominal Exam GI & Abdominal Exam: Soft, Normal Bowel Sounds - Extremities Exam Extremities Exam: Normal Inspection Assessment and Plan (1) Blurry vision Status: Acute (2) CKD (chronic kidney disease) stage 3, GFR 30-59 ml/min Status: Acute (3) Stroke Status: Acute (4) Diabetes mellitus Status: Acute (5) Hypertension Status: Acute (6) Posterior cerebral circulation hemorrhagic infarction Status: Acute - Assessment and Plan (Free Text) Assessment: maintain off iv fluids encourage po intake chem ordered for tomorrow
[2017-05-17 11:38] LABS: BASO % 0.2 % (0.0-2.0); EOS % 0.4 % (0.0-4.0); HEMATOCRIT 29.6 % (34.0-47.0); LYMPH # 1.3 K/uL (1.0-4.3); LYMPH % 13.5 % (20.0-40.0); MEAN CELL VOLUME 83.2 fL (81.0-99.0); MEAN CORPUSCULAR HEMOGLOBIN 28.2 pg (27.0-31.0); MEAN CORPUSCULAR HGB CONC 33.9 g/dL (33.0-37.0); MEAN PLATELET VOLUME 7.7 fL (7.2-11.7); MONO # 0.7 K/uL (0.0-0.8); MONO % 6.8 % (0.0-10.0); NRBC % 0.1 % (0.0-2.0); RED CELL DISTRIBUTION WIDTH 13.4 % (11.5-14.5); WHITE BLOOD COUNT 9.8 K/uL (4.8-10.8)
[2017-05-17 11:56] LABS: CHLORIDE 95 mmol/L (98-107); SODIUM 132 mmol/L (132-148)
[2017-05-17 11:57] LABS: POTASSIUM 4.1 mmol/L (3.6-5.2)
[2017-05-17 11:59] LABS: ALB/GLOB RATIO 0.9 (1.0-2.1); ALKALINE PHOSPHATASE 54 U/L (38-126); ALT/SGPT 29 U/L (9-52); AST/SGOT 22 U/L (14-36); BILIRUBIN,TOTAL 0.4 mg/dL (0.2-1.3); BLOOD UREA NITROGEN 23 mg/dL (7-17); CARBON DIOXIDE 26 mmol/L (22-30); GFR AFRICAN-AMERICAN > 60; GLUCOSE,RANDOM 196 mg/dL (65-105); TOTAL PROTEIN 5.3 g/dL (6.3-8.3)
[2017-05-17 12:00] LABS: CALCIUM 8.2 mg/dl (8.6-10.4)
[2017-05-17] MEDS ORDERED: Moxifloxacin IV 400mg/250ml NS 400 MG/250 ML BAG IVPB SCH (12:00)
--- NOTE | 2017-05-17 14:19 | RAD ---
PROCEDURE: CHEST RADIOGRAPH, 1 VIEW HISTORY: cough COMPARISON: 05/14/2017 FINDINGS: LUNGS: Mild venous congestion. Patchy left basilar airspace opacity. Small bilateral pleural effusions. PLEURA: As above. CARDIOVASCULAR: Calcification at the aortic knob. Cardiomegaly. OSSEOUS STRUCTURES: Degenerative changes in the spine and shoulders. VISUALIZED UPPER ABDOMEN: Suggestion of a possible small hiatal hernia at the left lung base. OTHER FINDINGS: None. IMPRESSION: Mild venous congestion. Patchy left basilar airspace opacity. Small bilateral pleural effusions. Suggestion of a possible small hiatal hernia at the left lung base.
--- NOTE | 2017-05-17 15:08 | VASCLAB ---
STUDY DESCRIPTION: HISTORY: Cold LL extremity PRIORS: No previous arterial exam. TECHNIQUE: Pulse volume recording waveforms and segmental pressures of bilateral lower extremities at multiple levels were obtained. Ankle Brachial Indices (ABIs) were calculated. Report prepared by DULCE MARIA Jaramillo RIGHT LOWER EXTREMITY: * Brachial artery: Pressure - 144 mmHg. * Low thigh: Pressure - Not optimally obtained. PVR waveform: Pulsatile * Calf: Pressure - Not optimally obtained. PVR waveform: Pulsatile * Posterior tibial Artery: Pressure - 166 mmHg: Ratio - 1.15 PVR waveform: Reduced * Dorsalis pedis Artery: Pressure - 148 mmHg: Ratio - 1.03 PVR waveform: Reduced * Great toe: Pressure - 44 mmHg: Ratio - 0.31 PVR waveform: Reduced Ankle brachial index (HARSHAD): 1.15 LEFT LOWER EXTREMITY: * Brachial artery: Pressure - 139 mmHg. * Low thigh: Pressure - Not optimally obtained. PVR waveform: Pulsatile * Calf: Pressure - Not optimally obtained. PVR waveform: Pulsatile * Posterior tibial Artery: Pressure - 220 mmHg: Ratio - n/c PVR waveform: Reduced * Dorsalis pedis Artery: Pressure - 143 mmHg: Ratio - 0.99 PVR waveform: Reduced * Great toe: Pressure - 0 mmHg: Ratio - 0 PVR waveform: Absent Ankle brachial index (HARSHAD): 0.99 OTHER FINDINGS: IMPRESSION: Right: Normal ankle brachial index of 1.15. However, arterial waveforms suggest mild to moderate arterial insufficiency involving the tibial, pedal and digital arteries Left: Normal ankle brachial index of 0.99. However, arterial waveforms suggest moderate to severe arterial insufficiency involving the tibial, pedal and digital arteries. Non pulsatile left great toe.
--- NOTE | 2017-05-17 15:14 | CP.PCM.DIS ---
<Dwain Renteria - Last Filed: 05/17/17 17:32> Provider - Provider Date of Admission: 05/06/17 23:59 Attending physician: Vandana Chacko DO Primary care physician: Dr. Velazquez Consults: Neuro: Dereck Nephro: Rosales Cardio: Carmencita, Vojanene Raul Optho: Jennifer Psych: Kailash Time Spent in preparation of Discharge (in minutes): 60 Diagnosis - Discharge Diagnosis (1) Afib Status: Acute Priority: Medium (2) Hypercholesteremia Status: Chronic Priority: Medium (3) Hypertension Status: Chronic Priority: Medium Hospital Course - Lab Results Lab Results: Micro Results 05/16/17 06:00 Blood-Venous Blood Culture - Preliminary NO GROWTH AFTER 24 HOURS 05/16/17 06:30 Blood-Venous Blood Culture - Preliminary NO GROWTH AFTER 24 HOURS 05/15/17 19:00 Blood-Venous Blood Culture - Preliminary NO GROWTH AFTER 24 HOURS 05/12/17 Unknown Urine Urine Culture - Final No Growth (<1,000 CFU/ML) Most Recent Lab Values WBC 9.8 K/uL (4.8-10.8) 05/17/17 11:26 RBC 3.55 Mil/uL (3.80-5.20) L 05/17/17 11:26 Hgb 10.0 g/dL (11.0-16.0) L 05/17/17 11:26 Hct 29.6 % (34.0-47.0) L 05/17/17 11:26 MCV 83.2 fL (81.0-99.0) 05/17/17 11:26 MCH 28.2 pg (27.0-31.0) 05/17/17 11:26 MCHC 33.9 g/dL (33.0-37.0) 05/17/17 11:26 RDW 13.4 % (11.5-14.5) 05/17/17 11:26 Plt Count 466 K/uL (130-400) H 05/17/17 11:26 MPV 7.7 fL (7.2-11.7) 05/17/17 11:26 Neut % (Auto) 79.1 % (50.0-75.0) H 05/17/17 11:26 Lymph % (Auto) 13.5 % (20.0-40.0) L 05/17/17 11:26 [place] % (Auto) 6.8 % (0.0-10.0) 05/17/17 11:26 Eos % (Auto) 0.4 % (0.0-4.0) 05/17/17 11:26 Baso % (Auto) 0.2 % (0.0-2.0) 05/17/17 11: Neut # 7.8 K/uL (1.8-7.0) H 05/17/17 11:26 Lymph # 1.3 K/uL (1.0-4.3) 05/17/17 11: [place] # 0.7 K/uL (0.0-0.8) 05/17/17 11: Eos # 0.0 K/uL (0.0-0.7) 05/17/17 11: Baso # 0.0 K/uL (0.0-0.2) 05/17/17 11:26 Neutrophils % (Manual) 90 % (50-75) H 05/14/17 07:04 Band Neutrophils % 1 % (0-2) 05/11/17 06:42 Lymphocytes % (Manual) 7 % (20-40) L 05/14/17 07:04 Monocytes % (Manual) 3 % (0-10) 05/14/17 07:04 Toxic Granulation Present 05/12/17 06:15 Platelet Estimate Slightly increased (NORMAL) H 05/14/17 07:04 RBC Morphology Normal 05/14/17 07:04 Polychromasia Slight 05/12/17 06:15 Hypochromasia (manual) Slight 05/12/17 06:15 Poikilocytosis (manual Slight 05/12/17 06:15 Anisocytosis (manual) Slight 05/12/17 06:15 Ovalocytes Slight 05/12/17 06:15 [place] Cells Slight 05/12/17 06:15 ESR 54 mm/hr (0-20) H 05/07/17 07:05 PT 16.1 SECONDS (9.7-12.2) H 05/11/17 06:42 INR 1.4 05/11/17 06:42 APTT 19 SECONDS (21-34) L 05/11/17 06:42 Protein C Antigen 92 % (70-140) 05/08/17 14:16 Protein C Activity 81 % (70-180) 05/08/17 14:16 Protein S Activity 104 % (60-140) 05/08/17 14:16 Protein S Antigen 103 % (70-140) 05/08/17 14:16 Factor V see note 05/08/17 14:16 Factor V Activity 82 % (65-150) 05/07/17 11:31 Sodium 132 mmol/L (132-148) 05/17/17 11:26 Potassium 4.1 mmol/L (3.6-5.2) 05/17/17 11:26 Chloride 95 mmol/L (98-107) L 05/17/17 11:26 Carbon Dioxide 26 mmol/L (22-30) 05/17/17 11:26 Anion Gap 15 (10-20) 05/17/17 11:26 BUN 23 mg/dL (7-17) H 05/17/17 11:26 Creatinine 1.0 MG/DL (0.7-1.2) 05/17/17 11:26 Est GFR ( Amer) > 60 05/17/17 11:26 Est GFR (Non-Af Amer) 54 05/17/17 11:26 POC Glucose (mg/dL) 233 mg/dL (65-110) H 05/17/17 11:01 Random Glucose 196 mg/dL (65-105) H 05/17/17 11:26 Hemoglobin A1c 9.2 % (4.2-6.5) H 05/06/17 22:50 Serum Osmolality 285 mosm/kg (272-300) 05/16/17 13:58 Calcium 8.2 mg/dl (8.6-10.4) L 05/17/17 11:26 Phosphorus 3.4 mg/dL (2.5-4.5) 05/16/17 06:33 Magnesium 2.4 mg/dL (1.6-2.3) H 05/16/17 06:33 Total Bilirubin 0.4 mg/dL (0.2-1.3) 05/17/17 11:26 AST 22 U/L (14-36) 05/17/17 11:26 ALT 29 U/L (9-52) 05/17/17 11:26 Alkaline Phosphatase 54 U/L (38-126) 05/17/17 11:26 Total Creatine Kinase 46 U/L (30-135) 05/13/17 17:23 CK-MB (Mass) 4.18 ng/mL (0.0-3.38) H 05/13/17 17:23 Troponin I 0.0510 ng/mL (0.00-0.120) 05/10/17 06:36 Troponin I, Quant 0.0180 ng/mL (0.00-0.120) 05/13/17 17:23 C-React Prot High Sens 5.57 mg/L (1.00-3.00) H 05/07/17 07:05 Total Protein 5.3 g/dL (6.3-8.3) L 05/17/17 11:26 Albumin 2.5 g/dL (3.5-5.0) L 05/17/17 11:26 Globulin 2.8 gm/dL (2.2-3.9) 05/17/17 11:26 Albumin/Globulin Ratio 0.9 (1.0-2.1) L 05/17/17 11:26 Triglycerides 161 mg/dL (0-149) H 05/07/17 07:05 Cholesterol 108 mg/dL (0-199) 05/07/17 07:05 LDL Cholesterol Direct 51 mg/dL (0-129) 05/07/17 07:05 HDL Cholesterol 41 mg/dL (30-70) 05/07/17 07:05 Vitamin B12 169 pg/mL (239-931) L 05/07/17 07:05 Folate 10.7 ng/mL 05/07/17 07:05 Homocysteine 22.0 umol/L (4.7-12.6) H 05/07/17 07:05 Free T4 1.85 ng/dL (0.78-2.19) 05/10/17 13:38 TSH 3rd Generation 0.82 mIU/L (0.46-4.68) 05/10/17 13:38 Urine Color Yellow (YELLOW) 05/12/17 12:20 Urine Clarity [place] (Clear) 05/12/17 12:20 Urine pH 5.0 (5.0-8.0) 05/12/17 12:20 Ur Specific [place] 1.015 (1.003-1.030) 05/12/17 12:20 Urine Protein Negative mg/dL (NEGATIVE) 05/12/17 12:20 Urine Glucose (UA) 3+ mg/dL (Normal) H 05/12/17 12:20 Urine Ketones 1+ mg/dL (NEGATIVE) H 05/12/17 12:20 Urine Blood 1+ (NEGATIVE) H 05/12/17 12:20 Urine Nitrate Negative (NEGATIVE) 05/12/17 12:20 Urine Bilirubin Negative (NEGATIVE) 05/12/17 12:20 Urine Urobilinogen Normal mg/dL (0.2-1.0) 05/12/17 12:20 Ur Leukocyte Esterase Trace Pepe/uL (Negative) 05/12/17 12:20 Urine WBC (Auto) 19 /hpf (0-5) H 05/12/17 12:20 Urine RBC (Auto) 11 /hpf (0-3) H 05/12/17 12:20 Ur Squamous Epith Cells 4 /hpf (0-5) 05/12/17 12:20 Urine Bacteria Rare (<OCC) 05/12/17 12:20 Hyaline Casts 3-5 /lpf (0-2) H 05/06/17 23:48 Urine Osmolality 307 mosm/kg (300-1000) 05/17/17 07:22 U Random Total Protein 17.0 mg/dL (0.0-12.0) H 05/07/17 18:05 Ur Random Sodium 13 mmol/L 05/17/17 07:22 Serum Immunofixation Detected (Not Detected) H 05/07/17 07:05 MILO 6 Profile Positive (NEGATIVE) H 05/07/17 11:31 MILO Titer 1:80 H 05/07/17 11:31 MILO Pattern Nucleolar H 05/07/17 11:31 [id number] Ab 26 ALBERT (<=20) H 05/07/17 11:31 Beta-2 GPI IgG Ab <9 SGU (<=20) 05/07/17 11:31 Beta-2 GPI IgM Ab <9 SMU (<=20) 05/07/17 11:31 Phosphatidylserine IgG <10 U/mL (<10) 05/07/17 11:31 Phosphatidylserine IgA <20 U/mL (<20) 05/07/17 11:31 Phosphatidylserine IgM <25 U/mL (<25) 05/07/17 11:31 Anti-Phospholipid Intrp see note 05/07/17 11:31 Anti-Cardiolipin IgG Ab <14 GPL (<=14) 05/07/17 11:31 Anti-Cardiolipin IgA Ab <11 APL (<=11) 05/07/17 11:31 Anti-Cardiolipin IgM Ab <12 MPL (<=12) 05/07/17 11:31 RPR Nonreactive (NONREACTIVE) 05/07/17 07:05 Blood Type B POSITIVE 05/06/17 23:34 Antibody Screen Negative 05/06/17 23:34 - Hospital Course Hospital Course: 77 y/o female with a PMH of DM, HTN, Hypercholesterolemia and 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 Grandson and daughter stated patient was at baseline in the park earlier that day. She was seen conversing, walking, and reading her Ipad. When they arrived home the patient was changing clothes when she began complaining of vision loss , similar to her previous CVA. Pt states her vision was completely blacked out while at home. and 4 hours later in the ED, she was able to say that the lights were on but could not determine shapes or moments. Admits to mild head weakness. Denied fevers, chills, dizziness, OLIVER, CP, SOB, Abd pain, n/v/d, recent travel, leg pain. Being treated for a UTI for past 2 days by her PMD due to painful urination for the past 2 weeks. Following admission from the ED, full workup of acute CVA was done. No tPA was given b/c patient had a prior history of hemorrhagic infarct to the right [employer]. Initial CTA head and next day MRI confirmed new onset large ischemic infarct of [employer] affecting the left occipital, medioposterior temporal lobes & thalamus. As per neuro recommendations, patient was started on Eliquis and ASA daily. Further workup included both cardiac and nephro evals for etiology of stroke. ROMIs were negative x 3. Bubble ECHO was negative for PFO. Cardio ruled etiology likely to be 2/2 paroxysmal Afib. 8 days into admission, patient was found to be increasingly somnolent. Repeat MRI showed evolving ischemia of left occipital lobe but no new infarct. Her medications were changed and fluids stopped. Her family started bringing in food for her to eat and soon she was increasingly aware and less drowsy. Cardio placed Linq cardiac monitoring device to further evaluate her abnormal rhythm. Today she is medically stable and ready for d/c to subacute rehab. . - Date & Time of H&P Date of H&P: 05/07/17 Time of H&P: 00:03 Discharge Exam - Head Exam Head Exam: NORMAL INSPECTION - Eye Exam Eye Exam: absent: Nystagmus, Periorbital swelling, Periorbital tenderness, Scleral icterus Pupil Exam: absent: Fixed, Miosis, Mydriatic, NORMAL ACCOMODATION, PERRL - ENT Exam ENT Exam: Mucous Membranes Moist - Respiratory Exam Respiratory Exam: NORMAL BREATHING PATTERN. absent: Accessory Muscle Use, Chest Wall Tenderness, Decreased Breath Sounds, Rales, Rhonchi, Wheezes, Respiratory Distress - Cardiovascular Exam Cardiovascular Exam: Irregular Rhythm. absent: Bradycardia, Diastolic murmur, Gallop, REGULAR RHYTHM, JVD, RRR, Rubs, Systolic Murmur - GI/Abdominal Exam GI & Abdominal Exam: Normal Bowel Sounds, Soft, Unremarkable. absent: Bruit, Diminished Bowel Sounds, Distended, Firm, Guarding, Hernia, Hyperactive Bowel Sounds, Hypoactive Bowel Sounds, Mass, Organomegaly, Pulsatile Mass, Rebound, Rigid, Tenderness - Extremities Exam Extremities exam: normal capillary refill, normal inspection - Neurological Exam Neurological exam: Alert - Skin Skin Exam: Dry, Intact, Normal Color, Warm Discharge Plan - Discharge Medications Prescriptions: RX: Apixaban [Eliquis] 5 mg PO BID #60 tab RX: diltiaZEM CD [Cardizem CD] 240 mg PO DAILY #30 cap RX: Folic Acid 1 mg PO DAILY #30 tab - Follow Up Plan Condition: FAIR Disposition: REHAB FACILITY/REHAB UNIT Patient education suggested?: Yes Instructions: Atrial Fibrillation (DC), Acute Kidney Injury (DC), Urinary Tract Infection in Women (DC), Chronic Hypertension (DC), Cardiac Loop Recorder Insertion (DC), Stroke (DC) Referrals: Jessee Keith MD [Staff Provider] - Dwain Carter MD [Staff Provider] - Yuriy Velazquez MD [Staff Provider] - Clinical Quality Measures - CQM - Stroke Antithrombotic Prescribed: Yes Anticoagulation Prescribed for Atrial Flutter, Atrial Fibrillation and History of:: Yes Statin prescribed: Yes - CQM - VTE Did patient receive overlap therapy during hosptialization?: No - CQM - Heart Failure Ejection Fraction: 40 % or Greater Left Ventricular Function to be assessed after discharge: No SEEMA Inhibitor Prescribed: Yes Beta-Prasanna Prescribed: Carvedilol Angiotensin II Receptor Prasanna Prescribed: No Contraindication/Reason for not providing: ACEI perscribed AnticoagulationTherapy for Atrial Fibrillation/Atrialflutter: Yes Aldosterone Antagonist Prescribed: No Contraindication/Reason for not providing: Not needed Hydralazine Nitrate Prescribed: Yes Implantable Cardioverter Defibrillator Therapy: No Contraindication/Reason for not providing: Not needed Cardiac Resynchronization Therapy Prescribed: No Contraindication/Reason for not providing: not needed Will be discharged to: [facility] Facility Follow Up Date (must be within 7 days from discharge): 05/24/17 (cofirm with Dr. Carter) Follow Up Time: 09:00 - Date & Time of Discharge Summary Date of Discharge Summary: 05/17/17 Time of Discharge Summary: 17:41 <Vandana Chacko V - Last Filed: 05/22/17 14:09> Provider - Provider Date of Admission: 05/06/17 23:59 Attending physician: Vandana Chacko DO Hospital Course - Lab Results Lab Results: Micro Results 05/16/17 06:00 Blood-Venous Blood Culture - Final NO GROWTH AFTER 5 DAYS 05/16/17 06:00 Blood-Venous Gram Stain - Final TEST NOT PERFORMED 05/16/17 06:30 Blood-Venous Blood Culture - Final NO GROWTH AFTER 5 DAYS 05/16/17 06:30 Blood-Venous Gram Stain - Final TEST NOT PERFORMED 05/15/17 19:00 Blood-Venous Blood Culture - Final NO GROWTH AFTER 5 DAYS 05/15/17 19:00 Blood-Venous Gram Stain - Final TEST NOT PERFORMED 05/12/17 Unknown Urine Urine Culture - Final No Growth (<1,000 CFU/ML) Most Recent Lab Values WBC 9.8 K/uL (4.8-10.8) 05/17/17 11:26 RBC 3.55 Mil/uL (3.80-5.20) L 05/17/17 11:26 Hgb 10.0 g/dL (11.0-16.0) L 05/17/17 11:26 Hct 29.6 % (34.0-47.0) L 05/17/17 11:26 MCV 83.2 fL (81.0-99.0) 05/17/17 11:26 MCH 28.2 pg (27.0-31.0) 05/17/17 11:26 MCHC 33.9 g/dL (33.0-37.0) 05/17/17 11:26 RDW 13.4 % (11.5-14.5) 05/17/17 11:26 Plt Count 466 K/uL (130-400) H 05/17/17 11:26 MPV 7.7 fL (7.2-11.7) 05/17/17 11:26 Neut % (Auto) 79.1 % (50.0-75.0) H 05/17/17 11:26 Lymph % (Auto) 13.5 % (20.0-40.0) L 05/17/17 11:26 [place] % (Auto) 6.8 % (0.0-10.0) 05/17/17 11:26 Eos % (Auto) 0.4 % (0.0-4.0) 05/17/17 11:26 Baso % (Auto) 0.2 % (0.0-2.0) 05/17/17 11:26 Neut # 7.8 K/uL (1.8-7.0) H 05/17/17 11:26 Lymph # 1.3 K/uL (1.0-4.3) 05/17/17 11:26 [place] # 0.7 K/uL (0.0-0.8) 05/17/17 11:26 Eos # 0.0 K/uL (0.0-0.7) 05/17/17 11:26 Baso # 0.0 K/uL (0.0-0.2) 05/17/17 11:26 Neutrophils % (Manual) 90 % (50-75) H 05/14/17 07:04 Band Neutrophils % 1 % (0-2) 05/11/17 06:42 Lymphocytes % (Manual) 7 % (20-40) L 05/14/17 07:04 Monocytes % (Manual) 3 % (0-10) 05/14/17 07:04 Toxic Granulation Present 05/12/17 06:15 Platelet Estimate Slightly increased (NORMAL) H 05/14/17 07:04 RBC Morphology Normal 05/14/17 07:04 Polychromasia Slight 05/12/17 06:15 Hypochromasia (manual) Slight 05/12/17 06:15 Poikilocytosis (manual Slight 05/12/17 06:15 Anisocytosis (manual) Slight 05/12/17 06:15 Ovalocytes Slight 05/12/17 06:15 [place] Cells Slight 05/12/17 06:15 ESR 54 mm/hr (0-20) H 05/07/17 07:05 PT 16.1 SECONDS (9.7-12.2) H 05/11/17 06:42 INR 1.4 05/11/17 06:42 APTT 19 SECONDS (21-34) L 05/11/17 06:42 Protein C Antigen 92 % (70-140) 05/08/17 14:16 Protein C Activity 81 % (70-180) 05/08/17 14:16 Protein S Activity 104 % (60-140) 05/08/17 14:16 Protein S Antigen 103 % (70-140) 05/08/17 14:16 Factor V see note 05/08/17 14:16 Factor V Activity 82 % (65-150) 05/07/17 11:31 Sodium 132 mmol/L (132-148) 05/17/17 11:26 Potassium 4.1 mmol/L (3.6-5.2) 05/17/17 11:26 Chloride 95 mmol/L (98-107) L 05/17/17 11:26 Carbon Dioxide 26 mmol/L (22-30) 05/17/17 11:26 Anion Gap 15 (10-20) 05/17/17 11:26 BUN 23 mg/dL (7-17) H 05/17/17 11:26 Creatinine 1.0 MG/DL (0.7-1.2) 05/17/17 11:26 Est GFR ( Amer) > 60 05/17/17 11:26 Est GFR (Non-Af Amer) 54 05/17/17 11:26 POC Glucose (mg/dL) 233 mg/dL (65-110) H 05/17/17 11:01 Random Glucose 196 mg/dL (65-105) H 05/17/17 11:26 Hemoglobin A1c 9.2 % (4.2-6.5) H 05/06/17 22:50 Serum Osmolality 285 mosm/kg (272-300) 05/16/17 13:58 Calcium 8.2 mg/dl (8.6-10.4) L 05/17/17 11:26 Phosphorus 3.4 mg/dL (2.5-4.5) 05/16/17 06:33 Magnesium 2.4 mg/dL (1.6-2.3) H 05/16/17 06:33 Total Bilirubin 0.4 mg/dL (0.2-1.3) 05/17/17 11:26 AST 22 U/L (14-36) 05/17/17 11:26 ALT 29 U/L (9-52) 05/17/17 11:26 Alkaline Phosphatase 54 U/L (38-126) 05/17/17 11:26 Total Creatine Kinase 46 U/L (30-135) 05/13/17 17:23 CK-MB (Mass) 4.18 ng/mL (0.0-3.38) H 05/13/17 17:23 Troponin I 0.0510 ng/mL (0.00-0.120) 05/10/17 06:36 Troponin I, Quant 0.0180 ng/mL (0.00-0.120) 05/13/17 17:23 C-React Prot High Sens 5.57 mg/L (1.00-3.00) H 05/07/17 07:05 Total Protein 5.3 g/dL (6.3-8.3) L 05/17/17 11:26 Albumin 2.5 g/dL (3.5-5.0) L 05/17/17 11:26 Globulin 2.8 gm/dL (2.2-3.9) 05/17/17 11:26 Albumin/Globulin Ratio 0.9 (1.0-2.1) L 05/17/17 11:26 Triglycerides 161 mg/dL (0-149) H 05/07/17 07:05 Cholesterol 108 mg/dL (0-199) 05/07/17 07:05 LDL Cholesterol Direct 51 mg/dL (0-129) 05/07/17 07:05 HDL Cholesterol 41 mg/dL (30-70) 05/07/17 07:05 Vitamin B12 169 pg/mL (239-931) L 05/07/17 07:05 Folate 10.7 ng/mL 05/07/17 07:05 Homocysteine 22.0 umol/L (4.7-12.6) H 05/07/17 07:05 Free T4 1.85 ng/dL (0.78-2.19) 05/10/17 13:38 TSH 3rd Generation 0.82 mIU/L (0.46-4.68) 05/10/17 13:38 Urine Color Yellow (YELLOW) 05/12/17 12:20 Urine Clarity [place] (Clear) 05/12/17 12:20 Urine pH 5.0 (5.0-8.0) 05/12/17 12:20 Ur Specific [place] 1.015 (1.003-1.030) 05/12/17 12:20 Urine Protein Negative mg/dL (NEGATIVE) 05/12/17 12:20 Urine Glucose (UA) 3+ mg/dL (Normal) H 05/12/17 12:20 Urine Ketones 1+ mg/dL (NEGATIVE) H 05/12/17 12:20 Urine Blood 1+ (NEGATIVE) H 05/12/17 12:20 Urine Nitrate Negative (NEGATIVE) 05/12/17 12:20 Urine Bilirubin Negative (NEGATIVE) 05/12/17 12:20 Urine Urobilinogen Normal mg/dL (0.2-1.0) 05/12/17 12:20 Ur Leukocyte Esterase Trace Pepe/uL (Negative) 05/12/17 12:20 Urine WBC (Auto) 19 /hpf (0-5) H 05/12/17 12:20 Urine RBC (Auto) 11 /hpf (0-3) H 05/12/17 12:20 Ur Squamous Epith Cells 4 /hpf (0-5) 05/12/17 12:20 Urine Bacteria Rare (<OCC) 05/12/17 12:20 Hyaline Casts 3-5 /lpf (0-2) H 05/06/17 23:48 Urine Osmolality 307 mosm/kg (300-1000) 05/17/17 07:22 U Random Total Protein 17.0 mg/dL (0.0-12.0) H 05/07/17 18:05 Ur Random Sodium 13 mmol/L 05/17/17 07:22 Serum Immunofixation Detected (Not Detected) H 05/07/17 07:05 MILO 6 Profile Positive (NEGATIVE) H 05/07/17 11:31 MILO Titer 1:80 H 05/07/17 11:31 MILO Pattern Nucleolar H 05/07/17 11:31 [id number] Ab 26 ALBERT (<=20) H 05/07/17 11:31 Beta-2 GPI IgG Ab <9 SGU (<=20) 05/07/17 11:31 Beta-2 GPI IgM Ab <9 SMU (<=20) 05/07/17 11:31 Phosphatidylserine IgG <10 U/mL (<10) 05/07/17 11:31 Phosphatidylserine IgA <20 U/mL (<20) 05/07/17 11:31 Phosphatidylserine IgM <25 U/mL (<25) 05/07/17 11:31 Anti-Phospholipid Intrp see note 05/07/17 11:31 Anti-Cardiolipin IgG Ab <14 GPL (<=14) 05/07/17 11:31 Anti-Cardiolipin IgA Ab <11 APL (<=11) 05/07/17 11:31 Anti-Cardiolipin IgM Ab <12 MPL (<=12) 05/07/17 11:31 RPR Nonreactive (NONREACTIVE) 05/07/17 07:05 Blood Type B POSITIVE 05/06/17 23:34 Antibody Screen Negative 05/06/17 23:34 Attending/Attestation - Attestation I have personally seen and examined this patient.: Yes I have fully participated in the care of the patient.: Yes I have reviewed all pertinent clinical information, including history, physical exam and plan: Yes Notes (Text): This is late computer entry for 05/17/17. Patient seen, examined, and case discussed with day-time resident. Discussed with cardiology, patient stable from their standpoint; recommended to follow-up in one month; and discontinue with Aspirin. Discussed with neurology, patient stable from their standpoint. Discussed with EPS-Cardiology, patient stable from their standpoint. Patient the follow-up regarding LINQ device as outpatient. Discussed with case management and social work, patient discharge to [place] under patient's primary care doctor, Dr Velazquez. Discussed with Dr. Nirmala Velazquez, regarding patient's hospital course including vision secondary to stroke, new onset atrial fib/flutter, urinary tract infection resolved, and family at this time does not want feeding tube will encourage by PO. Medications reconciled with day-time resident at time of discharge. New medications on discharge: Cardizem CD 240mg PO daily, Coreg 12.5mg PO once a daily, and Eliquis 5mg PO bid Medications discontinued: Metformin, Lasix, and Aspirin.
--- NOTE | 2017-05-17 15:17 | VASCLAB ---
PROCEDURE: Lower Extremity Venous Duplex Exam. HISTORY: Cold LL Extremity PRIORS: Last exam 05/10/2017,normail. TECHNIQUE: Bilateral common femoral, femoral, popliteal and posterior tibial, peroneal and great saphenous veins were evaluated. Flow was assessed with color Doppler, compressibility, assessment of phasic flow and augmentation response. Report prepared by DULCE MARIA Jaramillo FINDINGS: RIGHT: 1. Common Femoral Vein: 1.1. Compressibility - Fully compressible: Thrombus - None : Flow - Phasic: Augmentation -Normal: Reflux - None. 2. Femoral Vein: 2.1. Compressibility - Fully compressible: Thrombus - None : Flow - Phasic: Augmentation -Normal: Reflux - None. 3. Popliteal Vein: 3.1. Compressibility - Fully compressible: Thrombus - None : Flow - Phasic: Augmentation -Normal: Reflux - None. 4. Posterior Tibial Vein: 4.1. Compressibility - Fully compressible: Thrombus - None: Flow - Phasic: Augmentation -Normal: Reflux - None. 5. Peroneal Vein: 5.1. Compressibility - Fully compressible: Thrombus - None: Flow - Phasic: Augmentation -Normal: Reflux - None. 6. Great Saphenous Vein: 6.1. Compressibility - Fully compressible: Thrombus - None: Flow - Phasic: Augmentation - Normal: Reflux - None. LEFT: 1. Common Femoral Vein: 1.1. Compressibility - Fully compressible: Thrombus - None: Flow - Phasic: Augmentation -Normal: Reflux - None. 2. Femoral Vein: 2.1. Compressibility - Fully compressible: Thrombus - None: Flow - Phasic: Augmentation -Normal: Reflux - None. 3. Popliteal Vein: 3.1. Compressibility - Fully compressible: Thrombus - None : Flow - Phasic: Augmentation -Normal: Reflux - None. 4. Posterior Tibial Vein: 4.1. Compressibility - Fully compressible: Thrombus - None: Flow - Phasic: Augmentation -Normal: Reflux - None. 5. Peroneal Vein: 5.1. Compressibility - Fully compressible: Thrombus - None: Flow - Phasic: Augmentation -Normal: Reflux - None. 6. Great Saphenous Vein: 6.1. Compressibility - Fully compressible: Thrombus - None: Flow - Phasic: Augmentation - Normal: Reflux - None. OTHER FINDINGS: Right: None significant. Left: None significant. IMPRESSION: Right: No evidence of deep or superficial vein thrombosis of the right lower extremity. Normal valve function noted of the right side. Left: No evidence of deep or superficial vein thrombosis of the left lower extremity. Normal valve function noted of the left side.
[2017-05-17 16:39] VITALS: BP 109/73; PULSE 71; RESP 18
--- NOTE | 2017-05-18 19:37 | CARD ---
APPROVED REPORT EKG Measurement Heart [id number] <Conclusion> Atrial fibrillation Septal infarct, age undetermined ST & T wave abnormality, consider lateral ischemia Abnormal ECG
--- NOTE | 2017-05-18 19:40 | CARD ---
APPROVED REPORT EKG Measurement Heart [id number] <Conclusion> ? Atrial flutter with 2:1 conduction Septal infarct, age undetermined Marked ST abnormality, possible inferior subendocardial injury Abnormal ECG
--- NOTE | 2017-05-23 06:30 | CARD ---
APPROVED REPORT EKG Measurement Heart [id number] <Conclusion> Atrial fibrillation Septal infarct, age undetermined ST & T wave abnormality, consider inferolateral ischemia Abnormal ECG
--- NOTE | 2017-05-25 08:24 | CARD ---
APPROVED REPORT EKG Measurement Heart [id number] [place] [id number] <Conclusion> Normal sinus rhythm Septal infarct, age undetermined Abnormal ECG
--- NOTE | 2017-05-25 08:26 | CARD ---
APPROVED REPORT EKG Measurement Heart [id number] [place] [id number] <Conclusion> Normal sinus rhythm T wave abnormality, consider lateral ischemia Prolonged QT Abnormal ECG
--- NOTE | 2017-05-29 08:01 | OP ---
PROCEDURE DATE: 05/15/2017 INDICATION: Cryptogenic stroke. It was decided to bring the patient to the same day area for implantation of a loop recorder for monitoring for both bradycardia and cryptogenic stroke. PROCEDURE: Patient is prepped and draped in sterile fashion after consent was obtained, the area in the fourth intercostal space was prepped, incision made with the loop recorder with the scalpel. Lidocaine was given prior to that and the loop recorder was inserted subcutaneously into the skin. The patient tolerated the procedure well. The incision was closed with Steri-Strips and dressed sterilely with gauze and Tegaderm. The patient tolerated the procedure well. Family was present to discuss and transfer the patient back to her room in stable condition. Jessee Keith MD
== END 2017-05-17 16:30 | DRG 65 ==
LOC: C.ER 22:43 → C.6T 23:59
PROVIDERS: ADMIT Hospitalist; ATTEND Hospitalist
DX: I63.532 Cerebral infarction due to unspecified occlusion or stenosis of left posterior cerebral artery (principal); N39.0 Urinary tract infection, site not specified; N17.9 Acute kidney failure, unspecified; E11.40 Type 2 diabetes mellitus with diabetic neuropathy, unspecified; D68.51 Activated protein C resistance; E11.22 Type 2 diabetes mellitus with diabetic chronic kidney disease; H47.611 Cortical blindness, right side of brain; N18.3 Chronic kidney disease, stage 3 (moderate); E87.1 Hypo-osmolality and hyponatremia; Q21.1 Atrial septal defect; I16.9 Hypertensive crisis, unspecified; I48.92 Unspecified atrial flutter; H47.612 Cortical blindness, left side of brain; I48.0 Paroxysmal atrial fibrillation; I12.9 Hypertensive chronic kidney disease with stage 1 through stage 4 chronic kidney disease, or unspecified chronic kidney disease; H54.0 Blindness, both eyes; Z86.73 Personal history of transient ischemic attack (TIA), and cerebral infarction without residual deficits; E78.00 Pure hypercholesterolemia, unspecified; H40.9 Unspecified glaucoma; I34.0 Nonrheumatic mitral (valve) insufficiency; B96.20 Unspecified Escherichia coli [E. coli] as the cause of diseases classified elsewhere; E03.9 Hypothyroidism, unspecified; E78.5 Hyperlipidemia, unspecified; F06.4 Anxiety disorder due to known physiological condition; F43.21 Adjustment disorder with depressed mood; G93.89 Other specified disorders of brain; I70.0 Atherosclerosis of aorta; Z16.23 Resistance to quinolones and fluoroquinolones; Z79.01 Long term (current) use of anticoagulants; Z79.4 Long term (current) use of insulin; Z79.84 Long term (current) use of oral hypoglycemic drugs; Z79.82 Long term (current) use of aspirin

== ENCOUNTER 2017-05-18 12:20 | Inpatient (IN) | payer OTHER ==
[2017-05-18 12:24] VITALS: BMI 35.4
[2017-05-18] MEDS ORDERED: Atropine Sulfate 1 mg/ml Vial (1 ml) IVP ONE (12:49)
--- NOTE | 2017-05-18 12:59 | C.PDOC ---
History Of Present Illness Patient BIBA from [place] for evaluation of hypotension and bradycardia, given 500ml IV bolus in the field. Patient has h/o atrial fibrillation, recent CVA with residual visual deficits, HTN, DM. Time Seen by Provider: 05/18/17 12:47 Chief Complaint (Nursing): Weakness/Neurological Deficit History Per: EMS, Family History/Exam Limitations: clinical condition Current Symptoms Are (Timing): Still Present Past Medical History Reviewed: Historical Data, Nursing Documentation, Vital Signs Vital Signs: Last Vital Signs Temp 97.0 F L 05/21/17 08:00 Pulse 91 H 05/21/17 11:30 Resp 10 L 05/21/17 11:30 BP 179/92 H 05/21/17 10:41 Pulse Ox 100 05/21/17 11:30 - Medical History PMH: Arthritis, Diabetes, HTN, Hypercholesterolemia - [facility] Procedures CORONAR ARTERIOGR-2 CATH (06/24/15) LT HEART ANGIOCARDIOGRAM (06/24/15) RT/LEFT HEART CARD CATH (06/24/15) Family History: States: Other Other Family History: noncontributory - Social History Hx Tobacco Use: No Hx Alcohol Use: No Hx Substance Use: No - Immunization History Hx Tetanus Toxoid Vaccination: No Hx Influenza Vaccination: No Hx Pneumococcal Vaccination: No Review Of Systems Review Of Systems: ROS cannot be obtained secondary to pt's inabilty to answer questions. Physical Exam - Physical Exam Appears: Non-toxic, In Acute Distress (uncomfortable & weak appearing) Skin: Warm, Dry, Pale Head: Normacephalic Eye(s): bilateral: Normal Inspection Oral Mucosa: Moist Cardiovascular: Rhythm Irregular (bradycardic and irregularly irregular) Respiratory: Normal Breath Sounds, No Rales, No Rhonchi, No Wheezing Gastrointestinal/Abdominal: Normal Exam, Bowel Sounds, Soft, No Tenderness Extremity: Normal ROM, No Pedal Edema, No Calf Tenderness, No Deformity Neurological/Psych: Other (awake, alert, moving all 4 extremities spontaneously) ED Course And Treatment - Laboratory Results Result Diagrams: 05/21/17 06:16 05/21/17 06:15 ECG: Interpreted By Me, Viewed By Me (atrial fibrillation with SVR 52 bpm, left axis deviation, low voltage QRS, T wave inversions V5, V6) ECG Interpretation: Abnormal O2 Sat by Pulse Oximetry: 100 (RA) Pulse Ox Interpretation: Normal - Other Rad CXR X-Ray: Viewed By Me, Read By Radiologist Interpretation: Accession No. : [id number]. Patient Name / ID : LAURA MORGAN / [id number]. Exam Date : 05/18/2017 12:47:01 ( Approved ). Study Comment : Sex / Age : F / 77Y. Creator : Charmaine Pierce MD. Dictator : Nursing Program Chair : Data Analytics Analyst : Charmaine Pierce MD. Approver2 : Report Date : 05/18/2017 13:54:32. My Comment : . HISTORY: weakness. COMPARISON: Chest x-ray performed 05/17/17. TECHNIQUE: Chest, one view. FINDINGS: Examination limited by habitus. LUNGS: External defibrillator pad projects over the left upper lobe obscuring evaluation of the underlying parenchyma. Additional defibrillator pad projects over upper abdomen. Numerous external wires and leads. Radiopaque device projects over the left heart border /lower chest. No focal consolidation. PLEURA: No significant pleural effusion identified. No definite pneumothorax . CARDIOVASCULAR: Mild cardiomegaly. Atherosclerotic calcifications of the aorta. OSSEOUS STRUCTURES: Degenerative changes of the spine. VISUALIZED UPPER ABDOMEN: Unremarkable. OTHER FINDINGS : None. IMPRESSION: Cardiomegaly. Atherosclerotic calcifications of the aorta. Small left pleural effusion. Patchy left basilar airspace opacity. Progress Note: Patient significantly bradycardia, [id number]. Atropine 0.5mg IVP given, heart rate now 40s. Pacer pads placed and patient externally paced at 60ppm, 40mA with mechanical capture. Fentanyl 50mcg given for pain - (+) improvement afterwards. Discussed patient with Dr. Carter, would like Dr. Keith called. 1:35pm- Spoke with immigration guard Dr. Carpenter, agrees with ICU admission for severe bradycardia, current on external pacer. Dr. Whaley made aware of hospitalists service admission - Physician Consult Information Physician Contacted: Jessee Keith Outcome Of Conversation: Discussed patient with Dr. Keith, patient does not have prior h/o bradycardia, is s/p recently loop recording. He thinks may be medication induced, will see her on consult. Critical Care Time - Critical Care Note Total Time (in mins): 40 Documented critical care: time excludes all time spent performing seperately billable procedures. Disposition - Disposition Disposition: HOSPITALIZED Disposition Time: 13:42 Condition: SERIOUS - Clinical Impression Clinical Impression: Generalized weakness, Atrial fibrillation with slow ventricular response, Bradycardia Decision To Admit - Pt Status Changed To: Hospital Disposition Of: Inpatient - Admit Certification Admit to Inpatient:: After my assessment, the patient will require hospitalization for at least two midnights. This is because of the severity of symptoms shown, intensity of services needed, and/or the medical risk in this patient being treated as an outpatient. - InPatient: Physician Admission Certification: I certify that this patient requires 2 or more midnights of care for the following reason:: see notes - . Bed Request Type: ICU Admitting Physician: Petey Whaley Patient Diagnosis: Generalized weakness, Atrial fibrillation with slow ventricular response
[2017-05-18 13:01] LABS: BASO # 0.1 K/uL (0.0-0.2); BASO % 0.6 % (0.0-2.0); EOS % 0.3 % (0.0-4.0); HEMATOCRIT 33.3 % (34.0-47.0); LYMPH % 23.2 % (20.0-40.0); MEAN CORPUSCULAR HGB CONC 32.7 g/dL (33.0-37.0); MEAN PLATELET VOLUME 7.3 fL (7.2-11.7); MONO # 0.7 K/uL (0.0-0.8); MONO % 5.3 % (0.0-10.0); RED CELL DISTRIBUTION WIDTH 13.7 % (11.5-14.5); WHITE BLOOD COUNT 12.9 K/uL (4.8-10.8)
[2017-05-18 13:09] LABS: CHLORIDE 96 mmol/L (98-107); MEAN CELL VOLUME 85.6 fL (81.0-99.0)
[2017-05-18 13:10] LABS: POTASSIUM 4.9 mmol/L (3.6-5.2); SODIUM 133 mmol/L (132-148)
[2017-05-18 13:12] LABS: ALKALINE PHOSPHATASE 60 U/L (38-126); ALT/SGPT 29 U/L (9-52); AST/SGOT 24 U/L (14-36); BILIRUBIN,TOTAL 0.6 mg/dL (0.2-1.3); BLOOD UREA NITROGEN 18 mg/dL (7-17); CARBON DIOXIDE 22 mmol/L (22-30); GFR AFRICAN-AMERICAN > 60; GLUCOSE,RANDOM 274 mg/dL (65-105); TOTAL PROTEIN 5.7 g/dL (6.3-8.3)
[2017-05-18 13:13] LABS: CALCIUM 8.4 mg/dl (8.6-10.4)
[2017-05-18 13:16] LABS: INR 1.9
--- NOTE | 2017-05-18 13:55 | RAD ---
HISTORY: weakness COMPARISON: Chest x-ray performed 05/17/17 TECHNIQUE: Chest, one view. FINDINGS: Examination limited by habitus. LUNGS: External defibrillator pad projects over the left upper lobe obscuring evaluation of the underlying parenchyma. Additional defibrillator pad projects over upper abdomen. Numerous external wires and leads. Radiopaque device projects over the left heart border/lower chest. No focal consolidation. PLEURA: No significant pleural effusion identified. No definite pneumothorax . CARDIOVASCULAR: Mild cardiomegaly. Atherosclerotic calcifications of the aorta. OSSEOUS STRUCTURES: Degenerative changes of the spine. VISUALIZED UPPER ABDOMEN: Unremarkable. OTHER FINDINGS: None. IMPRESSION: Cardiomegaly. Atherosclerotic calcifications of the aorta. Small left pleural effusion. Patchy left basilar airspace opacity.
[2017-05-18] MEDS ORDERED: Sodium Chloride 0.9% 1,000 ML IV ONE (13:59)
[2017-05-18] MEDS ORDERED: Sodium Chloride 0.9% 1,000 ML ONE (14:03)
--- NOTE | 2017-05-18 14:59 | CP.PCM.CON ---
<SKIP BINGHAMJA - Last Filed: 05/18/17 14:44> History of Present Illness - History of Present Illness History of Present Illness: Julianne Bingham, PGY1, Consult Note for Dr. Keith (Cardiology): CC: bradycardia and hypotensive HPI: 77F with PMH CVA, afib, recent loop recorder insertion, DM2, HTN, HLD, BIBA from [facility] ([place]) for bradycardia and hypotension. In [facility], pt hypotensive at 90/60, HR 40-50's. Pt recently discharged from [facility] yesterday for acute CVA 2/2 likely afib. Pt denies any dizziness, headache, cp , sob, n/v/d, f/c, abdominal pain. In [facility], pt received Carvedilol 12.5mg PO bid and Cardizem 240mg daily, along with clonidine, losartan and lasix. In ED , HR 20-30's, given atropine 0.5mg IVP, placed on external pacemaker, HR 65 currently. Trop negx1, CKMB negx1, CXR shows cardiomegaly and atherosclerotic calcifications of aorta. Cardiology consulted for bradycardia management. PMHx: Afib, Diabetes, HTN, Hypercholesterolemia, CVA PSHx: , bilateral cataract surgery about 6 years ago Meds: see EMR Allergies: NKDA FamHx: denies SocHx: denies smoking, etoh, drugs. Lives with family PMD: Dr. Velazquez Review of Systems - Constitutional Constitutional: absent: Chills, Fatigue, Fever - EENT Eyes: absent: Blurred Vision, Change in Vision - Respiratory Respiratory: absent: Cough, Dyspnea - Gastrointestinal Gastrointestinal: absent: Abdominal Pain, Diarrhea - Musculoskeletal Musculoskeletal: absent: Numbness, Tingling - Integumentary Integumentary: absent: New Lesions, Rash - Neurological Neurological: Loss of Vision. absent: Headaches - Hematologic/Lymphatic Hematologic: absent: Easy Bleeding Past Patient History - Infectious Disease Hx of Infectious Diseases: None - Tetanus Immunizations Tetanus Immunization: Unknown - Past Medical History & Family History Past Medical History?: Yes - Past Social History Smoking Status: Never Smoked - CARDIAC Hx Hypercholesterolemia: Yes Hx Hypertension: Yes - PULMONARY Hx Respiratory Disorders: No - NEUROLOGICAL HX Cerebrovascular Accident: Yes (recent CVA) - HEENT Hx Cataracts: Yes - RENAL Hx Chronic Kidney Disease: No - ENDOCRINE/METABOLIC Hx Diabetes Mellitus Type 2: Yes - HEMATOLOGICAL/ONCOLOGICAL Hx Blood Transfusions: No Hx Blood Transfusion Reaction: No - MUSCULOSKELETAL/RHEUMATOLOGICAL Hx Arthritis: Yes - GASTROINTESTINAL Hx Gastrointestinal Disorders: No - PSYCHIATRIC Hx Substance Use: No - SURGICAL HISTORY Hx Surgeries: Yes Hx Cataract Extraction: Yes (Bilat eyes) Hx Section: Yes - ANESTHESIA Hx Anesthesia: Yes Hx Anesthesia Reactions: No Hx Malignant Hyperthermia: No Meds Allergies/Adverse Reactions: Allergies Allergy/AdvReac Type Severity Reaction Status Date / Time No Known Allergies Allergy Verified 05/18/17 12:33 - Medications Medications: Current Medications Sodium Chloride (Sodium Chloride 0.9%) 1,000 mls @ 1,000 mls/hr IV .Q1H ONE Stop: 05/18/17 14:58 Last Admin: 05/18/17 14:03 Dose: 1,000 mls/hr Physical Exam - Constitutional Appears: No Acute Distress - Head Exam Head Exam: ATRAUMATIC, NORMOCEPHALIC - Eye Exam Eye Exam: PERRL - ENT Exam ENT Exam: Mucous Membranes Moist - Respiratory Exam Respiratory Exam: Clear to Auscultation Bilateral - Cardiovascular Exam Additional comments: paced, HR 65, external pacemaker on. - GI/Abdominal Exam GI & Abdominal Exam: Normal Bowel Sounds, Soft. absent: Distended - Extremities Exam Extremities exam: Negative for: calf tenderness, pedal edema - Neurological Exam Neurological exam: Alert, Oriented x3 - Psychiatric Exam Psychiatric exam: Normal Mood - Skin Skin Exam: Dry, Warm Results - Vital Signs Recent Vital Signs: Last Vital Signs Temp 98.5 F 05/18/17 13:15 Pulse 52 L 05/18/17 14:21 Resp 16 05/18/17 14:21 BP 100/46 L 05/18/17 14:21 Pulse Ox 100 05/18/17 14:21 - Labs Result Diagrams: 05/18/17 12:57 05/18/17 12:57 Assessment & Plan - Assessment and Plan (Free Text) Assessment: 77F with PMH afib, CVA, DM2, HTN, HLD, hypothyroidism, presents for bradycardia requiring external pacemaker placement, HR 50-60's currently, transferred to ICU for further monitoring. initially admitted to [facility] for acute CVA , currently requiring cardio consult for insertion of LINQ monitor. Plan: Bradycardia 2/2 likely medication induced (BB and CCB): - Pt denies dizziness, cp, sob, diaphoresis - Pt received Carvedilol 12.5mg and Cardizem 240mg PO today at [facility]. - Pt hypotensive BP 90/60s and bradycardic HR 40-50's in [facility]. - In ED, pt's HR 20-30s, s/p atropine 0.5mg IVP and external pacemaker placement. - HR 50-60's currently. Normotensive. - Hx of HTN, afib, recent loop recorder placement 05/15 - ECHO (05/07/17): LV systolic fxn normal. EF 60-65%. HTN heart disease. Trace Aortic regurgitation. Mitral regurgitation mild. No tricuspid valve regurgitation noted. No pulmonic valvular regurgitation - trop negx1, CK-MB negx1. - Will hold BP medications. - Transfer to ICU for further care and monitoring. - Continue current management. Consider transvenous pacing if bradycardia worsens. Discussed with attending, Dr. Keith. Julianne Bingham PGY1 - Date & Time Date: 05/18/17 Time: 15:13 <Jessee Keith - Last Filed: 05/19/17 07:40> Meds - Medications Medications: Current Medications Heparin Sodium/Sodium Chloride (Heparin 15986 Units/250ml 1/2 Normal Saline) 25 ,000 units in 250 mls @ 7.512 mls/hr IV .Q24H PRN; Protocol; 12 UNITS/KG/HR PRN Reason: PROTOCOL Last Titration: 05/19/17 03:50 Dose: 9 units/kg/hr, 5.634 mls/hr Insulin Aspart (Novolog) 0 unit SC ACHS SHAHIDA PRN Reason: Protocol Last Admin: 05/18/17 21:32 Dose: Not Given Results - Vital Signs Recent Vital Signs: Last Vital Signs Temp 97.5 F L 05/19/17 04:00 Pulse 131 H 05/19/17 07:00 Resp 11 L 05/19/17 07:00 BP 111/78 05/19/17 06:37 Pulse Ox 100 05/19/17 07:00 - Labs Result Diagrams: 05/19/17 02:23 05/19/17 02:23 Labs: Laboratory Results - last 24 hr 05/18/17 05/18/17 05/19/17 16:33 21:29 02:23 WBC 10.9 H RBC 3.73 L Hgb 10.4 L Hct 31.2 L MCV 83.5 D MCH 27.9 MCHC 33.4 RDW 13.9 Plt Count 554 H MPV 7.2 Neut % (Auto) 81.2 H Lymph % (Auto) 12.1 L [place] % (Auto) 6.0 Eos % (Auto) 0.2 Baso % (Auto) 0.5 Neut # 8.9 H Lymph # 1.3 [place] # 0.7 Eos # 0.0 Baso # 0.1 APTT Sodium Potassium Chloride Carbon Dioxide Anion Gap BUN Creatinine Est GFR ( Amer) Est GFR (Non-Af Amer) POC Glucose (mg/dL) 230 H 202 H Random Glucose Calcium Phosphorus Magnesium Total Bilirubin AST ALT Alkaline Phosphatase Total Protein Albumin Globulin Albumin/Globulin Ratio TSH 3rd Generation 05/19/17 05/19/17 02:23 02:23 WBC RBC Hgb Hct MCV MCH MCHC RDW Plt Count MPV Neut % (Auto) Lymph % (Auto) [place] % (Auto) Eos % (Auto) Baso % (Auto) Neut # Lymph # [place] # Eos # Baso # APTT 271 H* D Sodium 135 Potassium 4.4 Chloride 100 Carbon Dioxide 20 L Anion Gap 19 BUN 15 Creatinine 0.8 Est GFR ( Amer) > 60 Est GFR (Non-Af Amer) > 60 POC Glucose (mg/dL) Random Glucose 172 H Calcium 8.0 L Phosphorus 3.2 Magnesium 1.5 L Total Bilirubin 0.5 AST 29 ALT 32 Alkaline Phosphatase 63 Total Protein 5.9 L Albumin 3.0 L Globulin 2.9 Albumin/Globulin Ratio 1.0 TSH 3rd Generation 1.03 Attending/Attestation - Attestation I have personally seen and examined this patient.: Yes I have fully participated in the care of the patient.: Yes I have reviewed all pertinent clinical information: Yes Notes (Text): 05/19/17 07:40 Pt doing much better heart rate improving off rate control at moment
[2017-05-18] MEDS ORDERED: Heparin25000 units/250ml 1/2NS 25,000 UNITS/250 ML BAG IV PRN (17:33)
--- NOTE | 2017-05-18 20:00 | CP.PCM.CON ---
<Rozina QuinonesEdilberto - Last Filed: 05/18/17 20:13> History of Present Illness - History of Present Illness History of Present Illness: CC: hypotension, bradycardia HPI: 77 year old female with past medical history of CVA w/visual deficits, HTN , Afib DM, hypercholesterolemia, and hypothyroidism, presents to the ED via ambulance for hypotension and bradycardia. As per the granddaughter (translating ), the patient was discharged from [facility] yesterday after being hospitalized for a CVA. At rehab this morning, the patient was diaphoretic, sugars were in the 440s, BP was 90/55, and heart rate in the 40s. Patient received all medications at rehab this morning. Patient currently feels okay and has no complaints. 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 Patient denies chest pain, abdominal pain, headaches, nausea, vomiting, diarrhea, constipation , dizziness, fevers, and dysuria. PMD: Dr. 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 see EMR for other medications. Review of Systems - Review of Systems Systems not reviewed;Unavailable: Language Barrier (Granddaughter (Barbara) translated ) - Constitutional Constitutional: absent: Fever - EENT Eyes: Loss of Vision Ears: absent: Dizziness - Cardiovascular Cardiovascular: Irregular Heart Rhythm. absent: Chest Pain, Diaphoresis, Dyspnea, Edema, Leg Edema, Palpitations - Respiratory Respiratory: absent: Cough, Dyspnea - Gastrointestinal Gastrointestinal: absent: Abdominal Pain, Constipation, Diarrhea, Nausea, Vomiting - Genitourinary Genitourinary: absent: Dysuria - Musculoskeletal Musculoskeletal: absent: Numbness, Tingling - Neurological Neurological: Loss of Vision. 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) Hx Cataracts: Yes Hx Glaucoma: Yes - RENAL Hx Chronic Kidney Disease: No - ENDOCRINE/METABOLIC Hx Diabetes Mellitus Type 2: Yes Hx Hypothyroidism: Yes - HEMATOLOGICAL/ONCOLOGICAL Hx Blood Transfusions: No Hx Blood Transfusion Reaction: No - MUSCULOSKELETAL/RHEUMATOLOGICAL Hx Arthritis: Yes Hx Falls: No Hx Fractures: No - GASTROINTESTINAL Hx Gastrointestinal Disorders: No - PSYCHIATRIC Hx Substance Use: No - SURGICAL HISTORY Hx Surgeries: Yes Hx Angiogram: Yes Hx Cataract Extraction: Yes (Bilat eyes) Hx Cardiac Catheterization: Yes Hx Section: Yes - ANESTHESIA Hx Anesthesia: Yes Hx Anesthesia Reactions: No Hx Malignant Hyperthermia: No Meds Allergies/Adverse Reactions: Allergies Allergy/AdvReac Type Severity Reaction Status Date / Time No Known Allergies Allergy Verified 05/18/17 12:33 - Medications Medications: Current Medications Heparin Sodium/Sodium Chloride (Heparin 09311 Units/250ml 1/2 Normal Saline) 25 ,000 units in 250 mls @ 7.512 mls/hr IV .Q24H PRN; Protocol; 12 UNITS/KG/HR PRN Reason: PROTOCOL Insulin Aspart (Novolog) 0 unit SC ACHS SHAHIDA PRN Reason: Protocol Physical Exam - Head Exam Head Exam: ATRAUMATIC, NORMAL INSPECTION, NORMOCEPHALIC - Eye Exam Eye Exam: absent: EOMI - ENT Exam ENT Exam: absent: Mucous Membranes Moist - Respiratory Exam Respiratory Exam: Clear to Auscultation Bilateral, NORMAL BREATHING PATTERN. absent: Rhonchi, Wheezes - Cardiovascular Exam Cardiovascular Exam: Irregular Rhythm, +S1, +S2. absent: REGULAR RHYTHM - GI/Abdominal Exam GI & Abdominal Exam: Normal Bowel Sounds, Soft. absent: Tenderness - Extremities Exam Extremities exam: Positive for: normal inspection, pedal pulses present ( diminished). Negative for: calf tenderness, pedal edema - Neurological Exam Neurological exam: Alert, Oriented x3 - Psychiatric Exam Psychiatric exam: Normal Affect, Normal Mood - Skin Skin Exam: Dry, Intact, Normal Color, Warm Results - Vital Signs Recent Vital Signs: Last Vital Signs Temp 97.1 F L 05/18/17 15:06 Pulse 50 L 05/18/17 15:50 Resp 14 05/18/17 15:50 BP 135/60 05/18/17 15:06 Pulse Ox 100 05/18/17 15:06 - Labs Result Diagrams: 05/18/17 12:57 05/18/17 12:57 Labs: Laboratory Results - last 24 hr 05/18/17 16:33 POC Glucose (mg/dL) 230 H Assessment & Plan - Assessment and Plan (Free Text) Assessment: 77 year old female with medical history of CVA with visual deficits, HTN, Afib, DM, hypercholesteremia, is consulted for bradycardia and hypotension. Patient was discharged from [facility] yesterday s/p CVA. Patient has history of A- fib on Eliquis, external pacemaker placed. Received IV bolus in field. Patient is currently hemodynamically stable. Neuro: - Alert, oriented x3 - Swallow eval- passed Pulm: - No acute issues CV: - Cardiology consutled- Dr. Keith, help appreciated - management as per Dr. Keith- considering pacemaker placement - Hypotension-- resolved; currently stable with BP of 135/60 - Hold antihypertensive medications - Hx of A-fib: hold Elquis pending pacemaker placement as per Dr. Keith - s/p (05/15) loop recorder placement - Troponin x1: negative - EKG: A-fib, slow ventricular response, ST&T wave abnormality - CXR: cardiomegaly, atherosclerotic calcifications of aorta - Monitor vitals Endo: - Hx of DM - ISS - Accuchecks GI: - No acute issues - Heart healthy diet (soft) MSK: - No acute issues Renal: - Monitor electrolytes ID: - Blood cx: f/u - Urine cx: f/u - UA: f/u Prophylaxis: - DVT: heparin drip; hold Eliquis pending decision for pacemaker placement. <Steven Carpenter - Last Filed: 05/19/17 17:37> Meds - Medications Medications: Current Medications Apixaban (Eliquis) 5 mg PO BID COUNTS INCLUDE 234 BEDS AT THE [facility] Last Admin: 05/19/17 13:30 Dose: 5 mg Diltiazem HCl (Cardizem Cd) 240 mg PO DAILY COUNTS INCLUDE 234 BEDS AT THE [facility] Last Admin: 05/19/17 11:00 Dose: 240 mg Insulin Aspart (Novolog) 0 unit SC [facility] COUNTS INCLUDE 234 BEDS AT THE [facility] PRN Reason: Protocol Last Admin: 05/19/17 16:17 Dose: Not Given Metformin HCl (Glucophage) 1,000 mg PO BID COUNTS INCLUDE 234 BEDS AT THE [facility] Last Admin: 05/19/17 13:24 Dose: 1,000 mg Results - Vital Signs Recent Vital Signs: Last Vital Signs Temp 97.5 F L 05/19/17 08:00 Pulse 97 H 05/19/17 14:00 Resp 12 05/19/17 14:00 BP 140/92 H 05/19/17 13:37 Pulse Ox 100 05/19/17 14:00 - Labs Result Diagrams: 05/19/17 02:23 05/19/17 02:23 Labs: Laboratory Results - last 24 hr 05/18/17 05/19/17 05/19/17 21:29 02:23 02:23 WBC 10.9 H RBC 3.73 L Hgb 10.4 L Hct 31.2 L MCV 83.5 D MCH 27.9 MCHC 33.4 RDW 13.9 Plt Count 554 H MPV 7.2 Neut % (Auto) 81.2 H Lymph % (Auto) 12.1 L [place] % (Auto) 6.0 Eos % (Auto) 0.2 Baso % (Auto) 0.5 Neut # 8.9 H Lymph # 1.3 [place] # 0.7 Eos # 0.0 Baso # 0.1 APTT Sodium 135 Potassium 4.4 Chloride 100 Carbon Dioxide 20 L Anion Gap 19 BUN 15 Creatinine 0.8 Est GFR ( Amer) > 60 Est GFR (Non-Af Amer) > 60 POC Glucose (mg/dL) 202 H Random Glucose 172 H Calcium 8.0 L Phosphorus 3.2 Magnesium 1.5 L Total Bilirubin 0.5 AST 29 ALT 32 Alkaline Phosphatase 63 Total Protein 5.9 L Albumin 3.0 L Globulin 2.9 Albumin/Globulin Ratio 1.0 TSH 3rd Generation 1.03 05/19/17 05/19/17 05/19/17 02:23 07:33 11:38 WBC RBC Hgb Hct MCV MCH MCHC RDW Plt Count MPV Neut % (Auto) Lymph % (Auto) [place] % (Auto) Eos % (Auto) Baso % (Auto) Neut # Lymph # [place] # Eos # Baso # APTT 271 H* D Sodium Potassium Chloride Carbon Dioxide Anion Gap BUN Creatinine Est GFR ( Amer) Est GFR (Non-Af Amer) POC Glucose (mg/dL) 231 H 345 H Random Glucose Calcium Phosphorus Magnesium Total Bilirubin AST ALT Alkaline Phosphatase Total Protein Albumin Globulin Albumin/Globulin Ratio TSH 3rd Generation 05/19/17 05/19/17 05/19/17 11:42 16:05 16:34 WBC RBC Hgb Hct MCV MCH MCHC RDW Plt Count MPV Neut % (Auto) Lymph % (Auto) [place] % (Auto) Eos % (Auto) Baso % (Auto) Neut # Lymph # [place] # Eos # Baso # APTT 79 H D Sodium Potassium Chloride Carbon Dioxide Anion Gap BUN Creatinine Est GFR ( Amer) Est GFR (Non-Af Amer) POC Glucose (mg/dL) 60 L 82 Random Glucose Calcium Phosphorus Magnesium Total Bilirubin AST ALT Alkaline Phosphatase Total Protein Albumin Globulin Albumin/Globulin Ratio [facility] 3rd Generation Attending/Attestation - Attestation I have personally seen and examined this patient.: Yes I have fully participated in the care of the patient.: Yes I have reviewed all pertinent clinical information: Yes Notes (Text): 05/19/17 17:34 I have seen and examined the patient. Medical records, lab studies, and imaging were reviewed by me and a management plan was formulated on multidisciplinary rounds with resident Dr. Quinones. I agree with their above documented assessment and plan. patient is being monitored for bradycardia, high likelihood of medication induced bradycardia. Stopping clonidine, Cardizem, carvedilol. Will monitor. Critical Care Time 35 minutes. Multi-disciplinary rounds were performed with house staff, nursing, speech therapy, respiratory therapy, pharmacy and nutrition with integrated input from the primary team/attending and other consulting services. The documented time is cumulative and includes review of patient data/exams/labs/chart review and examination of the patient on rounds and throughout the day; time is exclusive of any procedures or teaching time. 05/19/17 17:37
--- NOTE | 2017-05-18 20:35 | CP.PCM.HP ---
<Rozina QuinonesEdilberto - Last Filed: 05/18/17 20:32> History of Present Illness - History of Present Illness History of Present Illness: CC: hypotension, bradycardia HPI: 77 year old female with past medical history of CVA w/visual deficits, HTN , Afib DM, hypercholesterolemia, and hypothyroidism, presents to the ED via ambulance for hypotension and bradycardia. As per the granddaughter (translating ), the patient was discharged from [facility] yesterday after being hospitalized for a CVA. At rehab this morning, the patient was diaphoretic, sugars were in the 440s, BP was 90/55, and heart rate in the 40s. Patient received all medications at rehab this morning. Patient currently feels okay and has no complaints. 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 Patient denies chest pain, abdominal pain, headaches, nausea, vomiting, diarrhea, constipation , dizziness, fevers, and dysuria. PMD: Dr. 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 see EMR for other medications. Present on Admission - Present on Admission Any Indicators Present on Admission: Yes History of Uncontrolled Diabetes: Yes Review of Systems - Review of Systems Systems not reviewed;Unavailable: Language Barrier (translated by granddaughter (Barbara)) - Constitutional Constitutional: absent: Excessive Sweating, Fever, Headache - EENT Eyes: Change in Vision, Loss of Vision - Cardiovascular Cardiovascular: Irregular Heart Rhythm. absent: Chest Pain, Dyspnea, Leg Edema , Lightheadedness, Palpitations - Respiratory Respiratory: absent: Cough, Dyspnea - Gastrointestinal Gastrointestinal: absent: Abdominal Pain, Constipation, Diarrhea, Nausea, Vomiting - Genitourinary Genitourinary: absent: Dysuria, Pyuria - Musculoskeletal Musculoskeletal: absent: Numbness, Tingling - Integumentary Integumentary: absent: Swelling - Neurological Neurological: Loss of Vision. absent: Dizziness, Numbness, Focal Weakness, Headaches, Sensory Deficit, Tingling, Weakness - Endocrine Endocrine: absent: Excessive Sweating, Palpitations Past Patient History - Infectious Disease Hx of Infectious Diseases: None - Tetanus Immunizations Tetanus Immunization: Unknown - Past Medical History & Family History Past Medical History?: Yes - Past Social History Smoking Status: Never Smoked - CARDIAC Hx Atrial Fibrillation: Yes Hx Cardia Arrhythmia: Yes Hx Heart Attack: Yes Hx Hypercholesterolemia: Yes Hx Hypertension: Yes - PULMONARY Hx Respiratory Disorders: No - NEUROLOGICAL HX Cerebrovascular Accident: Yes (recent CVA) - HEENT 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) Hx Cataracts: Yes Hx Glaucoma: Yes - RENAL Hx Chronic Kidney Disease: No - ENDOCRINE/METABOLIC Hx Diabetes Mellitus Type 2: Yes Hx Hypothyroidism: Yes - HEMATOLOGICAL/ONCOLOGICAL Hx Blood Transfusions: No Hx Blood Transfusion Reaction: No - MUSCULOSKELETAL/RHEUMATOLOGICAL Hx Arthritis: Yes Hx Falls: No Hx Fractures: No - GASTROINTESTINAL Hx Gastrointestinal Disorders: No - PSYCHIATRIC Hx Substance Use: No - SURGICAL HISTORY Hx Surgeries: Yes Hx Angiogram: Yes Hx Cataract Extraction: Yes (Bilat eyes) Hx Cardiac Catheterization: Yes Hx Section: Yes - ANESTHESIA Hx Anesthesia: Yes Hx Anesthesia Reactions: No Hx Malignant Hyperthermia: No Meds Allergies/Adverse Reactions: Allergies Allergy/AdvReac Type Severity Reaction Status Date / Time No Known Allergies Allergy Verified 05/18/17 12:33 Physical Exam - Constitutional Appears: No Acute Distress - Head Exam Head Exam: ATRAUMATIC, NORMAL INSPECTION, NORMOCEPHALIC - Eye Exam Eye Exam: absent: Normal appearance - ENT Exam ENT Exam: Mucous Membranes Moist - Neck Exam Neck exam: Positive for: Normal Inspection - Respiratory Exam Respiratory Exam: Clear to Auscultation Bilateral, NORMAL BREATHING PATTERN. absent: Rhonchi, Wheezes - Cardiovascular Exam Cardiovascular Exam: Irregular Rhythm, +S1, +S2. absent: REGULAR RHYTHM - GI/Abdominal Exam GI & Abdominal Exam: Normal Bowel Sounds, Soft. absent: Tenderness - Extremities Exam Extremities exam: Positive for: normal inspection, pedal pulses present ( diminished). Negative for: calf tenderness, pedal edema, tenderness - Neurological Exam Neurological exam: Alert, CN II-XII Intact (CNII not intact), Oriented x3 Additional comments: Blind B/L UE and LE strength 5/5 - Psychiatric Exam Psychiatric exam: Normal Affect, Normal Mood - Skin Skin Exam: Dry, Intact, Normal Color, Warm Results - Vital Signs Recent Vital Signs: Last Vital Signs Temp 97.4 F L 05/18/17 16:00 Pulse 50 L 05/18/17 15:50 Resp 14 05/18/17 15:50 BP 135/60 05/18/17 15:06 Pulse Ox 100 05/18/17 15:06 - Labs Result Diagrams: 05/18/17 12:57 05/18/17 12:57 Labs: Laboratory Results - last 24 hr 05/18/17 16:33 POC Glucose (mg/dL) 230 H Assessment & Plan (1) Hypotension Assessment and Plan: Continue monitoring in ICU - Cardiology consutled- Dr. Keith, help appreciated - management as per Dr. Keith- considering pacemaker placement - Hypotension-- resolved; currently stable with BP of 135/60 - Hold antihypertensive medications - Hx of A-fib: hold Elquis pending pacemaker placement as per Dr. Keith - s/p (05/15) loop recorder placement - Troponin x1: negative - EKG: A-fib, slow ventricular response, ST&T wave abnormality - CXR: cardiomegaly, atherosclerotic calcifications of aorta - Monitor vitals Status: Acute (2) Bradycardia Assessment and Plan: Continue monitoring in ICU - Cardiology consutled- Dr. Keith, help appreciated - management as per Dr. Keith- considering pacemaker placement - Hypotension-- resolved; currently stable with BP of 135/60 - Hold antihypertensive medications - Hx of A-fib: hold Elquis pending pacemaker placement as per Dr. Keith - s/p (05/15) loop recorder placement - Troponin x1: negative - EKG: A-fib, slow ventricular response, ST&T wave abnormality - CXR: cardiomegaly, atherosclerotic calcifications of aorta - Monitor vitals Status: Acute (3) Afib Assessment and Plan: - Cardiology consutled- Dr. Keith, help appreciated - management as per Dr. Keith- considering pacemaker placement - Hypotension-- resolved; currently stable with BP of 135/60 - Hold antihypertensive medications - Hx of A-fib: hold Elquis pending pacemaker placement as per Dr. Keith - s/p (05/15) loop recorder placement - Troponin x1: negative - EKG: A-fib, slow ventricular response, ST&T wave abnormality - CXR: cardiomegaly, atherosclerotic calcifications of aorta - Monitor vitals Status: Acute Priority: Medium (4) Diabetes mellitus Assessment and Plan: - Hx of DM - ISS - Accuchecks Status: Acute (5) Stroke Assessment and Plan: - Alert, oriented x3 - Swallow eval- passed Status: Chronic (6) Prophylactic measure Assessment and Plan: Heparin drip; hold Eliquis pending decision for pacemaker placement Heart Healthy diet (soft) Status: Acute <Petey Whaley M - Last Filed: 05/19/17 15:22> Results - Vital Signs Recent Vital Signs: Last Vital Signs Temp 97.5 F L 05/19/17 08:00 Pulse 97 H 05/19/17 14:00 Resp 12 05/19/17 14:00 BP 140/92 H 05/19/17 13:37 Pulse Ox 100 05/19/17 14:00 - Labs Result Diagrams: 05/19/17 02:23 05/19/17 02:23 Labs: Laboratory Results - last 24 hr 05/18/17 05/18/17 05/19/17 16:33 21:29 02:23 WBC 10.9 H RBC 3.73 L Hgb 10.4 L Hct 31.2 L MCV 83.5 D MCH 27.9 MCHC 33.4 RDW 13.9 Plt Count 554 H MPV 7.2 Neut % (Auto) 81.2 H Lymph % (Auto) 12.1 L [place] % (Auto) 6.0 Eos % (Auto) 0.2 Baso % (Auto) 0.5 Neut # 8.9 H Lymph # 1.3 [place] # 0.7 Eos # 0.0 Baso # 0.1 APTT Sodium Potassium Chloride Carbon Dioxide Anion Gap BUN Creatinine Est GFR ( Amer) Est GFR (Non-Af Amer) POC Glucose (mg/dL) 230 H 202 H Random Glucose Calcium Phosphorus Magnesium Total Bilirubin AST ALT Alkaline Phosphatase Total Protein Albumin Globulin Albumin/Globulin Ratio TSH 3rd Generation 05/19/17 05/19/17 05/19/17 02:23 02:23 07:33 WBC RBC Hgb Hct MCV MCH MCHC RDW Plt Count MPV Neut % (Auto) Lymph % (Auto) [place] % (Auto) Eos % (Auto) Baso % (Auto) Neut # Lymph # [place] # Eos # Baso # APTT 271 H* D Sodium 135 Potassium 4.4 Chloride 100 Carbon Dioxide 20 L Anion Gap 19 BUN 15 Creatinine 0.8 Est GFR ( Amer) > 60 Est GFR (Non-Af Amer) > 60 POC Glucose (mg/dL) 231 H Random Glucose 172 H Calcium 8.0 L Phosphorus 3.2 Magnesium 1.5 L Total Bilirubin 0.5 AST 29 ALT 32 Alkaline Phosphatase 63 Total Protein 5.9 L Albumin 3.0 L Globulin 2.9 Albumin/Globulin Ratio 1.0 TSH 3rd Generation 1.03 05/19/17 05/19/17 11:38 11:42 WBC RBC Hgb Hct MCV MCH MCHC RDW Plt Count MPV Neut % (Auto) Lymph % (Auto) [place] % (Auto) Eos % (Auto) Baso % (Auto) Neut # Lymph # [place] # Eos # Baso # APTT 79 H D Sodium Potassium Chloride Carbon Dioxide Anion Gap BUN Creatinine Est GFR ( Amer) Est GFR (Non-Af Amer) POC Glucose (mg/dL) 345 H Random Glucose Calcium Phosphorus Magnesium Total Bilirubin AST ALT Alkaline Phosphatase Total Protein Albumin Globulin Albumin/Globulin Ratio TSH 3rd Generation Attending/Attestation - Attestation I have personally seen and examined this patient.: Yes I have fully participated in the care of the patient.: Yes I have reviewed all pertinent clinical information: Yes Notes (Text): 05/19/17 15:22 Patient was seen and examined at bedside with the resident Patient is been being treated for bradycardia and hypotension She will be monitored in ICU We have requested cardiology evaluation I discussed the plan of care with the resident and agree with the above history and assessment/plan.
[2017-05-18] MEDS: (Novolog) Insulin Aspart, Recombinant 100 u/ml 10 ml vial SC SCH (21:32)
[2017-05-19 02:27] LABS: BASO # 0.1 K/uL (0.0-0.2); BASO % 0.5 % (0.0-2.0); EOS % 0.2 % (0.0-4.0); HEMATOCRIT 31.2 % (34.0-47.0); LYMPH # 1.3 K/uL (1.0-4.3); LYMPH % 12.1 % (20.0-40.0); MEAN CELL VOLUME 83.5 fL (81.0-99.0); MEAN CORPUSCULAR HEMOGLOBIN 27.9 pg (27.0-31.0); MEAN CORPUSCULAR HGB CONC 33.4 g/dL (33.0-37.0); MEAN PLATELET VOLUME 7.2 fL (7.2-11.7); MONO # 0.7 K/uL (0.0-0.8); RED CELL DISTRIBUTION WIDTH 13.9 % (11.5-14.5); WHITE BLOOD COUNT 10.9 K/uL (4.8-10.8)
[2017-05-19 02:35] LABS: CHLORIDE 100 mmol/L (98-107); SODIUM 135 mmol/L (132-148)
[2017-05-19 02:36] LABS: POTASSIUM 4.4 mmol/L (3.6-5.2)
[2017-05-19 02:37] LABS: GFR AFRICAN-AMERICAN > 60
[2017-05-19 02:38] LABS: ALKALINE PHOSPHATASE 63 U/L (38-126); ALT/SGPT 32 U/L (9-52); AST/SGOT 29 U/L (14-36); BILIRUBIN,TOTAL 0.5 mg/dL (0.2-1.3); BLOOD UREA NITROGEN 15 mg/dL (7-17); CARBON DIOXIDE 20 mmol/L (22-30); GLUCOSE,RANDOM 172 mg/dL (65-105); PHOSPHOROUS 3.2 mg/dL (2.5-4.5); TOTAL PROTEIN 5.9 g/dL (6.3-8.3)
[2017-05-19 02:39] LABS: MAGNESIUM 1.5 mg/dL (1.6-2.3)
[2017-05-19 03:09] LABS: THYROID STIMULATING HORMONE 1.03 mIU/L (0.46-4.68)
[2017-05-19] MEDS ORDERED: Magnesium Sulfate 1 gm in D5W 1 GM/100 ML BAG IVPB ONE (06:44)
[2017-05-19] MEDS: (Novolog) Insulin Aspart, Recombinant 100 u/ml 10 ml vial SC SCH ×4 (08:17→22:04)
[2017-05-19] MEDS ORDERED: diltiaZEM 240 mg/24 Hours CD Cap PO SCH (10:00)
--- NOTE | 2017-05-19 11:12 | CP.PCM.CON ---
History of Present Illness - History of Present Illness History of Present Illness: Patient admitted for symptomatic bradycardia HR and BP improved after stopping Coreg and Cardizem Likely medication induced EP-Dr. Keith on board Patient responds commands and feeling well Review of Systems - Hematologic/Lymphatic Additional comments: - Constitutional Constitutional: absent: Fever, Chills, Sweats, Weakness - EENT Eyes: Blurred Vision, Change in Vision, Loss of Vision. absent: Spots in Vision Ears: absent: Decreased Hearing, Tinnitus, Dizziness Nose/Mouth/Throat: absent: Facial Pain, Neck Mass - Cardiovascular Cardiovascular: absent: Chest Pain, Dyspnea, Pain Radiating to Arm/Neck/Jaw - Respiratory Respiratory: absent: Cough, Dyspnea - Genitourinary Genitourinary: absent: Dysuria, Urinary Incontinence - Musculoskeletal Musculoskeletal: absent: Back Pain, Muscle Weakness, Numbness, Stiffness, Tingling - Neurological Neurological: Weakness. absent: Dizziness, Numbness, Headaches, Loss of Vision , Sensory Deficit, Syncope, Tingling - Psychiatric Psychiatric: absent: Anxiety, Depression - Endocrine Endocrine: absent: Fatigue, Palpitations Physical Exam - Additional Findings Additional findings: - Constitutional Appears: Non-toxic, No Acute Distress - Head Exam Head Exam: ATRAUMATIC, NORMAL INSPECTION, NORMOCEPHALIC - Eye Exam Eye Exam: EOMI, Normal appearance, PERRL. absent: Nystagmus, Periorbital swelling, Periorbital tenderness Additional comments: - L sided gaze preference - Patient only able to see that the lights are on - (+) corneal reflex - ENT Exam ENT Exam: Mucous Membranes Moist - Neck Exam Neck exam: Positive for: Normal Inspection. Negative for: Lymphadenopathy, Thyromegaly - Respiratory Exam Respiratory Exam: Clear to PA & Lateral, NORMAL BREATHING PATTERN. absent: Rales, Rhonchi, Wheezes - Cardiovascular Exam Cardiovascular Exam: REGULAR RHYTHM, +S1, +S2. absent: Diastolic murmur, Systolic Murmur - GI/Abdominal Exam GI & Abdominal Exam: Normal Bowel Sounds, Soft. absent: Tenderness - Extremities Exam Extremities exam: Positive for: pedal pulses present. 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) Hx Cataracts: Yes Hx Glaucoma: Yes - RENAL Hx Chronic Kidney Disease: No - ENDOCRINE/METABOLIC Hx Diabetes Mellitus Type 2: Yes Hx Hypothyroidism: Yes - HEMATOLOGICAL/ONCOLOGICAL Hx Blood Transfusions: No Hx Blood Transfusion Reaction: No - MUSCULOSKELETAL/RHEUMATOLOGICAL Hx Arthritis: Yes Hx Falls: No Hx Fractures: No - GASTROINTESTINAL Hx Gastrointestinal Disorders: No - PSYCHIATRIC Hx Substance Use: No - SURGICAL HISTORY Hx Surgeries: Yes Hx Angiogram: Yes Hx Cataract Extraction: Yes (Bilat eyes) Hx Cardiac Catheterization: Yes Hx Section: Yes - ANESTHESIA Hx Anesthesia: Yes Hx Anesthesia Reactions: No Hx Malignant Hyperthermia: No Meds Home Medications: Home Medication List Medication Instructions Recorded Confirmed Type Aspirin [Aspirin Chewable] 81 mg PO DAILY 05/25/17 Rx Brimonidine 0.2% [Alphagan 0.2% 0 ml OU TID #1 bottle 05/25/17 Rx Opht] Rosuvastatin Calcium [Crestor] 10 mg PO HS #30 tab 05/25/17 Rx Allergies/Adverse Reactions: Allergies Allergy/AdvReac Type Severity Reaction Status Date / Time No Known Allergies Allergy Verified 06/09/17 16:36 - Medications Medications: Current Medications Diltiazem HCl (Cardizem Cd) 240 mg PO DAILY [facility] Heparin Sodium/Sodium Chloride (Heparin 94839 Units/250ml 1/2 Normal Saline) 25 ,000 units in 250 mls @ 7.512 mls/hr IV .Q24H PRN; Protocol; 12 UNITS/KG/HR PRN Reason: PROTOCOL Last Titration: 05/19/17 03:50 Dose: 9 units/kg/hr, 5.634 mls/hr Insulin Aspart (Novolog) 0 unit SC ACHS [facility] PRN Reason: Protocol Last Admin: 05/19/17 08:17 Dose: 2 unit Results - Vital Signs Recent Vital Signs: Last Vital Signs Temp 97.5 F L 05/19/17 08:00 Pulse 120 H 05/19/17 10:39 Resp 18 05/19/17 10:39 BP 184/100 H 05/19/17 10:39 Pulse Ox 100 05/19/17 10:39 - Labs Result Diagrams: 05/25/17 10:50 05/25/17 10:50 Labs: Laboratory Results - last 24 hr 05/18/17 05/18/17 05/19/17 16:33 21:29 02:23 WBC 10.9 H RBC 3.73 L Hgb 10.4 L Hct 31.2 L MCV 83.5 D MCH 27.9 MCHC 33.4 RDW 13.9 Plt Count 554 H MPV 7.2 Neut % (Auto) 81.2 H Lymph % (Auto) 12.1 L Clare % (Auto) 6.0 Eos % (Auto) 0.2 Baso % (Auto) 0.5 Neut # 8.9 H Lymph # 1.3 Clare # 0.7 Eos # 0.0 Baso # 0.1 APTT Sodium Potassium Chloride Carbon Dioxide Anion Gap BUN Creatinine Est GFR ( Amer) Est GFR (Non-Af Amer) POC Glucose (mg/dL) 230 H 202 H Random Glucose Calcium Phosphorus Magnesium Total Bilirubin AST ALT Alkaline Phosphatase Total Protein Albumin Globulin Albumin/Globulin Ratio TSH 3rd Generation 05/19/17 05/19/17 05/19/17 02:23 02:23 07:33 WBC RBC Hgb Hct MCV MCH MCHC RDW Plt Count MPV Neut % (Auto) Lymph % (Auto) Clare % (Auto) Eos % (Auto) Baso % (Auto) Neut # Lymph # Clare # Eos # Baso # APTT 271 H* D Sodium 135 Potassium 4.4 Chloride 100 Carbon Dioxide 20 L Anion Gap 19 BUN 15 Creatinine 0.8 Est GFR ( Amer) > 60 Est GFR (Non-Af Amer) > 60 POC Glucose (mg/dL) 231 H Random Glucose 172 H Calcium 8.0 L Phosphorus 3.2 Magnesium 1.5 L Total Bilirubin 0.5 AST 29 ALT 32 Alkaline Phosphatase 63 Total Protein 5.9 L Albumin 3.0 L Globulin 2.9 Albumin/Globulin Ratio 1.0 TSH 3rd Generation 1.03 Assessment & Plan - Assessment and Plan (Free Text) Assessment: 1. A Fib 2. CVA 3. HTN 4. Sick sinus syndrome Patient admitted for symptomatic bradycardia HR and BP improved after stopping Coreg and Cardizem Likely medication induced EP-Dr. Keith on board Patient responds commands and feeling well
--- NOTE | 2017-05-19 16:30 | CP.PCM.PN ---
Subjective - Date & Time of Evaluation Date of Evaluation: 05/19/17 Time of Evaluation: 12:00 - Subjective Subjective: Patient was seen and examined in ICU. Patient to doesn't complain of any chest pain, palpitation. Patient complains of loss of vision Objective - Vital Signs/Intake and Output Vital Signs (last 24 hours): Temp Pulse Resp BP Pulse Ox 97.5 F L 97 H 12 140/92 H 100 05/19/17 08:00 05/19/17 14:00 05/19/17 14:00 05/19/17 13:37 05/19/17 14:00 Intake and Output: 05/19/17 05/19/17 06:59 18:59 Intake Total 229.3 681.1 Output Total 180 1000 Balance 49.3 -318.9 - Medications Medications: Current Medications Apixaban (Eliquis) 5 mg PO BID [facility] Last Admin: 05/19/17 13:30 Dose: 5 mg Diltiazem HCl (Cardizem Cd) 240 mg PO DAILY [facility] Last Admin: 05/19/17 11:00 Dose: 240 mg Insulin Aspart (Novolog) 0 unit SC ACHS [facility] PRN Reason: Protocol Last Admin: 05/19/17 16:17 Dose: Not Given Metformin HCl (Glucophage) 1,000 mg PO BID [facility] Last Admin: 05/19/17 13:24 Dose: 1,000 mg - Labs Labs: 05/19/17 02:23 05/19/17 02:23 PT 21.6 SECONDS (9.7-12.2) H 05/18/17 12:57 INR 1.9 05/18/17 12:57 APTT 79 SECONDS (21-34) H D 05/19/17 11:42 - Head Exam Head Exam: ATRAUMATIC, NORMOCEPHALIC - Eye Exam Eye Exam: PERRL - Respiratory Exam Respiratory Exam: Clear to Ausculation Bilateral - Cardiovascular Exam Cardiovascular Exam: Tachycardia, REGULAR RHYTHM, +S1, +S2 - GI/Abdominal Exam GI & Abdominal Exam: Soft. absent: Tenderness - Extremities Exam Extremities Exam: absent: Pedal Edema - Neurological Exam Neurological Exam: Alert Assessment and Plan (1) Bradycardia Assessment & Plan: Patient was bradycardic when she came to the hospital. However currently patient is tachycardic. The bradycardia was possibly secondary to medication. Cardiology is on board. Status: Acute (2) Hypotension Assessment & Plan: Hypotension has resolved. Likely secondary to medication. Status: Acute (3) Afib Assessment & Plan: Patient is in rapid A. fib now. Started on Cardizem. Patient is also on Eliquis. Status: Acute (4) Blurry vision Assessment & Plan: Secondary to previous stroke. Status: Acute (5) CKD (chronic kidney disease) stage 3, GFR 30-59 ml/min Assessment & Plan: Monitor renal function. Status: Acute (6) Diabetes mellitus Assessment & Plan: On Glucophage and insulin sliding scale. Status: Acute (7) Posterior cerebral circulation hemorrhagic infarction Assessment & Plan: Patient has history of posterior cerebral hemorrhagic stroke Status: Acute (8) Prophylactic measure Assessment & Plan: No need for prophylactic the DVT prophylaxis as patient is already on Eliquis Status: Acute
[2017-05-19] MEDS: Latanoprost 2.5 ml Opht Soln OU SCH (21:13)
--- NOTE | 2017-05-19 21:40 | CP.PCM.PN ---
Subjective - Date & Time of Evaluation Date of Evaluation: 05/19/17 Time of Evaluation: 16:05 - Subjective Subjective: Patient seen and evaluated Now becoming tachycardiac Cardizem started I discontinued Cardizem and started patient on her Home medication of Coreg 3.125 bid Gradually titrate Coreg up to control the heart rate Please avoid two anti chronotropic drugs (b blockers and Calcium blockers) together for now Patient just got admitted with HR of 20-30s If the HR control becomes a problem I suggest PPM then aggressive anti chronotropic medications ICU time spent 45 minutes Review of Systems - Hematologic/Lymphatic Additional comments: - Constitutional Constitutional: absent: Fever, Chills, Sweats, Weakness - EENT Eyes: Blurred Vision, Change in Vision, Loss of Vision. absent: Spots in Vision Ears: absent: Decreased Hearing, Tinnitus, Dizziness Nose/Mouth/Throat: absent: Facial Pain, Neck Mass - Cardiovascular Cardiovascular: absent: Chest Pain, Dyspnea, Pain Radiating to Arm/Neck/Jaw - Respiratory Respiratory: absent: Cough, Dyspnea - Genitourinary Genitourinary: absent: Dysuria, Urinary Incontinence - Musculoskeletal Musculoskeletal: absent: Back Pain, Muscle Weakness, Numbness, Stiffness, Tingling - Neurological Neurological: Weakness. absent: Dizziness, Numbness, Headaches, Loss of Vision , Sensory Deficit, Syncope, Tingling - Psychiatric Psychiatric: absent: Anxiety, Depression - Endocrine Endocrine: absent: Fatigue, Palpitations Physical Exam - Additional Findings Additional findings: - Constitutional Appears: Non-toxic, No Acute Distress - Head Exam Head Exam: ATRAUMATIC, NORMAL INSPECTION, NORMOCEPHALIC - Eye Exam Eye Exam: EOMI, Normal appearance, PERRL. absent: Nystagmus, Periorbital swelling, Periorbital tenderness Additional comments: - L sided gaze preference - Patient only able to see that the lights are on - (+) corneal reflex - ENT Exam ENT Exam: Mucous Membranes Moist - Neck Exam Neck exam: Positive for: Normal Inspection. Negative for: Lymphadenopathy, Thyromegaly - Respiratory Exam Respiratory Exam: Clear to PA & Lateral, NORMAL BREATHING PATTERN. absent: Rales, Rhonchi, Wheezes - Cardiovascular Exam Cardiovascular Exam: REGULAR RHYTHM, +S1, +S2. absent: Diastolic murmur, Systolic Murmur - GI/Abdominal Exam GI & Abdominal Exam: Normal Bowel Sounds, Soft. absent: Tenderness - Extremities Exam Extremities exam: Positive for: pedal pulses present. Negative for: pedal edema Objective - Vital Signs/Intake and Output Vital Signs (last 24 hours): Temp Pulse Resp BP Pulse Ox 97.9 F 112 H 12 157/58 H 100 05/19/17 20:00 05/19/17 20:02 05/19/17 20:00 05/19/17 20:00 05/19/17 20:00 Intake and Output: 05/19/17 05/20/17 18:59 06:59 Intake Total 921.1 0 Output Total 1400 Balance -478.9 0 - Medications Medications: Current Medications Apixaban (Eliquis) 5 mg PO BID [facility] Last Admin: 05/19/17 18:12 Dose: 5 mg Brimonidine Tartrate (Alphagan 0.2% Opht) 0 ml OU TID [facility] Carvedilol (Coreg) 3.125 mg PO BID [facility] Insulin Aspart (Novolog) 0 unit SC ACHS [facility] PRN Reason: Protocol Last Admin: 05/19/17 16:17 Dose: Not Given Latanoprost (Xalatan Opht) 0 ml OU HS [facility] Last Admin: 05/19/17 21:13 Dose: 2.5 ml Losartan Potassium (Cozaar) 100 mg PO DAILY [facility] Metformin HCl (Glucophage) 1,000 mg PO BID [facility] Last Admin: 05/19/17 17:44 Dose: Not Given Ondansetron HCl (Zofran Inj) 4 mg IVP Q6H PRN PRN Reason: Nausea/Vomiting Last Admin: 05/19/17 18:36 Dose: 4 mg - Labs Labs: 05/19/17 02:23 05/19/17 02:23 PT 21.6 SECONDS (9.7-12.2) H 05/18/17 12:57 INR 1.9 05/18/17 12:57 APTT 79 SECONDS (21-34) H D 05/19/17 11:42 Assessment and Plan - Assessment and Plan (Free Text) Assessment: 1. A Fib 2. CVA 3. HTN 4. Sick sinus syndrome Patient seen and evaluated Now becoming tachycardiac Cardizem started I discontinued Cardizem and started patient on her Home medication of Coreg 3.125 bid Gradually titrate Coreg up to control the heart rate Please avoid two anti chronotropic drugs (b blockers and Calcium blockers) together for now Patient just got admitted with HR of 20-30s If the HR control becomes a problem I suggest PPM then aggressive anti chronotropic medications
[2017-05-20 06:46] LABS: BASO % 0.1 % (0.0-2.0); EOS % 0.2 % (0.0-4.0); LYMPH # 1.1 K/uL (1.0-4.3); LYMPH % 10.5 % (20.0-40.0); MEAN CELL VOLUME 84.2 fL (81.0-99.0); MEAN CORPUSCULAR HEMOGLOBIN 28.5 pg (27.0-31.0); MEAN CORPUSCULAR HGB CONC 33.8 g/dL (33.0-37.0); MEAN PLATELET VOLUME 7.4 fL (7.2-11.7); MONO # 0.6 K/uL (0.0-0.8); MONO % 5.5 % (0.0-10.0); WHITE BLOOD COUNT 10.7 K/uL (4.8-10.8)
[2017-05-20 06:57] LABS: ALB/GLOB RATIO 1.2 (1.0-2.1); ALKALINE PHOSPHATASE 63 U/L (38-126); ALT/SGPT 32 U/L (9-52); AST/SGOT 28 U/L (14-36); BILIRUBIN,TOTAL 0.4 mg/dL (0.2-1.3); BLOOD UREA NITROGEN 12 mg/dL (7-17); CALCIUM 8.8 mg/dl (8.6-10.4); CARBON DIOXIDE 22 mmol/L (22-30); CHLORIDE 99 mmol/L (98-107); GFR AFRICAN-AMERICAN > 60; GLUCOSE,RANDOM 163 mg/dL (65-105); MAGNESIUM 1.8 mg/dL (1.6-2.3); PHOSPHOROUS 2.7 mg/dL (2.5-4.5); POTASSIUM 4.2 mmol/L (3.6-5.2); SODIUM 137 mmol/L (132-148)
[2017-05-20] MEDS: (Novolog) Insulin Aspart, Recombinant 100 u/ml 10 ml vial SC SCH ×4 (07:48→21:00)
[2017-05-20] MEDS: Brimonidine 0.2% Opth Sol (5ml) OU SCH ×3 (10:06→17:07)
--- NOTE | 2017-05-20 13:34 | CP.PCM.PN ---
<Stephanie Alvarez - Last Filed: 05/20/17 13:30> Subjective - Date & Time of Evaluation Date of Evaluation: 05/20/17 Time of Evaluation: 07:20 - Subjective Subjective: PGY [address] Whaley: Patient seen and examined at bedside this morning. She was sleepy an did not want talk. She appeared to be resting comfortably in bed. Her HR was noted to be in the 120s and BP with systolic in the 170s on the monitor. Per nursing the patient has no appetite and has not been eating. Unable to obtain ROS. She was able to tell Dr. Whaley that she does not have any appetite. Objective - Vital Signs/Intake and Output Vital Signs (last 24 hours): Temp Pulse Resp BP Pulse Ox 98.0 F 124 H 12 169/76 H 100 05/20/17 12:00 05/20/17 12:30 05/20/17 12:30 05/20/17 10:41 05/20/17 12:30 Intake and Output: 05/20/17 05/20/17 06:59 18:59 Intake Total 0 150 Output Total 400 300 Balance -400 -150 - Medications Medications: Current Medications Apixaban (Eliquis) 5 mg PO BID [facility] Last Admin: 05/20/17 10:11 Dose: 5 mg Brimonidine Tartrate (Alphagan 0.2% Opht) 0 ml OU TID [facility] Last Admin: 05/20/17 10:06 Dose: 1 drop Carvedilol (Coreg) 12.5 mg PO BID [facility] Insulin Aspart (Novolog) 0 unit SC ACHS [facility] PRN Reason: Protocol Last Admin: 05/20/17 12:14 Dose: Not Given Latanoprost (Xalatan Opht) 0 ml OU HS [facility] Last Admin: 05/19/17 21:13 Dose: 2.5 ml Losartan Potassium (Cozaar) 100 mg PO DAILY [facility] Last Admin: 05/20/17 10:11 Dose: 100 mg Metformin HCl (Glucophage) 1,000 mg PO BID [facility] Last Admin: 05/20/17 10:09 Dose: 1,000 mg Ondansetron HCl (Zofran Inj) 4 mg IVP Q6H PRN PRN Reason: Nausea/Vomiting Last Admin: 05/19/17 18:36 Dose: 4 mg - Labs Labs: 05/20/17 06:31 05/20/17 06:31 PT 21.6 SECONDS (9.7-12.2) H 05/18/17 12:57 INR 1.9 05/18/17 12:57 APTT 79 SECONDS (21-34) H D 05/19/17 11:42 - Constitutional Appears: Non-toxic, No Acute Distress - Head Exam Head Exam: ATRAUMATIC, NORMAL INSPECTION - Eye Exam Eye Exam: EOMI, PERRL Pupil Exam: NORMAL ACCOMODATION - ENT Exam ENT Exam: Mucous Membranes Moist - Respiratory Exam Respiratory Exam: Clear to Ausculation Bilateral, NORMAL BREATHING PATTERN. absent: Rales, Wheezes, Respiratory Distress - Cardiovascular Exam Cardiovascular Exam: Tachycardia, Irregular Rhythm, +S1, +S2 - GI/Abdominal Exam GI & Abdominal Exam: Soft, Normal Bowel Sounds. absent: Distended, Firm, Guarding, Tenderness - Extremities Exam Extremities Exam: Normal Inspection, Pedal Edema - Neurological Exam Neurological Exam: Alert, Awake, Oriented x3 - Psychiatric Exam Psychiatric exam: Depressed, Flat Affect - Skin Skin Exam: Dry, Intact, Normal Color Assessment and Plan - Assessment and Plan (Free Text) Assessment: (1) Bradycardia Assessment & Plan: Patient was bradycardic when she came to the hospital. However currently patient is tachycardic. The bradycardia was possibly secondary to medication. Cardiology is on board Dr. Carter, brandyn banerjee Coreg 12.5 mg PO BID (increased today from 3.125mg) Cozaar 100mg PO daily Status: Acute (2) Hypotension Assessment & Plan: Hypotension has resolved. Likely secondary to medication. Coreg 12.5 mg PO BID (increased today from 3.125mg) Cozaar 100mg PO daily Status: Acute (3) Afib Assessment & Plan: Rate controlled Eliquis 5mg PO BID Status: Acute (4) Blurry vision Assessment & Plan: Secondary to previous stroke. Status: Acute (5) CKD (chronic kidney disease) stage 3, GFR 30-59 ml/min Assessment & Plan: Monitor renal function. Status: Acute (6) Diabetes mellitus Assessment & Plan: Metformin 1000 mg PO BID [facility] ACHS [facility] Status: Acute (7) Posterior cerebral circulation hemorrhagic infarction Assessment & Plan: Patient has history of posterior cerebral hemorrhagic stroke Status: Acute (8) Prophylactic measure Assessment & Plan: No need for prophylactic the DVT prophylaxis as patient is already on Eliquis Zofran prn Patient is not eating well - will monitor and ask family if they can bring in food the patient would like to eat Status: Acute <Petey Whaley M - Last Filed: 05/20/17 16:32> Objective - Vital Signs/Intake and Output Vital Signs (last 24 hours): Temp Pulse Resp BP Pulse Ox 98.2 F 112 H 13 150/75 100 05/20/17 16:00 05/20/17 16:00 05/20/17 16:00 05/20/17 15:37 05/20/17 16:00 Intake and Output: 05/20/17 05/20/17 06:59 18:59 Intake Total 0 250 Output Total 400 300 Balance -400 -50 - Medications Medications: Current Medications Apixaban (Eliquis) 5 mg PO BID [facility] Last Admin: 05/20/17 10:11 Dose: 5 mg Brimonidine Tartrate (Alphagan 0.2% Opht) 0 ml OU TID [facility] Last Admin: 05/20/17 13:34 Dose: 1 drop Carvedilol (Coreg) 12.5 mg PO BID [facility] Insulin Aspart (Novolog) 0 unit SC ACHS [facility] PRN Reason: Protocol Last Admin: 05/20/17 16:19 Dose: Not Given Latanoprost (Xalatan Opht) 0 ml OU HS [facility] Last Admin: 05/19/17 21:13 Dose: 2.5 ml Losartan Potassium (Cozaar) 100 mg PO DAILY [facility] Last Admin: 05/20/17 10:11 Dose: 100 mg Metformin HCl (Glucophage) 1,000 mg PO BID [facility] Last Admin: 05/20/17 10:09 Dose: 1,000 mg Ondansetron HCl (Zofran Inj) 4 mg IVP Q6H PRN PRN Reason: Nausea/Vomiting Last Admin: 05/19/17 18:36 Dose: 4 mg - Labs Labs: 05/20/17 06:31 05/20/17 06:31 PT 21.6 SECONDS (9.7-12.2) H 05/18/17 12:57 INR 1.9 05/18/17 12:57 APTT 79 SECONDS (21-34) H D 05/19/17 11:42 Assessment and Plan (1) Bradycardia Status: Acute (2) Hypotension Status: Acute (3) Afib Status: Acute (4) Blurry vision Status: Acute (5) CKD (chronic kidney disease) stage 3, GFR 30-59 ml/min Status: Acute (6) Diabetes mellitus Status: Acute (7) Posterior cerebral circulation hemorrhagic infarction Status: Acute (8) Prophylactic measure Status: Acute Attending/Attestation - Attestation I have personally seen and examined this patient.: Yes I have fully participated in the care of the patient.: Yes I have reviewed all pertinent clinical information, including history, physical exam and plan: Yes Notes (Text): 05/20/17 16:31 Patient was seen and examined at bedside with the resident Patient appears comfortable. Patient is tachycardic hypertensive at this time. She is currently on losartan and Coreg. Titrate the medication for optimal control as per recommendations of cardiology I discussed the plan of care with the resident and I agree with the history and physical and assessment/plan recommended above.
[2017-05-20] MEDS: Latanoprost 2.5 ml Opht Soln OU SCH (20:59)
--- NOTE | 2017-05-20 21:28 | CP.PCM.PN ---
Subjective - Date & Time of Evaluation Date of Evaluation: 05/20/17 Time of Evaluation: 10:00 - Subjective Subjective: Events reviewed Coreg increased to 12.5 po bid due to increased HR Objective - Vital Signs/Intake and Output Vital Signs (last 24 hours): Temp Pulse Resp BP Pulse Ox 98.3 F 108 H 9 L 145/103 H 100 05/20/17 20:00 05/20/17 20:00 05/20/17 20:00 05/20/17 19:36 05/20/17 20:00 Intake and Output: 05/20/17 05/21/17 18:59 06:59 Intake Total 250 0 Output Total 300 200 Balance -50 -200 - Medications Medications: Current Medications Apixaban (Eliquis) 5 mg PO BID [facility] Last Admin: 05/20/17 17:05 Dose: 5 mg Brimonidine Tartrate (Alphagan 0.2% Opht) 0 ml OU TID [facility] Last Admin: 05/20/17 17:07 Dose: 1 drop Carvedilol (Coreg) 12.5 mg PO BID [facility] Last Admin: 05/20/17 17:05 Dose: 12.5 mg Insulin Aspart (Novolog) 0 unit SC ACHS [facility] PRN Reason: Protocol Last Admin: 05/20/17 21:00 Dose: Not Given Latanoprost (Xalatan Opht) 0 ml OU HS [facility] Last Admin: 05/20/17 20:59 Dose: 2.5 ml Losartan Potassium (Cozaar) 100 mg PO DAILY [facility] Last Admin: 05/20/17 10:11 Dose: 100 mg Metformin HCl (Glucophage) 1,000 mg PO BID [facility] Last Admin: 05/20/17 18:30 Dose: Not Given Ondansetron HCl (Zofran Inj) 4 mg IVP Q6H PRN PRN Reason: Nausea/Vomiting Last Admin: 05/19/17 18:36 Dose: 4 mg - Labs Labs: 05/20/17 06:31 05/20/17 06:31 PT 21.6 SECONDS (9.7-12.2) H 05/18/17 12:57 INR 1.9 05/18/17 12:57 APTT 79 SECONDS (21-34) H D 05/19/17 11:42 - Head Exam Head Exam: ATRAUMATIC - Eye Exam Eye Exam: EOMI, PERRL - ENT Exam ENT Exam: Mucous Membranes Moist - Neck Exam Neck Exam: Full ROM - Respiratory Exam Respiratory Exam: NORMAL BREATHING PATTERN - Cardiovascular Exam Cardiovascular Exam: Irregular Rhythm, +S1, +S2 - GI/Abdominal Exam GI & Abdominal Exam: Soft - Neurological Exam Neurological Exam: Awake - Psychiatric Exam Psychiatric exam: Flat Affect Assessment and Plan - Assessment and Plan (Free Text) Assessment: 1. CVA 2. A Fib 3. Tachycardia 4. HTN Continue uptitrate Coreg for HR before starting second medication If patient needs two medications for HR control, recommend prophylactic PPM
[2017-05-21 06:27] LABS: BASO % 0.3 % (0.0-2.0); EOS # 0.1 K/uL (0.0-0.7); EOS % 0.7 % (0.0-4.0); HEMATOCRIT 30.7 % (34.0-47.0); LYMPH # 1.2 K/uL (1.0-4.3); LYMPH % 9.3 % (20.0-40.0); MEAN CELL VOLUME 85.4 fL (81.0-99.0); MEAN CORPUSCULAR HEMOGLOBIN 28.6 pg (27.0-31.0); MEAN CORPUSCULAR HGB CONC 33.4 g/dL (33.0-37.0); MEAN PLATELET VOLUME 7.7 fL (7.2-11.7); MONO # 0.6 K/uL (0.0-0.8); MONO % 4.8 % (0.0-10.0); NRBC % 0.2 % (0.0-2.0); PLATELET COUNT 491 K/uL (130-400); RED CELL DISTRIBUTION WIDTH 14.3 % (11.5-14.5); WHITE BLOOD COUNT 13.3 K/uL (4.8-10.8)
[2017-05-21 07:02] LABS: ALB/GLOB RATIO 1.2 (1.0-2.1); ALKALINE PHOSPHATASE 68 U/L (38-126); ALT/SGPT 25 U/L (9-52); AST/SGOT 49 U/L (14-36); BILIRUBIN,TOTAL 0.4 mg/dL (0.2-1.3); BLOOD UREA NITROGEN 18 mg/dL (7-17); CALCIUM 8.8 mg/dl (8.6-10.4); CARBON DIOXIDE 23 mmol/L (22-30); CHLORIDE 100 mmol/L (98-107); GFR AFRICAN-AMERICAN > 60; GLUCOSE,RANDOM 172 mg/dL (65-105); PHOSPHOROUS 3.9 mg/dL (2.5-4.5); SODIUM 135 mmol/L (132-148); TOTAL PROTEIN 6.1 g/dL (6.3-8.3)
[2017-05-21 07:05] LABS: POTASSIUM 5.8 mmol/L (3.6-5.2)
[2017-05-21] MEDS: (Novolog) Insulin Aspart, Recombinant 100 u/ml 10 ml vial SC SCH ×5 (07:30→21:37)
[2017-05-21] MEDS ORDERED: Sod Polystyrene Sulf 15 gm/60 ml Oral Susp PO ONE (07:59)
[2017-05-21 08:06] LABS: NEUTROPHIL 82 % (50-75); TOTAL CELLS COUNTED 100
[2017-05-21 08:09] LABS: LARGE PLATELETS PRESENT
[2017-05-21] MEDS: Brimonidine 0.2% Opth Sol (5ml) OU SCH ×3 (09:28→19:15)
--- NOTE | 2017-05-21 11:16 | CP.PCM.PN ---
<Dwain Renteria - Last Filed: 05/21/17 11:10> Subjective - Date & Time of Evaluation Date of Evaluation: 05/21/17 Time of Evaluation: 11:10 - Subjective Subjective: PGY-[address] Price HPI: Patient seen and examined at bedside. Able to awaken without much effort. Responds to Son appropriately when questions are asked. Denies any N/V/D/F. Still has no appetite but family will try feeding her. Objective - Vital Signs/Intake and Output Vital Signs (last 24 hours): Temp Pulse Resp BP Pulse Ox 97.0 F L 89 12 169/77 H 100 05/21/17 08:00 05/21/17 10:00 05/21/17 04:09 05/21/17 09:44 05/21/17 04:09 Intake and Output: 05/21/17 05/21/17 06:59 18:59 Intake Total 240 500 Output Total 800 Balance -560 500 - Medications Medications: Current Medications Apixaban (Eliquis) 5 mg PO BID [facility] Last Admin: 05/21/17 09:44 Dose: 5 mg Aspirin (Aspirin Chewable) 81 mg PO DAILY [facility] Last Admin: 05/21/17 09:43 Dose: 81 mg Brimonidine Tartrate (Alphagan 0.2% Opht) 0 ml OU TID [facility] Last Admin: 05/21/17 09:28 Dose: 1 drop Carvedilol (Coreg) 12.5 mg PO BID [facility] Last Admin: 05/21/17 09:44 Dose: 12.5 mg Insulin Aspart (Novolog) 0 unit SC ACHS [facility] PRN Reason: Protocol Last Admin: 05/21/17 10:01 Dose: 2 unit Latanoprost (Xalatan Opht) 0 ml OU HS [facility] Last Admin: 05/20/17 20:59 Dose: 2.5 ml Losartan Potassium (Cozaar) 100 mg PO DAILY [facility] Last Admin: 05/21/17 09:48 Dose: 100 mg Metformin HCl (Glucophage) 1,000 mg PO BID [facility] Last Admin: 05/21/17 09:44 Dose: 1,000 mg Ondansetron HCl (Zofran Inj) 4 mg IVP Q6H PRN PRN Reason: Nausea/Vomiting Last Admin: 05/21/17 06:14 Dose: 4 mg Rosuvastatin Calcium (Crestor) 10 mg PO HS [facility] - Labs Labs: 05/21/17 06:16 05/21/17 06:15 PT 21.6 SECONDS (9.7-12.2) H 05/18/17 12:57 INR 1.9 05/18/17 12:57 APTT 79 SECONDS (21-34) H D 05/19/17 11:42 - Constitutional Appears: Non-toxic, No Acute Distress, Chronically Ill - Head Exam Head Exam: ATRAUMATIC, NORMAL INSPECTION, NORMOCEPHALIC - Eye Exam Eye Exam: absent: Conjunctival injection, Periorbital swelling, Periorbital tenderness Additional comments: blind - ENT Exam ENT Exam: Mucous Membranes Moist - Respiratory Exam Respiratory Exam: Clear to Ausculation Bilateral, NORMAL BREATHING PATTERN. absent: Rhonchi, Wheezes - Cardiovascular Exam Cardiovascular Exam: Tachycardia, Irregular Rhythm Additional comments: afib - GI/Abdominal Exam GI & Abdominal Exam: Soft, Normal Bowel Sounds. absent: Distended, Firm, Guarding, Rigid, Tenderness - Extremities Exam Extremities Exam: Normal Inspection. absent: Calf Tenderness, Joint Swelling, Pedal Edema - Neurological Exam Neurological Exam: Alert, Awake - Psychiatric Exam Psychiatric exam: Depressed - Skin Skin Exam: Dry, Intact, Normal Color, Warm Assessment and Plan - Assessment and Plan (Free Text) Assessment: Patient was recently d/c s/p stroke in stable condition, Readmitted for bradycardia (1) Bradycardia Assessment & Plan: Patient was bradycardic when she came to the hospital. However currently patient is tachycardic. The bradycardia was possibly secondary to medication. Cardiology is on board Dr. Carter, help appreciated Coreg 12.5 mg PO BID (increased today from 3.125mg) Cozaar 100mg PO daily Status: Acute (2) Hypotension Assessment & Plan: Hypotension has resolved. Likely secondary to medication. Coreg 12.5 mg PO BID (increased today from 3.125mg) Cozaar 100mg PO daily Status: Acute (3) Afib Assessment & Plan: Rate controlled Eliquis 5mg PO BID Status: Acute (4) Blurry vision Assessment & Plan: Secondary to previous stroke. Status: Acute (5) CKD (chronic kidney disease) stage 3, GFR 30-59 ml/min Assessment & Plan: Monitor renal function. Status: Acute (6) Diabetes mellitus Assessment & Plan: Metformin 1000 mg PO BID [facility] Status: Acute (7) Posterior cerebral circulation hemorrhagic infarction Assessment & Plan: Patient has history of posterior cerebral hemorrhagic stroke Status: Acute (8) Hyperkalemia Assessment & Plan: K+ 5.8 on 05/21 Gave Calcium gluconate/Kayexalate --> recheck BMP at 3pm Status: Acute (9) Prophylactic measure Assessment & Plan: No need for prophylactic the DVT prophylaxis as patient is already on Eliquis Zofran prn Patient is not eating well - will monitor and ask family if they can bring in food the patient would like to eat Status: Acute <Price,Peter H - Last Filed: 05/21/17 13:04> Objective - Vital Signs/Intake and Output Vital Signs (last 24 hours): Temp Pulse Resp BP Pulse Ox 97.0 F L 91 H 10 L 179/92 H 100 05/21/17 08:00 05/21/17 11:30 05/21/17 11:30 05/21/17 10:41 05/21/17 12:21 Intake and Output: 05/21/17 05/21/17 06:59 18:59 Intake Total 240 500 Output Total 800 Balance -560 500 - Medications Medications: Current Medications Apixaban (Eliquis) 5 mg PO BID [facility] Last Admin: 05/21/17 09:44 Dose: 5 mg Aspirin (Aspirin Chewable) 81 mg PO DAILY [facility] Last Admin: 05/21/17 09:43 Dose: 81 mg Brimonidine Tartrate (Alphagan 0.2% Opht) 0 ml OU TID [facility] Last Admin: 05/21/17 09:28 Dose: 1 drop Carvedilol (Coreg) 12.5 mg PO BID [facility] Last Admin: 05/21/17 09:44 Dose: 12.5 mg Insulin Aspart (Novolog) 0 unit SC ACHS [facility] PRN Reason: Protocol Last Admin: 05/21/17 12:39 Dose: 2 unit Latanoprost (Xalatan Opht) 0 ml OU HS [facility] Last Admin: 05/20/17 20:59 Dose: 2.5 ml Losartan Potassium (Cozaar) 100 mg PO DAILY [facility] Last Admin: 05/21/17 09:48 Dose: 100 mg Metformin HCl (Glucophage) 1,000 mg PO BID [facility] Last Admin: 05/21/17 09:44 Dose: 1,000 mg Ondansetron HCl (Zofran Inj) 4 mg IVP Q6H PRN PRN Reason: Nausea/Vomiting Last Admin: 05/21/17 06:14 Dose: 4 mg Rosuvastatin Calcium (Crestor) 10 mg PO HS [facility] - Labs Labs: 05/21/17 06:16 05/21/17 06:15 PT 21.6 SECONDS (9.7-12.2) H 05/18/17 12:57 INR 1.9 05/18/17 12:57 APTT 79 SECONDS (21-34) H D 05/19/17 11:42 Attending/Attestation - Attestation I have personally seen and examined this patient.: Yes I have fully participated in the care of the patient.: Yes I have reviewed all pertinent clinical information, including history, physical exam and plan: Yes Notes (Text): Medical attending: Patient was seen and examined by me, agrees the above note by senior medical writer. This is my first time meeting this patient during this admission so I had reviewed previous notes as well as discussed the senior medical writer. The patient was recently at [facility] where was noted that she was hypotensive as well as bradycardic. She was at [facility] following a large CVA that she had. She was previously on rate control medication for atrial fibrillation. When she came to the hospital her heart rate was in the low 40s. And since then yesterday cardiology increased her Coreg to 12.5 twice a day. She still is in atrial fibrillation and takes anticoagulation for this. Per review of the cardiac monitor technician her heart rate has been in the 110 range. Because of history of recent CVA as well as cardiac history. Would add on aspirin and statin class medication as well Thank you very much, Dev Price
--- NOTE | 2017-05-21 13:14 | CARD ---
APPROVED REPORT EKG Measurement Heart [id number] <Conclusion> Atrial fibrillation with slow ventricular response Low voltage QRS ST & T wave abnormality, consider lateral ischemia Abnormal ECG
--- NOTE | 2017-05-21 15:36 | CP.PCM.PN ---
<JULIANNE BINGHAM - Last Filed: 05/21/17 15:30> Subjective - Date & Time of Evaluation Date of Evaluation: 05/21/17 Time of Evaluation: 15:30 - Subjective Subjective: Julianne Bingham, PGY1, Progress Note for Dr. Keith: Pt seen and examined at bedside. No acute events overnight. Pt is awake, alert, but sleepy, denies cp, sob, n/v/d, f/c, abdominal pain. Objective - Vital Signs/Intake and Output Vital Signs (last 24 hours): Temp Pulse Resp BP Pulse Ox 97.0 F L 91 H 10 L 179/92 H 100 05/21/17 08:00 05/21/17 11:30 05/21/17 11:30 05/21/17 10:41 05/21/17 12:21 Intake and Output: 05/21/17 05/21/17 06:59 18:59 Intake Total 240 500 Output Total 800 Balance -560 500 - Medications Medications: Current Medications Apixaban (Eliquis) 5 mg PO BID [facility] Last Admin: 05/21/17 09:44 Dose: 5 mg Aspirin (Aspirin Chewable) 81 mg PO DAILY [facility] Last Admin: 05/21/17 09:43 Dose: 81 mg Brimonidine Tartrate (Alphagan 0.2% Opht) 0 ml OU TID [facility] Last Admin: 05/21/17 14:06 Dose: 1 drop Carvedilol (Coreg) 12.5 mg PO BID [facility] Last Admin: 05/21/17 09:44 Dose: 12.5 mg Insulin Aspart (Novolog) 0 unit SC ACHS [facility] PRN Reason: Protocol Last Admin: 05/21/17 12:39 Dose: 2 unit Latanoprost (Xalatan Opht) 0 ml OU HS [facility] Last Admin: 05/20/17 20:59 Dose: 2.5 ml Losartan Potassium (Cozaar) 100 mg PO DAILY [facility] Last Admin: 05/21/17 09:48 Dose: 100 mg Metformin HCl (Glucophage) 1,000 mg PO BID [facility] Last Admin: 05/21/17 09:44 Dose: 1,000 mg Ondansetron HCl (Zofran Inj) 4 mg IVP Q6H PRN PRN Reason: Nausea/Vomiting Last Admin: 08/07/17 06:14 Dose: 4 mg Rosuvastatin Calcium (Crestor) 10 mg PO HS [facility] - Labs Labs: 05/21/17 06:16 05/21/17 06:15 PT 21.6 SECONDS (9.7-12.2) H 05/18/17 12:57 INR 1.9 05/18/17 12:57 APTT 79 SECONDS (21-34) H D 05/19/17 11:42 - Constitutional Appears: No Acute Distress - Head Exam Head Exam: ATRAUMATIC, NORMOCEPHALIC - Eye Exam Eye Exam: PERRL - ENT Exam ENT Exam: Mucous Membranes Moist - Respiratory Exam Respiratory Exam: Clear to Ausculation Bilateral - Cardiovascular Exam Cardiovascular Exam: Irregular Rhythm. absent: Murmur Additional comments: afib - Extremities Exam Extremities Exam: absent: Calf Tenderness, Pedal Edema - Neurological Exam Neurological Exam: Alert, Awake, Oriented x3 - Psychiatric Exam Psychiatric exam: Normal Mood - Skin Skin Exam: Dry, Warm Assessment and Plan - Assessment and Plan (Free Text) Assessment: 77F with PMH afib, CVA, DM2, HTN, HLD, hypothyroidism, recent admission to [facility] for acute CVA, presents for bradycardia 2/2 likely medication (BB, CCB) induced. Pt required atropine 0.5mg IVP and external pacemaker initially, then developed tachycardia HR 110-130's, now HR 80-90s, will go for pacemaker on Sunday (05/23). Plan: Bradycardia 2/2 likely medication induced (BB and CCB): - Pt denies dizziness, cp, sob, diaphoresis - Pt received Carvedilol 12.5mg and Cardizem 240mg PO today at [facility]. - Pt hypotensive BP 90/60s and bradycardic HR 40-50's in [facility]. - In ED, pt's HR 20-30s, s/p atropine 0.5mg IVP and external pacemaker placement. - HR 80-90's currently. Normotensive. - Hx of HTN, afib, recent loop recorder placement 05/15 - ECHO (05/07/17): LV systolic fxn normal. EF 60-65%. HTN heart disease. Trace Aortic regurgitation. Mitral regurgitation mild. No tricuspid valve regurgitation noted. No pulmonic valvular regurgitation - trop negx1, CK-MB negx1. - C/w Coreg 12.5mg PO bid and Cozaar 100mg PO daily. - Pt scheduled for pacemaker placement on Sunday (05/23). Will hold Eliquis. Please make pt NPO after midnight on Sunday night. - Continue current management. Discussed with attending, Dr. Keith. Julianne Bingham, PGY1 <Jessee Keith - Last Filed: 05/22/17 20:38> Objective - Vital Signs/Intake and Output Vital Signs (last 24 hours): Temp Pulse Resp BP Pulse Ox 97.3 F L 117 H 18 191/99 H 100 05/22/17 16:00 05/22/17 17:00 05/22/17 16:00 05/22/17 17:31 05/22/17 16:00 - Medications Medications: Current Medications Apixaban (Eliquis) 5 mg PO BID [facility] Last Admin: 05/21/17 09:44 Dose: 5 mg Aspirin (Aspirin Chewable) 81 mg PO DAILY [facility] Last Admin: 05/22/17 09:54 Dose: 81 mg Brimonidine Tartrate (Alphagan 0.2% Opht) 0 ml OU TID [facility] Last Admin: 05/22/17 17:36 Dose: 1 drop Carvedilol (Coreg) 25 mg PO BID [facility] Last Admin: 05/22/17 17:31 Dose: 25 mg Heparin Sodium/Sodium Chloride (Heparin 91360 Units/250ml 1/2 Normal Saline) 25 ,000 units in 250 mls @ 8.001 mls/hr IV .Q24H PRN; Protocol; 12 UNITS/KG/HR PRN Reason: PROTOCOL Insulin Aspart (Novolog) 0 unit SC ACHS [facility] PRN Reason: Protocol Last Admin: 05/22/17 17:25 Dose: 2 unit Latanoprost (Xalatan Opht) 0 ml OU HS [facility] Last Admin: 05/21/17 21:39 Dose: 2.5 ml Losartan Potassium (Cozaar) 100 mg PO DAILY [facility] Last Admin: 05/22/17 10:03 Dose: 100 mg Metformin HCl (Glucophage) 1,000 mg PO BID [facility] Last Admin: 05/22/17 17:24 Dose: 1,000 mg Ondansetron HCl (Zofran Inj) 4 mg IVP Q6H PRN PRN Reason: Nausea/Vomiting Last Admin: 05/22/17 08:37 Dose: 4 mg Rosuvastatin Calcium (Crestor) 10 mg PO HS [facility] Last Admin: 05/21/17 21:39 Dose: 10 mg - Labs Labs: 05/22/17 19:36 05/22/17 11:18 PT 17.3 SECONDS (9.7-12.2) H 05/22/17 16:44 INR 1.5 05/22/17 16:44 APTT 35 SECONDS (21-34) H 05/22/17 19:36 Attending/Attestation - Attestation I have personally seen and examined this patient.: Yes I have fully participated in the care of the patient.: Yes I have reviewed all pertinent clinical information, including history, physical exam and plan: Yes Notes (Text): 05/22/17 20:38 Heart rate tachycardic too chiquis with meds for htn ppm back up pacing hold eliquis 2 days for ppm
[2017-05-21 20:53] LABS: CHLORIDE 100 mmol/L (98-107); POTASSIUM 4.5 mmol/L (3.6-5.2); SODIUM 139 mmol/L (132-148)
[2017-05-21 20:55] LABS: GFR AFRICAN-AMERICAN > 60
[2017-05-21 20:56] LABS: BLOOD UREA NITROGEN 18 mg/dL (7-17); CALCIUM 9.1 mg/dl (8.6-10.4); CARBON DIOXIDE 27 mmol/L (22-30); GLUCOSE,RANDOM 138 mg/dL (65-105)
[2017-05-21] MEDS: Latanoprost 2.5 ml Opht Soln OU SCH (21:39)
--- NOTE | 2017-05-21 21:45 | CP.PCM.PN ---
Subjective - Date & Time of Evaluation Date of Evaluation: 05/21/17 Time of Evaluation: 17:10 - Subjective Subjective: Patient seen and evaluated Denies symptoms Objective - Vital Signs/Intake and Output Vital Signs (last 24 hours): Temp Pulse Resp BP Pulse Ox 98.2 F 110 H 18 194/94 H 98 05/21/17 15:56 05/21/17 15:56 05/21/17 15:56 05/21/17 17:31 05/21/17 15:56 Intake and Output: 05/21/17 05/22/17 18:59 06:59 Intake Total 500 Balance 500 - Medications Medications: Current Medications Apixaban (Eliquis) 5 mg PO BID [facility] Last Admin: 05/21/17 09:44 Dose: 5 mg Aspirin (Aspirin Chewable) 81 mg PO DAILY [facility] Last Admin: 05/21/17 09:43 Dose: 81 mg Brimonidine Tartrate (Alphagan 0.2% Opht) 0 ml OU TID [facility] Last Admin: 05/21/17 19:15 Dose: 1 drop Carvedilol (Coreg) 25 mg PO BID [facility] Insulin Aspart (Novolog) 0 unit SC ACHS [facility] PRN Reason: Protocol Last Admin: 05/21/17 21:37 Dose: Not Given Latanoprost (Xalatan Opht) 0 ml OU HS [facility] Last Admin: 05/21/17 21:39 Dose: 2.5 ml Losartan Potassium (Cozaar) 100 mg PO DAILY [facility] Last Admin: 05/21/17 09:48 Dose: 100 mg Metformin HCl (Glucophage) 1,000 mg PO BID [facility] Last Admin: 05/21/17 17:31 Dose: 1,000 mg Ondansetron HCl (Zofran Inj) 4 mg IVP Q6H PRN PRN Reason: Nausea/Vomiting Last Admin: 05/21/17 06:14 Dose: 4 mg Rosuvastatin Calcium (Crestor) 10 mg PO HS [facility] Last Admin: 05/21/17 21:39 Dose: 10 mg - Labs Labs: 05/21/17 06:16 05/21/17 20:24 PT 21.6 SECONDS (9.7-12.2) H 05/18/17 12:57 INR 1.9 05/18/17 12:57 APTT 79 SECONDS (21-34) H D 05/19/17 11:42 - Head Exam Head Exam: ATRAUMATIC - Eye Exam Eye Exam: EOMI, PERRL - ENT Exam ENT Exam: Mucous Membranes Moist - Neck Exam Neck Exam: Full ROM - Respiratory Exam Respiratory Exam: NORMAL BREATHING PATTERN - Cardiovascular Exam Cardiovascular Exam: Irregular Rhythm, +S1, +S2 - GI/Abdominal Exam GI & Abdominal Exam: Soft, Normal Bowel Sounds - Neurological Exam Neurological Exam: Alert, Awake - Psychiatric Exam Psychiatric exam: Normal Mood Assessment and Plan - Assessment and Plan (Free Text) Assessment: 1. A Fib 2. CVA 3. HTN 4. Tachy Avery syndrome Recommend PPM D/W Family who are in agreement
[2017-05-22] MEDS: (Novolog) Insulin Aspart, Recombinant 100 u/ml 10 ml vial SC SCH ×4 (08:36→21:46)
[2017-05-22] MEDS: Brimonidine 0.2% Opth Sol (5ml) OU SCH ×3 (10:00→17:36)
--- NOTE | 2017-05-22 11:01 | CP.PCM.PN ---
<RAJESH BINGHAM - Last Filed: 05/22/17 15:42> Subjective - Date & Time of Evaluation Date of Evaluation: 05/22/17 Time of Evaluation: 10:57 - Subjective Subjective: Rajesh Bingham, PGY1, Progress Note for Dr. Keith: Pt seen and examined at bedside. No acute events overnight. Pt alert, awake, Ox3 , denies cp, sob, palpitations, diaphoresis, n/v/d, f/c. Objective - Vital Signs/Intake and Output Vital Signs (last 24 hours): Temp Pulse Resp BP Pulse Ox 98.1 F 123 H 20 167/84 H 99 05/22/17 08:00 05/22/17 09:00 05/22/17 08:00 05/22/17 09:54 05/22/17 08:00 Intake and Output: 05/22/17 05/22/17 06:59 18:59 Intake Total 500 Balance 500 - Medications Medications: Current Medications Apixaban (Eliquis) 5 mg PO BID [facility] Last Admin: 05/21/17 09:44 Dose: 5 mg Aspirin (Aspirin Chewable) 81 mg PO DAILY [facility] Last Admin: 05/22/17 09:54 Dose: 81 mg Brimonidine Tartrate (Alphagan 0.2% Opht) 0 ml OU TID [facility] Last Admin: 05/21/17 19:15 Dose: 1 drop Carvedilol (Coreg) 25 mg PO BID [facility] Last Admin: 05/22/17 09:54 Dose: 25 mg Insulin Aspart (Novolog) 0 unit SC ACHS [facility] PRN Reason: Protocol Last Admin: 05/22/17 08:36 Dose: 2 unit Latanoprost (Xalatan Opht) 0 ml OU HS [facility] Last Admin: 05/21/17 21:39 Dose: 2.5 ml Losartan Potassium (Cozaar) 100 mg PO DAILY [facility] Last Admin: 05/22/17 10:03 Dose: 100 mg Metformin HCl (Glucophage) 1,000 mg PO BID [facility] Last Admin: 05/22/17 10:06 Dose: 1,000 mg Ondansetron HCl (Zofran Inj) 4 mg IVP Q6H PRN PRN Reason: Nausea/Vomiting Last Admin: 05/22/17 08:37 Dose: 4 mg Rosuvastatin Calcium (Crestor) 10 mg PO HS [facility] Last Admin: 05/21/17 21:39 Dose: 10 mg - Labs Labs: 05/21/17 06:16 05/21/17 20:24 PT 21.6 SECONDS (9.7-12.2) H 05/18/17 12:57 INR 1.9 05/18/17 12:57 APTT 79 SECONDS (21-34) H D 05/19/17 11:42 - Constitutional Appears: No Acute Distress - Head Exam Head Exam: ATRAUMATIC, NORMOCEPHALIC - Eye Exam Eye Exam: PERRL - ENT Exam ENT Exam: Mucous Membranes Moist - Respiratory Exam Respiratory Exam: Clear to Ausculation Bilateral - Cardiovascular Exam Cardiovascular Exam: Irregular Rhythm - GI/Abdominal Exam GI & Abdominal Exam: Soft, Normal Bowel Sounds. absent: Tenderness - Extremities Exam Extremities Exam: absent: Calf Tenderness, Pedal Edema - Neurological Exam Neurological Exam: Alert, Awake, Oriented x3 - Psychiatric Exam Psychiatric exam: Normal Mood - Skin Skin Exam: Dry, Warm Assessment and Plan - Assessment and Plan (Free Text) Assessment: 77F with PMH afib, CVA, DM2, HTN, HLD, hypothyroidism, recent admission to [facility] for acute CVA, presents for bradycardia 2/2 likely medication (BB, CCB) induced. Pt required atropine 0.5mg IVP and external pacemaker initially, then developed tachycardia HR 110-130's, likely sick sinus syndrome. Pt scheduled for pacemaker tomorrow. Please keep pt NPO after midnight. Plan: Sick Sinus Syndrome: - Initially, on admission, bradycardia 2/2 likely medication induced (BB and CCB ). - Pt denies dizziness, cp, sob, diaphoresis - Pt received Carvedilol 12.5mg and Cardizem 240mg PO today at [facility]. - Pt hypotensive BP 90/60s and bradycardic HR 40-50's in [facility]. - In ED, pt's HR 20-30s, s/p atropine 0.5mg IVP and external pacemaker placement. - HR 80-90's currently. Maintain normotensive BP. - Hx of HTN, afib, recent loop recorder placement 05/15 - ECHO (05/07/17): LV systolic fxn normal. EF 60-65%. HTN heart disease. Trace Aortic regurgitation. Mitral regurgitation mild. No tricuspid valve regurgitation noted. No pulmonic valvular regurgitation - trop negx1, CK-MB negx1. - C/w Coreg 25mg PO bid and Cozaar 100mg PO daily. - Pt scheduled for pacemaker placement tomorrow (05/23). Will hold Eliquis. NPO after midnight. - Will hold eliquis. Can start heparin drip to bridge, stop at 6 AM on 05/23. - Continue current management. Discussed with attending, Dr. Keith. Rajesh Bingham, PGY1 <Jessee Keith A - Last Filed: 05/22/17 20:36> Objective - Vital Signs/Intake and Output Vital Signs (last 24 hours): Temp Pulse Resp BP Pulse Ox 97.3 F L 117 H 18 191/99 H 100 05/22/17 16:00 05/22/17 17:00 05/22/17 16:00 05/22/17 17:31 05/22/17 16:00 - Medications Medications: Current Medications Apixaban (Eliquis) 5 mg PO BID [facility] Last Admin: 05/21/17 09:44 Dose: 5 mg Aspirin (Aspirin Chewable) 81 mg PO DAILY [facility] Last Admin: 05/22/17 09:54 Dose: 81 mg Brimonidine Tartrate (Alphagan 0.2% Opht) 0 ml OU TID [facility] Last Admin: 05/22/17 17:36 Dose: 1 drop Carvedilol (Coreg) 25 mg PO BID [facility] Last Admin: 05/22/17 17:31 Dose: 25 mg Heparin Sodium/Sodium Chloride (Heparin 41449 Units/250ml 1/2 Normal Saline) 25 ,000 units in 250 mls @ 8.001 mls/hr IV .Q24H PRN; Protocol; 12 UNITS/KG/HR PRN Reason: PROTOCOL Insulin Aspart (Novolog) 0 unit SC ACHS [facility] PRN Reason: Protocol Last Admin: 05/22/17 17:25 Dose: 2 unit Latanoprost (Xalatan Opht) 0 ml OU HS [facility] Last Admin: 05/21/17 21:39 Dose: 2.5 ml Losartan Potassium (Cozaar) 100 mg PO DAILY [facility] Last Admin: 05/22/17 10:03 Dose: 100 mg Metformin HCl (Glucophage) 1,000 mg PO BID [facility] Last Admin: 05/22/17 17:24 Dose: 1,000 mg Ondansetron HCl (Zofran Inj) 4 mg IVP Q6H PRN PRN Reason: Nausea/Vomiting Last Admin: 05/22/17 08:37 Dose: 4 mg Rosuvastatin Calcium (Crestor) 10 mg PO HS [facility] Last Admin: 05/21/17 21:39 Dose: 10 mg - Labs Labs: 05/22/17 19:36 05/22/17 11:18 PT 17.3 SECONDS (9.7-12.2) H 05/22/17 16:44 INR 1.5 05/22/17 16:44 APTT 35 SECONDS (21-34) H 05/22/17 19:36 Attending/Attestation - Attestation I have personally seen and examined this patient.: Yes I have fully participated in the care of the patient.: Yes I have reviewed all pertinent clinical information, including history, physical exam and plan: Yes Notes (Text): 05/22/17 20:36 continue heparin for ppm tomorrow afternoon or
[2017-05-22 12:04] LABS: POTASSIUM 4.5 mmol/L (3.6-5.2)
[2017-05-22 12:06] LABS: BILIRUBIN,TOTAL 0.6 mg/dL (0.2-1.3); TOTAL PROTEIN 6.1 g/dL (6.3-8.3)
[2017-05-22] MEDS ORDERED: Heparin25000 units/250ml 1/2NS 25,000 UNITS/250 ML BAG IV PRN ×2 (13:17→20:30)
[2017-05-22 16:48] LABS: BASO # 0.1 K/uL (0.0-0.2); BASO % 0.4 % (0.0-2.0); EOS # 0.1 K/uL (0.0-0.7); EOS % 0.4 % (0.0-4.0); HEMATOCRIT 30.2 % (34.0-47.0); LYMPH # 1.2 K/uL (1.0-4.3); LYMPH % 9.5 % (20.0-40.0); MEAN CELL VOLUME 85.7 fL (81.0-99.0); MEAN CORPUSCULAR HEMOGLOBIN 28.3 pg (27.0-31.0); MEAN PLATELET VOLUME 7.3 fL (7.2-11.7); MONO # 0.8 K/uL (0.0-0.8); MONO % 6.2 % (0.0-10.0); PLATELET COUNT 433 K/uL (130-400); RED CELL DISTRIBUTION WIDTH 14.2 % (11.5-14.5); WHITE BLOOD COUNT 12.3 K/uL (4.8-10.8)
--- NOTE | 2017-05-22 16:53 | CP.PCM.PN ---
<Dwain Renteria - Last Filed: 05/22/17 18:06> Subjective - Date & Time of Evaluation Date of Evaluation: 05/22/17 Time of Evaluation: 16:51 - Subjective Subjective: PGY-[address] Chavez HPI: Patient was seen and examined at bedside. Resting comfortably in NAD. Translation was provided by co-resident doctor. Patient appears much more alert and oriented today as well as more verbal. She does not admit to any complaints at this time. ROS is limited by patient's baseline mental status. No other complaints are noted at this time. Objective - Vital Signs/Intake and Output Vital Signs (last 24 hours): Temp Pulse Resp BP Pulse Ox 97.3 F L 53 L 18 159/84 H 100 05/22/17 16:00 05/22/17 16:00 05/22/17 16:00 05/22/17 16:00 05/22/17 16:00 Intake and Output: 05/22/17 05/22/17 06:59 18:59 Intake Total 500 Balance 500 - Medications Medications: Current Medications Apixaban (Eliquis) 5 mg PO BID [facility] Last Admin: 05/21/17 09:44 Dose: 5 mg Aspirin (Aspirin Chewable) 81 mg PO DAILY [facility] Last Admin: 05/22/17 09:54 Dose: 81 mg Brimonidine Tartrate (Alphagan 0.2% Opht) 0 ml OU TID [facility] Last Admin: 05/22/17 14:03 Dose: 1 drop Carvedilol (Coreg) 25 mg PO BID [facility] Last Admin: 05/22/17 09:54 Dose: 25 mg Heparin Sodium/Sodium Chloride (Heparin 49058 Units/250ml 1/2 Normal Saline) 25 ,000 units in 250 mls @ 6.668 mls/hr IV .Q24H PRN; Protocol; 10 UNITS/KG/HR PRN Reason: PROTOCOL Last Admin: 05/22/17 13:58 Dose: 10 units/kg/hr, 6.668 mls/hr Insulin Aspart (Novolog) 0 unit SC ACHS [facility] PRN Reason: Protocol Last Admin: 05/22/17 14:02 Dose: 2 unit Latanoprost (Xalatan Opht) 0 ml OU HS [facility] Last Admin: 05/21/17 21:39 Dose: 2.5 ml Losartan Potassium (Cozaar) 100 mg PO DAILY [facility] Last Admin: 05/22/17 10:03 Dose: 100 mg Metformin HCl (Glucophage) 1,000 mg PO BID [facility] Last Admin: 05/22/17 10:06 Dose: 1,000 mg Ondansetron HCl (Zofran Inj) 4 mg IVP Q6H PRN PRN Reason: Nausea/Vomiting Last Admin: 05/22/17 08:37 Dose: 4 mg Rosuvastatin Calcium (Crestor) 10 mg PO HS [facility] Last Admin: 05/21/17 21:39 Dose: 10 mg - Labs Labs: 05/22/17 16:44 05/22/17 11:18 PT 21.6 SECONDS (9.7-12.2) H 05/18/17 12:57 INR 1.9 05/18/17 12:57 APTT 79 SECONDS (21-34) H D 05/19/17 11:42 - Constitutional Appears: Well, Non-toxic, Chronically Ill - Head Exam Head Exam: ATRAUMATIC, NORMAL INSPECTION, NORMOCEPHALIC - Eye Exam Eye Exam: absent: Periorbital swelling, Periorbital tenderness - ENT Exam ENT Exam: Mucous Membranes Moist - Neck Exam Neck Exam: Normal Inspection - Respiratory Exam Respiratory Exam: Clear to Ausculation Bilateral - Cardiovascular Exam Cardiovascular Exam: Irregular Rhythm. absent: Gallop, Rubs, Murmur - GI/Abdominal Exam GI & Abdominal Exam: Soft, Normal Bowel Sounds. absent: Bruit, Distended, Firm , Tenderness - Neurological Exam Neurological Exam: Alert, Awake, Oriented x3 Neuro motor strength exam: Left Upper Extremity: 5, Right Upper Extremity: 5, Left Lower Extremity: 5, Right Lower Extremity: 5 Additional comments: B/l upper and lower extremity sensation intact - Psychiatric Exam Psychiatric exam: Normal Affect, Normal Mood - Skin Skin Exam: Dry, Intact, Normal Color, Warm Assessment and Plan - Assessment and Plan (Free Text) Assessment: Patient was recently d/c s/p stroke in stable condition, Readmitted for bradycardia Sick Sinus Syndrome Intermittent tachycardia and Bradycardia Cards (Raul) adjusting meds * Coreg 25 mg PO BID * Cozaar 100mg PO QD Pacemaker scheduled for tomorrow w/ Voudouris Hypotension - Resolved Likely secondary to medication. Afib Rate controlled Anticoag switched to Heparin drip. 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 CKD Stage 3 Monitor renal function. 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 Hyperkalemia - Resolved K+ 5.8 on 05/21, dropped to 4.5 om 05/22 Prophylactic measure Held anticoag Zofran prn Patient is not eating well - will monitor and ask family if they can bring in food the patient would like to eat <Dev Price H - Last Filed: 05/23/17 07:28> Objective - Vital Signs/Intake and Output Vital Signs (last 24 hours): Temp Pulse Resp BP Pulse Ox 97.4 F L 100 H 20 133/81 100 05/22/17 23:15 05/23/17 01:00 05/22/17 23:15 05/22/17 23:15 05/22/17 23:15 Intake and Output: 05/23/17 05/23/17 06:59 18:59 Intake Total 260 Balance 260 - Medications Medications: Current Medications Apixaban (Eliquis) 5 mg PO BID [facility] Last Admin: 05/21/17 09:44 Dose: 5 mg Aspirin (Aspirin Chewable) 81 mg PO DAILY [facility] Last Admin: 05/22/17 09:54 Dose: 81 mg Brimonidine Tartrate (Alphagan 0.2% Opht) 0 ml OU TID [facility] Last Admin: 05/22/17 17:36 Dose: 1 drop Carvedilol (Coreg) 25 mg PO BID [facility] Last Admin: 05/22/17 17:31 Dose: 25 mg Heparin Sodium/Sodium Chloride (Heparin 18775 Units/250ml 1/2 Normal Saline) 25 ,000 units in 250 mls @ 8.001 mls/hr IV .Q24H PRN; Protocol; 12 UNITS/KG/HR PRN Reason: PROTOCOL Last Admin: 05/22/17 20:43 Dose: 12 units/kg/hr, 8.001 mls/hr Insulin Aspart (Novolog) 0 unit SC ACHS [facility] PRN Reason: Protocol Last Admin: 05/22/17 21:46 Dose: Not Given Latanoprost (Xalatan Opht) 0 ml OU HS [facility] Last Admin: 05/22/17 21:45 Dose: 2.5 ml Losartan Potassium (Cozaar) 100 mg PO DAILY [facility] Last Admin: 05/22/17 10:03 Dose: 100 mg Metformin HCl (Glucophage) 1,000 mg PO BID [facility] Last Admin: 05/22/17 17:24 Dose: 1,000 mg Ondansetron HCl (Zofran Inj) 4 mg IVP Q6H PRN PRN Reason: Nausea/Vomiting Last Admin: 05/22/17 08:37 Dose: 4 mg Rosuvastatin Calcium (Crestor) 10 mg PO HS [facility] Last Admin: 05/22/17 21:44 Dose: 10 mg - Labs Labs: 05/22/17 19:36 05/22/17 11:18 PT 17.3 SECONDS (9.7-12.2) H 05/22/17 16:44 INR 1.5 05/22/17 16:44 APTT 216 SECONDS (21-34) H* D 05/23/17 02:00 Attending/Attestation - Attestation I have personally seen and examined this patient.: Yes I have fully participated in the care of the patient.: Yes I have reviewed all pertinent clinical information, including history, physical exam and plan: Yes Notes (Text): 05/23/17 07:25 Medical attending: The patient was seen and examined by me, agrees to above note by medical accounts receivable specialist. Her family member was present at bedside and we discussed at length. Yesterday cardiology increased her Coreg to 25 mg orally twice a day. Furthermore because the way her telemetry is with the heart rate being the weight is it's recommended that she have a pacemaker placed. She previously has been on oral anticoagulation and so this has been held at this time we've changed over to a heparin drip for the time being. On physical exam the patient was more awake and she was verbal. The family at bedside explained that the diet remained poor at this time. With the help with family member translating, the patient was able to squeeze my hand, raise both her arms, and raise both legs while laying in bed she is also able to dorsiflex and plantarflex her feet as well. The family member who is present explained that she does participate with physical therapy however her vision is very very poor from the recent stroke. Because of this poor vision physical therapy has been somewhat limited I also spoke with patient's primary care physician Dr. Velazquez as well I gave him general update of the patient's condition. Thank you Dev Price
[2017-05-22 16:56] LABS: INR 1.5
[2017-05-22 17:15] LABS: BASOPHIL 1 % (0-2); NEUTROPHIL 83 % (50-75); TOTAL CELLS COUNTED 100
[2017-05-22 19:42] LABS: HEMATOCRIT 27.8 % (34.0-47.0); MEAN CELL VOLUME 85.6 fL (81.0-99.0); MEAN CORPUSCULAR HEMOGLOBIN 28.7 pg (27.0-31.0); MEAN CORPUSCULAR HGB CONC 33.5 g/dL (33.0-37.0); MEAN PLATELET VOLUME 7.4 fL (7.2-11.7); RED CELL DISTRIBUTION WIDTH 14.2 % (11.5-14.5); WHITE BLOOD COUNT 10.7 K/uL (4.8-10.8)
[2017-05-22] MEDS: Latanoprost 2.5 ml Opht Soln OU SCH (21:45)
[2017-05-23 07:38] LABS: BASO % 0.4 % (0.0-2.0); EOS % 0.3 % (0.0-4.0); HEMATOCRIT 29.5 % (34.0-47.0); LYMPH # 1.1 K/uL (1.0-4.3); LYMPH % 11.5 % (20.0-40.0); MEAN CELL VOLUME 85.9 fL (81.0-99.0); MEAN CORPUSCULAR HEMOGLOBIN 28.8 pg (27.0-31.0); MEAN CORPUSCULAR HGB CONC 33.5 g/dL (33.0-37.0); MEAN PLATELET VOLUME 8.1 fL (7.2-11.7); MONO # 0.5 K/uL (0.0-0.8); MONO % 5.1 % (0.0-10.0); RED CELL DISTRIBUTION WIDTH 14.5 % (11.5-14.5); WHITE BLOOD COUNT 9.3 K/uL (4.8-10.8)
[2017-05-23 07:47] LABS: POTASSIUM 4.9 mmol/L (3.6-5.2)
[2017-05-23 07:49] LABS: BILIRUBIN,TOTAL 0.6 mg/dL (0.2-1.3)
[2017-05-23 07:50] LABS: CALCIUM 8.7 mg/dl (8.6-10.4); TOTAL PROTEIN 6.1 g/dL (6.3-8.3)
[2017-05-23] MEDS: (Novolog) Insulin Aspart, Recombinant 100 u/ml 10 ml vial SC SCH ×3 (08:13→22:39)
[2017-05-23] MEDS: Brimonidine 0.2% Opth Sol (5ml) OU SCH ×2 (09:17→22:38)
--- NOTE | 2017-05-23 09:22 | CP.PCM.PN ---
<Gerardo Baltazar - Last Filed: 05/23/17 09:17> Subjective - Date & Time of Evaluation Date of Evaluation: 05/23/17 Time of Evaluation: 09:19 - Subjective Subjective: Dr. Gerardo Baltazar PGY2 Cardiology Note for Dr. Keith patient seen and examined at bedside this AM; she has no acute complaints. Denies chest pain, fevers/chills, OLIVER, abdominal pain, SOB, N/V/D, dysuria/freq/ urg or lower extremity pain/swelling. Objective - Vital Signs/Intake and Output Vital Signs (last 24 hours): Temp Pulse Resp BP Pulse Ox 97.4 F L 100 H 20 133/81 100 05/22/17 23:15 05/23/17 01:00 05/22/17 23:15 05/22/17 23:15 05/22/17 23:15 Intake and Output: 05/23/17 05/23/17 06:59 18:59 Intake Total 260 Balance 260 - Medications Medications: Current Medications Apixaban (Eliquis) 5 mg PO BID [facility] Last Admin: 05/21/17 09:44 Dose: 5 mg Aspirin (Aspirin Chewable) 81 mg PO DAILY [facility] Last Admin: 05/22/17 09:54 Dose: 81 mg Brimonidine Tartrate (Alphagan 0.2% Opht) 0 ml OU TID [facility] Last Admin: 05/22/17 17:36 Dose: 1 drop Carvedilol (Coreg) 25 mg PO BID [facility] Last Admin: 05/22/17 17:31 Dose: 25 mg Heparin Sodium/Sodium Chloride (Heparin 31161 Units/250ml 1/2 Normal Saline) 25 ,000 units in 250 mls @ 8.001 mls/hr IV .Q24H PRN; Protocol; 12 UNITS/KG/HR PRN Reason: PROTOCOL Last Admin: 05/22/17 20:43 Dose: 12 units/kg/hr, 8.001 mls/hr Insulin Aspart (Novolog) 0 unit SC ACHS [facility] PRN Reason: Protocol Last Admin: 05/23/17 08:13 Dose: Not Given Latanoprost (Xalatan Opht) 0 ml OU HS [facility] Last Admin: 05/22/17 21:45 Dose: 2.5 ml Losartan Potassium (Cozaar) 100 mg PO DAILY [facility] Last Admin: 05/22/17 10:03 Dose: 100 mg Metformin HCl (Glucophage) 1,000 mg PO BID [facility] Last Admin: 05/22/17 17:24 Dose: 1,000 mg Ondansetron HCl (Zofran Inj) 4 mg IVP Q6H PRN PRN Reason: Nausea/Vomiting Last Admin: 05/22/17 08:37 Dose: 4 mg Rosuvastatin Calcium (Crestor) 10 mg PO HS [facility] Last Admin: 05/22/17 21:44 Dose: 10 mg - Labs Labs: 05/23/17 07:21 05/23/17 07:21 PT 17.3 SECONDS (9.7-12.2) H 05/22/17 16:44 INR 1.5 05/22/17 16:44 APTT 216 SECONDS (21-34) H* D 05/23/17 02:00 - Constitutional Appears: Non-toxic - Head Exam Head Exam: ATRAUMATIC - Eye Exam Eye Exam: EOMI - ENT Exam ENT Exam: Mucous Membranes Moist - Neck Exam Neck Exam: Full ROM. absent: Lymphadenopathy - Respiratory Exam Respiratory Exam: absent: Clear to Ausculation Bilateral - Cardiovascular Exam Cardiovascular Exam: Bradycardia - GI/Abdominal Exam GI & Abdominal Exam: Soft, Normal Bowel Sounds - Extremities Exam Extremities Exam: absent: Calf Tenderness - Back Exam Back Exam: absent: CVA tenderness (L), CVA tenderness (R) - Neurological Exam Neurological Exam: Alert, Awake, Oriented x3 - Skin Skin Exam: Warm Assessment and Plan - Assessment and Plan (Free Text) Assessment: 77F with PMH afib, CVA, DM2, HTN, HLD, hypothyroidism, recent admission to [facility] for acute CVA, presents for bradycardia 2/2 likely medication (BB, CCB) induced. Pt required atropine 0.5mg IVP and external pacemaker initially, then developed tachycardia HR 110-130's, likely sick sinus syndrome. Pt scheduled for pacemaker and EPS study with possible ablation. Plan: Sick Sinus Syndrome: - Initially, on admission, bradycardia 2/2 likely medication induced (BB and CCB ). - Pt denies dizziness, cp, sob, diaphoresis - Pt received Carvedilol 12.5mg and Cardizem 240mg PO today at [facility]. - Pt hypotensive BP 90/60s and bradycardic HR 40-50's in [facility]. - In ED, pt's HR 20-30s, s/p atropine 0.5mg IVP and external pacemaker placement. - HR 80-90's currently. Maintain normotensive BP. - Hx of HTN, afib, recent loop recorder placement 05/15 - ECHO (05/07/17): LV systolic fxn normal. EF 60-65%. HTN heart disease. Trace Aortic regurgitation. Mitral regurgitation mild. No tricuspid valve regurgitation noted. No pulmonic valvular regurgitation - trop negx1, CK-MB negx1. - C/w Coreg 25mg PO bid and Cozaar 100mg PO daily. - Pt scheduled for pacemaker placement tomorrow (05/23). Will hold Eliquis. NPO after midnight. - Will hold eliquis. Can start heparin drip to bridge, stop at 6 AM on 05/23. the patient will need to be transferred out to [facility] under Dr. Wilks's service for EP services. Transfer form has been been completed and the accepting physician has been alerted. Transfer order in. Discussed with attending, Dr. Keith. Dr. Gerardo Baltazar PGY2 Cardiology <Jessee Keith - Last Filed: 05/23/17 10:13> Objective - Vital Signs/Intake and Output Vital Signs (last 24 hours): Temp Pulse Resp BP Pulse Ox 97.4 F L 100 H 20 154/87 H 100 05/22/17 23:15 05/23/17 01:00 05/22/17 23:15 05/23/17 09:17 05/22/17 23:15 Intake and Output: 05/23/17 05/23/17 06:59 18:59 Intake Total 260 Balance 260 - Medications Medications: Current Medications Apixaban (Eliquis) 5 mg PO BID [facility] Last Admin: 05/21/17 09:44 Dose: 5 mg Aspirin (Aspirin Chewable) 81 mg PO DAILY [facility] Last Admin: 05/22/17 09:54 Dose: 81 mg Brimonidine Tartrate (Alphagan 0.2% Opht) 0 ml OU TID [facility] Last Admin: 05/23/17 09:17 Dose: 2 drop Carvedilol (Coreg) 25 mg PO BID [facility] Last Admin: 05/23/17 09:17 Dose: 25 mg Heparin Sodium/Sodium Chloride (Heparin 76786 Units/250ml 1/2 Normal Saline) 25 ,000 units in 250 mls @ 8.001 mls/hr IV .Q24H PRN; Protocol; 12 UNITS/KG/HR PRN Reason: PROTOCOL Last Admin: 05/22/17 20:43 Dose: 12 units/kg/hr, 8.001 mls/hr Insulin Aspart (Novolog) 0 unit SC ACHS [facility] PRN Reason: Protocol Last Admin: 05/23/17 08:13 Dose: Not Given Latanoprost (Xalatan Opht) 0 ml OU HS [facility] Last Admin: 05/22/17 21:45 Dose: 2.5 ml Losartan Potassium (Cozaar) 100 mg PO DAILY [facility] Last Admin: 05/23/17 09:17 Dose: 100 mg Metformin HCl (Glucophage) 1,000 mg PO BID [facility] Last Admin: 05/22/17 17:24 Dose: 1,000 mg Ondansetron HCl (Zofran Inj) 4 mg IVP Q6H PRN PRN Reason: Nausea/Vomiting Last Admin: 05/22/17 08:37 Dose: 4 mg Rosuvastatin Calcium (Crestor) 10 mg PO HS [facility] Last Admin: 05/22/17 21:44 Dose: 10 mg - Labs Labs: 05/23/17 07:21 05/23/17 07:21 PT 17.3 SECONDS (9.7-12.2) H 05/22/17 16:44 INR 1.5 05/22/17 16:44 APTT 216 SECONDS (21-34) H* D 05/23/17 02:00 Attending/Attestation - Attestation I have personally seen and examined this patient.: Yes I have fully participated in the care of the patient.: Yes I have reviewed all pertinent clinical information, including history, physical exam and plan: Yes Notes (Text): 05/23/17 10:12 tx av node rfa with ppm for afib rvr with chiquis 20's
--- NOTE | 2017-05-23 14:54 | CP.PCM.PN ---
Subjective - Date & Time of Evaluation Date of Evaluation: 05/22/17 Time of Evaluation: 08:00 - Subjective Subjective: Patient seen and evaluated Denies chest pain and dyspnea Patient for PPM tomorrow Review of Systems - Hematologic/Lymphatic Additional comments: - Constitutional Constitutional: absent: Fever, Chills, Sweats, Weakness - EENT Eyes: Blurred Vision, Change in Vision, Loss of Vision. absent: Spots in Vision Ears: absent: Decreased Hearing, Tinnitus, Dizziness Nose/Mouth/Throat: absent: Facial Pain, Neck Mass - Cardiovascular Cardiovascular: absent: Chest Pain, Dyspnea, Pain Radiating to Arm/Neck/Jaw - Respiratory Respiratory: absent: Cough, Dyspnea - Genitourinary Genitourinary: absent: Dysuria, Urinary Incontinence - Musculoskeletal Musculoskeletal: absent: Back Pain, Muscle Weakness, Numbness, Stiffness, Tingling - Neurological Neurological: Weakness. absent: Dizziness, Numbness, Headaches, Loss of Vision , Sensory Deficit, Syncope, Tingling - Psychiatric Psychiatric: absent: Anxiety, Depression - Endocrine Endocrine: absent: Fatigue, Palpitations Physical Exam - Additional Findings Additional findings: - Constitutional Appears: Non-toxic, No Acute Distress - Head Exam Head Exam: ATRAUMATIC, NORMAL INSPECTION, NORMOCEPHALIC - Eye Exam Eye Exam: EOMI, Normal appearance, PERRL. absent: Nystagmus, Periorbital swelling, Periorbital tenderness Additional comments: - L sided gaze preference - Patient only able to see that the lights are on - (+) corneal reflex - ENT Exam ENT Exam: Mucous Membranes Moist - Neck Exam Neck exam: Positive for: Normal Inspection. Negative for: Lymphadenopathy, Thyromegaly - Respiratory Exam Respiratory Exam: Clear to PA & Lateral, NORMAL BREATHING PATTERN. absent: Rales, Rhonchi, Wheezes - Cardiovascular Exam Cardiovascular Exam: REGULAR RHYTHM, +S1, +S2. absent: Diastolic murmur, Systolic Murmur - GI/Abdominal Exam GI & Abdominal Exam: Normal Bowel Sounds, Soft. absent: Tenderness - Extremities Exam Extremities exam: Positive for: pedal pulses present. Negative for: pedal edema Objective - Vital Signs/Intake and Output Vital Signs (last 24 hours): Temp Pulse Resp BP Pulse Ox 98 F 129 H 20 148/81 100 05/23/17 12:45 05/23/17 12:45 05/23/17 12:45 05/23/17 12:45 05/23/17 12:45 Intake and Output: 05/23/17 05/23/17 06:59 18:59 Intake Total 260 Balance 260 - Labs Labs: 05/23/17 07:21 05/23/17 07:21 PT 17.3 SECONDS (9.7-12.2) H 05/22/17 16:44 INR 1.5 05/22/17 16:44 APTT 216 SECONDS (21-34) H* D 05/23/17 02:00 Assessment and Plan - Assessment and Plan (Free Text) Assessment: 1. A Fib 2. CVA 3. HTN 4. Sick sinus syndrome Patient seen and evaluated Denies chest pain and dyspnea Patient for PPM tomorrow
--- NOTE | 2017-05-23 22:28 | CP.PCM.PN ---
Subjective - Date & Time of Evaluation Date of Evaluation: 05/23/17 Time of Evaluation: 07:05 - Subjective Subjective: Patient seen and evaluated For PPM today Review of Systems - Hematologic/Lymphatic Additional comments: - Constitutional Constitutional: absent: Fever, Chills, Sweats, Weakness - EENT Eyes: Blurred Vision, Change in Vision, Loss of Vision. absent: Spots in Vision Ears: absent: Decreased Hearing, Tinnitus, Dizziness Nose/Mouth/Throat: absent: Facial Pain, Neck Mass - Cardiovascular Cardiovascular: absent: Chest Pain, Dyspnea, Pain Radiating to Arm/Neck/Jaw - Respiratory Respiratory: absent: Cough, Dyspnea - Genitourinary Genitourinary: absent: Dysuria, Urinary Incontinence - Musculoskeletal Musculoskeletal: absent: Back Pain, Muscle Weakness, Numbness, Stiffness, Tingling - Neurological Neurological: Weakness. absent: Dizziness, Numbness, Headaches, Loss of Vision , Sensory Deficit, Syncope, Tingling - Psychiatric Psychiatric: absent: Anxiety, Depression - Endocrine Endocrine: absent: Fatigue, Palpitations Physical Exam - Additional Findings Additional findings: - Constitutional Appears: Non-toxic, No Acute Distress - Head Exam Head Exam: ATRAUMATIC, NORMAL INSPECTION, NORMOCEPHALIC - Eye Exam Eye Exam: EOMI, Normal appearance, PERRL. absent: Nystagmus, Periorbital swelling, Periorbital tenderness Additional comments: - L sided gaze preference - Patient only able to see that the lights are on - (+) corneal reflex - ENT Exam ENT Exam: Mucous Membranes Moist - Neck Exam Neck exam: Positive for: Normal Inspection. Negative for: Lymphadenopathy, Thyromegaly - Respiratory Exam Respiratory Exam: Clear to PA & Lateral, NORMAL BREATHING PATTERN. absent: Rales, Rhonchi, Wheezes - Cardiovascular Exam Cardiovascular Exam: REGULAR RHYTHM, +S1, +S2. absent: Diastolic murmur, Systolic Murmur - GI/Abdominal Exam GI & Abdominal Exam: Normal Bowel Sounds, Soft. absent: Tenderness - Extremities Exam Extremities exam: Positive for: pedal pulses present. Negative for: pedal edema Objective - Vital Signs/Intake and Output Vital Signs (last 24 hours): Temp Pulse Resp BP Pulse Ox 98 F 129 H 20 148/81 100 05/23/17 12:45 05/23/17 12:45 05/23/17 12:45 05/23/17 12:45 05/23/17 12:45 - Medications Medications: Current Medications Acetaminophen (Tylenol 325mg Tab) 650 mg PO Q6 PRN PRN Reason: Pain, Mild (1-3) Apixaban (Eliquis) 5 mg PO BID [facility] Last Admin: 05/21/17 09:44 Dose: 5 mg Aspirin (Aspirin Chewable) 81 mg PO DAILY [facility] Last Admin: 05/22/17 09:54 Dose: 81 mg Brimonidine Tartrate (Alphagan 0.2% Opht) 0 ml OU TID [facility] Last Admin: 05/23/17 09:17 Dose: 2 drop Carvedilol (Coreg) 25 mg PO BID [facility] Last Admin: 05/23/17 09:17 Dose: 25 mg Heparin Sodium/Sodium Chloride (Heparin 79365 Units/250ml 1/2 Normal Saline) 25 ,000 units in 250 mls @ 8.001 mls/hr IV .Q24H PRN; Protocol; 12 UNITS/KG/HR PRN Reason: PROTOCOL Last Admin: 05/22/17 20:43 Dose: 12 units/kg/hr, 8.001 mls/hr Cefazolin Sodium/Dextrose (Ancef Iv 1 Gm Duplex) 1 gm in 50 mls @ 100 mls/hr IVPB ONCE ONE Stop: 05/24/17 02:29 Insulin Aspart (Novolog) 0 unit SC ACHS [facility] PRN Reason: Protocol Last Admin: 05/23/17 12:04 Dose: Not Given Latanoprost (Xalatan Opht) 0 ml OU HS [facility] Last Admin: 05/22/17 21:45 Dose: 2.5 ml Losartan Potassium (Cozaar) 100 mg PO DAILY [facility] Last Admin: 05/23/17 09:17 Dose: 100 mg Metformin HCl (Glucophage) 1,000 mg PO BID [facility] Last Admin: 05/23/17 10:14 Dose: Not Given Ondansetron HCl (Zofran Inj) 4 mg IVP Q6H PRN PRN Reason: Nausea/Vomiting Last Admin: 05/22/17 08:37 Dose: 4 mg Rosuvastatin Calcium (Crestor) 10 mg PO HS [facility] Last Admin: 05/22/17 21:44 Dose: 10 mg - Labs Labs: 05/23/17 07:21 05/23/17 07:21 PT 17.3 SECONDS (9.7-12.2) H 05/22/17 16:44 INR 1.5 05/22/17 16:44 APTT 216 SECONDS (21-34) H* D 05/23/17 02:00 Assessment and Plan - Assessment and Plan (Free Text) Assessment: 1. A Fib 2. CVA 3. HTN 4. Sick sinus syndrome Patient seen and evaluated For PPM today
[2017-05-23] MEDS: Latanoprost 2.5 ml Opht Soln OU SCH (22:39)
[2017-05-23] MEDS ORDERED: Heparin25000 units/250ml 1/2NS 25,000 UNITS/250 ML BAG IV PRN (23:30)
[2017-05-24] MEDS ORDERED: ceFAZolin IV 1 gm in Dextrose 1 GM/50 ML BAG IVPB ONE (02:00)
--- NOTE | 2017-05-24 07:48 | CP.PCM.PN ---
<Gerardo Guzman - Last Filed: 05/24/17 08:40> Subjective - Date & Time of Evaluation Date of Evaluation: 05/24/17 Time of Evaluation: 07:47 - Subjective Subjective: Dr. Gerardo Guzman PGY2 Cardiology Note for Dr. Keith Patient seen and examined at bedside; she is in no acute distress and had no events overnight as per nursing staff. She tolerated the procedure and transfer well. She denies any fevers/chills, OLIVER, CP, SOB, abdominal pain, N/V/D, dysuria/ freq/urg, or lower extremity pain/swelling. States pain at site of procedure is minimal and well controlled. Objective - Vital Signs/Intake and Output Vital Signs (last 24 hours): Temp Pulse Resp BP Pulse Ox 97.5 F L 120 H 20 128/72 100 05/23/17 23:15 05/23/17 23:15 05/23/17 23:15 05/23/17 23:42 05/23/17 23:15 - Medications Medications: Current Medications Acetaminophen (Tylenol 325mg Tab) 650 mg PO Q6 PRN PRN Reason: Pain, Mild (1-3) Last Admin: 05/24/17 02:15 Dose: 650 mg Apixaban (Eliquis) 5 mg PO BID [facility] Aspirin (Aspirin Chewable) 81 mg PO DAILY [facility] Brimonidine Tartrate (Alphagan 0.2% Opht) 0 ml OU TID [facility] Last Admin: 05/23/17 22:38 Dose: Not Given Carvedilol (Coreg) 25 mg PO BID [facility] Last Admin: 05/23/17 23:42 Dose: 25 mg Heparin Sodium/Sodium Chloride (Heparin 56276 Units/250ml 1/2 Normal Saline) 25 ,000 units in 250 mls @ 8.001 mls/hr IV .Q24H PRN; Protocol; 12 UNITS/KG/HR PRN Reason: PROTOCOL Insulin Aspart (Novolog) 0 unit SC ACHS [facility] PRN Reason: Protocol Latanoprost (Xalatan Opht) 0 ml OU HS [facility] Last Admin: 05/23/17 22:39 Dose: Not Given Losartan Potassium (Cozaar) 100 mg PO DAILY [facility] Metformin HCl (Glucophage) 1,000 mg PO BID [facility] Ondansetron HCl (Zofran Inj) 4 mg IVP Q6H PRN PRN Reason: Nausea/Vomiting Rosuvastatin Calcium (Crestor) 10 mg PO HS [facility] - Labs Labs: 05/23/17 07:21 05/23/17 07:21 PT 17.3 SECONDS (9.7-12.2) H 05/22/17 16:44 INR 1.5 05/22/17 16:44 APTT 216 SECONDS (21-34) H* D 05/23/17 02:00 - Constitutional Appears: Non-toxic - Head Exam Head Exam: ATRAUMATIC - Eye Exam Eye Exam: EOMI Pupil Exam: PERRL - ENT Exam ENT Exam: Mucous Membranes Moist - Neck Exam Neck Exam: absent: Lymphadenopathy - Respiratory Exam Respiratory Exam: Clear to Ausculation Bilateral. absent: Rales, Rhonchi, Wheezes - Cardiovascular Exam Cardiovascular Exam: REGULAR RHYTHM, +S1, +S2 - GI/Abdominal Exam GI & Abdominal Exam: Soft, Normal Bowel Sounds. absent: Tenderness - Extremities Exam Extremities Exam: Full ROM. absent: Calf Tenderness - Back Exam Back Exam: NORMAL INSPECTION. absent: CVA tenderness (L), CVA tenderness (R) - Neurological Exam Neurological Exam: Awake - Psychiatric Exam Psychiatric exam: Normal Affect - Skin Skin Exam: Warm Assessment and Plan - Assessment and Plan (Free Text) Assessment: 77F with PMH afib, CVA, DM2, HTN, HLD, hypothyroidism, recent admission to [facility] for acute CVA, presents for bradycardia 2/2 likely medication (BB, CCB) induced. Pt required atropine 0.5mg IVP and external pacemaker initially, then developed tachycardia HR 110-130's, likely sick sinus syndrome. Pt scheduled for pacemaker and EPS study with possible ablation. Plan: Sick Sinus Syndrome: - Initially, on admission, bradycardia 2/2 likely medication induced (BB and CCB ). - Pt denies dizziness, cp, sob, diaphoresis - Pt received Carvedilol 12.5mg and Cardizem 240mg PO today at [facility]. - Pt hypotensive BP 90/60s and bradycardic HR 40-50's in [facility]. - In ED, pt's HR 20-30s, s/p atropine 0.5mg IVP and external pacemaker placement. - HR 80-90's currently. Maintain normotensive BP. - Hx of HTN, afib, recent loop recorder placement 05/15 - ECHO (05/07/17): LV systolic fxn normal. EF 60-65%. HTN heart disease. Trace Aortic regurgitation. Mitral regurgitation mild. No tricuspid valve regurgitation noted. No pulmonic valvular regurgitation - trop negx1, CK-MB negx1. - C/w Coreg 25mg PO bid and Cozaar 100mg PO daily. - Will hold eliquis. Can start heparin drip to bridge, stop at 6 AM on 05/23. The patient is POD#1 for pacemaker placement; she tolerated the procedure well; she has minimal pain and no bleeding from the site. Will interrogate ICD. If the patient is stable for 24 hours from procedure, she should be safe to go home and follow up as an outpatient within a week from discharge. Re-start eliquis and aspirin today. Discussed with attending, Dr. Keith. Dr. Gerardo Guzman PGY2 Cardiology <Jessee Keith - Last Filed: 05/28/17 14:51> Objective - Vital Signs/Intake and Output Vital Signs (last 24 hours): Temp Pulse Resp BP Pulse Ox 97.4 F L 72 20 142/84 99 05/25/17 16:00 05/25/17 16:00 05/25/17 16:00 05/25/17 17:21 05/25/17 16:00 - Labs Labs: 05/25/17 10:50 05/25/17 10:50 PT 17.3 SECONDS (9.7-12.2) H 05/22/17 16:44 INR 1.5 05/22/17 16:44 APTT 216 SECONDS (21-34) H* D 05/23/17 02:00 Attending/Attestation - Attestation I have personally seen and examined this patient.: Yes I have fully participated in the care of the patient.: Yes I have reviewed all pertinent clinical information, including history, physical exam and plan: Yes Notes (Text): 05/28/17 14:50 s/p ppm stable dressing removed
[2017-05-24] MEDS ORDERED: Metoprolol 1 mg/ml Inj IVP ONE (08:32)
[2017-05-24] MEDS: (Novolog) Insulin Aspart, Recombinant 100 u/ml 10 ml vial SC SCH ×4 (09:20→22:06)
[2017-05-24] MEDS: Brimonidine 0.2% Opth Sol (5ml) OU SCH ×3 (09:54→17:19)
[2017-05-24 11:34] LABS: BASO % 0.1 % (0.0-2.0); EOS % 0.1 % (0.0-4.0); HEMATOCRIT 31.7 % (34.0-47.0); LYMPH # 1.1 K/uL (1.0-4.3); LYMPH % 11.5 % (20.0-40.0); MEAN CELL VOLUME 86.7 fL (81.0-99.0); MEAN CORPUSCULAR HGB CONC 32.4 g/dL (33.0-37.0); MEAN PLATELET VOLUME 7.8 fL (7.2-11.7); MONO # 0.5 K/uL (0.0-0.8); MONO % 5.7 % (0.0-10.0); RED CELL DISTRIBUTION WIDTH 14.8 % (11.5-14.5); WHITE BLOOD COUNT 9.3 K/uL (4.8-10.8)
[2017-05-24 11:46] LABS: ALKALINE PHOSPHATASE 64 U/L (38-126); ALT/SGPT 30 U/L (9-52); AST/SGOT 22 U/L (14-36); BILIRUBIN,TOTAL 0.5 mg/dL (0.2-1.3); BLOOD UREA NITROGEN 31 mg/dL (7-17); CALCIUM 8.6 mg/dl (8.6-10.4); CARBON DIOXIDE 25 mmol/L (22-30); CHLORIDE 102 mmol/L (98-107); GFR AFRICAN-AMERICAN > 60; GLUCOSE,RANDOM 161 mg/dL (65-105); POTASSIUM 5.2 mmol/L (3.6-5.2); SODIUM 139 mmol/L (132-148); TOTAL PROTEIN 6.3 g/dL (6.3-8.3)
--- NOTE | 2017-05-24 15:32 | CP.PCM.PN ---
<Dwain Renteria - Last Filed: 05/24/17 15:33> Subjective - Date & Time of Evaluation Date of Evaluation: 05/24/17 Time of Evaluation: 15:29 - Subjective Subjective: PGY1 Note for Dr. Price HPI: Patient seen and examined at bedside. Mild pain at the site of pacemaker placement. No other complaints at this time. was transferred to [place] yesterday for procedure and she is back today. Per son she is eating better. No chest pain, N/V/D/, Fever, chills. Son believes vision is improving Objective - Vital Signs/Intake and Output Vital Signs (last 24 hours): Temp Pulse Resp BP Pulse Ox 97.3 F L 99 H 20 134/86 98 05/24/17 10:09 05/24/17 10:09 05/24/17 10:09 05/24/17 10:09 05/24/17 10:09 - Medications Medications: Current Medications Acetaminophen (Tylenol 325mg Tab) 650 mg PO Q6 PRN PRN Reason: Pain, Mild (1-3) Last Admin: 05/24/17 02:15 Dose: 650 mg Apixaban (Eliquis) 5 mg PO BID [facility] Last Admin: 05/24/17 09:55 Dose: 5 mg Aspirin (Aspirin Chewable) 81 mg PO DAILY [facility] Last Admin: 05/24/17 09:55 Dose: 81 mg Brimonidine Tartrate (Alphagan 0.2% Opht) 0 ml OU TID [facility] Last Admin: 05/24/17 13:23 Dose: 1 drop Carvedilol (Coreg) 25 mg PO BID [facility] Last Admin: 05/24/17 09:19 Dose: 25 mg Insulin Aspart (Novolog) 0 unit SC ACHS [facility] PRN Reason: Protocol Last Admin: 05/24/17 13:23 Dose: 2 unit Latanoprost (Xalatan Opht) 0 ml OU HS [facility] Last Admin: 05/23/17 22:39 Dose: Not Given Losartan Potassium (Cozaar) 100 mg PO DAILY [facility] Last Admin: 05/24/17 09:54 Dose: 100 mg Metformin HCl (Glucophage) 1,000 mg PO BID [facility] Last Admin: 05/24/17 09:55 Dose: Not Given Ondansetron HCl (Zofran Inj) 4 mg IVP Q6H PRN PRN Reason: Nausea/Vomiting Rosuvastatin Calcium (Crestor) 10 mg PO HS [facility] Tramadol HCl (Ultram) 25 mg PO BID PRN PRN Reason: Pain, moderate (4-7) - Labs Labs: 05/24/17 11:27 05/24/17 11:27 PT 17.3 SECONDS (9.7-12.2) H 05/22/17 16:44 INR 1.5 05/22/17 16:44 APTT 216 SECONDS (21-34) H* D 05/23/17 02:00 - Constitutional Appears: Well, Non-toxic, No Acute Distress - Head Exam Head Exam: ATRAUMATIC, NORMAL INSPECTION, NORMOCEPHALIC - ENT Exam ENT Exam: Mucous Membranes Moist - Respiratory Exam Respiratory Exam: Clear to Ausculation Bilateral - Cardiovascular Exam Cardiovascular Exam: Irregular Rhythm (flutter, afib) - GI/Abdominal Exam GI & Abdominal Exam: Soft, Normal Bowel Sounds. absent: Distended, Firm, Guarding, Rigid, Tenderness - Neurological Exam Neurological Exam: Alert, Awake, Oriented x3 Neuro motor strength exam: Left Upper Extremity: 5, Right Upper Extremity: 5, Left Lower Extremity: 5, Right Lower Extremity: 5 - Psychiatric Exam Psychiatric exam: Normal Affect, Normal Mood - Skin Skin Exam: Dry, Intact, Normal Color, Warm Assessment and Plan - Assessment and Plan (Free Text) Assessment: Patient was recently d/c s/p stroke in stable condition, Readmitted for bradycardia Sick Sinus Syndrome Intermittent tachycardia and Bradycardia Cards (Raul) adjusting meds * Coreg 25 mg PO BID * Cozaar 100mg PO QD POD #1 Pacemaker w/ [employer] Cards will test Pacemaker tomorrow. Possibly sign off and can be D/c tomorrow Hypotension - Resolved Likely secondary to medication. 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 Possibly improving CKD Stage 3 Monitor renal function. 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 Hyperkalemia - Resolved K+ 5.8 on 05/21, dropped to 4.5 om 05/22 Prophylactic measure Eliquis 5mg PO BID Zofran prn Patient eating better per son <Dev Price H - Last Filed: 05/24/17 17:56> Objective - Vital Signs/Intake and Output Vital Signs (last 24 hours): Temp Pulse Resp BP Pulse Ox 97.3 F L 112 H 18 158/105 H 98 05/24/17 16:11 05/24/17 16:34 05/24/17 16:11 05/24/17 17:22 05/24/17 16:11 Intake and Output: 05/24/17 05/24/17 06:59 18:59 Intake Total 510 Balance 510 - Medications Medications: Current Medications Acetaminophen (Tylenol 325mg Tab) 650 mg PO Q6 PRN PRN Reason: Pain, Mild (1-3) Last Admin: 05/24/17 02:15 Dose: 650 mg Apixaban (Eliquis) 5 mg PO BID [facility] Last Admin: 05/24/17 17:19 Dose: 5 mg Aspirin (Aspirin Chewable) 81 mg PO DAILY [facility] Last Admin: 05/24/17 09:55 Dose: 81 mg Brimonidine Tartrate (Alphagan 0.2% Opht) 0 ml OU TID [facility] Last Admin: 05/24/17 17:19 Dose: 1 drop Carvedilol (Coreg) 25 mg PO BID [facility] Last Admin: 05/24/17 17:22 Dose: 25 mg Insulin Aspart (Novolog) 0 unit SC ACHS [facility] PRN Reason: Protocol Last Admin: 05/24/17 17:19 Dose: 2 unit Latanoprost (Xalatan Opht) 0 ml OU HS [facility] Last Admin: 05/23/17 22:39 Dose: Not Given Losartan Potassium (Cozaar) 100 mg PO DAILY [facility] Last Admin: 05/24/17 09:54 Dose: 100 mg Metformin HCl (Glucophage) 1,000 mg PO BID [facility] Last Admin: 05/24/17 17:18 Dose: 1,000 mg Ondansetron HCl (Zofran Inj) 4 mg IVP Q6H PRN PRN Reason: Nausea/Vomiting Rosuvastatin Calcium (Crestor) 10 mg PO HS [facility] Tramadol HCl (Ultram) 25 mg PO BID PRN PRN Reason: Pain, moderate (4-7) - Labs Labs: 05/24/17 11:27 05/24/17 11:27 PT 17.3 SECONDS (9.7-12.2) H 05/22/17 16:44 INR 1.5 05/22/17 16:44 APTT 216 SECONDS (21-34) H* D 05/23/17 02:00 Attending/Attestation - Attestation I have personally seen and examined this patient.: Yes I have fully participated in the care of the patient.: Yes I have reviewed all pertinent clinical information, including history, physical exam and plan: Yes Notes (Text): 05/24/17 17:55 Medical attending: Patient was seen and examined by me, agree with the above note by medical technical writer. The patient is status post placement of pacemaker. Family members are present at bedside as well With the help of family member translating the patient was able to explained to us that she's not having any significant pain at this time. She is following directions with the help of translation. Per review of her telemetry she sometimes runs of fast heart rate of thought 120. Currently for rate control she is on Coreg 25 by mouth twice a day. If the heart rate continues to be fast we could try to add back on the calcium channel adelina that she was on before she came to the hospital. Is possible that she may be able to go back to [facility]/ rehabilitation tomorrow but will have to see how she does with her heart rate. Thank you very much, Dev Price
[2017-05-24] MEDS: Latanoprost 2.5 ml Opht Soln OU SCH (22:37)
[2017-05-25 01:16] VITALS: RESP 20; O2SAT 99
[2017-05-25] MEDS: Tramadol 25 mg PO PRN ×2 (01:32→11:15)
[2017-05-25] MEDS: (Novolog) Insulin Aspart, Recombinant 100 u/ml 10 ml vial SC SCH ×3 (07:41→17:17)
[2017-05-25] MEDS ORDERED: Metoprolol 1 mg/ml Inj IVP ONE ×2 (07:43→10:46)
--- NOTE | 2017-05-25 09:01 | CP.PCM.PN ---
<Gerardo Guzman - Last Filed: 05/25/17 08:59> Subjective - Date & Time of Evaluation Date of Evaluation: 05/25/17 Time of Evaluation: 08:59 - Subjective Subjective: Dr. Gerardo Guzman PGY2 Cardiology Note for Dr. Keith Patient seen and examined at bedside; patient was still tachy at night time and was given day time one dose of 5mg IV metoprolol. Will be sent home on low dose cardizem for HR control. Otherwise, no complaints. Objective - Vital Signs/Intake and Output Vital Signs (last 24 hours): Temp Pulse Resp BP Pulse Ox 97.4 F L 105 H 20 121/71 99 05/25/17 01:15 05/25/17 08:35 05/25/17 01:15 05/25/17 08:35 05/25/17 08:35 Intake and Output: 05/25/17 05/25/17 06:59 18:59 Intake Total 150 Balance 150 - Medications Medications: Current Medications Acetaminophen (Tylenol 325mg Tab) 650 mg PO Q6 PRN PRN Reason: Pain, Mild (1-3) Last Admin: 05/24/17 02:15 Dose: 650 mg Apixaban (Eliquis) 5 mg PO BID [facility] BEDS AT [facility] Last Admin: 05/24/17 17:19 Dose: 5 mg Aspirin (Aspirin Chewable) 81 mg PO DAILY [facility] BEDS [facility] Last Admin: 05/24/17 09:55 Dose: 81 mg Brimonidine Tartrate (Alphagan 0.2% Opht) 0 ml OU TID [facility] BEDS [facility] Last Admin: 05/24/17 17:19 Dose: 1 drop Carvedilol (Coreg) 25 mg PO BID [facility] B[facility]S [facility] Last Admin: 05/24/17 17:22 Dose: 25 mg Insulin Aspart (Novolog) 0 unit SC ACHS [facility]S [facility] PRN Reason: Protocol Last Admin: 05/25/17 07:41 Dose: Not Given Latanoprost (Xalatan Opht) 0 ml OU HS [facility] B[facility]S [facility] Last Admin: 05/24/17 22:37 Dose: 2.5 ml Losartan Potassium (Cozaar) 100 mg PO DAILY [facility] B[facility]S [facility] Last Admin: 05/24/17 09:54 Dose: 100 mg Metformin HCl (Glucophage) 1,000 mg PO BID [facility] B[facility]S [facility] Last Admin: 05/24/17 17:18 Dose: 1,000 mg Ondansetron HCl (Zofran Inj) 4 mg IVP Q6H PRN PRN Reason: Nausea/Vomiting Rosuvastatin Calcium (Crestor) 10 mg PO HS [facility] Last Admin: 05/24/17 21:31 Dose: 10 mg Tramadol HCl (Ultram) 25 mg PO BID PRN PRN Reason: Pain, moderate (4-7) Last Admin: 05/25/17 01:32 Dose: 25 mg - Labs Labs: 05/24/17 11:27 05/24/17 11:27 PT 17.3 SECONDS (9.7-12.2) H 05/22/17 16:44 INR 1.5 05/22/17 16:44 APTT 216 SECONDS (21-34) H* D 05/23/17 02:00 - Constitutional Appears: Non-toxic - Head Exam Head Exam: ATRAUMATIC - ENT Exam ENT Exam: Mucous Membranes Moist - Neck Exam Neck Exam: Full ROM. absent: Lymphadenopathy - Respiratory Exam Respiratory Exam: Clear to Ausculation Bilateral - Cardiovascular Exam Cardiovascular Exam: REGULAR RHYTHM - GI/Abdominal Exam GI & Abdominal Exam: Soft, Normal Bowel Sounds. absent: Tenderness - Extremities Exam Extremities Exam: Full ROM. absent: Calf Tenderness - Back Exam Back Exam: NORMAL INSPECTION. absent: CVA tenderness (L), CVA tenderness (R) - Neurological Exam Neurological Exam: Awake, Oriented x3 - Psychiatric Exam Additional comments: depressed flat affect - Skin Skin Exam: Warm Assessment and Plan - Assessment and Plan (Free Text) Assessment: 77F with PMH afib, CVA, DM2, HTN, HLD, hypothyroidism, recent admission to [facility] for acute CVA, presents for bradycardia 2/2 likely medication (BB, CCB) induced. Pt required atropine 0.5mg IVP and external pacemaker initially, then developed tachycardia HR 110-130's, likely sick sinus syndrome. Pt scheduled for pacemaker and EPS study with possible ablation. Plan: Sick Sinus Syndrome: - Initially, on admission, bradycardia 2/2 likely medication induced (BB and CCB ). - Pt denies dizziness, cp, sob, diaphoresis - Pt received Carvedilol 12.5mg and Cardizem 240mg PO today at [facility]. - Pt hypotensive BP 90/60s and bradycardic HR 40-50's in [facility]. - In ED, pt's HR 20-30s, s/p atropine 0.5mg IVP and external pacemaker placement. - HR 80-90's currently. Maintain normotensive BP. - Hx of HTN, afib, recent loop recorder placement 05/15 - ECHO (05/07/17): LV systolic fxn normal. EF 60-65%. HTN heart disease. Trace Aortic regurgitation. Mitral regurgitation mild. No tricuspid valve regurgitation noted. No pulmonic valvular regurgitation - trop negx1, CK-MB negx1. - C/w Coreg 25mg PO bid and Cozaar 100mg PO daily. - Will hold eliquis. Can start heparin drip to bridge, stop at 6 AM on 05/23. The patient is POD#2: patient given card for f/u with Dr. Keith; patient to schedule appointment within the week for outpatient followup patient should take cardizem as per medicine team for HR control in addition to other meds Thank you for this interesting consult Discussed with attending, Dr. Keith. Dr. Gerardo Guzman PGY2 Cardiology <Jessee Keith - Last Filed: 05/28/17 14:51> Objective - Vital Signs/Intake and Output Vital Signs (last 24 hours): Temp Pulse Resp BP Pulse Ox 97.4 F L 72 20 142/84 99 05/25/17 16:00 05/25/17 16:00 05/25/17 16:00 05/25/17 17:21 05/25/17 16:00 - Labs Labs: 05/25/17 10:50 05/25/17 10:50 PT 17.3 SECONDS (9.7-12.2) H 05/22/17 16:44 INR 1.5 05/22/17 16:44 APTT 216 SECONDS (21-34) H* D 05/23/17 02:00 Attending/Attestation - Attestation I have personally seen and examined this patient.: Yes I have fully participated in the care of the patient.: Yes I have reviewed all pertinent clinical information, including history, physical exam and plan: Yes Notes (Text): 05/28/17 14:51 rate control safe now lopressor beta continue
[2017-05-25] MEDS: Brimonidine 0.2% Opth Sol (5ml) OU SCH ×3 (09:14→17:21)
[2017-05-25 11:01] LABS: BASO % 0.4 % (0.0-2.0); EOS % 0.3 % (0.0-4.0); HEMATOCRIT 30.9 % (34.0-47.0); LYMPH % 11.5 % (20.0-40.0); MEAN CELL VOLUME 86.1 fL (81.0-99.0); MEAN CORPUSCULAR HGB CONC 32.5 g/dL (33.0-37.0); MEAN PLATELET VOLUME 8.2 fL (7.2-11.7); MONO # 0.5 K/uL (0.0-0.8); RED CELL DISTRIBUTION WIDTH 14.4 % (11.5-14.5)
[2017-05-25 11:05] LABS: CHLORIDE 103 mmol/L (98-107)
[2017-05-25 11:06] LABS: POTASSIUM 5.2 mmol/L (3.6-5.2); SODIUM 138 mmol/L (132-148)
[2017-05-25 11:08] LABS: BILIRUBIN,TOTAL 0.6 mg/dL (0.2-1.3); CARBON DIOXIDE 25 mmol/L (22-30); GFR AFRICAN-AMERICAN > 60; TOTAL PROTEIN 6.1 g/dL (6.3-8.3)
[2017-05-25 11:09] LABS: ALKALINE PHOSPHATASE 62 U/L (38-126); ALT/SGPT 28 U/L (9-52); AST/SGOT 20 U/L (14-36); BLOOD UREA NITROGEN 26 mg/dL (7-17); CALCIUM 8.7 mg/dl (8.6-10.4); GLUCOSE,RANDOM 166 mg/dL (65-105)
--- NOTE | 2017-05-25 11:51 | CP.PCM.DIS ---
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 Priority: Medium Hospital Course - Lab Results Lab Results: Micro Results 05/18/17 16:30 Naris MRSA Culture (Admit) - Final MRSA NOT DETECTED Most Recent Lab Values WBC 9.0 K/uL (4.8-10.8) 05/25/17 10:50 RBC 3.58 Mil/uL (3.80-5.20) L 05/25/17 10:50 Hgb 10.0 g/dL (11.0-16.0) L 05/25/17 10:50 Hct 30.9 % (34.0-47.0) L 05/25/17 10:50 MCV 86.1 fL (81.0-99.0) 05/25/17 10:50 MCH 28.0 pg (27.0-31.0) 05/25/17 10:50 MCHC 32.5 g/dL (33.0-37.0) L 05/25/17 10:50 RDW 14.4 % (11.5-14.5) 05/25/17 10:50 Plt Count 368 K/uL (130-400) 05/25/17 10:50 MPV 8.2 fL (7.2-11.7) 05/25/17 10:50 Neut % (Auto) 82.8 % (50.0-75.0) H 05/25/17 10:50 Lymph % (Auto) 11.5 % (20.0-40.0) L 05/25/17 10:50 Hettinger % (Auto) 5.0 % (0.0-10.0) 05/25/17 10:50 Eos % (Auto) 0.3 % (0.0-4.0) 05/25/17 10:50 Baso % (Auto) 0.4 % (0.0-2.0) 05/25/17 10:50 Neut # 7.5 K/uL (1.8-7.0) H 05/25/17 10:50 Lymph # 1.0 K/uL (1.0-4.3) 05/25/17 10:50 Hettinger # 0.5 K/uL (0.0-0.8) 05/25/17 10:50 Eos # 0.0 K/uL (0.0-0.7) 05/25/17 10:50 Baso # 0.0 K/uL (0.0-0.2) 05/25/17 10:50 Neutrophils % (Manual) 83 % (50-75) H 05/22/17 16:44 Band Neutrophils % 2 % (0-2) 05/21/17 06:16 Lymphocytes % (Manual) 11 % (20-40) L 05/22/17 16:44 Monocytes % (Manual) 5 % (0-10) 05/22/17 16:44 Basophils % (Manual) 1 % (0-2) 05/22/17 16:44 Platelet Estimate Normal (NORMAL) 05/22/17 16:44 Large Platelets Present 05/21/17 06:16 Hypochromasia (manual) Slight 05/22/17 16:44 Poikilocytosis (manual Slight 05/22/17 16:44 Anisocytosis (manual) Slight 05/22/17 16:44 Mack Cells Slight 05/21/17 06:16 PT 17.3 SECONDS (9.7-12.2) H 05/22/17 16:44 INR 1.5 05/22/17 16:44 APTT 216 SECONDS (21-34) H* D 05/23/17 02:00 Sodium 138 mmol/L (132-148) 05/25/17 10:50 Potassium 5.2 mmol/L (3.6-5.2) 05/25/17 10:50 Chloride 103 mmol/L (98-107) 05/25/17 10:50 Carbon Dioxide 25 mmol/L (22-30) 05/25/17 10:50 Anion Gap 15 (10-20) 05/25/17 10:50 BUN 26 mg/dL (7-17) H 05/25/17 10:50 Creatinine 1.0 MG/DL (0.7-1.2) 05/25/17 10:50 Est GFR ( Amer) > 60 05/25/17 10:50 Est GFR (Non-Af Amer) 54 05/25/17 10:50 POC Glucose (mg/dL) 218 mg/dL (65-110) H 05/25/17 11:27 Random Glucose 166 mg/dL (65-105) H 05/25/17 10:50 Calcium 8.7 mg/dl (8.6-10.4) 05/25/17 10:50 Phosphorus 3.9 mg/dL (2.5-4.5) 05/21/17 06:15 Magnesium 2.0 mg/dL (1.6-2.3) 05/21/17 06:15 Total Bilirubin 0.6 mg/dL (0.2-1.3) 05/25/17 10:50 AST 20 U/L (14-36) 05/25/17 10:50 ALT 28 U/L (9-52) 05/25/17 10:50 Alkaline Phosphatase 62 U/L (38-126) 05/25/17 10:50 Total Creatine Kinase 24 U/L (30-135) L 05/18/17 12:57 CK-MB (Mass) 1.61 ng/mL (0.0-3.38) 05/18/17 12:57 Troponin I 0.0410 ng/mL (0.00-0.120) 05/21/17 20:24 Total Protein 6.1 g/dL (6.3-8.3) L 05/25/17 10:50 Albumin 3.0 g/dL (3.5-5.0) L 05/25/17 10:50 Globulin 3.1 gm/dL (2.2-3.9) 05/25/17 10:50 Albumin/Globulin Ratio 1.0 (1.0-2.1) 05/25/17 10:50 TSH 3rd Generation 1.03 mIU/L (0.46-4.68) 05/19/17 02:23 - Hospital Course Hospital Course: 77F with PMH CVA, afib, recent loop recorder insertion, DM2, HTN, HLD, BIBA from [facility]) for bradycardia and hypotension. In [facility], pt hypotensive at 90/60, HR 40-50's. Pt recently discharged from [facility] yesterday for acute CVA 2/2 likely afib. Pt denies any dizziness, headache, cp, sob, n/v/d, f /c, abdominal pain. In [facility], pt received Carvedilol 12.5mg PO bid and Cardizem 240mg daily, along with clonidine, losartan and lasix. In ED, HR 20-30's, given atropine 0.5mg IVP, placed on external pacemaker, HR 65 currently. Trop negx1, CKMB negx1, CXR shows cardiomegaly and atherosclerotic calcifications of aorta. Cardiology consulted for bradycardia management. Cardiology decided to change her BP medication until the appropriate doses and medications were reached. A pacemaker was implanted on 05/24 at [facility]. Her tachycardia is controlled with the addition of cardizem 30 PO TID. She did still have some problem eating but her son states that he feeds her and she is eating well. 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 She is being D/c to [facility] where she can begin rehabilitation. The PMD visits this facility and has been made aware. 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 Can not see at the present time - ENT Exam ENT Exam: Mucous Membranes Moist - Respiratory Exam Respiratory Exam: NORMAL BREATHING PATTERN, UNREMARKABLE. absent: Rales, Wheezes, Respiratory Distress, Stridor - Cardiovascular Exam Cardiovascular Exam: Irregular Rhythm Additional comments: afib, aflutter - GI/Abdominal Exam GI & Abdominal Exam: Normal Bowel Sounds, Soft. absent: Distended, Firm, Guarding, Tenderness - Neurological Exam Neurological exam: Alert, Oriented x3 Additional comments: muscle strength 5/5 b/l upper and Lower extremities - Psychiatric Exam Psychiatric exam: Normal Affect, Normal Mood - Skin Skin Exam: Dry, Intact, Normal Color, Warm Discharge Plan - Discharge Medications Prescriptions: Apixaban [Eliquis] 5 mg PO BID 60 Days Brimonidine 0.2% [Alphagan 0.2% Opht] 0 ml OU TID #1 bottle Carvedilol [Coreg] 25 mg PO BID #60 tab diltiaZEM [Cardizem] 30 mg PO TID #120 tab Latanoprost 0.005% Opht [Xalatan Opht] 0 ml OU HS #1 bottle Losartan [Cozaar] 100 mg PO DAILY #30 tab metFORMIN [glucOPHAGE] 1,000 mg PO BID #60 tab Rosuvastatin Calcium [Crestor] 10 mg PO HS #30 tab - Follow Up Plan Condition: IMPROVED Disposition: REHAB FACILITY/REHAB UNIT Instructions: Diltiazem (By mouth), Pneumococcal Polyvalent Vaccine (By injection), Losartan (By mouth), Metformin (By mouth), Latanoprost (Into the eye ), Brimonidine (Into the eye), Carvedilol (By mouth), Rosuvastatin (By mouth), Apixaban (By mouth), Atrial Fibrillation (DC), Pacemaker (DC), Diabetes Mellitus Type 2 in Adults (DC), Influenza Vaccine (DC), Hypotension (DC), Bradycardia (DC) Additional Instructions: The patient is being transferred to [place] From a cardiac standpoint patient is stable and cleared for Discharge. Please follow up with Dr. Keith in one week. Please call the office to make an appointment. The number is [phone]. From a medical standpoint the patient is stable and cleared for D/C. If symptoms return please come to the ER. Please take the following medicines as directed. Clinical Quality Measures - CQM - Stroke Antithrombotic Prescribed: Yes Anticoagulation Prescribed for Atrial Flutter, Atrial Fibrillation and History of:: Yes Statin prescribed: Yes - CQM - Heart Failure Ejection Fraction: 40 % or Greater SEEMA Inhibitor Prescribed: Yes AnticoagulationTherapy for Atrial Fibrillation/Atrialflutter: Yes Will be discharged to: Alf Facility - Date & Time of Discharge Summary Date of Discharge Summary: 05/25/17 Time of Discharge Summary: 15:13 <Dev Price - Last Filed: 05/25/17 16:38> Provider - Provider Date of Admission: 05/18/17 13:42 Attending physician: Dev Price DO Hospital Course - Lab Results Lab Results: Micro Results 05/18/17 16:30 Naris MRSA Culture (Admit) - Final MRSA NOT DETECTED Most Recent Lab Values WBC 9.0 K/uL (4.8-10.8) 05/25/17 10:50 RBC 3.58 Mil/uL (3.80-5.20) L 05/25/17 10:50 Hgb 10.0 g/dL (11.0-16.0) L 05/25/17 10:50 Hct 30.9 % (34.0-47.0) L 05/25/17 10:50 MCV 86.1 fL (81.0-99.0) 05/25/17 10:50 MCH 28.0 pg (27.0-31.0) 05/25/17 10:50 MCHC 32.5 g/dL (33.0-37.0) L 05/25/17 10:50 RDW 14.4 % (11.5-14.5) 05/25/17 10:50 Plt Count 368 K/uL (130-400) 05/25/17 10:50 MPV 8.2 fL (7.2-11.7) 05/25/17 10:50 Neut % (Auto) 82.8 % (50.0-75.0) H 05/25/17 10:50 Lymph % (Auto) 11.5 % (20.0-40.0) L 05/25/17 10:50 Hettinger % (Auto) 5.0 % (0.0-10.0) 05/25/17 10:50 Eos % (Auto) 0.3 % (0.0-4.0) 05/25/17 10:50 Baso % (Auto) 0.4 % (0.0-2.0) 05/25/17 10:50 Neut # 7.5 K/uL (1.8-7.0) H 05/25/17 10:50 Lymph # 1.0 K/uL (1.0-4.3) 05/25/17 10:50 Hettinger # 0.5 K/uL (0.0-0.8) 05/25/17 10:50 Eos # 0.0 K/uL (0.0-0.7) 05/25/17 10:50 Baso # 0.0 K/uL (0.0-0.2) 05/25/17 10:50 Neutrophils % (Manual) 83 % (50-75) H 05/22/17 16:44 Band Neutrophils % 2 % (0-2) 05/21/17 06:16 Lymphocytes % (Manual) 11 % (20-40) L 05/22/17 16:44 Monocytes % (Manual) 5 % (0-10) 05/22/17 16:44 Basophils % (Manual) 1 % (0-2) 05/22/17 16:44 Platelet Estimate Normal (NORMAL) 05/22/17 16:44 Large Platelets Present 05/21/17 06:16 Hypochromasia (manual) Slight 05/22/17 16:44 Poikilocytosis (manual Slight 05/22/17 16:44 Anisocytosis (manual) Slight 05/22/17 16:44 Mack Cells Slight 05/21/17 06:16 PT 17.3 SECONDS (9.7-12.2) H 05/22/17 16:44 INR 1.5 05/22/17 16:44 APTT 216 SECONDS (21-34) H* D 05/23/17 02:00 Sodium 138 mmol/L (132-148) 05/25/17 10:50 Potassium 5.2 mmol/L (3.6-5.2) 05/25/17 10:50 Chloride 103 mmol/L (98-107) 05/25/17 10:50 Carbon Dioxide 25 mmol/L (22-30) 05/25/17 10:50 Anion Gap 15 (10-20) 05/25/17 10:50 BUN 26 mg/dL (7-17) H 05/25/17 10:50 Creatinine 1.0 MG/DL (0.7-1.2) 05/25/17 10:50 Est GFR ( Amer) > 60 05/25/17 10:50 Est GFR (Non-Af Amer) 54 05/25/17 10:50 POC Glucose (mg/dL) 218 mg/dL (65-110) H 05/25/17 11:27 Random Glucose 166 mg/dL (65-105) H 05/25/17 10:50 Calcium 8.7 mg/dl (8.6-10.4) 05/25/17 10:50 Phosphorus 3.9 mg/dL (2.5-4.5) 05/21/17 06:15 Magnesium 2.0 mg/dL (1.6-2.3) 05/21/17 06:15 Total Bilirubin 0.6 mg/dL (0.2-1.3) 05/25/17 10:50 AST 20 U/L (14-36) 05/25/17 10:50 ALT 28 U/L (9-52) 05/25/17 10:50 Alkaline Phosphatase 62 U/L (38-126) 05/25/17 10:50 Total Creatine Kinase 24 U/L (30-135) L 05/18/17 12:57 CK-MB (Mass) 1.61 ng/mL (0.0-3.38) 05/18/17 12:57 Troponin I 0.0410 ng/mL (0.00-0.120) 05/21/17 20:24 Total Protein 6.1 g/dL (6.3-8.3) L 05/25/17 10:50 Albumin 3.0 g/dL (3.5-5.0) L 05/25/17 10:50 Globulin 3.1 gm/dL (2.2-3.9) 05/25/17 10:50 Albumin/Globulin Ratio 1.0 (1.0-2.1) 05/25/17 10:50 TSH 3rd Generation 1.03 mIU/L (0.46-4.68) 05/19/17 02:23 Attending/Attestation - Attestation I have personally seen and examined this patient.: Yes I have fully participated in the care of the patient.: Yes I have reviewed all pertinent clinical information, including history, physical exam and plan: Yes Notes (Text): 05/25/17 16:32 Medical attending: Patient was seen and examined by me. Agree with the above note by the resident. The patient will be returning to [facility]. I spoke also again with the patient's PMD. For rate control was started on cardizem 30 TID in addition to the coreg BID. Also back on Eliquis for anticoagulation Family was present at bedside to help with translation. Patient reported no pain at the site of the device at rest, however had some tenderness when moving her arm. Othewrwise no acute changes or concerns. thank you Dev Price
[2017-05-25] MEDS ORDERED: Pneumococcal 23-Valent Vaccine IM ONE (13:30)
[2017-05-25 16:04] VITALS: PULSE 72; TEMP 97.4
[2017-05-25 17:22] VITALS: BP 142/84
== END 2017-05-25 19:40 | DRG 310 ==
LOC: C.ER 12:20 → C.9E 13:42 → C.9I 14:44 → C.5T 05-21 14:12 → UNDODISIN 05-23 12:30 → C.5T 05-23 18:45
PROVIDERS: ADMIT Internal Medicine; ATTEND Hospitalist
DX: I49.5 Sick sinus syndrome (principal); E11.22 Type 2 diabetes mellitus with diabetic chronic kidney disease; I95.2 Hypotension due to drugs; E87.5 Hyperkalemia; I48.91 Unspecified atrial fibrillation; N18.3 Chronic kidney disease, stage 3 (moderate); E78.5 Hyperlipidemia, unspecified; I12.9 Hypertensive chronic kidney disease with stage 1 through stage 4 chronic kidney disease, or unspecified chronic kidney disease; I69.312 Visuospatial deficit and spatial neglect following cerebral infarction; E78.00 Pure hypercholesterolemia, unspecified; E03.9 Hypothyroidism, unspecified; T50.995A Adverse effect of other drugs, medicaments and biological substances, initial encounter; H54.0 Blindness, both eyes

== ENCOUNTER 2017-06-09 16:24 | Inpatient (IN) | payer OTHER ==
[2017-06-09 16:37] VITALS: BMI 25.0
[2017-06-09] MEDS ORDERED: Pantoprazole 80 MG in Sodium Chloride 0.9% 100 ML IV STA (16:56)
[2017-06-09] MEDS ORDERED: Sodium Chloride 0.9% 1,000 ML IV ONE (16:56)
--- NOTE | 2017-06-09 17:15 | C.PDOC ---
History Of Present Illness 77 year old female sent from [facility] for evaluation of rectal bleeding today. Patient has history of CVA with residual visual deficits, HTN, A -fib, DM, hypercholesterolemia, and hypothyroidism. Sister in law is at bedside and turner machine operator for patient. Patient offers no complaints, denies any pain or SOB. PMD: Dr. Velazquez Etl Database Developer: Dr. Keith/Raul Time Seen by Provider: 06/09/17 16:44 Chief Complaint (Nursing): GI Problem History Per: Patient History/Exam Limitations: no limitations Onset/Duration Of Symptoms: Days (x1) Current Symptoms Are (Timing): Still Present Past Medical History Reviewed: Historical Data, Nursing Documentation, Vital Signs Vital Signs: Last Vital Signs Temp 97.7 F 06/09/17 16:37 Pulse 73 06/09/17 17:41 Resp 20 06/09/17 17:41 BP 140/70 06/09/17 17:41 Pulse Ox 100 06/09/17 18:07 - Medical History PMH: Arthritis, Atrial Fibrillation, Cardia Arrhythmia, Diabetes, HTN, Hypercholesterolemia, Hypothyroidism Surgical History: Pacemaker - [facility] CORONAR ARTERIOGR-2 CATH (06/24/15) LT HEART ANGIOCARDIOGRAM (06/24/15) RT/LEFT HEART CARD CATH (06/24/15) Family History: States: No Known Family Hx - Social History Hx Tobacco Use: No Hx Alcohol Use: No Hx Substance Use: No - Immunization History Hx Tetanus Toxoid Vaccination: No Hx Influenza Vaccination: No Hx Pneumococcal Vaccination: No Review Of Systems Except As Marked, All Systems Reviewed And Found Negative. Respiratory: Negative for: Shortness of Breath Gastrointestinal: Positive for: Other (Rectal bleeding). Negative for: Rectal Pain Physical Exam - Physical Exam Appears: Well, Non-toxic, No Acute Distress Skin: Warm, Dry, No Rash Head: Atraumatic, Normacephalic Eye(s): bilateral: Normal Inspection Oral Mucosa: Moist Neck: Normal ROM Chest: Symmetrical Cardiovascular: Rhythm Irregular, Other (pacemaker to left upper chest wall, no erythema, swelling or discharge) Respiratory: Normal Breath Sounds, No Rales, No Rhonchi, No Wheezing Gastrointestinal/Abdominal: Bowel Sounds (active), Soft, No Tenderness, No Guarding Rectal: Rectal Tone (normal), Melena (dark blood in stool), No Mass, No Tenderness Extremity: Bilateral: Atraumatic, No Pedal Edema, Normal Color And Temperature, Normal ROM Neurological/Psych: Oriented x3, Normal Speech Gait: Unable To Assess ED Course And Treatment - Laboratory Results Result Diagrams: 06/09/17 17:13 06/09/17 17:13 Lab Interpretation: Abnormal ECG: Interpreted By Me, Viewed By Me ECG Rhythm: Atrial Fibrillation Rate From EC O2 Sat by Pulse Oximetry: 100 (RA) Pulse Ox Interpretation: Normal - Radiology CXR: Interpreted by Me, Viewed By Me CXR Interpretation: Yes: Other (cardiac pacemaker placement. Developing left basilar atelectasis or infiltrate with trace right pleural effusion not excluded.) Medical Decision Making Medical Decision Making: Impression: GI bleed Prior records reviewed: Patient recently admitted for acute CVA likely secondary to Afib 05/06/17 and discharged on 05/25/17 to [facility]. Pacemaker was implanted on 05/24 at [facility]. Tachycardia controlled. Blindness was a lasting deficit. Plan: * EKG * CXR * Labs * Type and screen Progress: EKG A-fib with ventricular paced complex at 75 bpm CXR read by radiologist. Impression: 1. Status post permanent cardiac pacemaker placement with no pneumothorax identified bilaterally. 2. Stable cardiac silhouette. Developing left basilar atelectasis or infiltrate with trace right pleural effusion not excluded. Labs reviewed Hgb 8.8 (Hgb was 10.0 on 05/25), coags elevated, stool occult positive 1804 Contact hospitalist who admits for Dr Velazquez and Dr Price accepts patient for admission Disposition - Disposition Disposition: HOSPITALIZED Disposition Time: 18:04 Condition: FAIR Forms: [facility] (Malay) - POA Present On Arrival: Poor Glycemic Control - Clinical Impression Clinical Impression: GI bleed, History of atrial fibrillation, Status post CVA - PA / MULTIMEDIA AUTHORING SPECIALIST / Resident Statement MD/DO has reviewed & agrees with the documentation as recorded. - Scribe Statement The provider has reviewed the documentation as recorded by the Scribclair Robles All medical record entries made by the Scribe were at my direction and personally dictated by me. I have reviewed the chart and agree that the record accurately reflects my personal performance of the history, physical exam, medical decision making, and the department course for this patient. I have also personally directed, reviewed, and agree with the discharge instructions and disposition. Decision To Admit - Pt Status Changed To: Hospital Disposition Of: Inpatient - Admit Certification Admit to Inpatient:: After my assessment, the patient will require hospitalization for at least two midnights. This is because of the severity of symptoms shown, intensity of services needed, and/or the medical risk in this patient being treated as an outpatient. - InPatient: Physician Admission Certification: I certify that this patient requires 2 or more midnights of care for the following reason:: Patient with PMH of Afib and CVA on Eliquis with acute GI bleed - . Bed Request Type: Telemetry Admitting Physician: Dev Price Patient Diagnosis: GI bleed, History of atrial fibrillation, Status post CVA
[2017-06-09 17:16] LABS: BASO # 0.1 K/uL (0.0-0.2); BASO % 0.8 % (0.0-2.0); EOS # 0.1 K/uL (0.0-0.7); EOS % 1.6 % (0.0-4.0); HEMATOCRIT 27.3 % (34.0-47.0); LYMPH # 1.6 K/uL (1.0-4.3); LYMPH % 24.4 % (20.0-40.0); MEAN CELL VOLUME 88.8 fL (81.0-99.0); MEAN CORPUSCULAR HEMOGLOBIN 28.6 pg (27.0-31.0); MEAN CORPUSCULAR HGB CONC 32.3 g/dL (33.0-37.0); MEAN PLATELET VOLUME 7.6 fL (7.2-11.7); MONO # 0.6 K/uL (0.0-0.8); MONO % 8.8 % (0.0-10.0); NRBC % 0.1 % (0.0-2.0); RED CELL DISTRIBUTION WIDTH 17.3 % (11.5-14.5); WHITE BLOOD COUNT 6.7 K/uL (4.8-10.8)
[2017-06-09 17:24] LABS: CHLORIDE 106 mmol/L (98-107); SODIUM 144 mmol/L (132-148)
[2017-06-09 17:25] LABS: POTASSIUM 5.1 mmol/L (3.6-5.2)
[2017-06-09 17:26] LABS: INR 2.3
[2017-06-09 17:27] LABS: ALKALINE PHOSPHATASE 56 U/L (38-126); AST/SGOT 17 U/L (14-36); BILIRUBIN,TOTAL 0.5 mg/dL (0.2-1.3); BLOOD UREA NITROGEN 19 mg/dL (7-17); CARBON DIOXIDE 25 mmol/L (22-30); GFR AFRICAN-AMERICAN > 60; GLUCOSE,RANDOM 129 mg/dL (65-105); TOTAL PROTEIN 6.2 g/dL (6.3-8.3)
[2017-06-09 17:28] LABS: ALT/SGPT 21 U/L (9-52)
[2017-06-09 17:36] LABS: RBC URINE 3 /hpf (0-3); URINE BACTERIA MANY (<OCC); URINE BILIRUBIN NEGATIVE (NEGATIVE); URINE BLOOD NEGATIVE (NEGATIVE); URINE COLOR Yellow (YELLOW); URINE GLUCOSE (UA) NORMAL (Normal); URINE KETONE NEGATIVE (NEGATIVE); URINE LEUKOCYTE ESTERASE TRACE Leu/uL (Negative); URINE PROTEIN NEGATIVE (NEGATIVE); URINE UROBILINOGEN NORMAL mg/dL (0.2-1.0); WBC URINE 4 /hpf (0-5)
--- NOTE | 2017-06-09 17:44 | RAD ---
PROCEDURE: CHEST RADIOGRAPH, 1 VIEW HISTORY: GI Bleeding COMPARISON: Portable chest 05/18/2017 FINDINGS: LUNGS: There is no poor definition left hemidiaphragm suggesting worsening of possible left basilar atelectasis or developing infiltrate here. Smaller pleural effusion not excluded. No right-sided infiltrate. No pneumothorax or pulmonary vascular derangement. PLEURA: As above. CARDIOVASCULAR: Cardiac silhouette appears stable. An interval unipolar permanent cardiac pacemaker is now identified in place with the generator in the left pectoralis region and a solitary lead extending to the region of the right heart. OSSEOUS STRUCTURES: No significant abnormalities. VISUALIZED UPPER ABDOMEN: Normal. OTHER FINDINGS: None. IMPRESSION: 1. Status post permanent cardiac pacemaker placement with no pneumothorax identified bilaterally. 2. Stable cardiac silhouette. Developing left basilar atelectasis or infiltrate with trace right pleural effusion not excluded.
--- NOTE | 2017-06-09 20:22 | CP.PCM.HP ---
<Austen Perdomo - Last Filed: 06/10/17 05:25> History of Present Illness - History of Present Illness History of Present Illness: PGY-1 H&P for Dr. Wisdom This is a 77 year old female with PMHx of multiple CVA (most recently in 04/2017) , HTN, Afib, sick sinus syndrome s/p pacemaker implantation 05/24/17, DM, anemia , hypercholesterolemia who presented from [facility] for gross rectal bleeding. This was noticed earlier today at 3PM by the patient's [id number]. In the patient's adult diaper, there was blood mixed amongst the contents. When questioned, the patient's other sister at bedside stated "regular red" in color. Patient at baseline is able to sense when she has to move her bowels but is unable to control it. Patient denies ever straining or experiencing constipation. Stool at baseline is a mix of loose stools with some formed elements. The [id number] called Dr. Velazquez who advised transfer to [facility]. There are no changes in stool character. Patient denies changes in diet. PMHx: CVA with visual deficits (04/2017, 02/2015); HTN, DM, hypercholesterolemia PSHx: Pacemaker implantation 05/24/17; c-sections, b/l cataract surgery SocHx: denies smoking, alcohol, and drug uses; comes from [facility] but normally lives at home with family Allergies: NKDA PMD: Dr. Velazquez Customer Development Manager: Dr. Carter Medications: as per [facility]: Colace 100 mg PO BID, Cyproheptadine 4 mg PO before breakfast for appetite stimulaton (end date: 06/13), Eliquis 5 mg PO BID, Cardizem 30 mg PO TID, Ferrous sulfate 325 mg PO BID, Folic acid 1 mg PO daily, Losartan 100 mg PO daily, milk of mag 30 ml Q24 prn ONLY if no BM for 3 days, Mylanta suspension 30 ml PO Q4H prn dyspepsia, Zofran 4 mg PO Q6H prn nausea, Crestor 10 mg PO HS, Kayexcelate 30 mg PO daily every Sunday and Sunday for hyperkalemia, Tylenol 650 mg PO Q4H prn pain, Aspirin 81 mg PO daily, Coreg 25 mg PO BID, Febuxostat 40 mg PO daily, Metformin 1000 mg PO BID, Bimatoprost solution 1 drop in each eye HS, Brimonidine tartrate solution 0.2% 1 drop in each eye HS Contact Information: Tramaine Singletary (nephew) [phone] Renate (sister) [phone] Present on Admission - Present on Admission Any Indicators Present on Admission: No Review of Systems - Constitutional Constitutional: absent: Headache, Weakness - EENT Eyes: Loss of Vision (chronic from prior CVA) - Cardiovascular Cardiovascular: absent: Chest Pain, Palpitations - Respiratory Respiratory: absent: Cough, Dyspnea, Wheezing - Gastrointestinal Gastrointestinal: Loose Stools (baseline ). absent: Abdominal Pain, Change in Stool Character, Constipation, Diarrhea, Dyspepsia, Hematemesis, Nausea, Vomiting - Genitourinary Genitourinary: absent: Dysuria - Musculoskeletal Musculoskeletal: absent: Numbness, Tingling - Integumentary Integumentary: absent: Lesions, Rash - Neurological Neurological: absent: Dizziness, Numbness, Headaches, Tingling, Weakness - Endocrine Endocrine: absent: Palpitations Past Patient History - Infectious Disease Hx of Infectious Diseases: None - Tetanus Immunizations Tetanus Immunization: Unknown - Past Medical History & Family History Past Medical History?: Yes - Past Social History Smoking Status: Never Smoked - CARDIAC Hx Atrial Fibrillation: Yes Hx Cardia Arrhythmia: Yes Hx Hypercholesterolemia: Yes Hx Hypertension: Yes Hx Pacemaker: Yes - PULMONARY Hx Respiratory Disorders: No - NEUROLOGICAL HX Cerebrovascular Accident: Yes (recent CVA) - HEENT 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) Hx Cataracts: Yes Hx Glaucoma: Yes - RENAL Hx Chronic Kidney Disease: No - ENDOCRINE/METABOLIC Hx Hypothyroidism: Yes - HEMATOLOGICAL/ONCOLOGICAL Hx Blood Transfusions: No Hx Blood Transfusion Reaction: No - MUSCULOSKELETAL/RHEUMATOLOGICAL Hx Arthritis: Yes - GASTROINTESTINAL Hx Gastrointestinal Disorders: No - PSYCHIATRIC Hx Substance Use: No - SURGICAL HISTORY Hx Surgeries: Yes Hx Angiogram: Yes Hx Cataract Extraction: Yes (Bilat eyes) Hx Cardiac Catheterization: Yes Hx Section: Yes - ANESTHESIA Hx Anesthesia: Yes Hx Anesthesia Reactions: No Hx Malignant Hyperthermia: No Meds Allergies/Adverse Reactions: Allergies Allergy/AdvReac Type Severity Reaction Status Date / Time No Known Allergies Allergy Verified 06/09/17 16:36 Physical Exam - Constitutional Appears: No Acute Distress - Head Exam Head Exam: ATRAUMATIC, NORMAL INSPECTION, NORMOCEPHALIC - Eye Exam Additional comments: Could not assess EOM due to blindness residual from prior CVA Beneath her eyelids was pallor bilaterally - ENT Exam ENT Exam: Mucous Membranes Dry - Respiratory Exam Respiratory Exam: Clear to Auscultation Bilateral. absent: Rales, Rhonchi, Wheezes - Cardiovascular Exam Cardiovascular Exam: Irregular Rhythm, +S1, +S2. absent: Tachycardia - GI/Abdominal Exam GI & Abdominal Exam: Hyperactive Bowel Sounds, Soft. absent: Tenderness - Rectal Exam Additional comments: Resident observed the patient's adult diaper being changed. Stool appeared in a range between light-dark brown non-formed. There was one piece which was black. - Extremities Exam Extremities exam: Negative for: pedal edema, tenderness Additional comments: There was decreased skin turgor bilaterally in the legs. - Neurological Exam Neurological exam: Alert, Oriented x3 Additional comments: Muscle strength symmetrical bilaterally in the 4 extremities. Noted 5/5. - Skin Skin Exam: Dry, Intact, Normal Color Results - Vital Signs Recent Vital Signs: Last Vital Signs Temp 97.7 F 06/09/17 20:06 Pulse 65 06/09/17 20:06 Resp 20 06/09/17 20:06 BP 140/71 06/09/17 20:06 Pulse Ox 100 06/09/17 20:06 - Labs Result Diagrams: 06/09/17 17:13 06/09/17 17:13 Assessment & Plan - Assessment and Plan (Free Text) Plan: GI Bleed Hemoglobin 10.1 on 06/04. Now 8.8 on 06/09. NPO except meds Protonix drip 8 cc/hr NS 100cc/hr Dr. Reyes GI consulted. Help appreciated. Left message on answering service, Dr. Thorpe covering. Decision made to transfuse 1 unit of PRBCs overnight. Dr. Wisdom explained the necessity and patient consented but couldn't sign due to visual impairment. Nephew Tramaine Singletary made aware and agrees with transfusion. Will recheck Hemoglobin on morning labs. History of A-fib Rate controlled on admission Lowered Coreg to 12.5 mg PO BID Held off on the Cardizem 30 mg PO TID Held off on the Eliquis 5 mg PO BID due to GI bleed History of Hypertension Held off on the Losartan due to history of hyperkalemia History of Anemia Held off on Ferrous Sulfate for now Runs around Hgb 10 at baseline History of CVA Held off on the ASA, Eliquis, Crestor for now History of Gout Held off on Feboxustat for now History of Diabetes NPO except meds Held off on Metformin 1000 mg PO BID for now Accuchecks QACHS Prophylactic Measure SCDs Held off on Eliquis due to bleed Protonix drip 8 cc/hr AM Labs Case DW Dr. Artis Perdomo PGY-1 - Date & Time Date: 06/09/17 Time: 22:00 <Cricket Wisdom - Last Filed: 06/11/17 07:43> Results - Vital Signs Recent Vital Signs: Last Vital Signs Temp 97.5 F L 06/11/17 04:24 Pulse 72 06/11/17 06:06 Resp 20 06/11/17 04:24 BP 136/79 06/11/17 04:24 Pulse Ox 100 06/11/17 04:24 - Labs Result Diagrams: 06/11/17 06:20 06/11/17 06:20 Labs: Laboratory Results - last 24 hr 06/10/17 06/10/17 06/10/17 07:51 07:51 11:16 WBC 6.8 RBC 3.95 Hgb 11.5 D Hct 35.3 MCV 89.4 MCH 29.1 MCHC 32.6 L RDW 16.9 H Plt Count 282 MPV 7.8 Neut % (Auto) 76.3 H Lymph % (Auto) 16.8 L [place] % (Auto) 6.2 Eos % (Auto) 0.3 Baso % (Auto) 0.4 Neut # 5.2 Lymph # 1.1 [place] # 0.4 Eos # 0.0 Baso # 0.0 Sodium 145 Potassium 4.9 Chloride 106 Carbon Dioxide 25 Anion Gap 19 BUN 19 H Creatinine 0.9 Est GFR ( Amer) > 60 Est GFR (Non-Af Amer) > 60 POC Glucose (mg/dL) 154 H Random Glucose 153 H Calcium 9.1 Phosphorus 3.8 Magnesium 1.6 Total Bilirubin 0.9 AST 17 ALT 24 Alkaline Phosphatase 55 Total Protein 6.6 Albumin 3.4 L Globulin 3.2 Albumin/Globulin Ratio 1.0 06/10/17 06/10/17 06/11/17 16:25 21:40 06:02 WBC RBC Hgb Hct MCV MCH MCHC RDW Plt Count MPV Neut % (Auto) Lymph % (Auto) [place] % (Auto) Eos % (Auto) Baso % (Auto) Neut # Lymph # [place] # Eos # Baso # Sodium Potassium Chloride Carbon Dioxide Anion Gap BUN Creatinine Est GFR ( Amer) Est GFR (Non-Af Amer) POC Glucose (mg/dL) 212 H 180 H 157 H Random Glucose Calcium Phosphorus Magnesium Total Bilirubin AST ALT Alkaline Phosphatase Total Protein Albumin Globulin Albumin/Globulin Ratio 06/11/17 06/11/17 06:20 06:20 WBC 5.7 RBC 3.75 L Hgb 10.7 L Hct 33.4 L MCV 88.9 MCH 28.4 MCHC 32.0 L RDW 16.5 H Plt Count 267 MPV 7.3 Neut % (Auto) 72.9 Lymph % (Auto) 17.0 L [place] % (Auto) 8.2 Eos % (Auto) 1.5 Baso % (Auto) 0.4 Neut # 4.1 Lymph # 1.0 [place] # 0.5 Eos # 0.1 Baso # 0.0 Sodium 141 Potassium 4.5 Chloride 106 Carbon Dioxide 26 Anion Gap 14 BUN 13 Creatinine 0.8 Est GFR ( Amer) > 60 Est GFR (Non-Af Amer) > 60 POC Glucose (mg/dL) Random Glucose 137 H Calcium 8.5 L Phosphorus 3.7 Magnesium 1.5 L Total Bilirubin 0.7 AST 16 ALT 20 Alkaline Phosphatase 45 Total Protein 5.7 L Albumin 3.0 L Globulin 2.7 Albumin/Globulin Ratio 1.1 Attending/Attestation - Attestation I have personally seen and examined this patient.: Yes I have fully participated in the care of the patient.: Yes I have reviewed all pertinent clinical information: Yes Notes (Text): Rectal bleed dark and red with drop in hemoglobin to 8.8 form 10.1, in addition patient is clinically dry may suspect actual lower hgb, ordered 1 unit prbc. Patient is on Eliquis and ASA for, afib, with b/l occipital recent infarcts, h/ o PFO. Recent hyperkalemia noted needing kayexalate will hold on losartan upon discharge, it is held at this. Plan PRBC continue lower dose betablocker control afib rate GI consult Empirically started on PPI drip ASA, Eliquis held See orders for detail.
--- NOTE | 2017-06-09 21:59 | CP.PCM.CON ---
History of Present Illness - History of Present Illness History of Present Illness: 77 F with Hx of CVA, A Fib, HTN admitted for GI bleeding and anemia Denies chest pain and dyspnea Review of Systems - Constitutional Constitutional: Weakness - EENT Eyes: absent: As Per HPI, Blind Spots, Blurred Vision, Change in Vision, Decreased Night Vision, Diplopia, Discharge, Dry Eye, Exophthalmos, Floaters, Irritation, Itchy Eyes, Loss of Peripheral Vision, Pain, Photophobia, Requires Corrective Lenses, Sees Flashes, Spots in Vision, Tunnel Vision, Other Visual Disturbances, Loss of Vision, Other Nose/Mouth/Throat: absent: As Per HPI, Epistaxis, Nasal Congestion, Nasal Discharge, Nasal Obstruction, Nasal Trauma, Nose Pain, Post Nasal Drip, Sinus Pain, Sinus Pressure, Bleeding Gums, Change in Voice, Dental Pain, Dry Mouth, Dysphagia, Halitosis, Hoarsness, Lip Swelling, Mouth Lesions, Mouth Pain, Odynophagia, Sore Throat, Throat Swelling, Tongue Swelling, Facial Pain, Neck Pain, Neck Mass, Other - Cardiovascular Cardiovascular: absent: Chest Pain - Respiratory Respiratory: absent: Dyspnea - Gastrointestinal Gastrointestinal: Diarrhea, Nausea Past Patient History - Infectious Disease Hx of Infectious Diseases: None - Tetanus Immunizations Tetanus Immunization: Unknown - Past Medical History & Family History Past Medical History?: Yes - Past Social History Smoking Status: Never Smoked - CARDIAC Hx Atrial Fibrillation: Yes Hx Cardia Arrhythmia: Yes Hx Hypercholesterolemia: Yes Hx Hypertension: Yes Hx Pacemaker: Yes - PULMONARY Hx Respiratory Disorders: No - NEUROLOGICAL HX Cerebrovascular Accident: Yes (recent CVA) - HEENT 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) Hx Cataracts: Yes Hx Glaucoma: Yes - RENAL Hx Chronic Kidney Disease: No - ENDOCRINE/METABOLIC Hx Hypothyroidism: Yes - HEMATOLOGICAL/ONCOLOGICAL Hx Blood Transfusions: No Hx Blood Transfusion Reaction: No - INTEGUMENTARY Hx Dermatological Problems: No - MUSCULOSKELETAL/RHEUMATOLOGICAL Hx Falls: No - GASTROINTESTINAL Hx Gastrointestinal Disorders: No - GENITOURINARY/GYNECOLOGICAL Hx Incontinence: Yes - PSYCHIATRIC Hx Substance Use: No - SURGICAL HISTORY Hx Surgeries: Yes Hx Angiogram: Yes Hx Cataract Extraction: Yes (Bilat eyes) Hx Cardiac Catheterization: Yes Hx Section: Yes - ANESTHESIA Hx Anesthesia: Yes Hx Anesthesia Reactions: No Hx Malignant Hyperthermia: No Meds Allergies/Adverse Reactions: Allergies Allergy/AdvReac Type Severity Reaction Status Date / Time No Known Allergies Allergy Verified 06/09/17 16:36 - Medications Medications: Current Medications Carvedilol (Coreg) 12.5 mg PO BID SHAHIDA Sodium Chloride (Sodium Chloride 0.9%) 1,000 mls @ 100 mls/hr IV .Q10H ONE Stop: 06/10/17 02:55 Last Admin: 06/09/17 17:48 Dose: 100 mls/hr Physical Exam - Head Exam Head Exam: ATRAUMATIC, NORMAL INSPECTION - Eye Exam Eye Exam: EOMI, Normal appearance, PERRL Pupil Exam: NORMAL ACCOMODATION - ENT Exam ENT Exam: Mucous Membranes Moist, Normal Exam - Neck Exam Neck exam: Positive for: Normal Inspection - Respiratory Exam Respiratory Exam: Clear to Auscultation Bilateral, NORMAL BREATHING PATTERN - Cardiovascular Exam Cardiovascular Exam: Irregular Rhythm, +S1, +S2 - GI/Abdominal Exam GI & Abdominal Exam: Normal Bowel Sounds, Soft - Neurological Exam Neurological exam: Alert, CN II-XII Intact, Reflexes Normal - Skin Skin Exam: Warm Results - Vital Signs Recent Vital Signs: Last Vital Signs Temp 97.7 F 06/09/17 20:06 Pulse 89 06/09/17 21:13 Resp 20 06/09/17 20:06 BP 140/71 06/09/17 20:06 Pulse Ox 100 06/09/17 20:06 - Labs Result Diagrams: 06/10/17 07:51 06/10/17 07:51 Labs: Laboratory Results - last 24 hr 06/09/17 20:48 POC Glucose (mg/dL) 148 H Assessment & Plan - Assessment and Plan (Free Text) Assessment: 1. A Fib 2. Sick sinus syndrome s/p PPM 3. HTN 4. CVA D/C antiplatelets and anticoagulants GI consult for Colonscopy and Endoscopy
[2017-06-10] MEDS: Pantoprazole 80 MG in Sodium Chloride 0.9% 100 ML IVP SCH ×3 (00:13→18:15)
[2017-06-10] MEDS ORDERED: Metoprolol 1 mg/ml Inj IVP ONE ×2 (01:50→04:44)
[2017-06-10] MEDS: Sodium Chloride 0.9% 1,000 ML IV SCH ×2 (08:09→18:15)
[2017-06-10 08:13] LABS: BASO % 0.4 % (0.0-2.0); EOS % 0.3 % (0.0-4.0); HEMATOCRIT 35.3 % (34.0-47.0); LYMPH # 1.1 K/uL (1.0-4.3); LYMPH % 16.8 % (20.0-40.0); MEAN CELL VOLUME 89.4 fL (81.0-99.0); MEAN CORPUSCULAR HEMOGLOBIN 29.1 pg (27.0-31.0); MEAN CORPUSCULAR HGB CONC 32.6 g/dL (33.0-37.0); MEAN PLATELET VOLUME 7.8 fL (7.2-11.7); MONO # 0.4 K/uL (0.0-0.8); MONO % 6.2 % (0.0-10.0); NRBC % 0.1 % (0.0-2.0); RED CELL DISTRIBUTION WIDTH 16.9 % (11.5-14.5); WHITE BLOOD COUNT 6.8 K/uL (4.8-10.8)
[2017-06-10 08:22] LABS: CHLORIDE 106 mmol/L (98-107)
[2017-06-10 08:23] LABS: POTASSIUM 4.9 mmol/L (3.6-5.2); SODIUM 145 mmol/L (132-148)
[2017-06-10 08:25] LABS: ALKALINE PHOSPHATASE 55 U/L (38-126); AST/SGOT 17 U/L (14-36); BILIRUBIN,TOTAL 0.9 mg/dL (0.2-1.3); BLOOD UREA NITROGEN 19 mg/dL (7-17); CARBON DIOXIDE 25 mmol/L (22-30); TOTAL PROTEIN 6.6 g/dL (6.3-8.3)
[2017-06-10 08:26] LABS: ALT/SGPT 24 U/L (9-52); CALCIUM 9.1 mg/dl (8.6-10.4); GLUCOSE,RANDOM 153 mg/dL (65-105); MAGNESIUM 1.6 mg/dL (1.6-2.3); PHOSPHOROUS 3.8 mg/dL (2.5-4.5)
[2017-06-10 08:28] LABS: GFR AFRICAN-AMERICAN > 60
--- NOTE | 2017-06-10 09:52 | CP.PCM.PN ---
Subjective - Date & Time of Evaluation Date of Evaluation: 06/10/17 Time of Evaluation: 09:35 - Subjective Subjective: Patient was seen and examined by me She is well known to me as well as to the hospitalist service and residents. The patient came in after it was noted at her Rehab center that there was dark color stool seen. When she came to the ER the Hgb was 8.8. She was given 1 unit of PRBC overnight as well IVF. Her systolic BPs is in the 140s and 150s. On telemetry she remains in Afib with intensive care anaesthetist HRs in the 120s and then decreased to 80s after admininstration of medications. In her recent history she has atrial fibrillation with episodes of RVR and has a high CHADs score. she has had two CVAs, the most recent of which caused her to almost completely loose eye sight. She has been on anticoagulation with Eliquis PO, however with this recent bleeding it will make anticoagulation difficult. She is not in any acute distress when I saw her. She follows some very simple commands. Objective - Vital Signs/Intake and Output Vital Signs (last 24 hours): Temp Pulse Resp BP Pulse Ox 97.5 F L 94 H 20 151/70 H 100 06/10/17 08:00 06/10/17 08:00 06/10/17 08:00 06/10/17 08:12 06/10/17 08:00 Intake and Output: 06/10/17 06/10/17 06:59 18:59 Intake Total 725 Balance 725 - Medications Medications: Current Medications Carvedilol (Coreg) 12.5 mg PO BID SHAHIDA Diltiazem HCl (Cardizem) 60 mg PO Q6H SHAHIDA Last Admin: 06/10/17 08:10 Dose: 60 mg Pantoprazole Sodium 80 mg/ (Sodium Chloride) 100 mls @ 10 mls/hr IVP .Q10H SHAHIDA PRN Reason: 8 MG/HR Last Admin: 06/10/17 00:13 Dose: 10 mls/hr Sodium Chloride (Sodium Chloride 0.9%) 1,000 mls @ 100 mls/hr IV .Q10H SHAHIDA Last Admin: 06/10/17 08:09 Dose: 100 mls/hr - Labs Labs: 06/10/17 07:51 06/10/17 07:51 PT 26.8 SECONDS (9.7-12.2) H 06/09/17 17:13 INR 2.3 06/09/17 17:13 APTT 41 SECONDS (21-34) H 06/09/17 17:13 - Constitutional Appears: Unkempt, Chronically Ill - Eye Exam Eye Exam: absent: EOMI Additional comments: Hx of impaired vision following CVA - Respiratory Exam Respiratory Exam: Clear to Ausculation Bilateral, NORMAL BREATHING PATTERN - Cardiovascular Exam Cardiovascular Exam: Irregular Rhythm - GI/Abdominal Exam GI & Abdominal Exam: Soft, Normal Bowel Sounds. absent: Distended, Firm, Guarding, Rigid, Tenderness - Extremities Exam Extremities Exam: absent: Pedal Edema - Neurological Exam Neurological Exam: Alert, Awake. absent: CN II-XII Intact Neuro motor strength exam: Left Upper Extremity: 5, Right Upper Extremity: 5 - Psychiatric Exam Psychiatric exam: Depressed, Flat Affect - Skin Skin Exam: Pallor, Warm Assessment and Plan - Assessment and Plan (Free Text) Assessment: GI Bleed 06/10: Hgb increased to 11.5 from 8.8. Blood pressure stable. Currently on a protonix ggt as well as IVF. NPO except meds Protonix drip 8 cc/hr NS 100cc/hr Dr. Eric BYRNE consulted. Help appreciated. Left message on answering service, Dr. Thorpe covering. Decision made to transfuse 1 unit of PRBCs overnight. Dr. Wisdom explained the necessity and patient consented but couldn't sign due to visual impairment. Nephew Tramaine Singletary made aware and agrees with transfusion. Will recheck Hemoglobin on morning labs. History of A-fib 06/10: Review of telemetry HR is now in the 80s to 90s remains in afib with PVCs. High CHADs score. Eliquis on hold at this time. On Coreg and Cardizem at this time. History of Hypertension 06/10: At some point will need to restart ACEI or ARB History of Anemia 06/10: Has had 1 unit of PRBC so far. Continue to monitor. Held off on Ferrous Sulfate for now Runs around Hgb 10 at baseline History of CVA 06/10: PT/OT. Was at Rehab for CVA. Restart Crestor at some point Held off on the ASA, Eliquis History of Diabetes NPO except meds Held off on Metformin 1000 mg PO BID for now Accuchecks QACHS Prophylactic Measure SCDs Held off on Eliquis due to bleed Protonix drip 8 cc/hr AM Labs
--- NOTE | 2017-06-10 12:52 | CP.PCM.CON ---
History of Present Illness - History of Present Illness History of Present Illness: 77 yo I female transferred from [place] due to finding of BRB in diaper and dark/ melanotic stools. Patient noted to have 2g drop in Hgb from baseline at [facility]. No known GI work up according to family at bedside. Patient on anti-platelet RX due to recent CVA and CAD. No pain, N/V. Given one unit of PRBC last evening as well as a Protonix drip. No h/o cancer or family h/o cancer. No CP, SOB, LOC. Review of Systems - Review of Systems Systems not reviewed;Unavailable: Altered Mental Status, Language Barrier Past Patient History - Infectious Disease Hx of Infectious Diseases: None - Tetanus Immunizations Tetanus Immunization: Unknown - Past Medical History & Family History Past Medical History?: Yes - Past Social History Smoking Status: Never Smoked Alcohol: None Drugs: Denies Home Situation {Lives}: Care Home - CARDIAC Hx Cardiac Disorders: Yes Hx Atrial Fibrillation: Yes Hx Cardia Arrhythmia: Yes Hx Hypercholesterolemia: Yes Hx Hypertension: Yes Hx Pacemaker: Yes - PULMONARY Hx Respiratory Disorders: No - NEUROLOGICAL HX Cerebrovascular Accident: Yes (recent CVA) - HEENT 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) Hx Cataracts: Yes Hx Glaucoma: Yes - RENAL Hx Chronic Kidney Disease: No - ENDOCRINE/METABOLIC Hx Hypothyroidism: Yes - HEMATOLOGICAL/ONCOLOGICAL Hx Blood Transfusions: No Hx Blood Transfusion Reaction: No Hx Cirrhosis: No Hx Hepatitis A: No Hx Hepatitis B: No Hx Hepatitis C: No Hx Human Immunodeficiency Virus (HIV): No - INTEGUMENTARY Hx Dermatological Problems: No - MUSCULOSKELETAL/RHEUMATOLOGICAL Hx Arthritis: Yes - GASTROINTESTINAL Hx Gastrointestinal Disorders: No Hx Bowel Surgery: No Hx Clostridium Difficile: No Hx Colitis: No Hx Colostomy: No Hx Constipation: Yes Hx Crohn's Disease: No Hx Diarrhea: No Hx Diverticulitis: No Hx Esophageal Varices: No Hx Fatty Liver Disease: No Hx Gall Bladder Disease: No Hx Gastritis: No Hx Gastroesophageal Reflux: No Hx Hemorrhoids: No Hx Ileostomy: No Hx Irritable Bowel: No Hx Liver Failure: No Hx Nausea: No Hx Pancreatitis: No HX Swallowing Problems: No Hx Ulcer: No Hx Vomiting: No - GENITOURINARY/GYNECOLOGICAL Hx Incontinence: Yes - PSYCHIATRIC Hx Substance Use: No - SURGICAL HISTORY Hx Surgeries: Yes Hx Angiogram: Yes Hx Cataract Extraction: Yes (Bilat eyes) Hx Cardiac Catheterization: Yes Hx Section: Yes - ANESTHESIA Hx Anesthesia: Yes Hx Anesthesia Reactions: No Hx Malignant Hyperthermia: No Meds Allergies/Adverse Reactions: Allergies Allergy/AdvReac Type Severity Reaction Status Date / Time No Known Allergies Allergy Verified 06/09/17 16:36 - Medications Medications: Current Medications Carvedilol (Coreg) 12.5 mg PO BID SHAHIDA Last Admin: 06/10/17 10:15 Dose: Not Given Diltiazem HCl (Cardizem) 60 mg PO Q6H SHAHIDA Pantoprazole Sodium 80 mg/ (Sodium Chloride) 100 mls @ 10 mls/hr IVP .Q10H SHAHIDA PRN Reason: 8 MG/HR Last Admin: 06/10/17 10:16 Dose: 10 mls/hr Sodium Chloride (Sodium Chloride 0.9%) 1,000 mls @ 100 mls/hr IV .Q10H SHAHIDA Last Admin: 06/10/17 08:09 Dose: 100 mls/hr Physical Exam - Constitutional Appears: No Acute Distress - Head Exam Head Exam: ATRAUMATIC, NORMOCEPHALIC - Eye Exam Eye Exam: EOMI, PERRL Additional comments: patient is blind - Respiratory Exam Respiratory Exam: NORMAL BREATHING PATTERN - Cardiovascular Exam Cardiovascular Exam: Irregular Rhythm, +S1 - GI/Abdominal Exam GI & Abdominal Exam: Distended, Normal Bowel Sounds, Soft. absent: Guarding, Mass, Organomegaly, Rebound, Tenderness Additional comments: Lower abdominal scar - Rectal Exam Rectal Exam: NORMAL INSPECTION Additional comments: dark brown stool - Exam External exam: NORMAL EXTERNAL EXAM - Extremities Exam Extremities exam: Positive for: normal inspection - Neurological Exam Neurological exam: Alert Additional comments: oriented according to family member in room. - Skin Skin Exam: Dry, Warm Results - Vital Signs Recent Vital Signs: Last Vital Signs Temp 97.5 F L 06/10/17 08:00 Pulse 94 H 06/10/17 08:00 Resp 20 06/10/17 08:00 BP 151/70 H 06/10/17 08:12 Pulse Ox 100 06/10/17 08:00 - Labs Result Diagrams: 06/10/17 07:51 06/10/17 07:51 Labs: Laboratory Results - last 24 hr 06/09/17 06/10/17 06/10/17 20:48 06:10 07:51 WBC 6.8 RBC 3.95 Hgb 11.5 D Hct 35.3 MCV 89.4 MCH 29.1 MCHC 32.6 L RDW 16.9 H Plt Count 282 MPV 7.8 Neut % (Auto) 76.3 H Lymph % (Auto) 16.8 L [place] % (Auto) 6.2 Eos % (Auto) 0.3 Baso % (Auto) 0.4 Neut # 5.2 Lymph # 1.1 [place] # 0.4 Eos # 0.0 Baso # 0.0 Sodium Potassium Chloride Carbon Dioxide Anion Gap BUN Creatinine Est GFR ( Amer) Est GFR (Non-Af Amer) POC Glucose (mg/dL) 148 H 185 H Random Glucose Calcium Phosphorus Magnesium Total Bilirubin AST ALT Alkaline Phosphatase Total Protein Albumin Globulin Albumin/Globulin Ratio 06/10/17 06/10/17 07:51 11:16 WBC RBC Hgb Hct MCV MCH MCHC RDW Plt Count MPV Neut % (Auto) Lymph % (Auto) [place] % (Auto) Eos % (Auto) Baso % (Auto) Neut # Lymph # [place] # Eos # Baso # Sodium 145 Potassium 4.9 Chloride 106 Carbon Dioxide 25 Anion Gap 19 BUN 19 H Creatinine 0.9 Est GFR ( Amer) > 60 Est GFR (Non-Af Amer) > 60 POC Glucose (mg/dL) 154 H Random Glucose 153 H Calcium 9.1 Phosphorus 3.8 Magnesium 1.6 Total Bilirubin 0.9 AST 17 ALT 24 Alkaline Phosphatase 55 Total Protein 6.6 Albumin 3.4 L Globulin 3.2 Albumin/Globulin Ratio 1.0 Assessment & Plan (1) Iron deficiency anemia due to chronic blood loss Status: Acute (2) Afib Status: Chronic Priority: Medium (3) GI bleed Assessment and Plan: r/o PUD/Gastritis/esophagitis with bleeding exacerbated by anti-platelet/ anticoagulant therapy. Unlcear if UGI or possible LGI source as patient had both dark/melanotic stools and BRBPR per family (that has not been witnessed since presentation to ED). r/o diverticular bleeding, ischemic colitis, occult Ca or polyp. Clear liquid diet Hold blood thinners Plan for EGD in am if cleared by Cardiology and colonoscopy on sunday to follow if EGD is negative. Monitor H/H. IV Protonix Case discussed with medical affairs manager last evening. Status: Acute (4) Status post CVA Status: Chronic
--- NOTE | 2017-06-10 20:24 | CP.PCM.PN ---
Subjective - Date & Time of Evaluation Date of Evaluation: 06/10/17 Time of Evaluation: 14:40 - Subjective Subjective: Patient seen and evaluated denies chest pain and dyspnea Objective - Vital Signs/Intake and Output Vital Signs (last 24 hours): Temp Pulse Resp BP Pulse Ox 97.8 F 88 18 161/86 H 100 06/10/17 15:08 06/10/17 15:08 06/10/17 15:08 06/10/17 18:14 06/10/17 15:08 Intake and Output: 06/10/17 06/11/17 18:59 06:59 Intake Total 580 Balance 580 - Medications Medications: Current Medications Carvedilol (Coreg) 12.5 mg PO BID [facility] Last Admin: 06/10/17 18:14 Dose: 12.5 mg Diltiazem HCl (Cardizem) 60 mg PO Q6H [facility] Last Admin: 06/10/17 18:14 Dose: 60 mg Pantoprazole Sodium 80 mg/ (Sodium Chloride) 100 mls @ 10 mls/hr IVP .Q10H [facility] PRN Reason: 8 MG/HR Last Admin: 06/10/17 18:15 Dose: Not Given Sodium Chloride (Sodium Chloride 0.9%) 1,000 mls @ 100 mls/hr IV .Q10H [facility] Last Admin: 06/10/17 18:15 Dose: Not Given - Labs Labs: 06/10/17 07:51 06/10/17 07:51 PT 26.8 SECONDS (9.7-12.2) H 06/09/17 17:13 INR 2.3 06/09/17 17:13 APTT 41 SECONDS (21-34) H 06/09/17 17:13 - Head Exam Head Exam: ATRAUMATIC, NORMAL INSPECTION - Eye Exam Eye Exam: EOMI, PERRL Pupil Exam: NORMAL ACCOMODATION - ENT Exam ENT Exam: Mucous Membranes Moist, Normal Exam - Neck Exam Neck Exam: Full ROM, Normal Inspection - Respiratory Exam Respiratory Exam: Clear to Ausculation Bilateral, NORMAL BREATHING PATTERN - Cardiovascular Exam Cardiovascular Exam: Irregular Rhythm, +S1, +S2 - GI/Abdominal Exam GI & Abdominal Exam: Soft, Normal Bowel Sounds - Neurological Exam Neurological Exam: Alert, Awake, CN II-XII Intact, Oriented x3 - Psychiatric Exam Psychiatric exam: Normal Mood - Skin Skin Exam: Warm Assessment and Plan - Assessment and Plan (Free Text) Assessment: 1. A Fib 2. S/P PPM 3. HTN 4. CVA 5. GI bleeding This patient assessed as low risk for cardiac events for Endoscopy and Colonoscopy under conscious sedation
[2017-06-11] MEDS: Sodium Chloride 0.9% 1,000 ML IV SCH ×4 (04:30→23:30)
[2017-06-11] MEDS: Pantoprazole 80 MG in Sodium Chloride 0.9% 100 ML IVP SCH (06:03)
[2017-06-11 06:25] LABS: BASO % 0.4 % (0.0-2.0); EOS # 0.1 K/uL (0.0-0.7); EOS % 1.5 % (0.0-4.0); HEMATOCRIT 33.4 % (34.0-47.0); MEAN CELL VOLUME 88.9 fL (81.0-99.0); MEAN CORPUSCULAR HEMOGLOBIN 28.4 pg (27.0-31.0); MEAN PLATELET VOLUME 7.3 fL (7.2-11.7); MONO # 0.5 K/uL (0.0-0.8); MONO % 8.2 % (0.0-10.0); NRBC % 0.1 % (0.0-2.0); RED CELL DISTRIBUTION WIDTH 16.5 % (11.5-14.5); WHITE BLOOD COUNT 5.7 K/uL (4.8-10.8)
[2017-06-11 06:51] LABS: ALB/GLOB RATIO 1.1 (1.0-2.1); ALKALINE PHOSPHATASE 45 U/L (38-126); ALT/SGPT 20 U/L (9-52); AST/SGOT 16 U/L (14-36); BILIRUBIN,TOTAL 0.7 mg/dL (0.2-1.3); BLOOD UREA NITROGEN 13 mg/dL (7-17); CALCIUM 8.5 mg/dl (8.6-10.4); CARBON DIOXIDE 26 mmol/L (22-30); CHLORIDE 106 mmol/L (98-107); GFR AFRICAN-AMERICAN > 60; GLUCOSE,RANDOM 137 mg/dL (65-105); MAGNESIUM 1.5 mg/dL (1.6-2.3); PHOSPHOROUS 3.7 mg/dL (2.5-4.5); POTASSIUM 4.5 mmol/L (3.6-5.2); SODIUM 141 mmol/L (132-148); TOTAL PROTEIN 5.7 g/dL (6.3-8.3)
[2017-06-11] MEDS ORDERED: Lactated Ringer's 1,000 ML IV ONE (07:45)
[2017-06-11] MEDS ORDERED: Propofol 10 mg/ml Inj (20 ML) ONE (07:49)
--- NOTE | 2017-06-11 07:50 | CP.PCM.PN ---
<Yari Shepherd DeepthiEdilberto - Last Filed: 06/11/17 14:01> Subjective - Date & Time of Evaluation Date of Evaluation: 06/11/17 Time of Evaluation: 07:30 - Subjective Subjective: Medicine Progress Note: Patient was seen and examined at bedside in the AM. Patient stated she had some abdominal pain but denied nausea, vomiting, blood in the stool, hematuria, or any other complaints. Objective - Vital Signs/Intake and Output Vital Signs (last 24 hours): Temp Pulse Resp BP Pulse Ox 97.5 F L 72 20 136/79 100 06/11/17 04:24 06/11/17 06:06 06/11/17 04:24 06/11/17 04:24 06/11/17 04:24 Intake and Output: 06/11/17 06/11/17 06:59 18:59 Intake Total 30 Balance 30 - Medications Medications: Current Medications Carvedilol (Coreg) 12.5 mg PO BID [facility] Last Admin: 06/10/17 18:14 Dose: 12.5 mg Diltiazem HCl (Cardizem) 60 mg PO Q6H [facility] Last Admin: 06/11/17 06:02 Dose: 60 mg Pantoprazole Sodium 80 mg/ (Sodium Chloride) 100 mls @ 10 mls/hr IVP .Q10H [facility] PRN Reason: 8 MG/HR Last Admin: 06/11/17 06:03 Dose: 10 mls/hr Sodium Chloride (Sodium Chloride 0.9%) 1,000 mls @ 100 mls/hr IV .Q10H [facility] Last Admin: 06/11/17 04:30 Dose: 100 mls/hr - Labs Labs: 06/11/17 06:20 06/11/17 06:20 PT 26.8 SECONDS (9.7-12.2) H 06/09/17 17:13 INR 2.3 06/09/17 17:13 APTT 41 SECONDS (21-34) H 06/09/17 17:13 - Constitutional Appears: Well - Head Exam Head Exam: ATRAUMATIC, NORMAL INSPECTION, NORMOCEPHALIC - Eye Exam Additional comments: Patient has bilateral vision loss due to history of CVA - Respiratory Exam Respiratory Exam: Clear to Ausculation Bilateral, NORMAL BREATHING PATTERN. absent: Rales, Rhonchi, Wheezes, Stridor - Cardiovascular Exam Cardiovascular Exam: REGULAR RHYTHM, RRR, +S1, +S2 - GI/Abdominal Exam GI & Abdominal Exam: Distended, Soft, Tenderness (diffuse abdominal tenderness) , Normal Bowel Sounds - Extremities Exam Extremities Exam: Normal Inspection. absent: Tenderness - Neurological Exam Neurological Exam: Alert, Awake, Oriented x3 - Psychiatric Exam Psychiatric exam: Normal Affect - Skin Skin Exam: Normal Color, Warm Assessment and Plan - Assessment and Plan (Free Text) Plan: GI Bleed H/H 10.33.4 - Monitor - Received 1 unit of PRBC overnight 06/09 NPO after midnight except for medications Colonoscopy 06/12 EGD 06/11: LA Grade A reflux esophagitis, Rule out Rocha's esophagus, normal duodenum - f/u biopsy GI consult: Dr. Reyes --> help appreciated Urinary Tract Infection Urine culture: +ESBL Primaxin 500mg started 06/11 f/u Repeat C/S and UA ID Consult: Dr. Shaver --> help appreciated History of Atrial fibrillation Eliquis on hold Continue Coreg and Cardizem History of Hypertension Restart ACEI or ARB at some point History of anemia H/H 10.33.4 - Monitor - Received 1 unit of PRBC overnight 06/09 History of CVA ASA and Eliquis have been placed on hold History of Diabetes NPO after midnight except for medications Accuchecks Prophylactic Measure: SCDs VTE contraindication: Held off on Eliquis and Aspirin due to bleed Protonix drip 8 cc/hr Case discussed with Dr. Judd Shepherd- PGY-1 <Petey Whaley M - Last Filed: 06/12/17 09:06> Objective - Vital Signs/Intake and Output Vital Signs (last 24 hours): Temp Pulse Resp BP Pulse Ox 97.9 F 73 18 176/73 H 100 06/12/17 08:10 06/12/17 08:10 06/12/17 08:10 06/12/17 08:10 06/12/17 08:10 - Medications Medications: Current Medications Brimonidine Tartrate (Alphagan 0.2% Opht) 0 ml OU TID [facility] Last Admin: 06/11/17 18:24 Dose: 1 drop Carvedilol (Coreg) 12.5 mg PO BID [facility] Last Admin: 06/11/17 18:24 Dose: 12.5 mg Diltiazem HCl (Cardizem) 60 mg PO Q6H [facility] Last Admin: 06/12/17 05:36 Dose: 60 mg Sodium Chloride (Sodium Chloride 0.9%) 1,000 mls @ 100 mls/hr IV .Q10H [facility] Last Admin: 06/11/17 23:30 Dose: Not Given Imipenem/Cilastatin Sodium 500 (mg/ Sodium Chloride) 100 mls @ 100 mls/hr IVPB Q6H [facility] Last Admin: 06/12/17 05:36 Dose: 100 mls/hr Latanoprost (Xalatan Opht) 0 ml OU HS [facility] Last Admin: 06/11/17 21:59 Dose: 2.5 ml Pantoprazole Sodium (Protonix Ec Tab) 40 mg PO DAILY [facility] Last Admin: 06/11/17 10:16 Dose: 40 mg - Labs Labs: 06/12/17 07:00 06/12/17 07:00 PT 26.8 SECONDS (9.7-12.2) H 06/09/17 17:13 INR 2.3 06/09/17 17:13 APTT 41 SECONDS (21-34) H 06/09/17 17:13 Attending/Attestation - Attestation I have personally seen and examined this patient.: Yes I have fully participated in the care of the patient.: Yes I have reviewed all pertinent clinical information, including history, physical exam and plan: Yes Notes (Text): 06/12/17 09:05 Patient was seen and examined at bedside with the resident GI workup is in progress. Status post EGD. Plan for colonoscopy tomorrow. Antiplatelet therapy and anticoagulation on hold currently. Follow-up recommendations of GI and cardiology. I discussed the plan of care with the resident and agree with the assessment and plan documented.
--- NOTE | 2017-06-11 08:22 | CP.PCM.PN ---
Subjective - Date & Time of Evaluation Date of Evaluation: 06/11/17 Time of Evaluation: 08:19 - Subjective Subjective: EGD brief note: Diffuse gastritis with superficial erosions, erythema but no ulceration of bleeding. Reflux esophagitis with suggestion of Barretts (short segment) biopsies taken. No active of old blood. Rec: Prep for colonoscopy tomorrow. Will require assistance of family and staff to take prep. Repeat labs. Defer Elliquis and ASA until after colonoscopy to determine how many days to hold if polyp is removed. If not can resume on Sunday. Objective - Vital Signs/Intake and Output Vital Signs (last 24 hours): Temp Pulse Resp BP Pulse Ox 97.6 F 71 20 148/79 100 06/11/17 07:44 06/11/17 07:44 06/11/17 07:44 06/11/17 07:44 06/11/17 07:44 Intake and Output: 06/11/17 06/11/17 06:59 18:59 Intake Total 970 Balance 970 - Medications Medications: Current Medications Bisacodyl (Dulcolax) 10 mg PO ONCE ONE Stop: 06/11/17 13:01 Carvedilol (Coreg) 12.5 mg PO BID [facility] Last Admin: 06/10/17 18:14 Dose: 12.5 mg Diltiazem HCl (Cardizem) 60 mg PO Q6H [facility] Last Admin: 06/11/17 06:02 Dose: 60 mg Sodium Chloride (Sodium Chloride 0.9%) 1,000 mls @ 100 mls/hr IV .Q10H [facility] Last Admin: 06/11/17 04:30 Dose: 100 mls/hr Pantoprazole Sodium (Protonix Ec Tab) 40 mg PO DAILY [facility] Polyethylene Glycol/Electrolytes (Golytely) 2,000 ml PO ONCE ONE Stop: 06/11/17 15:01 Polyethylene Glycol/Electrolytes (Golytely) 2,000 ml PO ONCE ONE Stop: 06/11/17 20:31 - Labs Labs: 06/11/17 06:20 06/11/17 06:20 PT 26.8 SECONDS (9.7-12.2) H 06/09/17 17:13 INR 2.3 06/09/17 17:13 APTT 41 SECONDS (21-34) H 06/09/17 17:13 Assessment and Plan (1) Iron deficiency anemia due to chronic blood loss Status: Acute (2) Afib Status: Chronic (3) GI bleed Status: Acute (4) Status post CVA Status: Chronic
[2017-06-11] MEDS: Pantoprazole 40 mg EC Tab PO SCH (10:16)
--- NOTE | 2017-06-11 12:30 | CP.PCM.CON ---
History of Present Illness - History of Present Illness History of Present Illness: 77 F with Hx of CVA, A Fib, HTN admitted for GI bleeding and anemia possible colonization ? consider repeat culture Review of Systems - Review of Systems All systems: reviewed and no additional remarkable complaints except - Constitutional Constitutional: As Per HPI - EENT Eyes: absent: As Per HPI, Blind Spots, Blurred Vision, Change in Vision, Decreased Night Vision, Diplopia, Discharge, Dry Eye, Exophthalmos, Floaters, Irritation, Itchy Eyes, Loss of Peripheral Vision, Pain, Photophobia, Requires Corrective Lenses, Sees Flashes, Spots in Vision, Tunnel Vision, Other Visual Disturbances, Loss of Vision, Other Ears: absent: As Per HPI, Decreased Hearing, Ear Discharge, Ear Pain, Tinnitus, Abnormal Hearing, Disequilibrium, Dizziness, Other Nose/Mouth/Throat: absent: As Per HPI, Epistaxis, Nasal Congestion, Nasal Discharge, Nasal Obstruction, Nasal Trauma, Nose Pain, Post Nasal Drip, Sinus Pain, Sinus Pressure, Bleeding Gums, Change in Voice, Dental Pain, Dry Mouth, Dysphagia, Halitosis, Hoarsness, Lip Swelling, Mouth Lesions, Mouth Pain, Odynophagia, Sore Throat, Throat Swelling, Tongue Swelling, Facial Pain, Neck Pain, Neck Mass, Other - Breasts Breasts: absent: As Per HPI, Change in Shape, Mass, Pain, Nipple Discharge, Nipple Inversion, Skin Changes, Swelling, Other - Cardiovascular Cardiovascular: As Per HPI - Gastrointestinal Gastrointestinal: absent: As Per HPI, Abdominal Pain, Belching, Bloating, Change in Bowel Habits, Change in Stool Character, Coffee Ground Emesis, Constipation, Cramping, Diarrhea, Dyspepsia, Dysphagia, Early Satiety, Excessive Flatus, Fecal Incontinence, Heartburn, Hematemesis, Hematochezia, Loose Stools, Melena, Nausea, Odynophagia, Temesmus, Vomiting, Other - Genitourinary Genitourinary: absent: As Per HPI, Change in Urinary Stream, Difficulty Urinating, Dysuria, Flank Pain, Hematuria, Pyuria, Nocturia, Urinary Incontinence, Urinary Frequency, Urinary Hesitance, Urinary Urgency, Voiding Freq/Small Amts, Freq UTI, Hx Renal/Bladder Calculi, Hx /Renal Surgery, Bladder Distension, Other - Reproductive: Female Reproductive:Female: absent: As Per HPI, Amenorrhea, Amenorrhea/ Control, Currently Menstual, Cycle <21 Days, Cycle >35 Days, Cycle Variable, Menses 1-7 Days, Menses >/= 8 Days, Menses Variable, Cycle > 4 Weeks Between, No Menses for 6 Months, Heavy Menses, Light Menses, Normal Menses, Spotting Between Cycles , S/P Hysterectomy, Menopausal, Post Menopausal, Premenarche, Abnormal Vaginal Bleeding, Dysmenorrhea, Dyspareunia, Genital Lesions, Genital Pruritis, Pelvic Pain, Prolapse Symptoms, Sexual Dysfunction, Vaginal Discharge, Vaginal Dryness , Vaginal Odor, Vaginal Pruritis, Other - Menstruation Menstruation: absent: As Per HPI, Amenorrhea, Amenorrhea/ Control, Currently Menstual, Cycle <21 Days, Cycle >35 Days, Cycle Variable, Menses 1-7 Days, Menses >/= 8 Days, Menses Variable, Cycle > 4 Weeks Between, No Menses for 6 Months, Heavy Menses, Light Menses, Normal Menses, Spotting Between Cycles , S/P Hysterectomy, Menopausal, Post Menopausal, Premenarche, Abnormal Vaginal Bleeding, Dysmenorrhea, Other - Musculoskeletal Musculoskeletal: As Per HPI - Integumentary Integumentary: As Per HPI. absent: Acne, Alopecia, Bleeding Lesions, Change in Hair, Change in Nails, Change in Pigmentation, Changing Lesions, Dry Skin, Erythema, Furuncle, Hirsutism, Lesions, New Lesions, Non-Healing Lesions, Photosensitivity, Pruritus, Rash, Skin Pain, Skin Ulcer, Sores, Striae, Swelling , Unusual Bruising, Wounds, Jaundice, Other - Neurological Neurological: As Per HPI - Psychiatric Psychiatric: absent: As Per HPI, Abnormal Sleep Pattern, Anhedonia, Anxiety, Auditory Hallucinations, Behavioral Changes, Change in Appetite, Change in Libido, Confusion, Depression, Difficulty Concentrating, Hallucinations, Homicidal Ideation, Hopelessness, Irritability, Memory Loss, Mood Swings, Panic Attacks, Paranoia, Suicidal Ideation, Visual Hallucinations, Tactile Hallucinations, Other - Endocrine Endocrine: absent: As Per HPI, Change in Body Appearance, Change in Libido, Cold Intolorance, Deepening of Voice, Excessive Sweating, Fatigue, Flushing, Heat Intolorance, Increase in Ring/Shoe/Hat Size, Palpitations, Polydipsia, Polyphagia, Polyuria, Other - Hematologic/Lymphatic Hematologic: As Per HPI Past Patient History - Infectious Disease Hx of Infectious Diseases: None - Tetanus Immunizations Tetanus Immunization: Unknown - Past Medical History & Family History Past Medical History?: Yes - Past Social History Smoking Status: Never Smoked - CARDIAC Hx Atrial Fibrillation: Yes Hx Cardia Arrhythmia: Yes Hx Hypercholesterolemia: Yes Hx Hypertension: Yes Hx Pacemaker: Yes - PULMONARY Hx Respiratory Disorders: No - NEUROLOGICAL HX Cerebrovascular Accident: Yes (recent CVA) - HEENT 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) Hx Cataracts: Yes Hx Glaucoma: Yes - RENAL Hx Chronic Kidney Disease: No - ENDOCRINE/METABOLIC Hx Hypothyroidism: Yes - HEMATOLOGICAL/ONCOLOGICAL Hx Blood Transfusions: No Hx Blood Transfusion Reaction: No - INTEGUMENTARY Hx Dermatological Problems: No - MUSCULOSKELETAL/RHEUMATOLOGICAL Hx Falls: No - GASTROINTESTINAL Hx Gastrointestinal Disorders: No - GENITOURINARY/GYNECOLOGICAL Hx Incontinence: Yes - PSYCHIATRIC Hx Substance Use: No - SURGICAL HISTORY Hx Surgeries: Yes Hx Angiogram: Yes Hx Cataract Extraction: Yes (Bilat eyes) Hx Cardiac Catheterization: Yes Hx Section: Yes - ANESTHESIA Hx Anesthesia: Yes Hx Anesthesia Reactions: No Hx Malignant Hyperthermia: No Meds Allergies/Adverse Reactions: Allergies Allergy/AdvReac Type Severity Reaction Status Date / Time No Known Allergies Allergy Verified 06/09/17 16:36 - Medications Medications: Current Medications Bisacodyl (Dulcolax) 10 mg PO ONCE ONE Stop: 06/11/17 13:01 Last Admin: 06/11/17 12:08 Dose: 10 mg Carvedilol (Coreg) 12.5 mg PO BID [facility] Last Admin: 06/11/17 10:13 Dose: 12.5 mg Diltiazem HCl (Cardizem) 60 mg PO Q6H [facility] Last Admin: 06/11/17 12:08 Dose: 60 mg Sodium Chloride (Sodium Chloride 0.9%) 1,000 mls @ 100 mls/hr IV .Q10H [facility] Last Admin: 06/11/17 04:30 Dose: 100 mls/hr Imipenem/Cilastatin Sodium 500 (mg/ Sodium Chloride) 100 mls @ 100 mls/hr IVPB Q6H [facility] Last Admin: 06/11/17 12:09 Dose: 100 mls/hr Pantoprazole Sodium (Protonix Ec Tab) 40 mg PO DAILY [facility] Last Admin: 06/11/17 10:16 Dose: 40 mg Polyethylene Glycol/Electrolytes (Golytely) 2,000 ml PO ONCE ONE Stop: 06/11/17 15:01 Polyethylene Glycol/Electrolytes (Golytely) 2,000 ml PO ONCE ONE Stop: 06/11/17 20:31 Physical Exam - Constitutional Appears: Non-toxic, Chronically Ill - Head Exam Head Exam: NORMOCEPHALIC - Eye Exam Eye Exam: PERRL. absent: Scleral icterus - ENT Exam ENT Exam: Mucous Membranes Dry, Normal External Ear Exam - Neck Exam Neck exam: Negative for: Lymphadenopathy - Respiratory Exam Respiratory Exam: Decreased Breath Sounds - Cardiovascular Exam Cardiovascular Exam: REGULAR RHYTHM - GI/Abdominal Exam GI & Abdominal Exam: Diminished Bowel Sounds, Soft. absent: Tenderness - Rectal Exam Rectal Exam: Deferred - Exam Exam: NORMAL INSPECTION - Extremities Exam Extremities exam: Positive for: pedal pulses present. Negative for: calf tenderness, pedal edema, tenderness - Back Exam Back exam: absent: CVA tenderness (L), CVA tenderness (R) - Neurological Exam Neurological exam: Alert, CN II-XII Intact, Oriented x3, Reflexes Normal - Psychiatric Exam Psychiatric exam: Normal Mood - Skin Skin Exam: Dry Results - Vital Signs Recent Vital Signs: Last Vital Signs Temp 97.7 F 06/11/17 08:15 Pulse 73 06/11/17 08:45 Resp 19 06/11/17 08:45 BP 133/78 06/11/17 10:13 Pulse Ox 100 06/11/17 08:45 - Labs Result Diagrams: 06/13/17 07:10 06/13/17 07:10 Labs: Laboratory Results - last 24 hr 06/10/17 06/10/17 06/11/17 16:25 21:40 06:02 WBC RBC Hgb Hct MCV MCH MCHC RDW Plt Count MPV Neut % (Auto) Lymph % (Auto) [place] % (Auto) Eos % (Auto) Baso % (Auto) Neut # Lymph # [place] # Eos # Baso # Sodium Potassium Chloride Carbon Dioxide Anion Gap BUN Creatinine Est GFR ( Amer) Est GFR (Non-Af Amer) POC Glucose (mg/dL) 212 H 180 H 157 H Random Glucose Calcium Phosphorus Magnesium Total Bilirubin AST ALT Alkaline Phosphatase Total Protein Albumin Globulin Albumin/Globulin Ratio 06/11/17 06/11/17 06/11/17 06:20 06:20 11:51 WBC 5.7 RBC 3.75 L Hgb 10.7 L Hct 33.4 L MCV 88.9 MCH 28.4 MCHC 32.0 L RDW 16.5 H Plt Count 267 MPV 7.3 Neut % (Auto) 72.9 Lymph % (Auto) 17.0 L [place] % (Auto) 8.2 Eos % (Auto) 1.5 Baso % (Auto) 0.4 Neut # 4.1 Lymph # 1.0 [place] # 0.5 Eos # 0.1 Baso # 0.0 Sodium 141 Potassium 4.5 Chloride 106 Carbon Dioxide 26 Anion Gap 14 BUN 13 Creatinine 0.8 Est GFR ( Amer) > 60 Est GFR (Non-Af Amer) > 60 POC Glucose (mg/dL) 249 H Random Glucose 137 H Calcium 8.5 L Phosphorus 3.7 Magnesium 1.5 L Total Bilirubin 0.7 AST 16 ALT 20 Alkaline Phosphatase 45 Total Protein 5.7 L Albumin 3.0 L Globulin 2.7 Albumin/Globulin Ratio 1.1 Assessment & Plan (1) History of atrial fibrillation Status: Acute (2) Afib Status: Chronic Priority: Medium (3) GI bleed Status: Resolved (4) Iron deficiency anemia due to chronic blood loss Status: Resolved (5) CKD (chronic kidney disease) stage 3, GFR 30-59 ml/min Status: Acute (6) UTI (urinary tract infection) Status: Acute (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
--- NOTE | 2017-06-11 12:31 | CARD ---
APPROVED REPORT EKG Measurement Heart [id number] <Conclusion> Atrial fibrillation with occasional ventricular-paced complexes Low voltage QRS Cannot rule out Anteroseptal infarct, age undetermined Abnormal ECG
[2017-06-11] MEDS ORDERED: Bisacodyl 5mg EC Tab PO ONE (13:00)
[2017-06-11] MEDS ORDERED: Peg-Electrolyte Oral Soln 4L (Golytely) PO ONE ×2 (15:00→20:30)
[2017-06-11] MEDS: Brimonidine 0.2% Opth Sol (5ml) OU SCH (18:24)
[2017-06-11] MEDS ORDERED: Magnesium Citrate Oral SOL (300 ml) PO ONE (18:30)
[2017-06-11] MEDS: Latanoprost 2.5 ml Opht Soln OU SCH (21:59)
[2017-06-12 06:43] LABS: RBC URINE 8 /hpf (0-3); URINE BACTERIA RARE (<OCC); URINE BILIRUBIN NEGATIVE (NEGATIVE); URINE BLOOD 2+ (NEGATIVE); URINE COLOR Yellow (YELLOW); URINE GLUCOSE (UA) 1+ mg/dL (Normal); URINE KETONE TRACE mg/dL (NEGATIVE); URINE LEUKOCYTE ESTERASE 3+ Leu/uL (Negative); URINE PROTEIN NEGATIVE (NEGATIVE); URINE UROBILINOGEN NORMAL mg/dL (0.2-1.0); WBC CLUMPS FEW /hpf; WBC URINE 188 /hpf (0-5)
[2017-06-12 07:22] LABS: BASO % 0.5 % (0.0-2.0); EOS # 0.1 K/uL (0.0-0.7); EOS % 1.5 % (0.0-4.0); HEMATOCRIT 32.6 % (34.0-47.0); LYMPH # 0.8 K/uL (1.0-4.3); LYMPH % 13.9 % (20.0-40.0); MEAN CELL VOLUME 88.9 fL (81.0-99.0); MEAN CORPUSCULAR HEMOGLOBIN 28.3 pg (27.0-31.0); MEAN CORPUSCULAR HGB CONC 31.9 g/dL (33.0-37.0); MEAN PLATELET VOLUME 7.5 fL (7.2-11.7); MONO # 0.4 K/uL (0.0-0.8); MONO % 7.8 % (0.0-10.0); NRBC % 0.1 % (0.0-2.0); RED CELL DISTRIBUTION WIDTH 16.5 % (11.5-14.5); WHITE BLOOD COUNT 5.6 K/uL (4.8-10.8)
[2017-06-12 07:40] LABS: CHLORIDE 106 mmol/L (98-107); SODIUM 142 mmol/L (132-148)
[2017-06-12 07:42] LABS: AST/SGOT 13 U/L (14-36); BILIRUBIN,TOTAL 0.6 mg/dL (0.2-1.3); CARBON DIOXIDE 24 mmol/L (22-30); GFR AFRICAN-AMERICAN > 60
[2017-06-12 07:43] LABS: ALKALINE PHOSPHATASE 49 U/L (38-126); ALT/SGPT 23 U/L (9-52); BLOOD UREA NITROGEN 7 mg/dL (7-17); CALCIUM 7.9 mg/dl (8.6-10.4); GLUCOSE,RANDOM 129 mg/dL (65-105); PHOSPHOROUS 3.2 mg/dL (2.5-4.5); TOTAL PROTEIN 5.5 g/dL (6.3-8.3)
[2017-06-12 07:44] LABS: MAGNESIUM 1.3 mg/dL (1.6-2.3)
--- NOTE | 2017-06-12 07:53 | CP.PCM.PN ---
<Yari Shepherd - Last Filed: 06/12/17 14:46> Subjective - Date & Time of Evaluation Date of Evaluation: 06/12/17 Time of Evaluation: 07:30 - Subjective Subjective: Medicine Progress Note: Patient was seen and examined at bedside this AM. Per nurse the patient was a bit agitated overnight. Per nurse and son the patient was not able to complete the colonoscopy prep as a result per GI the colonoscopy was canceled. Per nurse the patient has not had any episodes of blood in her stool. Patient denies any complaints at this time. Objective - Vital Signs/Intake and Output Vital Signs (last 24 hours): Temp Pulse Resp BP Pulse Ox 97.9 F 73 20 141/71 100 06/11/17 23:10 06/12/17 03:04 06/11/17 23:10 06/11/17 23:10 06/11/17 23:10 - Medications Medications: Current Medications Brimonidine Tartrate (Alphagan 0.2% Opht) 0 ml OU TID [facility] Last Admin: 06/11/17 18:24 Dose: 1 drop Carvedilol (Coreg) 12.5 mg PO BID [facility] Last Admin: 06/11/17 18:24 Dose: 12.5 mg Diltiazem HCl (Cardizem) 60 mg PO Q6H [facility] Last Admin: 06/12/17 05:36 Dose: 60 mg Sodium Chloride (Sodium Chloride 0.9%) 1,000 mls @ 100 mls/hr IV .Q10H [facility] Last Admin: 06/11/17 23:30 Dose: Not Given Imipenem/Cilastatin Sodium 500 (mg/ Sodium Chloride) 100 mls @ 100 mls/hr IVPB Q6H [facility] Last Admin: 06/12/17 05:36 Dose: 100 mls/hr Latanoprost (Xalatan Opht) 0 ml OU HS [facility] Last Admin: 06/11/17 21:59 Dose: 2.5 ml Pantoprazole Sodium (Protonix Ec Tab) 40 mg PO DAILY [facility] Last Admin: 06/11/17 10:16 Dose: 40 mg - Labs Labs: 06/12/17 07:00 06/12/17 07:00 PT 26.8 SECONDS (9.7-12.2) H 06/09/17 17:13 INR 2.3 06/09/17 17:13 APTT 41 SECONDS (21-34) H 06/09/17 17:13 - Constitutional Appears: No Acute Distress - Head Exam Head Exam: ATRAUMATIC, NORMAL INSPECTION - Eye Exam Eye Exam: EOMI, Normal appearance, PERRL Pupil Exam: NORMAL ACCOMODATION - ENT Exam ENT Exam: Mucous Membranes Moist - Respiratory Exam Respiratory Exam: Clear to Ausculation Bilateral, NORMAL BREATHING PATTERN. absent: Rales, Rhonchi, Wheezes, Stridor - Cardiovascular Exam Cardiovascular Exam: REGULAR RHYTHM, RRR, +S1, +S2 - GI/Abdominal Exam GI & Abdominal Exam: Soft, Normal Bowel Sounds. absent: Tenderness - Extremities Exam Extremities Exam: absent: Pedal Edema - Neurological Exam Neurological Exam: Alert, Awake, Oriented x3 - Psychiatric Exam Psychiatric exam: Normal Affect, Normal Mood - Skin Skin Exam: Normal Color, Warm Assessment and Plan - Assessment and Plan (Free Text) Plan: 1.) GI Bleed H/H: ..6 - Monitor - Received 1 unit of PRBC overnight 06/09 Colonoscopy 06/12 was cancelled because patient failed to complete the liquid preparation - per Dr. Thorpe's note the patient can retry the colonoscopy as an outpatient if clinically warranted and patient/family agreeable EGD 06/11: LA Grade A reflux esophagitis, Rule out Rocha's esophagus, normal duodenum - Esophago-gastric junction biopsy: negative for fungus, intestinal metaplasia or dysplasia - Gastric antrum biopsy: consistent with reactive gastropathy, negative for H. Pylori GI consult: Dr. Reyes/Dr. Thorpe --> help appreciated 2.) Urinary Tract Infection Urine culture: +ESBL Continue Primaxin 500mg started 06/11 Repeat UA 06/12: positive for nitrates, 3+ leukocyte f/u Repeat C/S ID Consult: Dr. Shaver --> help appreciated 3.) History of Atrial fibrillation Eliquis on hold Continue Coreg and Cardizem 4.) History of Hypertension Restart ACEI or ARB at some point 5.) History of anemia H/H 10.32.6 - Monitor - Received 1 unit of PRBC overnight 06/09 6.) History of CVA Eliquis have been placed on hold Restarted (06/12) 81mg Aspirin 7.) History of Diabetes Insulin Accuchecks 8.) Prophylactic Measure: SCDs VTE contraindication: Held off on Eliquis due to bleed Protonix drip 8 cc/hr Case discussed with Dr. Judd Shepherd- PGY-1 <Petey Whaley - Last Filed: 06/13/17 12:40> Objective - Vital Signs/Intake and Output Vital Signs (last 24 hours): Temp Pulse Resp BP Pulse Ox 97.7 F 72 18 152/72 H 100 06/13/17 07:00 06/13/17 09:02 06/13/17 07:00 06/13/17 11:05 06/13/17 07:00 Intake and Output: 06/13/17 06/13/17 06:59 18:59 Intake Total 720 Output Total 400 Balance 320 - Medications Medications: Current Medications Brimonidine Tartrate (Alphagan 0.2% Opht) 0 ml OU TID [facility] Last Admin: 06/13/17 11:07 Dose: 1 drop Carvedilol (Coreg) 12.5 mg PO BID [facility] Last Admin: 06/13/17 11:05 Dose: 12.5 mg Diltiazem HCl (Cardizem) 60 mg PO Q6H [facility] Last Admin: 06/13/17 11:36 Dose: 60 mg Imipenem/Cilastatin Sodium 500 (mg/ Sodium Chloride) 100 mls @ 100 mls/hr IVPB Q6H [facility] Last Admin: 06/13/17 11:35 Dose: 100 mls/hr Latanoprost (Xalatan Opht) 0 ml OU HS [facility] Last Admin: 06/12/17 21:03 Dose: 2.5 ml Pantoprazole Sodium (Protonix Ec Tab) 40 mg PO DAILY [facility] Last Admin: 06/13/17 11:05 Dose: 40 mg Sertraline HCl (Zoloft) 25 mg PO DAILY [facility] Last Admin: 06/13/17 11:05 Dose: 25 mg - Labs Labs: 06/13/17 07:10 06/13/17 07:10 PT 26.8 SECONDS (9.7-12.2) H 06/09/17 17:13 INR 2.3 06/09/17 17:13 APTT 41 SECONDS (21-34) H 06/09/17 17:13 Attending/Attestation - Attestation I have personally seen and examined this patient.: Yes I have fully participated in the care of the patient.: Yes I have reviewed all pertinent clinical information, including history, physical exam and plan: Yes Notes (Text): 06/13/17 12:39 Patient was seen and examined at bedside with the resident Patient has no new complaints Discussed with GI and cardiology. Patient has not been cleared by GI for anticoagulation because she could not have a colonoscopy. I discussed with Dr. Carter. We will start the patient on aspirin only. We will hold anticoagulation because of risk of for GI bleed.. I discussed the plan of care with the resident and agree with the assessment and plan documented.
--- NOTE | 2017-06-12 09:47 | CP.PCM.PN ---
Subjective - Date & Time of Evaluation Date of Evaluation: 06/12/17 Time of Evaluation: 09:44 - Subjective Subjective: No bleeding. No change in H/H. Patient refused several different attempts at bowel prep yesterday. Wouldnt even drink one glass of Mg Citrate. Colonoscopy cancelled. Objective - Vital Signs/Intake and Output Vital Signs (last 24 hours): Temp Pulse Resp BP Pulse Ox 97.9 F 73 18 176/73 H 100 06/12/17 08:10 06/12/17 08:10 06/12/17 08:10 06/12/17 08:10 06/12/17 08:10 - Medications Medications: Current Medications Brimonidine Tartrate (Alphagan 0.2% Opht) 0 ml OU TID [facility] Last Admin: 06/11/17 18:24 Dose: 1 drop Carvedilol (Coreg) 12.5 mg PO BID [facility] Last Admin: 06/11/17 18:24 Dose: 12.5 mg Diltiazem HCl (Cardizem) 60 mg PO Q6H [facility] Last Admin: 06/12/17 05:36 Dose: 60 mg Sodium Chloride (Sodium Chloride 0.9%) 1,000 mls @ 100 mls/hr IV .Q10H [facility] Last Admin: 06/11/17 23:30 Dose: Not Given Imipenem/Cilastatin Sodium 500 (mg/ Sodium Chloride) 100 mls @ 100 mls/hr IVPB Q6H [facility] Last Admin: 06/12/17 05:36 Dose: 100 mls/hr Latanoprost (Xalatan Opht) 0 ml OU HS [facility] Last Admin: 06/11/17 21:59 Dose: 2.5 ml Pantoprazole Sodium (Protonix Ec Tab) 40 mg PO DAILY [facility] Last Admin: 06/11/17 10:16 Dose: 40 mg - Labs Labs: 06/12/17 07:00 06/12/17 07:00 PT 26.8 SECONDS (9.7-12.2) H 06/09/17 17:13 INR 2.3 06/09/17 17:13 APTT 41 SECONDS (21-34) H 06/09/17 17:13 - Head Exam Head Exam: NORMAL INSPECTION - Respiratory Exam Respiratory Exam: NORMAL BREATHING PATTERN - Cardiovascular Exam Cardiovascular Exam: REGULAR RHYTHM - GI/Abdominal Exam GI & Abdominal Exam: Soft, Normal Bowel Sounds. absent: Tenderness - Extremities Exam Extremities Exam: Normal Inspection Assessment and Plan (1) Iron deficiency anemia due to chronic blood loss Assessment & Plan: No further bleeding, H/H is stable Can retry colonoscopy as outpatient if clinically warranted and patient/family agreeable. No plans for further w/u at this time. Risk for colon cancer, though low, understood. Will sign off at this time. Recall as needed. Advance diet as tolerated. Status: Acute (2) Afib Status: Chronic (3) GI bleed Assessment & Plan: See above. Monitor for recurrent bleeding. Patient refusing further work up at this time. Unable to continue without a bowel prep. Status: Resolved (4) Status post CVA Status: Chronic
[2017-06-12] MEDS: Brimonidine 0.2% Opth Sol (5ml) OU SCH ×3 (10:28→17:47)
[2017-06-12] MEDS: Pantoprazole 40 mg EC Tab PO SCH (10:28)
[2017-06-12] MEDS: Magnesium Sulfate 1 gm in D5W 1 GM/100 ML BAG IVPB SCH ×2 (15:13→16:54)
[2017-06-12] MEDS: Latanoprost 2.5 ml Opht Soln OU SCH (21:03)
--- NOTE | 2017-06-12 22:24 | CP.PCM.PN ---
Subjective - Date & Time of Evaluation Date of Evaluation: 06/11/17 Time of Evaluation: 18:20 - Subjective Subjective: Patient s/p EGD Gastritis No active bleeding Patient still needs Colonoscopy Review of Systems - Hematologic/Lymphatic Additional comments: - Constitutional Constitutional: absent: Fever, Chills, Sweats, Weakness - EENT Eyes: Blurred Vision, Change in Vision, Loss of Vision. absent: Spots in Vision Ears: absent: Decreased Hearing, Tinnitus, Dizziness Nose/Mouth/Throat: absent: Facial Pain, Neck Mass - Cardiovascular Cardiovascular: absent: Chest Pain, Dyspnea, Pain Radiating to Arm/Neck/Jaw - Respiratory Respiratory: absent: Cough, Dyspnea - Genitourinary Genitourinary: absent: Dysuria, Urinary Incontinence - Musculoskeletal Musculoskeletal: absent: Back Pain, Muscle Weakness, Numbness, Stiffness, Tingling - Neurological Neurological: Weakness. absent: Dizziness, Numbness, Headaches, Loss of Vision , Sensory Deficit, Syncope, Tingling - Psychiatric Psychiatric: absent: Anxiety, Depression - Endocrine Endocrine: absent: Fatigue, Palpitations Physical Exam - Additional Findings Additional findings: - Constitutional Appears: Non-toxic, No Acute Distress - Head Exam Head Exam: ATRAUMATIC, NORMAL INSPECTION, NORMOCEPHALIC - Eye Exam Eye Exam: EOMI, Normal appearance, PERRL. absent: Nystagmus, Periorbital swelling, Periorbital tenderness Additional comments: - L sided gaze preference - Patient only able to see that the lights are on - (+) corneal reflex - ENT Exam ENT Exam: Mucous Membranes Moist - Neck Exam Neck exam: Positive for: Normal Inspection. Negative for: Lymphadenopathy, Thyromegaly - Respiratory Exam Respiratory Exam: Clear to PA & Lateral, NORMAL BREATHING PATTERN. absent: Rales, Rhonchi, Wheezes - Cardiovascular Exam Cardiovascular Exam: REGULAR RHYTHM, +S1, +S2. absent: Diastolic murmur, Systolic Murmur - GI/Abdominal Exam GI & Abdominal Exam: Normal Bowel Sounds, Soft. absent: Tenderness - Extremities Exam Extremities exam: Positive for: pedal pulses present. Negative for: pedal edema Objective - Vital Signs/Intake and Output Vital Signs (last 24 hours): Temp Pulse Resp BP Pulse Ox 98.1 F 70 20 160/83 H 98 06/12/17 16:14 06/12/17 20:00 06/12/17 16:14 06/12/17 17:47 06/12/17 16:14 - Medications Medications: Current Medications Aspirin (Ecotrin) 81 mg PO DAILY [facility] Last Admin: 06/12/17 15:13 Dose: 81 mg Brimonidine Tartrate (Alphagan 0.2% Opht) 0 ml OU TID [facility] Last Admin: 06/12/17 17:47 Dose: 1 drop Carvedilol (Coreg) 12.5 mg PO BID [facility] Last Admin: 06/12/17 17:47 Dose: 12.5 mg Diltiazem HCl (Cardizem) 60 mg PO Q6H [facility] Last Admin: 06/12/17 17:47 Dose: 60 mg Imipenem/Cilastatin Sodium 500 (mg/ Sodium Chloride) 100 mls @ 100 mls/hr IVPB Q6H [facility] Last Admin: 06/12/17 17:55 Dose: 100 mls/hr Latanoprost (Xalatan Opht) 0 ml OU HS [facility] Last Admin: 06/12/17 21:03 Dose: 2.5 ml Pantoprazole Sodium (Protonix Ec Tab) 40 mg PO DAILY [facility] Last Admin: 06/12/17 10:28 Dose: 40 mg - Labs Labs: 06/12/17 07:00 06/12/17 07:00 PT 26.8 SECONDS (9.7-12.2) H 06/09/17 17:13 INR 2.3 06/09/17 17:13 APTT 41 SECONDS (21-34) H 06/09/17 17:13 Assessment and Plan - Assessment and Plan (Free Text) Assessment: 1. A Fib 2. CVA 3. HTN 4. Sick sinus syndrome Patient s/p EGD Gastritis No active bleeding Patient still needs Colonoscopy
--- NOTE | 2017-06-12 22:25 | CP.PCM.PN ---
Subjective - Date & Time of Evaluation Date of Evaluation: 06/12/17 Time of Evaluation: 08:15 - Subjective Subjective: Patient seen and evaluated Denies chest pain and dyspnea Patient did not drink her bowel prep Colonoscopy got cancelled Recommend neuro eval Patient? altered mental status Review of Systems - Hematologic/Lymphatic Additional comments: - Constitutional Constitutional: absent: Fever, Chills, Sweats, Weakness - EENT Eyes: Blurred Vision, Change in Vision, Loss of Vision. absent: Spots in Vision Ears: absent: Decreased Hearing, Tinnitus, Dizziness Nose/Mouth/Throat: absent: Facial Pain, Neck Mass - Cardiovascular Cardiovascular: absent: Chest Pain, Dyspnea, Pain Radiating to Arm/Neck/Jaw - Respiratory Respiratory: absent: Cough, Dyspnea - Genitourinary Genitourinary: absent: Dysuria, Urinary Incontinence - Musculoskeletal Musculoskeletal: absent: Back Pain, Muscle Weakness, Numbness, Stiffness, Tingling - Neurological Neurological: Weakness. absent: Dizziness, Numbness, Headaches, Loss of Vision , Sensory Deficit, Syncope, Tingling - Psychiatric Psychiatric: absent: Anxiety, Depression - Endocrine Endocrine: absent: Fatigue, Palpitations Physical Exam - Additional Findings Additional findings: - Constitutional Appears: Non-toxic, No Acute Distress - Head Exam Head Exam: ATRAUMATIC, NORMAL INSPECTION, NORMOCEPHALIC - Eye Exam Eye Exam: EOMI, Normal appearance, PERRL. absent: Nystagmus, Periorbital swelling, Periorbital tenderness Additional comments: - L sided gaze preference - Patient only able to see that the lights are on - (+) corneal reflex - ENT Exam ENT Exam: Mucous Membranes Moist - Neck Exam Neck exam: Positive for: Normal Inspection. Negative for: Lymphadenopathy, Thyromegaly - Respiratory Exam Respiratory Exam: Clear to PA & Lateral, NORMAL BREATHING PATTERN. absent: Rales, Rhonchi, Wheezes - Cardiovascular Exam Cardiovascular Exam: REGULAR RHYTHM, +S1, +S2. absent: Diastolic murmur, Systolic Murmur - GI/Abdominal Exam GI & Abdominal Exam: Normal Bowel Sounds, Soft. absent: Tenderness - Extremities Exam Extremities exam: Positive for: pedal pulses present. Negative for: pedal edema Objective - Vital Signs/Intake and Output Vital Signs (last 24 hours): Temp Pulse Resp BP Pulse Ox 98.1 F 70 20 160/83 H 98 06/12/17 16:14 06/12/17 20:00 06/12/17 16:14 06/12/17 17:47 06/12/17 16:14 - Medications Medications: Current Medications Aspirin (Ecotrin) 81 mg PO DAILY [facility] Last Admin: 06/12/17 15:13 Dose: 81 mg Brimonidine Tartrate (Alphagan 0.2% Opht) 0 ml OU TID [facility] Last Admin: 06/12/17 17:47 Dose: 1 drop Carvedilol (Coreg) 12.5 mg PO BID [facility] Last Admin: 06/12/17 17:47 Dose: 12.5 mg Diltiazem HCl (Cardizem) 60 mg PO Q6H [facility] Last Admin: 06/12/17 17:47 Dose: 60 mg Imipenem/Cilastatin Sodium 500 (mg/ Sodium Chloride) 100 mls @ 100 mls/hr IVPB Q6H [facility] Last Admin: 06/12/17 17:55 Dose: 100 mls/hr Latanoprost (Xalatan Opht) 0 ml OU HS [facility] Last Admin: 06/12/17 21:03 Dose: 2.5 ml Pantoprazole Sodium (Protonix Ec Tab) 40 mg PO DAILY [facility] Last Admin: 06/12/17 10:28 Dose: 40 mg - Labs Labs: 06/12/17 07:00 06/12/17 07:00 PT 26.8 SECONDS (9.7-12.2) H 06/09/17 17:13 INR 2.3 06/09/17 17:13 APTT 41 SECONDS (21-34) H 06/09/17 17:13 Assessment and Plan - Assessment and Plan (Free Text) Assessment: 1. A Fib 2. CVA 3. HTN 4. Sick sinus syndrome Patient seen and evaluated Denies chest pain and dyspnea Patient did not drink her bowel prep Colonoscopy got cancelled Recommend neuro eval Patient? altered mental status
[2017-06-13 07:20] LABS: BASO % 0.6 % (0.0-2.0); EOS # 0.1 K/uL (0.0-0.7); HEMATOCRIT 34.1 % (34.0-47.0); LYMPH # 0.8 K/uL (1.0-4.3); LYMPH % 14.4 % (20.0-40.0); MEAN CELL VOLUME 89.2 fL (81.0-99.0); MEAN CORPUSCULAR HEMOGLOBIN 28.7 pg (27.0-31.0); MEAN CORPUSCULAR HGB CONC 32.2 g/dL (33.0-37.0); MONO # 0.4 K/uL (0.0-0.8); MONO % 7.6 % (0.0-10.0); NRBC % 0.1 % (0.0-2.0); RED CELL DISTRIBUTION WIDTH 17.1 % (11.5-14.5); WHITE BLOOD COUNT 5.5 K/uL (4.8-10.8)
--- NOTE | 2017-06-13 07:36 | CP.PCM.CON ---
History of Present Illness - History of Present Illness History of Present Illness: CONSULT DICTATED NEW CHANGE IN MENTAL STATUS NEW RT LEG WEAKNESS OFF ANTI PLATELETS DUE TO HEMATUREA AND RECTAL BLEED CAT AND EEG ZOLOFT Past Patient History - Infectious Disease Hx of Infectious Diseases: None - Tetanus Immunizations Tetanus Immunization: Unknown - Past Medical History & Family History Past Medical History?: Yes - Past Social History Smoking Status: Never Smoked - CARDIAC Hx Cardiac Disorders: Yes (A FIB, CARDIAC ARRHYTHMIA) Hx Hypercholesterolemia: Yes Hx Hypertension: Yes - PULMONARY Hx Respiratory Disorders: No - NEUROLOGICAL HX Cerebrovascular Accident: Yes (recent CVA) - HEENT 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) Hx Cataracts: Yes Hx Glaucoma: Yes - RENAL Hx Chronic Kidney Disease: No - ENDOCRINE/METABOLIC Hx Diabetes Mellitus Type 2: Yes - HEMATOLOGICAL/ONCOLOGICAL Hx Blood Transfusions: No Hx Blood Transfusion Reaction: No - INTEGUMENTARY Hx Dermatological Problems: No - MUSCULOSKELETAL/RHEUMATOLOGICAL Hx Arthritis: Yes - GASTROINTESTINAL Hx Gastrointestinal Disorders: No - GENITOURINARY/GYNECOLOGICAL Hx Incontinence: Yes - PSYCHIATRIC Hx Substance Use: No - SURGICAL HISTORY Hx Surgeries: Yes Hx Angiogram: Yes Hx Cataract Extraction: Yes (Bilat eyes) Hx Cardiac Catheterization: Yes Hx Section: Yes - ANESTHESIA Hx Anesthesia: Yes Hx Anesthesia Reactions: No Hx Malignant Hyperthermia: No Meds Allergies/Adverse Reactions: Allergies Allergy/AdvReac Type Severity Reaction Status Date / Time No Known Allergies Allergy Verified 06/09/17 16:36 - Medications Medications: Current Medications Brimonidine Tartrate (Alphagan 0.2% Opht) 0 ml OU TID [facility] Last Admin: 06/12/17 17:47 Dose: 1 drop Carvedilol (Coreg) 12.5 mg PO BID [facility] Last Admin: 06/12/17 17:47 Dose: 12.5 mg Diltiazem HCl (Cardizem) 60 mg PO Q6H [facility] Last Admin: 06/13/17 06:03 Dose: 60 mg Imipenem/Cilastatin Sodium 500 (mg/ Sodium Chloride) 100 mls @ 100 mls/hr IVPB Q6H [facility] Last Admin: 06/13/17 06:03 Dose: 100 mls/hr Latanoprost (Xalatan Opht) 0 ml OU HS [facility] Last Admin: 06/12/17 21:03 Dose: 2.5 ml Pantoprazole Sodium (Protonix Ec Tab) 40 mg PO DAILY [facility] Last Admin: 06/12/17 10:28 Dose: 40 mg Sertraline HCl (Zoloft) 25 mg PO DAILY [facility] Results - Vital Signs Recent Vital Signs: Last Vital Signs Temp 97.6 F 06/13/17 04:36 Pulse 70 06/13/17 06:02 Resp 20 06/13/17 04:36 BP 160/82 H 06/13/17 04:36 Pulse Ox 97 06/13/17 04:36 - Labs Result Diagrams: 06/13/17 07:10 06/12/17 07:00 Labs: Laboratory Results - last 24 hr 06/12/17 06/12/17 06/12/17 06:21 07:00 11:29 WBC RBC Hgb Hct MCV MCH MCHC RDW Plt Count MPV Neut % (Auto) Lymph % (Auto) [place] % (Auto) Eos % (Auto) Baso % (Auto) Neut # Lymph # [place] # Eos # Baso # Sodium 142 Potassium 4.0 Chloride 106 Carbon Dioxide 24 Anion Gap 15 BUN 7 Creatinine 0.6 L Est GFR ( Amer) > 60 Est GFR (Non-Af Amer) > 60 POC Glucose (mg/dL) 160 H 153 H Random Glucose 129 H Calcium 7.9 L Phosphorus 3.2 Magnesium 1.3 L Total Bilirubin 0.6 AST 13 L ALT 23 Alkaline Phosphatase 49 Total Protein 5.5 L Albumin 2.7 L Globulin 2.8 Albumin/Globulin Ratio 1.0 06/12/17 06/12/17 06/13/17 16:38 21:02 06:08 WBC RBC Hgb Hct MCV MCH MCHC RDW Plt Count MPV Neut % (Auto) Lymph % (Auto) [place] % (Auto) Eos % (Auto) Baso % (Auto) Neut # Lymph # [place] # Eos # Baso # Sodium Potassium Chloride Carbon Dioxide Anion Gap BUN Creatinine Est GFR ( Amer) Est GFR (Non-Af Amer) POC Glucose (mg/dL) 173 H 169 H 160 H Random Glucose Calcium Phosphorus Magnesium Total Bilirubin AST ALT Alkaline Phosphatase Total Protein Albumin Globulin Albumin/Globulin Ratio 06/13/17 07:10 WBC 5.5 RBC 3.82 Hgb 11.0 Hct 34.1 MCV 89.2 MCH 28.7 MCHC 32.2 L RDW 17.1 H Plt Count 278 MPV 7.0 L Neut % (Auto) 75.4 H Lymph % (Auto) 14.4 L [place] % (Auto) 7.6 Eos % (Auto) 2.0 Baso % (Auto) 0.6 Neut # 4.2 Lymph # 0.8 L [place] # 0.4 Eos # 0.1 Baso # 0.0 Sodium Potassium Chloride Carbon Dioxide Anion Gap BUN Creatinine Est GFR ( Amer) Est GFR (Non-Af Amer) POC Glucose (mg/dL) Random Glucose Calcium Phosphorus Magnesium Total Bilirubin AST ALT Alkaline Phosphatase Total Protein Albumin Globulin Albumin/Globulin Ratio
[2017-06-13 07:43] LABS: CHLORIDE 105 mmol/L (98-107); POTASSIUM 4.2 mmol/L (3.6-5.2); SODIUM 142 mmol/L (132-148)
[2017-06-13 07:45] LABS: BILIRUBIN,TOTAL 0.7 mg/dL (0.2-1.3); GFR AFRICAN-AMERICAN > 60
[2017-06-13 07:46] LABS: ALB/GLOB RATIO 0.9 (1.0-2.1); ALKALINE PHOSPHATASE 64 U/L (38-126); ALT/SGPT 22 U/L (9-52); AST/SGOT 18 U/L (14-36); BLOOD UREA NITROGEN 5 mg/dL (7-17); CARBON DIOXIDE 26 mmol/L (22-30); GLUCOSE,RANDOM 156 mg/dL (65-105); TOTAL PROTEIN 6.1 g/dL (6.3-8.3)
[2017-06-13 07:47] LABS: CALCIUM 8.7 mg/dl (8.6-10.4); MAGNESIUM 1.9 mg/dL (1.6-2.3)
--- NOTE | 2017-06-13 09:29 | CT ---
PROCEDURE: CT HEAD WITHOUT CONTRAST. HISTORY: r/o new stroke COMPARISON: 05/15/2017 TECHNIQUE: Axial computed tomography images were obtained through the head/brain without intravenous contrast. Radiation dose: Total exam DLP = 859.11 mGy-cm. This CT exam was performed using one or more of the following dose reduction techniques: Automated exposure control, adjustment of the mA and/or kV according to patient size, and/or use of iterative reconstruction technique. FINDINGS: HEMORRHAGE: No intracranial hemorrhage. BRAIN: No mass effect or edema. Old right [employer] territory infarct, with cystic encephalomalacia change unchanged from prior examination. Evolving left [employer] territory infarct, now subacute to old. No evidence of hemorrhage. No new infarct identified elsewhere. Small bilateral old basal ganglia lacunar infarcts. Mild diffuse atrophy. Consistent with age. Mild periventricular white matter lucency consistent with chronic microvascular ischemic change. VENTRICLES: Minimal ex vacuo dilatation of the atrium of the right lateral ventricle secondary to old right [employer] infarct. No hydrocephalus. No midline shift. CALVARIUM: Unremarkable. PARANASAL SINUSES: Unremarkable as visualized. No significant inflammatory changes. MASTOID AIR CELLS: Unremarkable as visualized. No inflammatory changes. OTHER FINDINGS: None. IMPRESSION: No evidence of acute infarct. A subacute to old left [employer] infarct. Old right [employer] infarct. Old bilateral basal ganglia lacunar infarcts. Mild diffuse atrophy and chronic periventricular white matter ischemic change.
--- NOTE | 2017-06-13 11:03 | CP.PCM.PN ---
Subjective - Date & Time of Evaluation Date of Evaluation: 06/13/17 Time of Evaluation: 10:59 - Subjective Subjective: Neurology note reviewed and appreciated Asked by medical team yesterday to clear for resumption of antiplatelet meds. I explained that I am unable to "clear" patient for these meds as GI work up for source of bleeding was incomplete and she and family refused the colon preparation and cancelled the procedure in spite of attempts at different regimens. She is still at risk for rebleeding if meds are resumed. A decision needs to be made between the medical team, neurology, cardiology to weigh the benefits of therapy vs the risk of recurrent bleeding. That is a decision that needs to be made in the absence of GI clearance. This recommendation was discussed in detail with the Genetic Physician yesterday by phone. Objective - Vital Signs/Intake and Output Vital Signs (last 24 hours): Temp Pulse Resp BP Pulse Ox 97.7 F 72 18 172/76 H 100 06/13/17 07:00 06/13/17 09:02 06/13/17 07:00 06/13/17 07:00 06/13/17 07:00 Intake and Output: 06/13/17 06/13/17 06:59 18:59 Intake Total 720 Output Total 400 Balance 320 - Medications Medications: Current Medications Brimonidine Tartrate (Alphagan 0.2% Opht) 0 ml OU TID [facility] Last Admin: 06/12/17 17:47 Dose: 1 drop Carvedilol (Coreg) 12.5 mg PO BID [facility] Last Admin: 06/12/17 17:47 Dose: 12.5 mg Diltiazem HCl (Cardizem) 60 mg PO Q6H [facility] Last Admin: 06/13/17 06:03 Dose: 60 mg Imipenem/Cilastatin Sodium 500 (mg/ Sodium Chloride) 100 mls @ 100 mls/hr IVPB Q6H [facility] Last Admin: 06/13/17 06:03 Dose: 100 mls/hr Latanoprost (Xalatan Opht) 0 ml OU HS [facility] Last Admin: 06/12/17 21:03 Dose: 2.5 ml Pantoprazole Sodium (Protonix Ec Tab) 40 mg PO DAILY [facility] Last Admin: 06/12/17 10:28 Dose: 40 mg Sertraline HCl (Zoloft) 25 mg PO DAILY [facility] - Labs Labs: 06/13/17 07:10 06/13/17 07:10 PT 26.8 SECONDS (9.7-12.2) H 06/09/17 17:13 INR 2.3 06/09/17 17:13 APTT 41 SECONDS (21-34) H 06/09/17 17:13 - Constitutional Appears: No Acute Distress - Respiratory Exam Respiratory Exam: NORMAL BREATHING PATTERN - Cardiovascular Exam Cardiovascular Exam: REGULAR RHYTHM - GI/Abdominal Exam GI & Abdominal Exam: Soft, Normal Bowel Sounds. absent: Tenderness - Extremities Exam Extremities Exam: Normal Inspection Assessment and Plan (1) Iron deficiency anemia due to chronic blood loss Status: Resolved (2) Afib Status: Chronic (3) GI bleed Assessment & Plan: work up remains incomplete and risk for rebleeding remains in event of resumption of anti-platelet meds or anti-coagulants. Monitor for rebleeding. Status: Resolved (4) Status post CVA Assessment & Plan: possible new ischemic symptoms Dr Harden's note appreciated Benefit of meds vs bleeding risk to be discussed with family. Status: Chronic
[2017-06-13] MEDS: Pantoprazole 40 mg EC Tab PO SCH (11:05)
[2017-06-13] MEDS: Brimonidine 0.2% Opth Sol (5ml) OU SCH ×3 (11:07→18:01)
--- NOTE | 2017-06-13 11:18 | CP.PCM.PN ---
<Yari Shepherd - Last Filed: 06/13/17 12:46> Subjective - Date & Time of Evaluation Date of Evaluation: 06/13/17 Time of Evaluation: 12:29 - Subjective Subjective: Medicine Progress Note: Patient was seen and examined at bedside in the AM. Per nurse no acute events overnight. Patient denies any abdominal pain or any other complaints at this time. Daughter requested the addition of a diet supplementation for the patient. Objective - Vital Signs/Intake and Output Vital Signs (last 24 hours): Temp Pulse Resp BP Pulse Ox 97.7 F 72 18 152/72 H 100 06/13/17 07:00 06/13/17 09:02 06/13/17 07:00 06/13/17 11:05 06/13/17 07:00 Intake and Output: 06/13/17 06/13/17 06:59 18:59 Intake Total 720 Output Total 400 Balance 320 - Medications Medications: Current Medications Brimonidine Tartrate (Alphagan 0.2% Opht) 0 ml OU TID [facility] Last Admin: 06/13/17 11:07 Dose: 1 drop Carvedilol (Coreg) 12.5 mg PO BID [facility] Last Admin: 06/13/17 11:05 Dose: 12.5 mg Diltiazem HCl (Cardizem) 60 mg PO Q6H [facility] Last Admin: 06/13/17 06:03 Dose: 60 mg Imipenem/Cilastatin Sodium 500 (mg/ Sodium Chloride) 100 mls @ 100 mls/hr IVPB Q6H [facility] Last Admin: 06/13/17 06:03 Dose: 100 mls/hr Latanoprost (Xalatan Opht) 0 ml OU HS [facility] Last Admin: 06/12/17 21:03 Dose: 2.5 ml Pantoprazole Sodium (Protonix Ec Tab) 40 mg PO DAILY [facility] Last Admin: 06/13/17 11:05 Dose: 40 mg Sertraline HCl (Zoloft) 25 mg PO DAILY [facility] Last Admin: 06/13/17 11:05 Dose: 25 mg - Labs Labs: 06/13/17 07:10 06/13/17 07:10 PT 26.8 SECONDS (9.7-12.2) H 06/09/17 17:13 INR 2.3 06/09/17 17:13 APTT 41 SECONDS (21-34) H 06/09/17 17:13 - Constitutional Appears: Well, Non-toxic, No Acute Distress - Head Exam Head Exam: ATRAUMATIC, NORMAL INSPECTION, NORMOCEPHALIC - Eye Exam Eye Exam: EOMI, Normal appearance Additional comments: 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 absent: Rales, Rhonchi, Wheezes, Stridor - Cardiovascular Exam Cardiovascular Exam: REGULAR RHYTHM, RRR, +S1, +S2 - GI/Abdominal Exam GI & Abdominal Exam: Soft, Tenderness, Normal Bowel Sounds - Extremities Exam Extremities Exam: Normal Inspection. absent: Pedal Edema, Tenderness - Neurological Exam Neurological Exam: Alert, Awake, Oriented x3 - Psychiatric Exam Psychiatric exam: Normal Affect, Normal Mood - Skin Skin Exam: Normal Color, Warm Assessment and Plan - Assessment and Plan (Free Text) Plan: 1.) GI Bleed H/H: .1 - Monitor - Received 1 unit of PRBC overnight 06/09 Colonoscopy 06/12 was cancelled because patient failed to complete the liquid preparation - per Dr. Thorpe's note the patient can retry the colonoscopy as an outpatient if clinically warranted and patient/family agreeable EGD 06/11: LA Grade A reflux esophagitis, Rule out Rocha's esophagus, normal duodenum - Esophago-gastric junction biopsy: negative for fungus, intestinal metaplasia or dysplasia - Gastric antrum biopsy: consistent with reactive gastropathy, negative for H. Pylori GI consult: Dr. Reyes/Dr. Thorpe --> help appreciated 2.) Urinary Tract Infection Urine culture: +ESBL Continue Primaxin 500mg started 06/11 - Day 3 of antibiotic - Per Dr. Shaver patient to be on antibiotics for 10 days - PICC line ordered for discharge to rehab with IV Repeat UA 06/12: positive for nitrates, 3+ leukocyte f/u Repeat Urine Culture (06/12): gram negative montrell - preliminary ID Consult: Dr. Shaver --> help appreciated 3.) Altered Mental Status - on admission Neurology Consult: Dr. Mendez f/u EEG CT of the head 06/13: No evidence of acute infarct. A subacute to old left PATIENT ACCOUNTING REPRESENTATIVE infarct. Old right PATIENT ACCOUNTING REPRESENTATIVE infarct. Old bilateral basal ganglia lacunar infarcts. Mild diffuse atrophy and chronic periventricular white matter ischemic change. 4.) History of Atrial fibrillation Eliquis on hold - Per GI (Dr. Thorpe) patient is not cleared to start on Eliquis because patient refused to complete the prep for the colonoscopy Continue Coreg and Cardizem 5.) History of Hypertension Restart ACEI or ARB at some point 6.) History of anemia H/H .1 - Monitor - Received 1 unit of PRBC overnight 06/09 7.) History of CVA Eliquis have been placed on hold - Per GI (Dr. Thorpe) patient is not cleared to start on Eliquis because patient refused to complete the prep for the colonoscopy Restarted (06/12) 81mg Aspirin 8.) History of Diabetes Insulin Accuchecks 9.) Prophylactic Measure: SCDs VTE contraindication: Held off on Eliquis due to bleed Protonix drip 8 cc/hr Case Management: Patient to be discharged to rehab - [place] Case discussed with Dr. Judd Shepherd- PGY-1 <Petey Whaley M - Last Filed: 06/14/17 14:40> Objective - Vital Signs/Intake and Output Vital Signs (last 24 hours): Temp Pulse Resp BP Pulse Ox 99.3 F 83 20 136/73 96 06/14/17 07:57 06/14/17 07:57 06/14/17 07:57 06/14/17 09:49 06/14/17 07:57 Intake and Output: 06/14/17 06/14/17 06:59 18:59 Intake Total 320 Output Total 300 Balance 20 - Medications Medications: Current Medications Aspirin (Ecotrin) 81 mg PO DAILY [facility] Last Admin: 06/14/17 13:02 Dose: 81 mg Brimonidine Tartrate (Alphagan 0.2% Opht) 0 ml OU TID [facility] Last Admin: 06/14/17 13:03 Dose: 0.2 % Carvedilol (Coreg) 12.5 mg PO BID [facility] Last Admin: 06/14/17 09:49 Dose: 12.5 mg Diltiazem HCl (Cardizem) 60 mg PO Q6H [facility] Last Admin: 06/14/17 13:02 Dose: 60 mg Imipenem/Cilastatin Sodium 500 (mg/ Sodium Chloride) 100 mls @ 100 mls/hr IVPB Q6H [facility] Last Admin: 06/14/17 13:00 Dose: 100 mls/hr Latanoprost (Xalatan Opht) 0 ml OU HS [facility] Last Admin: 06/13/17 22:04 Dose: 2.5 ml Pantoprazole Sodium (Protonix Ec Tab) 40 mg PO DAILY [facility] Last Admin: 06/14/17 09:50 Dose: 40 mg Sertraline HCl (Zoloft) 25 mg PO DAILY [facility] Last Admin: 06/14/17 09:50 Dose: 25 mg - Labs Labs: 06/14/17 07:01 06/14/17 07:01 PT 11.9 SECONDS (9.7-12.2) 06/14/17 11:24 INR 1.1 06/14/17 11:24 APTT 30 SECONDS (21-34) 06/14/17 11:24 Attending/Attestation - Attestation I have personally seen and examined this patient.: Yes I have fully participated in the care of the patient.: Yes I have reviewed all pertinent clinical information, including history, physical exam and plan: Yes Notes (Text): 06/14/17 14:39 Patient was seen and examined at bedside with the resident Patient is awake and alert not in any acute distress. There is no further episode of bleeding Patient started and aspirin as per recommendations of cardiology Discharge planning after placing a PICC line I discussed the plan of care with the resident and agree with the assessment and plan documented.
[2017-06-13 17:00] VITALS: RESP 20
--- NOTE | 2017-06-13 18:04 | CP.PCM.PN ---
Subjective - Date & Time of Evaluation Date of Evaluation: 06/13/17 Time of Evaluation: 07:00 - Subjective Subjective: refusing endoscopy iv rx in progress for esbl e coli c/o poor appetite no fever Objective - Vital Signs/Intake and Output Vital Signs (last 24 hours): Temp Pulse Resp BP Pulse Ox 97.4 F L 76 20 117/85 94 L 06/13/17 16:00 06/13/17 16:00 06/13/17 16:00 06/13/17 18:00 06/13/17 16:00 Intake and Output: 06/13/17 06/13/17 06:59 18:59 Intake Total 720 Output Total 400 Balance 320 - Medications Medications: Current Medications Brimonidine Tartrate (Alphagan 0.2% Opht) 0 ml OU TID [facility] Last Admin: 06/13/17 18:01 Dose: 1 drop Carvedilol (Coreg) 12.5 mg PO BID [facility] Last Admin: 06/13/17 18:00 Dose: 12.5 mg Diltiazem HCl (Cardizem) 60 mg PO Q6H [facility] Last Admin: 06/13/17 18:00 Dose: 60 mg Imipenem/Cilastatin Sodium 500 (mg/ Sodium Chloride) 100 mls @ 100 mls/hr IVPB Q6H [facility] Last Admin: 06/13/17 18:01 Dose: 100 mls/hr Latanoprost (Xalatan Opht) 0 ml OU HS [facility] Last Admin: 06/12/17 21:03 Dose: 2.5 ml Pantoprazole Sodium (Protonix Ec Tab) 40 mg PO DAILY [facility] Last Admin: 06/13/17 11:05 Dose: 40 mg Sertraline HCl (Zoloft) 25 mg PO DAILY [facility] Last Admin: 06/13/17 11:05 Dose: 25 mg - Labs Labs: 06/13/17 07:10 06/13/17 07:10 PT 26.8 SECONDS (9.7-12.2) H 06/09/17 17:13 INR 2.3 06/09/17 17:13 APTT 41 SECONDS (21-34) H 06/09/17 17:13 - Constitutional Appears: Non-toxic, Cachectic, Chronically Ill - Head Exam Head Exam: NORMOCEPHALIC - Eye Exam Eye Exam: PERRL. absent: Scleral icterus - ENT Exam ENT Exam: Mucous Membranes Dry - Neck Exam Neck Exam: absent: Lymphadenopathy - Respiratory Exam Respiratory Exam: Decreased Breath Sounds - Cardiovascular Exam Cardiovascular Exam: REGULAR RHYTHM - GI/Abdominal Exam GI & Abdominal Exam: Distended, Soft Assessment and Plan (1) History of atrial fibrillation Status: Acute (2) Status post CVA Status: Chronic (3) Iron deficiency anemia due to chronic blood loss Status: Resolved (4) CKD (chronic kidney disease) stage 3, GFR 30-59 ml/min Status: Acute (5) Diabetes mellitus Status: Acute (6) UTI (urinary tract infection) Status: Acute
--- NOTE | 2017-06-13 21:44 | CON ---
DATE: 06/13/2017 ATTENDING PHYSICIAN: Dev Price, The patient is in room #651, bed B. REASON FOR THE CONSULTATION: Change in mental status. CHIEF COMPLAINT: The patient was brought in from the longterm with the history of rectal bleed. During the hospitalization, the patient was found to have change in mental status. From neurologic point of view, I was called into evaluate her for further management. HISTORY OF PRESENT ILLNESS: Ms. Katarzyna Yeager is 77-year-old right-handed female who is known to me from her previous hospitalization for visual disturbances, been diagnosed with cardioembolic stroke, resting with cortical blindness. During the hospitalization, the patient did have transesophageal echocardiogram twice being found to have PFO with left to right shunt. However, the patient found to have new atrial fibrillation, being treated with long-term anticoagulation. The patient at this time developed rectal bleed probably secondary to the medication. Medication was stopped and she is admitted for further evaluation for her rectal bleed. During the hospitalization, the patient found to have a change in mental status, which was not quantified at present. No history of fall. No history of trauma. No history of involuntary movement or loss of consciousness. PAST MEDICAL HISTORY: Atrial fibrillation, cortical blindness, clinical depression, and hypertension. PERSONAL HISTORY: Denies smoking or alcohol use. REVIEW OF SYSTEMS: A 12-point system being reviewed. From neuro, change in mental status, which is new. MEDICATIONS: Cardizem, Coreg, aspirin, and Xalatan. PHYSICAL EXAMINATION VITAL SIGNS: Blood pressure 160/82, mean arterial pressure of 108, respiratory rate 16, temperature 97.6, and pulse rate 70, irregularly irregular. EXTREMITIES: Right leg externally rotated. NEUROLOGIC: Mental status examination: She is awake, alert, oriented to person and place. Speech is much better than her previous examination in the past. She follows one- to two-step commands. She is communicable only from her [place] language. She does not accept that she does not see. Does not respond to visual threat. Pupils reactive to light. No facial asymmetry. Motor examination: She was able to lift both upper as well as lower extremities. However, lower extremities on right side seems to be new, it is externally rotated. Deep vein reflexes are absent. Plantars are upgoing on both sides. SENSORY EXAMINATION: Respond to pain symmetrically on both sides. COORDINATION AND GAIT: Deferred at this time. LABORATORY DATA: WBC 5.5, hemoglobin 11.0, hematocrit 34.1, and platelet 248. Sodium 142, potassium 4.0, chloride 106, bicarbonate 24, BUN 7, and creatinine 0.6. GFR more than 60. Glucose 160. Calcium 7.9, magnesium 1.3. Urinalysis shows 2+ blood, leukocytes are 3+. CONCLUSION: Upon review of her history and neurological examination, Katarzyna Yeager presenting with change in mental status. Current examination does not show any other new long track sign except right leg external rotation with cortical blindness. However, the right leg external rotation probably due to the left subcortical stroke process, which may be new versus old. RECOMMENDATION: I would like to stop aspirin also. The patient has clinical depression, sertraline being prescribed. The patient should have CT of the head and electroencephalogram to rule out any new ischemic process versus convulsive process. The patient should be followed for fall precaution. The patient will be followed closely with you. Tenzin Harden MD
[2017-06-13] MEDS: Latanoprost 2.5 ml Opht Soln OU SCH (22:04)
--- NOTE | 2017-06-13 23:27 | CP.PCM.PN ---
Subjective - Date & Time of Evaluation Date of Evaluation: 06/13/17 Time of Evaluation: 18:00 - Subjective Subjective: Patient seen and evaluated No cardiac symptoms Review of Systems - Hematologic/Lymphatic Additional comments: - Constitutional Constitutional: absent: Fever, Chills, Sweats, Weakness - EENT Eyes: Blurred Vision, Change in Vision, Loss of Vision. absent: Spots in Vision Ears: absent: Decreased Hearing, Tinnitus, Dizziness Nose/Mouth/Throat: absent: Facial Pain, Neck Mass - Cardiovascular Cardiovascular: absent: Chest Pain, Dyspnea, Pain Radiating to Arm/Neck/Jaw - Respiratory Respiratory: absent: Cough, Dyspnea - Genitourinary Genitourinary: absent: Dysuria, Urinary Incontinence - Musculoskeletal Musculoskeletal: absent: Back Pain, Muscle Weakness, Numbness, Stiffness, Tingling - Neurological Neurological: Weakness. absent: Dizziness, Numbness, Headaches, Loss of Vision , Sensory Deficit, Syncope, Tingling - Psychiatric Psychiatric: absent: Anxiety, Depression - Endocrine Endocrine: absent: Fatigue, Palpitations Physical Exam - Additional Findings Additional findings: - Constitutional Appears: Non-toxic, No Acute Distress - Head Exam Head Exam: ATRAUMATIC, NORMAL INSPECTION, NORMOCEPHALIC - Eye Exam Eye Exam: EOMI, Normal appearance, PERRL. absent: Nystagmus, Periorbital swelling, Periorbital tenderness Additional comments: - L sided gaze preference - Patient only able to see that the lights are on - (+) corneal reflex - ENT Exam ENT Exam: Mucous Membranes Moist - Neck Exam Neck exam: Positive for: Normal Inspection. Negative for: Lymphadenopathy, Thyromegaly - Respiratory Exam Respiratory Exam: Clear to PA & Lateral, NORMAL BREATHING PATTERN. absent: Rales, Rhonchi, Wheezes - Cardiovascular Exam Cardiovascular Exam: REGULAR RHYTHM, +S1, +S2. absent: Diastolic murmur, Systolic Murmur - GI/Abdominal Exam GI & Abdominal Exam: Normal Bowel Sounds, Soft. absent: Tenderness - Extremities Exam Extremities exam: Positive for: pedal pulses present. Negative for: pedal edema Objective - Vital Signs/Intake and Output Vital Signs (last 24 hours): Temp Pulse Resp BP Pulse Ox 97.4 F L 76 20 117/85 94 L 06/13/17 16:00 06/13/17 16:00 06/13/17 16:00 06/13/17 18:00 06/13/17 16:00 - Medications Medications: Current Medications Brimonidine Tartrate (Alphagan 0.2% Opht) 0 ml OU TID [facility] Last Admin: 06/13/17 18:01 Dose: 1 drop Carvedilol (Coreg) 12.5 mg PO BID [facility] Last Admin: 06/13/17 18:00 Dose: 12.5 mg Diltiazem HCl (Cardizem) 60 mg PO Q6H [facility] Last Admin: 06/13/17 18:00 Dose: 60 mg Imipenem/Cilastatin Sodium 500 (mg/ Sodium Chloride) 100 mls @ 100 mls/hr IVPB Q6H [facility] Last Admin: 06/13/17 18:01 Dose: 100 mls/hr Latanoprost (Xalatan Opht) 0 ml OU HS [facility] Last Admin: 06/13/17 22:04 Dose: 2.5 ml Pantoprazole Sodium (Protonix Ec Tab) 40 mg PO DAILY [facility] Last Admin: 06/13/17 11:05 Dose: 40 mg Sertraline HCl (Zoloft) 25 mg PO DAILY [facility] Last Admin: 06/13/17 11:05 Dose: 25 mg - Labs Labs: 06/13/17 07:10 06/13/17 07:10 PT 26.8 SECONDS (9.7-12.2) H 06/09/17 17:13 INR 2.3 06/09/17 17:13 APTT 41 SECONDS (21-34) H 06/09/17 17:13 Assessment and Plan - Assessment and Plan (Free Text) Assessment: 1. A Fib 2. CVA 3. HTN 4. Sick sinus syndrome Continue all meds
--- NOTE | 2017-06-14 05:47 | EEG ---
DATE: 06/13/2017 This is a 16-channel electroencephalogram of awake and drowsy adult. During the study, photic stimulation was performed. Hyperventilation was not performed. The resting electroencephalogram consist of low amplitude diffuse theta activities superimposed with some fast beta activities noted. The frontal and temporal muscle artifact as well as loose electrode contact artifact noted. There is eye blinking artifact also contaminated the background rhythm. The photic stimulation did not evoke driving response noted at 2 to 20 Hz. There is no activities of the delta mixed with the low theta activities noted. IMPRESSION: This is an abnormal electroencephalogram because of persistent slowing throughout the record suggestive of bilateral cerebral dysfunction This is probably secondary to metabolic, vascular or degenerative process. Please correlate the findings with the neurological and radiological studies. Tenzin Harden MD
[2017-06-14 07:17] LABS: BASO % 0.5 % (0.0-2.0); EOS # 0.1 K/uL (0.0-0.7); EOS % 2.5 % (0.0-4.0); HEMATOCRIT 31.9 % (34.0-47.0); LYMPH # 0.9 K/uL (1.0-4.3); LYMPH % 17.9 % (20.0-40.0); MEAN CORPUSCULAR HEMOGLOBIN 28.9 pg (27.0-31.0); MEAN CORPUSCULAR HGB CONC 32.9 g/dL (33.0-37.0); MONO # 0.4 K/uL (0.0-0.8); MONO % 9.1 % (0.0-10.0); NRBC % 0.1 % (0.0-2.0); WHITE BLOOD COUNT 4.9 K/uL (4.8-10.8)
[2017-06-14 07:23] LABS: CHLORIDE 105 mmol/L (98-107); SODIUM 141 mmol/L (132-148)
[2017-06-14 07:24] LABS: POTASSIUM 3.9 mmol/L (3.6-5.2)
[2017-06-14 07:26] LABS: ALB/GLOB RATIO 0.9 (1.0-2.1); ALKALINE PHOSPHATASE 61 U/L (38-126); AST/SGOT 16 U/L (14-36); BILIRUBIN,TOTAL 0.6 mg/dL (0.2-1.3); BLOOD UREA NITROGEN 5 mg/dL (7-17); CARBON DIOXIDE 27 mmol/L (22-30); GFR AFRICAN-AMERICAN > 60; GLUCOSE,RANDOM 142 mg/dL (65-105); PHOSPHOROUS 3.2 mg/dL (2.5-4.5); TOTAL PROTEIN 5.7 g/dL (6.3-8.3)
[2017-06-14 07:27] LABS: ALT/SGPT 26 U/L (9-52); CALCIUM 8.9 mg/dl (8.6-10.4); MAGNESIUM 1.7 mg/dL (1.6-2.3)
[2017-06-14] MEDS: Pantoprazole 40 mg EC Tab PO SCH (09:50)
[2017-06-14] MEDS: Brimonidine 0.2% Opth Sol (5ml) OU SCH ×2 (09:50→13:03)
--- NOTE | 2017-06-14 11:37 | CP.PCM.PN ---
Subjective - Date & Time of Evaluation Date of Evaluation: 06/14/17 Time of Evaluation: 11:35 - Subjective Subjective: Case discussed with Dr Carter as well as family at bedside It is understood that she may rebleed if put back on anticoagulant or antiplatelet meds Given risk for recurrent stroke ASA will be used with close observation Patient remains adamant about NOT taking a colonoscopy prep. Risk of bleeding and even understood. Objective - Vital Signs/Intake and Output Vital Signs (last 24 hours): Temp Pulse Resp BP Pulse Ox 99.3 F 83 20 136/73 96 06/14/17 07:57 06/14/17 07:57 06/14/17 07:57 06/14/17 09:49 06/14/17 07:57 Intake and Output: 06/14/17 06/14/17 06:59 18:59 Intake Total 320 Output Total 300 Balance 20 - Medications Medications: Current Medications Aspirin (Ecotrin) 81 mg PO DAILY [facility] Brimonidine Tartrate (Alphagan 0.2% Opht) 0 ml OU TID [facility] Last Admin: 06/14/17 09:50 Dose: 0.2 % Carvedilol (Coreg) 12.5 mg PO BID [facility] Last Admin: 06/14/17 09:49 Dose: 12.5 mg Diltiazem HCl (Cardizem) 60 mg PO Q6H [facility] Last Admin: 06/14/17 05:12 Dose: 60 mg Imipenem/Cilastatin Sodium 500 (mg/ Sodium Chloride) 100 mls @ 100 mls/hr IVPB Q6H [facility] Last Admin: 06/14/17 05:13 Dose: 100 mls/hr Latanoprost (Xalatan Opht) 0 ml OU HS [facility] Last Admin: 06/13/17 22:04 Dose: 2.5 ml Pantoprazole Sodium (Protonix Ec Tab) 40 mg PO DAILY [facility] Last Admin: 06/14/17 09:50 Dose: 40 mg Sertraline HCl (Zoloft) 25 mg PO DAILY [facility] Last Admin: 06/14/17 09:50 Dose: 25 mg - Labs Labs: 06/14/17 07:01 06/14/17 07:01 PT 26.8 SECONDS (9.7-12.2) H 06/09/17 17:13 INR 2.3 06/09/17 17:13 APTT 41 SECONDS (21-34) H 06/09/17 17:13 - Constitutional Appears: No Acute Distress - Head Exam Head Exam: ATRAUMATIC, NORMOCEPHALIC - Respiratory Exam Respiratory Exam: NORMAL BREATHING PATTERN - Cardiovascular Exam Cardiovascular Exam: REGULAR RHYTHM - GI/Abdominal Exam GI & Abdominal Exam: Soft, Normal Bowel Sounds. absent: Guarding, Tenderness, Mass, Rebound - Extremities Exam Extremities Exam: Normal Inspection Assessment and Plan (1) Iron deficiency anemia due to chronic blood loss Status: Resolved (2) Afib Status: Chronic (3) GI bleed Assessment & Plan: No further bleeding. Source remains unknown in view of refusal to proceed with colonoscopy. Monitor for rebleeding on ASA therapy. Will sign off at this point in time. Recall as needed. Can see as outpatient as well if needed. Status: Resolved (4) Status post CVA Status: Chronic
[2017-06-14 11:43] LABS: INR 1.1
--- NOTE | 2017-06-14 12:47 | PCM.SURG1 ---
Surgeon's Initial Post Op Note - Surgeon's Notes Surgeon: Gil Herrmann MD Lehr Stripper: None Type of Anesthesia: Local Pre-Operative Diagnosis: Poor venous access Operative Findings: Patent right basilic vein. Post-Operative Diagnosis: Poor venous access Operation Performed: Single lumen picc placement right basilic vein. Specimen/Specimens Removed: None Estimated Blood Loss: EBL {In ML}: 2 Blood Products Given: N/A Drains Used: No Drains Post-Op Condition: Fair Date of Surgery/Procedure: 06/14/17 Time of Surgery/Procedure: 12:40
--- NOTE | 2017-06-14 14:47 | CP.PCM.DIS ---
<Yari Shepherd - Last Filed: 06/14/17 18:07> Provider - Provider Date of Admission: 06/09/17 18:05 Attending physician: Petey Whaley MD Time Spent in preparation of Discharge (in minutes): 40 Hospital Course - Lab Results Lab Results: Micro Results 06/12/17 06:01 Urine Urine Culture - Final Klebsiella Pneumoniae Ssp Pneu Most Recent Lab Values WBC 4.9 K/uL (4.8-10.8) 06/14/17 07:01 RBC 3.63 Mil/uL (3.80-5.20) L 06/14/17 07:01 Hgb 10.5 g/dL (11.0-16.0) L 06/14/17 07:01 Hct 31.9 % (34.0-47.0) L 06/14/17 07:01 MCV 88.0 fL (81.0-99.0) 06/14/17 07:01 MCH 28.9 pg (27.0-31.0) 06/14/17 07:01 MCHC 32.9 g/dL (33.0-37.0) L 06/14/17 07:01 RDW 17.0 % (11.5-14.5) H 06/14/17 07:01 Plt Count 287 K/uL (130-400) 06/14/17 07:01 MPV 7.0 fL (7.2-11.7) L 06/14/17 07:01 Neut % (Auto) 70.0 % (50.0-75.0) 06/14/17 07:01 Lymph % (Auto) 17.9 % (20.0-40.0) L 06/14/17 07:01 [place] % (Auto) 9.1 % (0.0-10.0) 06/14/17 07:01 Eos % (Auto) 2.5 % (0.0-4.0) 06/14/17 07:01 Baso % (Auto) 0.5 % (0.0-2.0) 06/14/17 07:01 Neut # 3.4 K/uL (1.8-7.0) 06/14/17 07:01 Lymph # 0.9 K/uL (1.0-4.3) L 06/14/17 07:01 [place] # 0.4 K/uL (0.0-0.8) 06/14/17 07:01 Eos # 0.1 K/uL (0.0-0.7) 06/14/17 07:01 Baso # 0.0 K/uL (0.0-0.2) 06/14/17 07:01 PT 11.9 SECONDS (9.7-12.2) 06/14/17 11:24 INR 1.1 06/14/17 11:24 APTT 30 SECONDS (21-34) 06/14/17 11:24 Sodium 141 mmol/L (132-148) 06/14/17 07:01 Potassium 3.9 mmol/L (3.6-5.2) 06/14/17 07:01 Chloride 105 mmol/L (98-107) 06/14/17 07:01 Carbon Dioxide 27 mmol/L (22-30) 06/14/17 07:01 Anion Gap 13 (10-20) 06/14/17 07:01 BUN 5 mg/dL (7-17) L 06/14/17 07:01 Creatinine 0.6 MG/DL (0.7-1.2) L 06/14/17 07:01 Est GFR ( Amer) > 60 06/14/17 07:01 Est GFR (Non-Af Amer) > 60 06/14/17 07:01 POC Glucose (mg/dL) 186 mg/dL (65-110) H 06/14/17 11:42 Random Glucose 142 mg/dL (65-105) H 06/14/17 07:01 Calcium 8.9 mg/dl (8.6-10.4) 06/14/17 07:01 Phosphorus 3.2 mg/dL (2.5-4.5) 06/14/17 07:01 Magnesium 1.7 mg/dL (1.6-2.3) 06/14/17 07:01 Total Bilirubin 0.6 mg/dL (0.2-1.3) 06/14/17 07:01 AST 16 U/L (14-36) 06/14/17 07:01 ALT 26 U/L (9-52) 06/14/17 07:01 Alkaline Phosphatase 61 U/L (38-126) 06/14/17 07:01 Total Protein 5.7 g/dL (6.3-8.3) L 06/14/17 07:01 Albumin 2.7 g/dL (3.5-5.0) L 06/14/17 07:01 Globulin 3.0 gm/dL (2.2-3.9) 06/14/17 07:01 Albumin/Globulin Ratio 0.9 (1.0-2.1) L 06/14/17 07:01 Urine Color Yellow (YELLOW) 06/12/17 06:01 Urine Clarity Hazy (Clear) 06/12/17 06:01 Urine pH 5.0 (5.0-8.0) 06/12/17 06:01 Ur Specific [place] 1.016 (1.003-1.030) 06/12/17 06:01 Urine Protein Negative mg/dL (NEGATIVE) 06/12/17 06:01 Urine Glucose (UA) 1+ mg/dL (Normal) 06/12/17 06:01 Urine Ketones Trace mg/dL (NEGATIVE) 06/12/17 06:01 Urine Blood 2+ (NEGATIVE) H 06/12/17 06:01 Urine Nitrate Positive (NEGATIVE) H 06/12/17 06:01 Urine Bilirubin Negative (NEGATIVE) 06/12/17 06:01 Urine Urobilinogen Normal mg/dL (0.2-1.0) 06/12/17 06:01 Ur Leukocyte Esterase 3+ Pepe/uL (Negative) H 06/12/17 06:01 Urine WBC (Auto) 188 /hpf (0-5) H 06/12/17 06:01 Urine RBC (Auto) 8 /hpf (0-3) H 06/12/17 06:01 Urine WBC Clumps (Auto) Few /hpf (NONE) H 06/12/17 06:01 Ur Squamous Epith Cells 3 /hpf (0-5) 06/12/17 06:01 Urine Bacteria Rare (<OCC) 06/12/17 06:01 Stool Occult Blood Positive (NEGATIVE) H 06/09/17 17:44 Blood Type B POSITIVE 06/09/17 17:13 Antibody Screen Negative 06/09/17 17:13 - Hospital Course Hospital Course: This is a 77 year old female with PMHx of multiple CVA (most recently in 04/2017) , HTN, Afib, sick sinus syndrome s/p pacemaker implantation 05/24/17, DM, anemia , hypercholesterolemia who presented from [facility] for gross rectal bleeding. This was noticed earlier today at 3PM by the patient's [id number]. In the patient's adult diaper, there was blood mixed amongst the contents. When questioned, the patient's other sister at bedside stated "regular red" in color. Patient at baseline is able to sense when she has to move her bowels but is unable to control it. Patient denies ever straining or experiencing constipation. Stool at baseline is a mix of loose stools with some formed elements. The [id number] called Dr. Velazquez who advised transfer to [facility]. There are no changes in stool character. Patient denies changes in diet. PMHx: CVA with visual deficits (04/2017, 02/2015); HTN, DM, hypercholesterolemia PSHx: Pacemaker implantation 05/24/17; c-sections, b/l cataract surgery SocHx: denies smoking, alcohol, and drug uses; comes from [facility] but normally lives at home with family Allergies: NKDA PMD: Dr. Velazquez Convex Grinder: Dr. Carter Medications: as per [facility]: Colace 100 mg PO BID, Cyproheptadine 4 mg PO before breakfast for appetite stimulation (end date: 06/13), Eliquis 5 mg PO BID, Cardizem 30 mg PO TID, Ferrous sulfate 325 mg PO BID, Folic acid 1 mg PO daily, Losartan 100 mg PO daily, milk of mag 30 ml Q24 prn ONLY if no BM for 3 days, Mylanta suspension 30 ml PO Q4H prn dyspepsia, Zofran 4 mg PO Q6H prn nausea, Crestor 10 mg PO HS, Kayexcelate 30 mg PO daily every Sunday and Sunday for hyperkalemia, Tylenol 650 mg PO Q4H prn pain, Aspirin 81 mg PO daily, Coreg 25 mg PO BID, Febuxostat 40 mg PO daily, Metformin 1000 mg PO BID, Bimatoprost solution 1 drop in each eye HS, Brimonidine tartrate solution 0.2% 1 drop in each eye HS Contact Information: Tramaine Singletary (nephew) [phone] Renate (sister) [phone] Hospital Course: 06/09/17: Patient is a 77 F reporting to the Emergency Department from [place] for evaluation of rectal bleeding. Chest x-ray performed and showed cardiac pacemaker and developing left basilar atelectasis or infiltrate. EKG done and showed atrial fibrillation with occasional ventricular-paced complexes. Patient admitted for further workup. 06/10/17: Dr. Thorpe consulted to evaluate GI bleed. Patient diagnosed with UTI E.Coli and ESBL + 06/11/17: Endoscopy performed and showed esophagitis with no bleeding, diffuse and patchy mild inflammation in entire stomach examined, biopsies taken from both esophagus and stomach. Dr. Shaver consulted for possible urinary tract infection. 06/12/17: Colonoscopy canceled due to patient's inability to drink contrast. Per Dr. Thorpe patient can retry the colonoscopy as an outpatient if clinically warranted and patient/family agreeable. Per GI (Dr. Thorpe) patient is not cleared to start on Eliquis because patient refused to complete the prep for the colonoscopy. 06/13/17: Neurology Dr. Hardne consulted. EEG was performed and showed findings suggestive of bilateral cerebral dysfunction secondary to metabolic, vascular or degenerative process. Head CT performed and showed subacute old left [employer] infarct, old right [employer] infarct, old b/l ganglia lacunar infarcts, mild diffuse atrohy and chronic periventricular white matter with ischemic change. 06/14/17: Per Dr. Shaver patient is to continue IV Primaxin for UTI infection for a total of 10 days. Patient had a Picc line placed by Dr. Herrmann to receive antibiotics at rehab. Patient is stable to be transferred to rehab facilicty per Dr. Whaley. Patient is to continue Primaxin 500mg for 6 more days (for a total of 10 days on antibiotics). Patient is to continue some home medications. Patient is to continue new medications: 12.5mg Carvedilol PO BID 60mg Cardizem PO Q6H 25mg Sertraline PO daily 81mg Aspirin PO daily Patient is to discontinue these medications: Eliquis and Losartan Patient is to follow up with PMD (Dr. Velazquez) within a week after leaving the rehab facility. Patient is to return to the Emergency Room if symptoms worsen. This is a brief summary of events. For a complete course, refer to the medical record. Discharge Exam - Head Exam Head Exam: ATRAUMATIC, NORMAL INSPECTION, NORMOCEPHALIC - Eye Exam Eye Exam: EOMI, Normal appearance, PERRL Pupil Exam: NORMAL ACCOMODATION, PERRL - ENT Exam ENT Exam: Mucous Membranes Moist - Respiratory Exam Respiratory Exam: Clear to PA & Lateral, NORMAL BREATHING PATTERN - Cardiovascular Exam Cardiovascular Exam: REGULAR RHYTHM, RRR, +S1, +S2 - GI/Abdominal Exam GI & Abdominal Exam: Normal Bowel Sounds, Soft. absent: Tenderness - Extremities Exam Extremities exam: normal inspection - Neurological Exam Neurological exam: Alert, Oriented x3 - Psychiatric Exam Psychiatric exam: Normal Affect - Skin Skin Exam: Normal Color, Warm Discharge Plan - Discharge Medications Prescriptions: Carvedilol [Coreg] 12.5 mg PO BID #60 tab diltiaZEM [Cardizem] 60 mg PO Q6H #120 tab Imipenem/Cilastatin [Primaxin IV] 500 mg IVPB Q6H #24 vial Sertraline [Zoloft] 25 mg PO DAILY #30 tab - Follow Up Plan Condition: FAIR Disposition: REHAB FACILITY/REHAB UNIT Instructions: Gastrointestinal Bleeding (DC), Urinary Tract Infection in Women (DC), Upper Endoscopy (DC) Referrals: Yuriy Velazquez MD [Staff Provider] - <Petey Whaley - Last Filed: 06/14/17 18:37> Provider - Provider Date of Admission: 06/09/17 18:05 Attending physician: Petey Whaley MD Hospital Course - Lab Results Lab Results: Micro Results 06/12/17 06:01 Urine Urine Culture - Final Klebsiella Pneumoniae Ssp Pneu Most Recent Lab Values WBC 4.9 K/uL (4.8-10.8) 06/14/17 07:01 RBC 3.63 Mil/uL (3.80-5.20) L 06/14/17 07:01 Hgb 10.5 g/dL (11.0-16.0) L 06/14/17 07:01 Hct 31.9 % (34.0-47.0) L 06/14/17 07:01 MCV 88.0 fL (81.0-99.0) 06/14/17 07:01 MCH 28.9 pg (27.0-31.0) 06/14/17 07:01 MCHC 32.9 g/dL (33.0-37.0) L 06/14/17 07:01 RDW 17.0 % (11.5-14.5) H 06/14/17 07:01 Plt Count 287 K/uL (130-400) 06/14/17 07:01 MPV 7.0 fL (7.2-11.7) L 06/14/17 07:01 Neut % (Auto) 70.0 % (50.0-75.0) 06/14/17 07:01 Lymph % (Auto) 17.9 % (20.0-40.0) L 06/14/17 07:01 [place] % (Auto) 9.1 % (0.0-10.0) 06/14/17 07:01 Eos % (Auto) 2.5 % (0.0-4.0) 06/14/17 07:01 Baso % (Auto) 0.5 % (0.0-2.0) 06/14/17 07:01 Neut # 3.4 K/uL (1.8-7.0) 06/14/17 07:01 Lymph # 0.9 K/uL (1.0-4.3) L 06/14/17 07:01 [place] # 0.4 K/uL (0.0-0.8) 06/14/17 07:01 Eos # 0.1 K/uL (0.0-0.7) 06/14/17 07:01 Baso # 0.0 K/uL (0.0-0.2) 06/14/17 07:01 PT 11.9 SECONDS (9.7-12.2) 06/14/17 11:24 INR 1.1 06/14/17 11:24 APTT 30 SECONDS (21-34) 06/14/17 11:24 Sodium 141 mmol/L (132-148) 06/14/17 07:01 Potassium 3.9 mmol/L (3.6-5.2) 06/14/17 07:01 Chloride 105 mmol/L (98-107) 06/14/17 07:01 Carbon Dioxide 27 mmol/L (22-30) 06/14/17 07:01 Anion Gap 13 (10-20) 06/14/17 07:01 BUN 5 mg/dL (7-17) L 06/14/17 07:01 Creatinine 0.6 MG/DL (0.7-1.2) L 06/14/17 07:01 Est GFR ( Amer) > 60 06/14/17 07:01 Est GFR (Non-Af Amer) > 60 06/14/17 07:01 POC Glucose (mg/dL) 310 mg/dL (65-110) H 06/14/17 16:33 Random Glucose 142 mg/dL (65-105) H 06/14/17 07:01 Calcium 8.9 mg/dl (8.6-10.4) 06/14/17 07:01 Phosphorus 3.2 mg/dL (2.5-4.5) 06/14/17 07:01 Magnesium 1.7 mg/dL (1.6-2.3) 06/14/17 07:01 Total Bilirubin 0.6 mg/dL (0.2-1.3) 06/14/17 07:01 AST 16 U/L (14-36) 06/14/17 07:01 ALT 26 U/L (9-52) 06/14/17 07:01 Alkaline Phosphatase 61 U/L (38-126) 06/14/17 07:01 Total Protein 5.7 g/dL (6.3-8.3) L 06/14/17 07:01 Albumin 2.7 g/dL (3.5-5.0) L 06/14/17 07:01 Globulin 3.0 gm/dL (2.2-3.9) 06/14/17 07:01 Albumin/Globulin Ratio 0.9 (1.0-2.1) L 06/14/17 07:01 Urine Color Yellow (YELLOW) 06/12/17 06:01 Urine Clarity Hazy (Clear) 06/12/17 06:01 Urine pH 5.0 (5.0-8.0) 06/12/17 06:01 Ur Specific [place] 1.016 (1.003-1.030) 06/12/17 06:01 Urine Protein Negative mg/dL (NEGATIVE) 06/12/17 06:01 Urine Glucose (UA) 1+ mg/dL (Normal) 06/12/17 06:01 Urine Ketones Trace mg/dL (NEGATIVE) 06/12/17 06:01 Urine Blood 2+ (NEGATIVE) H 06/12/17 06:01 Urine Nitrate Positive (NEGATIVE) H 06/12/17 06:01 Urine Bilirubin Negative (NEGATIVE) 06/12/17 06:01 Urine Urobilinogen Normal mg/dL (0.2-1.0) 06/12/17 06:01 Ur Leukocyte Esterase 3+ Pepe/uL (Negative) H 06/12/17 06:01 Urine WBC (Auto) 188 /hpf (0-5) H 06/12/17 06:01 Urine RBC (Auto) 8 /hpf (0-3) H 06/12/17 06:01 Urine WBC Clumps (Auto) Few /hpf (NONE) H 06/12/17 06:01 Ur Squamous Epith Cells 3 /hpf (0-5) 06/12/17 06:01 Urine Bacteria Rare (<OCC) 06/12/17 06:01 Stool Occult Blood Positive (NEGATIVE) H 06/09/17 17:44 Blood Type B POSITIVE 06/09/17 17:13 Antibody Screen Negative 06/09/17 17:13 Attending/Attestation - Attestation I have personally seen and examined this patient.: Yes I have fully participated in the care of the patient.: Yes I have reviewed all pertinent clinical information, including history, physical exam and plan: Yes Notes (Text): 06/14/17 18:37 Patient was seen and examined at bedside with the resident Patient appears comfortable We will discharge the patient to subacute rehabilitation center for treatment with the IV antibiotics I discussed the plan of care with the resident and I agree with the discharge note by the resident.
[2017-06-14 17:02] VITALS: BP 158/86; PULSE 75; TEMP 97.4; O2SAT 100
--- NOTE | 2017-06-14 22:21 | CP.PCM.PN ---
Subjective - Date & Time of Evaluation Date of Evaluation: 06/14/17 Time of Evaluation: 08:10 - Subjective Subjective: Patient seen and evaluated Colonoscopy could not performed due to lack of cooperation from the patient Can't start Eliquis due to bleeding risk ASA 81 daily Family is aware Review of Systems - Hematologic/Lymphatic Additional comments: - Constitutional Constitutional: absent: Fever, Chills, Sweats, Weakness - EENT Eyes: Blurred Vision, Change in Vision, Loss of Vision. absent: Spots in Vision Ears: absent: Decreased Hearing, Tinnitus, Dizziness Nose/Mouth/Throat: absent: Facial Pain, Neck Mass - Cardiovascular Cardiovascular: absent: Chest Pain, Dyspnea, Pain Radiating to Arm/Neck/Jaw - Respiratory Respiratory: absent: Cough, Dyspnea - Genitourinary Genitourinary: absent: Dysuria, Urinary Incontinence - Musculoskeletal Musculoskeletal: absent: Back Pain, Muscle Weakness, Numbness, Stiffness, Tingling - Neurological Neurological: Weakness. absent: Dizziness, Numbness, Headaches, Loss of Vision , Sensory Deficit, Syncope, Tingling - Psychiatric Psychiatric: absent: Anxiety, Depression - Endocrine Endocrine: absent: Fatigue, Palpitations Physical Exam - Additional Findings Additional findings: - Constitutional Appears: Non-toxic, No Acute Distress - Head Exam Head Exam: ATRAUMATIC, NORMAL INSPECTION, NORMOCEPHALIC - Eye Exam Eye Exam: EOMI, Normal appearance, PERRL. absent: Nystagmus, Periorbital swelling, Periorbital tenderness Additional comments: - L sided gaze preference - Patient only able to see that the lights are on - (+) corneal reflex - ENT Exam ENT Exam: Mucous Membranes Moist - Neck Exam Neck exam: Positive for: Normal Inspection. Negative for: Lymphadenopathy, Thyromegaly - Respiratory Exam Respiratory Exam: Clear to PA & Lateral, NORMAL BREATHING PATTERN. absent: Rales, Rhonchi, Wheezes - Cardiovascular Exam Cardiovascular Exam: REGULAR RHYTHM, +S1, +S2. absent: Diastolic murmur, Systolic Murmur - GI/Abdominal Exam GI & Abdominal Exam: Normal Bowel Sounds, Soft. absent: Tenderness - Extremities Exam Extremities exam: Positive for: pedal pulses present. Negative for: pedal edema Objective - Vital Signs/Intake and Output Vital Signs (last 24 hours): Temp Pulse Resp BP Pulse Ox 97.4 F L 75 20 158/86 H 100 06/14/17 15:05 06/14/17 15:05 06/14/17 15:05 06/14/17 15:05 06/14/17 15:05 - Labs Labs: 06/14/17 07:01 06/14/17 07:01 PT 11.9 SECONDS (9.7-12.2) 06/14/17 11:24 INR 1.1 06/14/17 11:24 APTT 30 SECONDS (21-34) 06/14/17 11:24 Assessment and Plan - Assessment and Plan (Free Text) Assessment: 1. A Fib 2. CVA 3. HTN 4. Sick sinus syndrome Patient seen and evaluated Colonoscopy could not performed due to lack of cooperation from the patient Can't start Eliquis due to bleeding risk ASA 81 daily Family is aware
--- NOTE | 2017-06-15 01:33 | PN ---
DATE OF EVALUATION: 06/14/2017 PHYSICAL EXAMINATION: VITAL SIGNS: Blood pressure 175/82 mean arterial pressure of 113, respiratory rate is 16, temperature 98.0, pulse rate Irregularly regular with 81 per minute. The patient is awake, alert. Speech is intact. 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 Her sleep was somewhat improved. The patient is on antidepressant. The patient on hold of antiplatelet's and anticoagulation because of the rectal bleed and hematuria. Continue the present management at bedside. Physical therapy should be started. Tenzin Harden MD
--- NOTE | 2017-06-15 11:55 | RAD ---
PROCEDURE: Date of procedure: 06/14/2017 Procedure: 1. Placement of a right arm PICC with ultrasound and fluoroscopic guidance, CPT 36474 2. PICC tip confirmation with spot radiograph and is in the superior vena cava Medications: 1 percent lidocaine Total Fluoro time: 15.2 seconds Radiation: 1.7 MGy EBL: 2 cc HISTORY: Poor venous access TECHNIQUE: Following informed consent and procedure time-out, the patient was placed supine on the interventional table and the right arm prepped and draped in the usual sterile fashion. Ultrasound showed a patent and compressible right basilic vein. After the skin was anesthetized with lidocaine, the basilic vein was accessed with micro micropuncture technique using ultrasound guidance. A guidewire was then advanced under fluoroscopic guidance into the superior vena cava. An image documenting ultrasound guidance for vascular access was permanently saved. The length of the single-lumen 4 Ethiopian PICC was trimmed to 35centimeters and advanced through a peel-away sheath. The PICC was position with tip of PICC confirm a spot radiograph the superior vena cava. The PICC was secured to the patient's skin. The PICC was flushed. A biopatch and sterile dressing was applied. IMPRESSION: Placement of a single-lumen 4 Ethiopian PICC trimmed to 35 centimeters via right basilic vein. The tip of the PICC is confirmed with spot radiograph and is in the superior vena cava.
--- NOTE | 2017-06-15 11:56 | US ---
Date of procedure: 06/14/2017 Procedure: Ultrasound guidance for vascular access HISTORY: Infection requiring long-term IV antibiotics TECHNIQUE: Following informed consent and procedure time-out, the patient placed supine on the interventional table and the right arm prepped and draped in the usual sterile fashion. Ultrasound showed a patent and compressible basilic vein. After the skin was anesthetized with lidocaine, the basilic vein was accessed with micro micropuncture technique using ultrasound guidance. An image documenting ultrasound guidance for vascular access was permanently saved. IMPRESSION: Ultrasound guidance for vascular access for placement of PICC.
== END 2017-06-14 17:50 | DRG 812 ==
LOC: C.ER 16:24 → C.9E 18:05 → C.6T 18:50
PROVIDERS: ADMIT Internal Medicine; ATTEND Internal Medicine
PROC: 30233N1 Transfusion of Nonautologous Red Blood Cells into Peripheral Vein, Percutaneous Approach (ICD-10-PCS; 2017-06-09)
PROC: 0DB68ZX Excision of Stomach, Via Natural or Artificial Opening Endoscopic, Diagnostic (ICD-10-PCS; 2017-06-11)
PROC: 0DB58ZX Excision of Esophagus, Via Natural or Artificial Opening Endoscopic, Diagnostic (ICD-10-PCS; principal; 2017-06-11 07:51)
PROC: 4A10X4Z Monitoring of Central Nervous Electrical Activity, External Approach (ICD-10-PCS; 2017-06-13)
PROC: 02HV33Z Insertion of Infusion Device into Superior Vena Cava, Percutaneous Approach (ICD-10-PCS; 2017-06-14)
PROC: B5181ZA Fluoroscopy of Superior Vena Cava using Low Osmolar Contrast, Guidance (ICD-10-PCS; 2017-06-14)
PROC: B54MZZA Ultrasonography of Right Upper Extremity Veins, Guidance (ICD-10-PCS; 2017-06-14)
DX: D50.0 Iron deficiency anemia secondary to blood loss (chronic) (principal); E11.22 Type 2 diabetes mellitus with diabetic chronic kidney disease; I49.5 Sick sinus syndrome; N39.0 Urinary tract infection, site not specified; Q21.1 Atrial septal defect; K92.2 Gastrointestinal hemorrhage, unspecified; B96.20 Unspecified Escherichia coli [E. coli] as the cause of diseases classified elsewhere; I48.91 Unspecified atrial fibrillation; N18.3 Chronic kidney disease, stage 3 (moderate); I12.9 Hypertensive chronic kidney disease with stage 1 through stage 4 chronic kidney disease, or unspecified chronic kidney disease; E78.00 Pure hypercholesterolemia, unspecified; Z95.0 Presence of cardiac pacemaker; Z86.73 Personal history of transient ischemic attack (TIA), and cerebral infarction without residual deficits; K21.0 Gastro-esophageal reflux disease with esophagitis; R41.82 Altered mental status, unspecified; Z53.29 Procedure and treatment not carried out because of patient's decision for other reasons; Z79.01 Long term (current) use of anticoagulants; H54.0 Blindness, both eyes; E03.9 Hypothyroidism, unspecified; H40.9 Unspecified glaucoma; I25.10 Atherosclerotic heart disease of native coronary artery without angina pectoris; K29.70 Gastritis, unspecified, without bleeding; Z16.12 Extended spectrum beta lactamase (ESBL) resistance